=== PATIENT | female | born 1970 | race Caucasian/White ===

== ENCOUNTER 2016-04-03 12:20 | Observation (INO) ==
--- NOTE | 2016-04-03 12:56 | Emergency Department Note ---
START Narrative - START START: I examined this patient and my medical decision-making was reviewed with the LOSS PREVENTION OPERATIONS MANAGER/PA/Advanced Practice Nurse/Resident Physician. I agree with the documented findings, disposition and treatment plan as described except to the extent set forth below. ED attending: Patient's emergency medicine resident Dr. Avila. Please see copy of this note for H&P evaluation and management and ED disposition. We both had independent [id number] time in contact with this patient. 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 Was discharged from a senior living facility yesterday but was too weak to get out of the car that she was put in. Patient will be readmitted to the hospital. We have neonatal social worker consult. Apparently there is preauthorization needed for Medicare regarding physical therapy and occupational therapy assessments.. Patient stable. Admission pending.
--- NOTE | 2016-04-03 13:07 | Emergency Department Note ---
Disposition Clinical Impression: Weakness UTI (urinary tract infection) Qualifiers: Urinary tract infection type: acute cystitis Hematuria presence: without hematuria Qualified Code(s): N30.00 - Acute cystitis without hematuria Disposition: Home, Self-Care Condition: Good Forms: ED Satisfaction Letter Weakness HPI - General Chief complaint: ED Weakness Stated complaint: Weakness Time Seen by Provider: 04/03/16 12:28 Source: patient, EMS Limitations: no limitations Nursing Notes Reviewed: Yes Vital Signs Reviewed: Yes - History of Present Illness HPI Narrative: Patient here for evaluation of generalized weakness. Patient had a CVA approximately 3 months ago and has been staying at long-term rehabilitation facility. Patient was undergoing physical therapy and was discharged yesterday. Patient drove herself home but was unable to get out of the car due to bilateral leg weakness that is chronic in nature but worse after discharge. Patient had slight dysuria that has progressed and is significant during emergency department stay. Saying that it willis very bad. Patient was asked about how she felt about the home with her she was excited or anxious and she does have an underlying anxiety component possibly contributing. Patient is known social work and there are currently placed for placement at long-term care facility. Screening labs and urinalysis be performed to further inquire about possible etiology of worsening weakness. Pain Scale: 10 - Related Data Allergies Allergy/AdvReac Type Severity Reaction Status Date / Time Penicillins Allergy Rash Verified 01/27/16 09:52 Tetracycline Allergy Rash Verified 01/27/16 09:52 All systems ED: reviewed and negative except as stated. Constitutional: Reports: weakness Genitourinary: Reports: dysuria Past Medical History - Past Medical History Medical history: Reports: cancer, CVA, diabetes, thyroid disease Psychiatric history: Reports: no psych history - Social History Smoking Status: Current every day smoker Smokeless Tobacco Status: No Alcohol use: Reports: occasionally Drug use: Reports: none Physical Exam - General Limitations: no limitations General appearance: alert, in no apparent distress - Head Head exam: atraumatic, normocephalic - Eye Eye exam: Present: normal appearance, PERRL - ENT ENT exam: normal exam, normal oropharynx - Neck Neck exam: Present: normal inspection, full ROM - Chest Chest inspection: Present: normal inspection, symmetric chest wall rise. Absent : tenderness - Cardiovascular Cardiovascular exam: Present: regular rate, normal rhythm - Abdominal Exam Abdominal exam: Present: soft, Non-Tender, other (Abdominal chronic wound) - Extremities Exam Extremities exam: Present: normal inspection, other (Weakness of the legs bilaterally.) - Back Exam Back exam: Present: normal inspection - Neurological Exam Neurological exam: Present: alert, oriented X3, CN II-XII intact, other (Lower extremity weakness that is chronic and was being worked on at physical therapy) - Psychiatric Psychiatric exam: Present: normal affect, normal mood - Skin Skin exam: Present: other (Chronic abdominal wound) Course - Reevaluation(s) Reevaluation #1: Patient with [id number] urinary tract infection. Patient will need IV access and admission. - Consultations Consultation #1: Discussed with Dr. Eng. Pt accepted. Vital Signs Temperature 98.3 F 04/03/16 12:21 Pulse Rate 91 04/03/16 12:21 Respiratory Rate 20 04/03/16 12:21 Blood Pressure 131/81 04/03/16 12:21 O2 Sat by Pulse Oximetry 97 04/03/16 12:21 Temperature 98.3 F 04/03/16 12:21 Pulse Rate 86 04/03/16 15:21 Respiratory Rate 20 04/03/16 15:21 Blood Pressure 141/78 04/03/16 15:21 O2 Sat by Pulse Oximetry 95 04/03/16 15:21 Oxygen Delivery Oxygen Delivery Room Air Weakness - Lab Data Result diagrams: 04/03/16 13:44 04/03/16 13:44 Lab Results 04/03/16 04/03/16 04/03/16 Range/Units 13:22 13:44 13:44 WBC 15.1 H (4.3-11.1) K/mcL RBC 5.17 H (3.82-4.97) M/mcL Hgb 15.2 (11.5-15.4) g/dL Hct 46.5 H (35.3-44.9) % MCV 89.9 (83.0-100.0) fL MCH 29.4 (28.0-33.3) pg MCHC 32.7 (31.6-35.5) g/dL RDW 14.9 H (11.5-14.5) % Plt Count 261 (140-400) K/mcL MPV 10.1 (9.4-12.4) fL Immature Gran % 0.6 (0-4) % Seg Neutrophils % 78.4 % Lymphocytes % 14.5 % Monocytes % 5.5 % Eosinophils % 0.7 % Basophils % 0.3 % Neutrophils # 11.8 H (1.6-8.9) K/mcL Lymphocytes # 2.2 (0.6-4.6) K/mcL Monocytes # 0.8 (0.0-1.3) K/mcL Eosinophils # 0.1 (0.0-0.6) K/mcL Basophils # 0.1 (0.0-0.2) K/mcL Sodium 136 (136-145) mEq/L Potassium 4.5 (3.5-4.5) mEq/L Chloride 99 (98-109) mEq/L Carbon Dioxide 25 (19-29) mEq/L BUN 36 H (7-20) mg/dL Creatinine 1.23 H (0.57-1.11) mg/dL Est GFR ( Amer) 57 L (> 60) Est GFR (Non-Af Amer) 47 L (> 60) BUN/Creatinine Ratio 29 H (6-26) Glucose 383 H (70-99) mg/dL Calculated Osmolality 306 H (280-300) Calcium 9.5 (8.6-10.8) mg/dL Total Bilirubin 1.0 (0.2-1.2) mg/dL AST 10 (5-34) Units/L ALT 11 (0-55) Units/L Alkaline Phosphatase 95 (38-126) Units/L Troponin I (0-0.03) ng/mL Serum Total Protein 8.2 (6.0-8.3) g/dL Albumin 3.6 (3.5-5.0) g/dL Globulin 4.6 H (2.4-3.5) g/dL Albumin/Globulin Ratio 0.8 L (1.1-2.2) TSH 5.406 H (0.350-4.840) mcIU/mL Urine Color Yellow (Yellow) Urine Clarity Turbid A (Clear) Urine pH 5.5 (5.0-8.0) pH Units Ur Specific Kyle 1.024 (1.010-1.025) Urine Protein 100 H (Neg-Trace) mg/dL Urine Glucose (UA) Normal (Normal) mg/dL Urine Ketones Negative (Negative) mg/dL Urine Blood Moderate H (Negative) Urine Nitrite Positive A (Negative) Urine Bilirubin Negative (Negative) Urine Urobilinogen Normal (Normal) mg/dL Ur Leukocyte Esterase Large H (Negative) Urine Microscopic RBC 5-15 H (0-3) per hpf Urine Microscopic WBC TNTC H (0-3) per hpf Ur Squamous Epith Cells Moderate H (None-Few) per lpf Urine Bacteria Many H (None-Few) per hpf Ur Culture Indicated? YES A (NO) 04/03/16 Range/Units 13:44 WBC (4.3-11.1) K/mcL RBC (3.82-4.97) M/mcL Hgb (11.5-15.4) g/dL Hct (35.3-44.9) % MCV (83.0-100.0) fL MCH (28.0-33.3) pg MCHC (31.6-35.5) g/dL RDW (11.5-14.5) % Plt Count (140-400) K/mcL MPV (9.4-12.4) fL Immature Gran % (0-4) % Seg Neutrophils % % Lymphocytes % % Monocytes % % Eosinophils % % Basophils % % Neutrophils # (1.6-8.9) K/mcL Lymphocytes # (0.6-4.6) K/mcL Monocytes # (0.0-1.3) K/mcL Eosinophils # (0.0-0.6) K/mcL Basophils # (0.0-0.2) K/mcL Sodium (136-145) mEq/L Potassium (3.5-4.5) mEq/L Chloride (98-109) mEq/L Carbon Dioxide (19-29) mEq/L BUN (7-20) mg/dL Creatinine (0.57-1.11) mg/dL Est GFR ( Amer) (> 60) Est GFR (Non-Af Amer) (> 60) BUN/Creatinine Ratio (6-26) Glucose (70-99) mg/dL Calculated Osmolality (280-300) Calcium (8.6-10.8) mg/dL Total Bilirubin (0.2-1.2) mg/dL AST (5-34) Units/L ALT (0-55) Units/L Alkaline Phosphatase (38-126) Units/L Troponin I 0.01 (0-0.03) ng/mL Serum Total Protein (6.0-8.3) g/dL Albumin (3.5-5.0) g/dL Globulin (2.4-3.5) g/dL Albumin/Globulin Ratio (1.1-2.2) TSH (0.350-4.840) mcIU/mL Urine Color (Yellow) Urine Clarity (Clear) Urine pH (5.0-8.0) pH Units Ur Specific Kyle (1.010-1.025) Urine Protein (Neg-Trace) mg/dL Urine Glucose (UA) (Normal) mg/dL Urine Ketones (Negative) mg/dL Urine Blood (Negative) Urine Nitrite (Negative) Urine Bilirubin (Negative) Urine Urobilinogen (Normal) mg/dL Ur Leukocyte Esterase (Negative) Urine Microscopic RBC (0-3) per hpf Urine Microscopic WBC (0-3) per hpf Ur Squamous Epith Cells (None-Few) per lpf Urine Bacteria (None-Few) per hpf Ur Culture Indicated? (NO)
[2016-04-03 13:35] LABS: Clarity,Urine Turbid (Clear); Color,Urine Yellow (Yellow)
[2016-04-03 13:36] LABS: Bilirubin,Urine Negative (Negative); Blood,Urine Moderate (Negative); Glucose,Urine (UA) Normal (Normal); Ketones,Urine Negative (Negative); Leukocyte Esterase,Urine Large (Negative); Nitrite,Urine Positive (Negative); PH,Urine 5.5 pH Units (5.0-8.0); Protein,Urine 100 mg/dL (Neg-Trace); Specific Gravity,Urine 1.024 (1.010-1.025); Urobilinogen,Urine Normal (Normal)
[2016-04-03 13:43] LABS: WBC,Urine TNTC per hpf (0-3)
[2016-04-03 13:44] LABS: Bacteria,Urine Many per hpf (None-Few); Squamous Epithelial Cell,Urine Moderate per lpf (None-Few)
[2016-04-03 13:58] LABS: Basophils # 0.1 K/mcL (0.0-0.2); Basophils % 0.3 %; Eosinophils # 0.1 K/mcL (0.0-0.6); Eosinophils % 0.7 %; Hematocrit 46.5 % (35.3-44.9); Hemoglobin 15.2 g/dL (11.5-15.4); Immature Granulocytes % 0.6 % (0-4); Lymphocytes # 2.2 K/mcL (0.6-4.6); Lymphocytes % 14.5 %; Mean Corpuscular HGB Conc 32.7 g/dL (31.6-35.5); Mean Corpuscular Hemoglobin 29.4 pg (28.0-33.3); Mean Corpuscular Volume 89.9 fL (83.0-100.0); Mean Platelet Volume 10.1 fL (9.4-12.4); Monocytes # 0.8 K/mcL (0.0-1.3); Monocytes % 5.5 %; Neutrophils # 11.8 K/mcL (1.6-8.9); Platelet Count 261 K/mcL (140-400); Red Blood Count 5.17 M/mcL (3.82-4.97); Red Cell Distribution Width 14.9 % (11.5-14.5); Segmented Neutrophils % 78.4 %
[2016-04-03 14:14] LABS: Albumin 3.6 g/dL (3.5-5.0); Albumin/Globulin Ratio 0.8 (1.1-2.2); Calcium 9.5 mg/dL (8.6-10.8); Globulin 4.6 g/dL (2.4-3.5); Potassium 4.5 mEq/L (3.5-4.5); Total Protein 8.2 g/dL (6.0-8.3)
[2016-04-03 14:35] LABS: Thyroid Stimulating Hormone 5.406 mcIU/mL (0.350-4.840)
[2016-04-03] MEDS ORDERED: Insulin Regular, Human 100 UNIT/ML SQ ONE (14:45)
[2016-04-03] MEDS ORDERED: Cefepime HCl 1,000 MG in D5% in Water (Mini-Bag+) 100 ML IVPB STA (14:51)
[2016-04-03] MEDS ORDERED: Naloxone 0.4 MG/ML INJ IVP PRN (15:41)
[2016-04-03] MEDS ORDERED: Acetaminophen 325 MG TABLET PO PRN (15:41)
[2016-04-03] MEDS ORDERED: Ondansetron 4 MG/2 ML VIAL IVP PRN (15:41)
[2016-04-03] MEDS ORDERED: *HR* Dextrose 50 % in Water (Syg) 50 ML SYRINGE IVP PRN (15:46)
[2016-04-03] MEDS ORDERED: Dextrose Gel 15 GM PO PRN ×2 (15:46)
[2016-04-03] MEDS ORDERED: D5% in Water 1,000 ML IV PRN (15:46)
--- NOTE | 2016-04-03 16:38 | Internal Med History&Physical ---
Date of Encounter: 04/03/16 Time of Encounter: 15:30 Assessment and Plan (1) Acute kidney injury Current visit: Yes Status: Acute Acute kidney injury likely related to UTI and dehydration. We will hydrate intravenously. Monitor input and output. Follow renal function. Avoid nephrotoxic agents. Patient could also have underlying chronic kidney disease related to her diabetes. Unknown baseline creatinine levels. Patient does report good urine output. Will place patient for observation in the hospital. (2) Morbid obesity with BMI of 60.0-69.9, adult Current visit: Yes Status: Acute Recommend exercise and weight loss and consideration for bariatric surgery. (3) UTI (urinary tract infection) Current visit: Yes Status: Acute Previously treated for Proteus resistant to fluoroquinolones and sensitive to cefepime. Will start patient on cefepime for now. Follow culture results and adjust antibiotics accordingly. Qualifiers: Urinary tract infection type: acute cystitis Hematuria presence: without hematuria Qualified Code(s): N30.00 - Acute cystitis without hematuria (4) Weakness Current visit: Yes Status: Acute Likely from acute urinary tract infection and dehydration. We will consult physical therapy and occupational therapy. (5) Diabetes mellitus type 2 with complications Current visit: Yes Status: Acute With hyperglycemia. We will place patient on sliding scale insulin. Diabetic diet. Monitor blood sugars closely before meals at bedtime. Qualifiers: Diabetes mellitus prison insulin use: unspecified prison insulin use status Qualified Code(s): E11.8 - Type 2 diabetes mellitus with unspecified complications Internal Medicine - H&P: HPI Chief complaint: Generalized weakness, dysuria Admitted From: Home Plans for Post Hospital Care: Home History of present illness: Ms. Cat is a 45 year old female with history of genital cancer, morbid obesity, diabetes mellitus type 2 presented to the ER from home with complaints of generalized weakness to the point where she was unable to get out of her car and slept in her car yesterday. She had just been discharged from the [place] [facility] with living for the past couple of months for rehabilitation. She also complains of dysuria but does not remember any fevers chills or night sweats. Denies any hematuria. She has nausea but no vomiting. She also feels weak especially in her right leg which she was receiving physical therapy. Denies any other focal deficits.No speech deficits. No chest pain or palpitations. Past Med Surg Social Fam HX - Past Medical History Medical history: cancer (in her pelvic region), CVA, diabetes, thyroid disease Psychiatric history: no psych history - Past Surgical History Surgical History: other (Pelvic surgery for her cancer, hernia repair) - Social History Smoking Status: Current every day smoker Smokeless Tobacco Status: No Alcohol use: occasionally Drug use: none - Additional Family History Additional family history: Reviewed and found to be noncontributory at this time Internal Medicine - H&P: Meds Albuterol Sulfate [Ventolin Hfa] 2 puff IH Q4H PRN 04/03/16 [History] Alprazolam [Xanax 0.5 MG Tablet] 0.5 mg PO TID PRN 04/03/16 [History] Atorvastatin Calcium [Lipitor] 20 mg PO HS 04/03/16 [History] Beclomethasone Diprop 80mcg [Qvar 80 mcg] 2 puff IH BID 04/03/16 [History] BuPROPion SR (12 HR) [Wellbutrin SR] 100 mg PO BID 04/03/16 [History] Cyanocobalamin (B-12) [Vitamin B12] 1,000 mcg PO DAILY 04/03/16 [History] Fluticasone Propionate Nasal [Flonase] 1 - 2 spray NS DAILY PRN 04/03/16 [ History] Gabapentin [Neurontin] 400 mg PO TID 04/03/16 [History] Insulin DETEMIR [Levemir Flextouch] 0 unit SQ AD 04/03/16 [History] Insulin Regular U-500 [HumuLIN R U-500] 0 unit SQ QIDAC 04/03/16 [History] Levothyroxine Sodium [Levoxyl] 200 mcg PO DAILY 04/03/16 [History] Levothyroxine [Synthroid] 150 mcg PO DAILY 04/03/16 [History] Loratadine [Allergy Relief] 10 mg PO DAILY 04/03/16 [History] Metformin HCl [Glucophage] 1,000 mg PO BID 04/03/16 [History] Mometasone Furoate [Asmanex] 2 puff IH BID 04/03/16 [History] Oxycodone HCl [Oxycontin] 20 mg PO Q4H PRN 04/03/16 [History] Ranitidine HCl [Acid [employer] Examiner] 150 mg PO BID 04/03/16 [History] Trazodone HCl 100 mg PO HS 04/03/16 [History] Triamcinolone Acet 0.1% CRM [Kenalog] 1 appl TP BID 04/03/16 [History] Allergies Penicillins Allergy (Verified 01/27/16 09:52) Rash Tetracycline Allergy (Verified 01/27/16 09:52) Rash All Systems PM: A 10-system review of systems was performed and is negative for pertinent findings except as documented above in the HPI. - Constitutional Constitutional: malaise, weakness, no chills, no fever(s), no night sweats - EENT Eyes: no change in vision, no discharge, no pain, no photophobia Ears: no ear discharge, no ear pain, no tinnitus Nose, mouth and throat: no dysphagia, no nasal discharge, no neck pain, no sore throat - Cardiovascular Cardiovascular ROS IM: no chest pain, no diaphoresis, no dyspnea, no lightheadedness, no palpitations, no syncope - Respiratory Respiratory: no cough, no dyspnea, no wheezing, no excessive phlegm production - Gastrointestinal Gastrointestinal: nausea, no abdominal pain, no diarrhea, no hematemesis, no hematochezia, no melena, no vomiting - Genitourinary Genitourinary: dysuria, urinary hesitancy - Musculoskeletal Musculoskeletal ROS IM: no numbness, no tingling - Integumentary Integumentary IM: no rash, no unusual bruising - Neurological Neurological ROS: no confusion, no convulsions, no focal weakness, no numbness, no tingling, no tremor(s) - Hematologic/Lymphatic Hematologic/Lymphatic: no easy bruising - Constitutional Vitals: Temp Pulse Resp BP Pulse Ox 98.3 F 86 20 141/78 95 04/03/16 12:21 04/03/16 15:21 04/03/16 15:21 04/03/16 15:21 04/03/16 15:21 General appearance: Present: cooperative, mild distress, A&O X 3, morbidly obese , pleasant, answers questions appropriately - Head Head exam: Present: atraumatic, normocephalic - Eye Eye exam: Present: EOMI, PERRL, conjuntiva pink Pupils: Present: normal accommodation - Neck Neck exam general surgery: Present: supple, trachea midline. Absent: lymphadenopathy - Respiratory Respiratory exam: Present: CTAB. Absent: accessory muscle use, rales, rhonchi, wheezes - Cardiovascular Cardiovascular exam: Present: RRR, +S1, +S2. Absent: diastolic murmur, gallop, rubs, systolic murmur - GI/Abdominal GI/Abdominal exam: Present: normal bowel sounds, soft, no peritoneal signs. Absent: distended, tenderness - Extremities Exam Extremities exam: Present: warm, radial pulses palpable and symetrical. Absent : calf tenderness, cyanotic, pedal edema - Neurological Exam Neurological exam: Present: CN II-XII intact, oriented X3, no focal deficits, strengths equal and symetr throughout. Absent: facial droop, speech deficit - Skin Skin exam: Present: dry, intact Internal Med - H&P Results - Labs CBC & Chem 7: 04/03/16 13:44 04/03/16 13:44 - Attending Attestation This document has been at least partially created by [employer] voice recognition technology by Dr. Gustafson. Errors in grammar, wording or other phrases may exist. If errors are found after the documentation is signed, they will be addressed individually in the addendum section of this document when appropriate. Medical Decision Making - MDM Narrative Medical decision making narrative: Patient is at moderate risk for complications - Medical Records Medical records reviewed: Yes I reviewed the patient's medical records. - Lab Data Lab results reviewed: Yes I reviewed the patient's lab results. Result diagrams: 04/03/16 13:44 04/03/16 13:44
[2016-04-03] MEDS: 0.9 % Sodium Chloride 1,000 ML IVC SCH (18:09)
[2016-04-03] MEDS: Insulin LISPRO 300 UNITS/3 ML VIAL SQ SCH ×3 (18:10→21:15)
[2016-04-03] MEDS ORDERED: Fluticasone Propionate Nasal 50 MCG/SPRAY BOTTLE NS PRN (18:56)
[2016-04-03] MEDS ORDERED: Ipratropium/Albuterol Neb 3 ML IH PRN (18:58)
[2016-04-03] MEDS ORDERED: NON-FORMULARY MEDICATION 1 EACH EACH (Ranitidine Hcl [Acid Reducer] 150 MG) PO SCH (21:00)
[2016-04-03] MEDS: Famotidine 20 MG TABLET PO SCH (21:10)
[2016-04-03] MEDS: traZODone 50 MG TABLET PO SCH (21:11)
[2016-04-03] MEDS: Gabapentin 400 MG CAPSULE PO SCH (21:12)
[2016-04-03] MEDS: BuPROPion SR (12 HR) 100 MG TABLET PO SCH (21:14)
[2016-04-03] MEDS: Triamcinolone Acet 0.1% CRM 15 GM TUBE TP SCH (21:14)
[2016-04-03] MEDS: *HR* OxyCODONE ER (12 HR) 20 MG TABLET PO PRN (21:23)
[2016-04-03] MEDS: Beclomethasone 80mcg MDI IH SCH (22:51)
[2016-04-03] MEDS: ALPRAZolam 0.5 MG TABLET PO PRN (23:48)
[2016-04-04] MEDS: 0.9 % Sodium Chloride 1,000 ML IVC SCH ×2 (04:31→15:45)
[2016-04-04] MEDS: Cefepime HCl 2,000 MG in D5% in Water (Mini-Bag+) 100 ML IVPB SCH ×2 (04:32→17:47)
[2016-04-04 05:01] LABS: Basophils % 0.4 %; Eosinophils # 0.2 K/mcL (0.0-0.6); Eosinophils % 2.2 %; Hematocrit 41.3 % (35.3-44.9); Hemoglobin 13.5 g/dL (11.5-15.4); Lymphocytes # 2.1 K/mcL (0.6-4.6); Lymphocytes % 21.8 %; Mean Corpuscular HGB Conc 32.7 g/dL (31.6-35.5); Mean Corpuscular Hemoglobin 29.2 pg (28.0-33.3); Mean Corpuscular Volume 89.4 fL (83.0-100.0); Mean Platelet Volume 10.2 fL (9.4-12.4); Monocytes # 0.6 K/mcL (0.0-1.3); Monocytes % 5.6 %; Neutrophils # 6.8 K/mcL (1.6-8.9); Platelet Count 220 K/mcL (140-400); Red Blood Count 4.62 M/mcL (3.82-4.97); Red Cell Distribution Width 14.9 % (11.5-14.5)
[2016-04-04 05:26] LABS: BUN/Creatinine Ratio 33 (6-26); Blood Urea Nitrogen 30 mg/dL (7-20); Calcium 8.7 mg/dL (8.6-10.8); Carbon Dioxide 24 mEq/L (19-29); Chloride 103 mEq/L (98-109); Glucose 360 mg/dL (70-99); Osmolality,Calculated 309 (280-300); Potassium 4.1 mEq/L (3.5-4.5); Sodium 139 mEq/L (136-145); eGFR For African Americans > 60 (> 60); eGFR For Non-African Americans > 60 (> 60)
[2016-04-04] MEDS: Gabapentin 400 MG CAPSULE PO SCH ×3 (08:20→21:34)
[2016-04-04] MEDS: Insulin LISPRO 300 UNITS/3 ML VIAL SQ SCH ×7 (08:20→21:33)
[2016-04-04] MEDS: BuPROPion SR (12 HR) 100 MG TABLET PO SCH ×2 (08:20→21:35)
[2016-04-04] MEDS: Cyanocobalamin (B-12) 1,000 MCG TABLET PO SCH (08:20)
[2016-04-04] MEDS: Famotidine 20 MG TABLET PO SCH ×2 (08:20→21:35)
[2016-04-04] MEDS: Loratadine 10 MG TABLET PO SCH (08:20)
[2016-04-04] MEDS: Triamcinolone Acet 0.1% CRM 15 GM TUBE TP SCH ×2 (08:21→21:34)
[2016-04-04] MEDS: *HR* OxyCODONE ER (12 HR) 20 MG TABLET PO PRN (09:25)
[2016-04-04] MEDS: Beclomethasone 80mcg MDI IH SCH ×2 (10:56→22:14)
--- NOTE | 2016-04-04 14:55 | Internal Med Progress Note ---
Date of Encounter: 04/04/16 Time of Encounter: 14:56 - Assessment and plan (1) UTI (urinary tract infection) Current Visit: Yes Status: Acute Assessment and plan: With gram-negative rods on urine culture. Continue cefepime for now. Will follow up culture results. Patient is clinically feeling better. Qualifiers: Urinary tract infection type: acute cystitis Hematuria presence: without hematuria Qualified Code(s): N30.00 - Acute cystitis without hematuria (2) Acute kidney injury Current Visit: Yes Status: Resolved Assessment and plan: Improved. Creatinine normal today. BUN remains elevated. Continue IV hydration. (3) Morbid obesity with BMI of 60.0-69.9, adult Current Visit: Yes Status: Chronic Assessment and plan: Recommend outpatient referral to weight management Center. (4) Weakness Current Visit: Yes Status: Acute Assessment and plan: Generalized weakness. PT OT consulted. Recommend placement to residential facility. We will consult social services coordinator regarding this. (5) Diabetes mellitus type 2 with complications Current Visit: Yes Status: Acute Assessment and plan: Uncontrolled. Will increase insulin coverage. Qualifiers: Diabetes mellitus terminal operator insulin use: unspecified usp insulin use status Qualified Code(s): E11.8 - Type 2 diabetes mellitus with unspecified complications - Subjective Interval history: Patient is doing better today. Dysuria is improving. Denies any fever or chills or night sweats overnight. No abdominal pain. No nausea or vomiting today. - Constitutional Vitals: Temp Pulse Resp BP Pulse Ox 97.2 F L 84 17 148/81 93 L 04/04/16 11:08 04/04/16 11:08 04/04/16 11:08 04/04/16 11:08 04/04/16 11:08 General appearance: Present: cooperative, A&O X 3, morbidly obese, pleasant, no acute distress, answers questions appropriately - Neck Neck exam general surgery: Present: supple, trachea midline. Absent: lymphadenopathy - Respiratory Respiratory exam: Present: CTAB. Absent: accessory muscle use, rales, rhonchi, wheezes - Cardiovascular Cardiovascular exam: Present: RRR, +S1, +S2. Absent: diastolic murmur, gallop, rubs, systolic murmur - GI/Abdominal GI/Abdominal exam: Present: normal bowel sounds, soft, no peritoneal signs. Absent: distended, tenderness - Extremities Exam Extremities exam: Present: warm, radial pulses palpable and symetrical. Absent : calf tenderness, cyanotic, pedal edema - Neurological Exam Neurological exam: Present: CN II-XII intact, oriented X3, no focal deficits. Absent: facial droop, speech deficit - Psychiatric Psychiatric exam: Present: normal affect, normal mood - Skin Skin exam: Present: dry, intact Internal Medicine: Result - Labs CBC & Chem 7: 04/04/16 04:23 04/04/16 04:23 Labs: Short CBC 04/04/16 Range/Units 04:23 WBC 9.8 (4.3-11.1) K/mcL Hgb 13.5 D (11.5-15.4) g/dL Hct 41.3 (35.3-44.9) % Plt Count 220 (140-400) K/mcL Neutrophils # 6.8 (1.6-8.9) K/mcL BMP 04/04/16 04:23 Sodium 139 Potassium 4.1 Chloride 103 Carbon Dioxide 24 BUN 30 H Creatinine 0.91 Glucose 360 H Calcium 8.7 Consult Discharge Plan - Plan Referrals: Carley Barth DO [Primary Care Provider] - - Attending Attestation This document has been at least partially created by [employer] recognition technology by Dr. Gustafson. Errors in grammar, wording or other phrases may exist. If errors are found after the documentation is signed, they will be addressed individually in the addendum section of this document when appropriate. Medical Decision Making - MDM Narrative Medical decision making narrative: Moderate risk for complications - Lab Data Result diagrams: 04/04/16 04:23 04/04/16 04:23 Lab Results 04/03/16 04/03/16 04/04/16 Range/Units 17:32 20:53 04:23 WBC 9.8 (4.3-11.1) K/mcL RBC 4.62 (3.82-4.97) M/mcL Hgb 13.5 D (11.5-15.4) g/dL Hct 41.3 (35.3-44.9) % MCV 89.4 (83.0-100.0) fL MCH 29.2 (28.0-33.3) pg MCHC 32.7 (31.6-35.5) g/dL RDW 14.9 H (11.5-14.5) % Plt Count 220 (140-400) K/mcL MPV 10.2 (9.4-12.4) fL Immature Gran % 1.0 (0-4) % Seg Neutrophils % 69.0 % Lymphocytes % 21.8 % Monocytes % 5.6 % Eosinophils % 2.2 % Basophils % 0.4 % Neutrophils # 6.8 (1.6-8.9) K/mcL Lymphocytes # 2.1 (0.6-4.6) K/mcL Monocytes # 0.6 (0.0-1.3) K/mcL Eosinophils # 0.2 (0.0-0.6) K/mcL Basophils # 0.0 (0.0-0.2) K/mcL Sodium (136-145) mEq/L Potassium (3.5-4.5) mEq/L Chloride (98-109) mEq/L Carbon Dioxide (19-29) mEq/L BUN (7-20) mg/dL Creatinine (0.57-1.11) mg/dL Est GFR ( Amer) (> 60) Est GFR (Non-Af Amer) (> 60) BUN/Creatinine Ratio (6-26) Glucose (70-99) mg/dL POC Glucose 353 H 251 H (58-89) Calculated Osmolality (280-300) Calcium (8.6-10.8) mg/dL 04/04/16 04/04/16 04/04/16 Range/Units 04:23 07:45 11:33 WBC (4.3-11.1) K/mcL RBC (3.82-4.97) M/mcL Hgb (11.5-15.4) g/dL Hct (35.3-44.9) % MCV (83.0-100.0) fL MCH (28.0-33.3) pg MCHC (31.6-35.5) g/dL RDW (11.5-14.5) % Plt Count (140-400) K/mcL MPV (9.4-12.4) fL Immature Gran % (0-4) % Seg Neutrophils % % Lymphocytes % % Monocytes % % Eosinophils % % Basophils % % Neutrophils # (1.6-8.9) K/mcL Lymphocytes # (0.6-4.6) K/mcL Monocytes # (0.0-1.3) K/mcL Eosinophils # (0.0-0.6) K/mcL Basophils # (0.0-0.2) K/mcL Sodium 139 (136-145) mEq/L Potassium 4.1 (3.5-4.5) mEq/L Chloride 103 (98-109) mEq/L Carbon Dioxide 24 (19-29) mEq/L BUN 30 H (7-20) mg/dL Creatinine 0.91 (0.57-1.11) mg/dL Est GFR ( Amer) > 60 (> 60) Est GFR (Non-Af Amer) > 60 (> 60) BUN/Creatinine Ratio 33 H (6-26) Glucose 360 H (70-99) mg/dL POC Glucose 327 H 303 H (58-89) Calculated Osmolality 309 H (280-300) Calcium 8.7 (8.6-10.8) mg/dL
[2016-04-04] MEDS: *HR* OxyCODONE Immed Rel 5 MG TABLET PO PRN ×2 (15:43→20:01)
[2016-04-04] MEDS: ALPRAZolam 0.5 MG TABLET PO PRN (15:44)
--- NOTE | 2016-04-04 16:04 | Electrocardiograph Report ---
[facility] Test Date: 2016-04-03 Pat Name: Anali Cat Department: 104 Room: 3B55 Gender: F Dive Superintendent: : 1970 Requested By: Jose Alfredo Avila Order Number: [id number] Reading MD: Zaida Spicer Measurements Intervals [place] Rate: 89 P: 37 VA: 152 QRS: 55 QRSD: 89 T: 79 QT: 319 QTc: 366 Interpretive Statements SINUS RHYTHM WITH SINUS ARRHYTHMIA NONSPECIFIC T-WAVE ABNORMALITY Electronically Signed On 04-04-16 16:02:58 EST by Zaida Spicer
[2016-04-04] MEDS: Insulin DETEMIR 100 UNIT/ML X5UNITS SQ SCH (21:33)
[2016-04-04] MEDS: traZODone 50 MG TABLET PO SCH (21:35)
[2016-04-05] MEDS: *HR* OxyCODONE Immed Rel 5 MG TABLET PO PRN ×3 (03:19→18:33)
[2016-04-05 03:40] LABS: Basophils % 0.4 %; Eosinophils # 0.2 K/mcL (0.0-0.6); Eosinophils % 2.7 %; Hematocrit 40.7 % (35.3-44.9); Lymphocytes # 1.1 K/mcL (0.6-4.6); Lymphocytes % 13.1 %; Mean Corpuscular HGB Conc 31.9 g/dL (31.6-35.5); Mean Corpuscular Hemoglobin 29.2 pg (28.0-33.3); Mean Corpuscular Volume 91.5 fL (83.0-100.0); Mean Platelet Volume 10.4 fL (9.4-12.4); Monocytes # 0.5 K/mcL (0.0-1.3); Monocytes % 5.7 %; Neutrophils # 6.4 K/mcL (1.6-8.9); Platelet Count 208 K/mcL (140-400); Red Blood Count 4.45 M/mcL (3.82-4.97); Red Cell Distribution Width 14.8 % (11.5-14.5); Segmented Neutrophils % 77.1 %
[2016-04-05 03:58] LABS: BUN/Creatinine Ratio 25 (6-26); Blood Urea Nitrogen 24 mg/dL (7-20); Calcium 8.5 mg/dL (8.6-10.8); Carbon Dioxide 25 mEq/L (19-29); Chloride 104 mEq/L (98-109); Glucose 341 mg/dL (70-99); Osmolality,Calculated 308 (280-300); Potassium 4.6 mEq/L (3.5-4.5); Sodium 140 mEq/L (136-145); eGFR For African Americans > 60 (> 60); eGFR For Non-African Americans > 60 (> 60)
[2016-04-05] MEDS: Cefepime HCl 2,000 MG in D5% in Water (Mini-Bag+) 100 ML IVPB SCH ×2 (04:30→18:13)
[2016-04-05] MEDS: 0.9 % Sodium Chloride 1,000 ML IVC SCH (04:33)
[2016-04-05] MEDS: Beclomethasone 80mcg MDI IH SCH ×2 (08:21→22:49)
[2016-04-05] MEDS: Famotidine 20 MG TABLET PO SCH ×2 (08:42→20:15)
[2016-04-05] MEDS: Cyanocobalamin (B-12) 1,000 MCG TABLET PO SCH (08:42)
[2016-04-05] MEDS: Loratadine 10 MG TABLET PO SCH (08:42)
[2016-04-05] MEDS: BuPROPion SR (12 HR) 100 MG TABLET PO SCH ×2 (08:42→20:14)
[2016-04-05] MEDS: Triamcinolone Acet 0.1% CRM 15 GM TUBE TP SCH ×2 (08:42→20:16)
[2016-04-05] MEDS: Gabapentin 400 MG CAPSULE PO SCH ×3 (08:42→20:14)
[2016-04-05] MEDS: Insulin LISPRO 300 UNITS/3 ML VIAL SQ SCH ×7 (08:43→20:16)
[2016-04-05] MEDS: ALPRAZolam 0.5 MG TABLET PO PRN ×2 (08:48→18:33)
[2016-04-05] MEDS: Insulin DETEMIR 100 UNIT/ML X5UNITS SQ SCH ×2 (09:01→20:15)
--- NOTE | 2016-04-05 15:12 | Internal Med Progress Note ---
Date of Encounter: 04/05/16 Time of Encounter: 08:50 - Assessment and plan (1) UTI (urinary tract infection) Current Visit: Yes Status: Acute Assessment and plan: Awaiting culture results. Patient is growing gram-negative rods. This needs further testing according to the lab. Concern for resistant bacteria. As such we will keep the patient hospitalized and her culture results are positive and we have an appropriate antibiotic treatment plan for the patient. Qualifiers: Urinary tract infection type: acute cystitis Hematuria presence: without hematuria Qualified Code(s): N30.00 - Acute cystitis without hematuria (2) Acute kidney injury Current Visit: Yes Status: Resolved (3) Morbid obesity with BMI of 60.0-69.9, adult Current Visit: Yes Status: Chronic (4) Weakness Current Visit: Yes Status: Acute Assessment and plan: Continue PTOT. Placement to skilled rehabilitation. (5) Diabetes mellitus type 2 with complications Current Visit: Yes Status: Acute Assessment and plan: Remains uncontrolled. We will further increase in insulin regimen. Qualifiers: Diabetes mellitus penitentiary insulin use: unspecified penitentiary insulin use status Qualified Code(s): E11.8 - Type 2 diabetes mellitus with unspecified complications - Subjective Interval history: Continues to improve. Dysuria resolving. Denies any fever or chills or night sweats. No abdominal pain. No nausea or vomiting today. - Constitutional Vitals: Temp Pulse Resp BP Pulse Ox 97.7 F 96 17 137/76 98 04/05/16 14:48 04/05/16 14:48 04/05/16 14:48 04/05/16 14:48 04/05/16 14:48 General appearance: Present: cooperative, A&O X 3, morbidly obese, pleasant, no acute distress, answers questions appropriately - Respiratory Respiratory exam: Present: CTAB. Absent: accessory muscle use, rales, rhonchi, wheezes - Cardiovascular Cardiovascular exam: Present: RRR, +S1, +S2. Absent: diastolic murmur, gallop, rubs, systolic murmur - GI/Abdominal GI/Abdominal exam: Present: normal bowel sounds, soft, no peritoneal signs. Absent: distended, tenderness - Extremities Exam Extremities exam: Present: warm, radial pulses palpable and symetrical. Absent : calf tenderness, cyanotic, pedal edema - Neurological Exam Neurological exam: Present: oriented X3, no focal deficits, strengths equal and symetr throughout. Absent: facial droop, speech deficit - Skin Skin exam: Present: dry, intact Internal Medicine: Result - Labs CBC & Chem 7: 04/05/16 03:25 04/05/16 03:25 Labs: Short CBC 04/05/16 Range/Units 03:25 WBC 8.3 (4.3-11.1) K/mcL Hgb 13.0 (11.5-15.4) g/dL Hct 40.7 (35.3-44.9) % Plt Count 208 (140-400) K/mcL Neutrophils # 6.4 (1.6-8.9) K/mcL BMP 04/05/16 03:25 Sodium 140 Potassium 4.6 H Chloride 104 Carbon Dioxide 25 BUN 24 H Creatinine 0.95 Glucose 341 H Calcium 8.5 L Consult Discharge Plan - Plan Referrals: Carley Barth DO [Primary Care Provider] - - Attending Attestation This document has been at least partially created by [employer] recognition technology by Dr. Gustafson. Errors in grammar, wording or other phrases may exist. If errors are found after the documentation is signed, they will be addressed individually in the addendum section of this document when appropriate. Medical Decision Making - MDM Narrative Medical decision making narrative: Moderate risk for complications - Lab Data Result diagrams: 04/05/16 03:25 04/05/16 03:25 Lab Results 04/03/16 04/03/16 04/04/16 Range/Units 17:32 20:53 04:23 WBC 9.8 (4.3-11.1) K/mcL RBC 4.62 (3.82-4.97) M/mcL Hgb 13.5 D (11.5-15.4) g/dL Hct 41.3 (35.3-44.9) % MCV 89.4 (83.0-100.0) fL MCH 29.2 (28.0-33.3) pg MCHC 32.7 (31.6-35.5) g/dL RDW 14.9 H (11.5-14.5) % Plt Count 220 (140-400) K/mcL MPV 10.2 (9.4-12.4) fL Immature Gran % 1.0 (0-4) % Seg Neutrophils % 69.0 % Lymphocytes % 21.8 % Monocytes % 5.6 % Eosinophils % 2.2 % Basophils % 0.4 % Neutrophils # 6.8 (1.6-8.9) K/mcL Lymphocytes # 2.1 (0.6-4.6) K/mcL Monocytes # 0.6 (0.0-1.3) K/mcL Eosinophils # 0.2 (0.0-0.6) K/mcL Basophils # 0.0 (0.0-0.2) K/mcL Sodium (136-145) mEq/L Potassium (3.5-4.5) mEq/L Chloride (98-109) mEq/L Carbon Dioxide (19-29) mEq/L BUN (7-20) mg/dL Creatinine (0.57-1.11) mg/dL Est GFR ( Amer) (> 60) Est GFR (Non-Af Amer) (> 60) BUN/Creatinine Ratio (6-26) Glucose (70-99) mg/dL POC Glucose 353 H 251 H (58-89) Calculated Osmolality (280-300) Calcium (8.6-10.8) mg/dL 04/04/16 04/04/16 04/04/16 Range/Units 04:23 07:45 11:33 WBC (4.3-11.1) K/mcL RBC (3.82-4.97) M/mcL Hgb (11.5-15.4) g/dL Hct (35.3-44.9) % MCV (83.0-100.0) fL MCH (28.0-33.3) pg MCHC (31.6-35.5) g/dL RDW (11.5-14.5) % Plt Count (140-400) K/mcL MPV (9.4-12.4) fL Immature Gran % (0-4) % Seg Neutrophils % % Lymphocytes % % Monocytes % % Eosinophils % % Basophils % % Neutrophils # (1.6-8.9) K/mcL Lymphocytes # (0.6-4.6) K/mcL Monocytes # (0.0-1.3) K/mcL Eosinophils # (0.0-0.6) K/mcL Basophils # (0.0-0.2) K/mcL Sodium 139 (136-145) mEq/L Potassium 4.1 (3.5-4.5) mEq/L Chloride 103 (98-109) mEq/L Carbon Dioxide 24 (19-29) mEq/L BUN 30 H (7-20) mg/dL Creatinine 0.91 (0.57-1.11) mg/dL Est GFR ( Amer) > 60 (> 60) Est GFR (Non-Af Amer) > 60 (> 60) BUN/Creatinine Ratio 33 H (6-26) Glucose 360 H (70-99) mg/dL POC Glucose 327 H 303 H (58-89) Calculated Osmolality 309 H (280-300) Calcium 8.7 (8.6-10.8) mg/dL 04/04/16 04/04/16 04/05/16 Range/Units 16:36 20:40 03:25 WBC 8.3 (4.3-11.1) K/mcL RBC 4.45 (3.82-4.97) M/mcL Hgb 13.0 (11.5-15.4) g/dL Hct 40.7 (35.3-44.9) % MCV 91.5 (83.0-100.0) fL MCH 29.2 (28.0-33.3) pg MCHC 31.9 (31.6-35.5) g/dL RDW 14.8 H (11.5-14.5) % Plt Count 208 (140-400) K/mcL MPV 10.4 (9.4-12.4) fL Immature Gran % 1.0 (0-4) % Seg Neutrophils % 77.1 % Lymphocytes % 13.1 % Monocytes % 5.7 % Eosinophils % 2.7 % Basophils % 0.4 % Neutrophils # 6.4 (1.6-8.9) K/mcL Lymphocytes # 1.1 (0.6-4.6) K/mcL Monocytes # 0.5 (0.0-1.3) K/mcL Eosinophils # 0.2 (0.0-0.6) K/mcL Basophils # 0.0 (0.0-0.2) K/mcL Sodium (136-145) mEq/L Potassium (3.5-4.5) mEq/L Chloride (98-109) mEq/L Carbon Dioxide (19-29) mEq/L BUN (7-20) mg/dL Creatinine (0.57-1.11) mg/dL Est GFR ( Amer) (> 60) Est GFR (Non-Af Amer) (> 60) BUN/Creatinine Ratio (6-26) Glucose (70-99) mg/dL POC Glucose 331 H 304 H (58-89) Calculated Osmolality (280-300) Calcium (8.6-10.8) mg/dL 04/05/16 Range/Units 03:25 WBC (4.3-11.1) K/mcL RBC (3.82-4.97) M/mcL Hgb (11.5-15.4) g/dL Hct (35.3-44.9) % MCV (83.0-100.0) fL MCH (28.0-33.3) pg MCHC (31.6-35.5) g/dL RDW (11.5-14.5) % Plt Count (140-400) K/mcL MPV (9.4-12.4) fL Immature Gran % (0-4) % Seg Neutrophils % % Lymphocytes % % Monocytes % % Eosinophils % % Basophils % % Neutrophils # (1.6-8.9) K/mcL Lymphocytes # (0.6-4.6) K/mcL Monocytes # (0.0-1.3) K/mcL Eosinophils # (0.0-0.6) K/mcL Basophils # (0.0-0.2) K/mcL Sodium 140 (136-145) mEq/L Potassium 4.6 H (3.5-4.5) mEq/L Chloride 104 (98-109) mEq/L Carbon Dioxide 25 (19-29) mEq/L BUN 24 H (7-20) mg/dL Creatinine 0.95 (0.57-1.11) mg/dL Est GFR ( Amer) > 60 (> 60) Est GFR (Non-Af Amer) > 60 (> 60) BUN/Creatinine Ratio 25 (6-26) Glucose 341 H (70-99) mg/dL POC Glucose (58-89) Calculated Osmolality 308 H (280-300) Calcium 8.5 L (8.6-10.8) mg/dL
[2016-04-05] MEDS: traZODone 50 MG TABLET PO SCH (20:14)
[2016-04-06] MEDS: *HR* OxyCODONE Immed Rel 5 MG TABLET PO PRN ×2 (04:31→08:47)
[2016-04-06] MEDS: Cefepime HCl 2,000 MG in D5% in Water (Mini-Bag+) 100 ML IVPB SCH (04:31)
[2016-04-06 07:58] VITALS: BP 144/71
[2016-04-06] MEDS: ALPRAZolam 0.5 MG TABLET PO PRN (08:47)
[2016-04-06] MEDS: BuPROPion SR (12 HR) 100 MG TABLET PO SCH (08:47)
[2016-04-06] MEDS: Famotidine 20 MG TABLET PO SCH (08:47)
[2016-04-06] MEDS: Gabapentin 400 MG CAPSULE PO SCH (08:47)
[2016-04-06] MEDS: Cyanocobalamin (B-12) 1,000 MCG TABLET PO SCH (08:47)
[2016-04-06] MEDS: Loratadine 10 MG TABLET PO SCH (08:47)
[2016-04-06] MEDS: Insulin LISPRO 300 UNITS/3 ML VIAL SQ SCH ×2 (08:48)
[2016-04-06] MEDS: Triamcinolone Acet 0.1% CRM 15 GM TUBE TP SCH (08:50)
[2016-04-06] MEDS ORDERED: Ertapenem 1,000 MG in 0.9 % Sodium Chloride Mini Bag 100 ML IVPB SCH (09:00)
[2016-04-06] MEDS: Insulin DETEMIR 100 UNIT/ML X5UNITS SQ SCH (09:00)
[2016-04-06] MEDS ORDERED: *HR* Heparin 5,000 UNIT/ML VIAL SQ SCH (10:13)
--- NOTE | 2016-04-06 10:16 | Discharge Summary ---
Date of Encounter: 04/06/16 Time of Encounter: 08:45 - Discharge Diagnosis (1) UTI (urinary tract infection) Priority: Primary Status: Acute Comments: With ESBL Escherichia coli Qualifiers: Urinary tract infection type: acute cystitis Hematuria presence: without hematuria Qualified Code(s): N30.00 - Acute cystitis without hematuria (2) Acute kidney injury Priority: Secondary Status: Resolved (3) Morbid obesity with BMI of 60.0-69.9, adult Priority: Secondary Status: Chronic (4) Weakness Priority: Secondary Status: Acute (5) Diabetes mellitus type 2 with complications Priority: Secondary Status: Acute Qualifiers: Diabetes mellitus mcc insulin use: 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 Qualified Code(s): E11.8 - Type 2 diabetes mellitus with unspecified complications - Discharge Medications Prescriptions: OxyCODONE Immed Rel [Roxicodone 5 MG] 20 mg PO Q6HR PRN #20 tablet PRN Reason: Pain Ertapenem [INVanz] 1,000 mg IVPB DAILY #10 vial Home Medications: Albuterol Sulfate [Ventolin Hfa] 2 puff IH Q4H PRN 04/03/16 [History] Alprazolam [Xanax 0.5 MG Tablet] 0.5 mg PO TID PRN 04/03/16 [History] Atorvastatin Calcium [Lipitor] 20 mg PO HS 04/03/16 [History] Beclomethasone Diprop 80mcg [QVAR 80 mcg] 2 puff IH BID 04/03/16 [History] BuPROPion SR (12 HR) [Wellbutrin SR] 100 mg PO BID 04/03/16 [History] Cyanocobalamin (B-12) [Vitamin B12] 1,000 mcg PO DAILY 04/03/16 [History] Fluticasone Propionate Nasal [Flonase] 1 - 2 spray NS DAILY PRN 04/03/16 [ History] Gabapentin [Neurontin] 400 mg PO TID 04/03/16 [History] Insulin DETEMIR [Levemir Flextouch] 0 unit SQ AD 04/03/16 [History] Insulin Regular U-500 [HumuLIN R U-500] 0 unit SQ QIDAC 04/03/16 [History] Levothyroxine Sodium [Levoxyl] 200 mcg PO DAILY 04/03/16 [History] Levothyroxine [Synthroid] 150 mcg PO DAILY 04/03/16 [History] Loratadine [Allergy Relief] 10 mg PO DAILY 04/03/16 [History] Metformin HCl [Glucophage] 1,000 mg PO BID 04/03/16 [History] Mometasone Furoate [Asmanex] 2 puff IH BID 04/03/16 [History] Ranitidine HCl [Acid Seeing Eye Dog Trainer] 150 mg PO BID 04/03/16 [History] Trazodone HCl 100 mg PO HS 04/03/16 [History] Triamcinolone Acet 0.1% CRM [Kenalog] 1 appl TP BID 04/03/16 [History] Ertapenem [INVanz] 1,000 mg IVPB DAILY #10 vial 04/06/16 [Rx] OxyCODONE Immed Rel [Roxicodone 5 MG] 20 mg PO Q6HR PRN #20 tablet 04/06/16 [Rx] Allergies/Adverse Reactions: Allergies Penicillins Allergy (Verified 01/27/16 09:52) Rash Tetracycline Allergy (Verified 01/27/16 09:52) Rash Date of admission: 04/03/16 16:07 Primary care physician: Carley Barth DO Consults: 04/03/16 18:19 Consult to Invasive Line Access Team [CONS] Routine Reason for Consult: limited vascular access Line Type: EPIV 04/06/16 08:00 Consult to Wound Care [CONS] Routine Reason for Consult: Please evaluate and advise pertaining to continuing care for postoperative abdominal wound site. Time Notified: 02:44 Call Completed: No Discharging clinician: Dawson Gustafson Anticipated date of discharge: 04/06/16 - Patient Status Disposition: Transfer SNF Condition: Good Functional capacity at discharge: uses cane/walker Overall status at discharge: patient is progressing back to baseline - Discharge Instructions Instructions: Urinary Tract Infection in Women (DC) Follow Up With: Carley Barth DO [Primary Care Provider] - (In 1-2 weeks) - Diet and Activity Activity: as per physical therapy Diet: diabetic diet, low fat, low cholesterol, low salt diet Hospital course: Ms. Cat is a 45 year old female with a history of diabetes, thyroid disease , morbid obesity who was hospitalized here with generalized weakness and was diagnosed with acute urinary tract infection. She was treated with intravenous cefepime to target Proteus which had grown in her cultures previously. She did improve with this treatment regimen. However her urine culture has grown Escherichia coli that is resistant to cefepime and sensitive to ertapenem. As such her antibiotic is now been changed to ertapenem and she will be discharged on a 10 day course with this medication. She was also evaluated by physical therapy and recommended placement back to snf facility where she will be discharged once a bed is available for her. She had also presented with acute kidney injury that has now resolved. - Time Spent with Patient Total time spent providing and/or coordinating discharge services: Greater than 30 minutes (35 min) - Constitutional Vitals: Temp Pulse Resp BP Pulse Ox 97.6 F 85 17 144/71 95 04/06/16 07:47 04/06/16 07:47 04/06/16 07:47 04/06/16 07:47 04/06/16 07:47 General appearance: Present: cooperative, A&O X 3, morbidly obese, pleasant, no acute distress, answers questions appropriately - Respiratory Respiratory exam: Present: CTAB. Absent: accessory muscle use, rales, rhonchi, wheezes - Cardiovascular Cardiovascular exam: Present: RRR, +S1, +S2. Absent: diastolic murmur, gallop, rubs, systolic murmur - GI/Abdominal GI/Abdominal exam: Present: normal bowel sounds, soft, no peritoneal signs. Absent: distended, tenderness - Extremities Exam Extremities exam: Present: warm, radial pulses palpable and symetrical. Absent : calf tenderness, cyanotic, pedal edema Additional comments: Stasis dermatitis chronically present on her lower extremities - Neurological Exam Neurological exam: Present: oriented X3, no focal deficits, strengths equal and symetr throughout. Absent: facial droop, speech deficit - Attending Attestation This document has been at least partially created by [employer] recognition technology by Dr. Gustafson. Errors in grammar, wording or other phrases may exist. If errors are found after the documentation is signed, they will be addressed individually in the addendum section of this document when appropriate.
--- NOTE | 2016-04-06 10:21 | Physician Discharge Referral ---
ExtendedCare Referral Info Transfer To: SNF Provider in Charge after Transfer: PCP Institutional Level of Care: Skilled - Diagnosis (1) UTI (urinary tract infection) Priority: Primary Status: Acute (2) Acute kidney injury Priority: Secondary Status: Resolved (3) Morbid obesity with BMI of 60.0-69.9, adult Priority: Secondary Status: Chronic (4) Weakness Priority: Secondary Status: Acute (5) Diabetes mellitus type 2 with complications Priority: Secondary Status: Acute - Transfer Medications Prescriptions: OxyCODONE Immed Rel [Roxicodone 5 MG] 20 mg PO Q6HR PRN #20 tablet PRN Reason: Pain Ertapenem [INVanz] 1,000 mg IVPB DAILY #10 vial Home Medications: Albuterol Sulfate [Ventolin Hfa] 2 puff IH Q4H PRN 04/03/16 [History] Alprazolam [Xanax 0.5 MG Tablet] 0.5 mg PO TID PRN 04/03/16 [History] Atorvastatin Calcium [Lipitor] 20 mg PO HS 04/03/16 [History] Beclomethasone Diprop 80mcg [QVAR 80 mcg] 2 puff IH BID 04/03/16 [History] BuPROPion SR (12 HR) [Wellbutrin SR] 100 mg PO BID 04/03/16 [History] Cyanocobalamin (B-12) [Vitamin B12] 1,000 mcg PO DAILY 04/03/16 [History] Fluticasone Propionate Nasal [Flonase] 1 - 2 spray NS DAILY PRN 04/03/16 [ History] Gabapentin [Neurontin] 400 mg PO TID 04/03/16 [History] Insulin DETEMIR [Levemir Flextouch] 0 unit SQ AD 04/03/16 [History] Insulin Regular U-500 [HumuLIN R U-500] 0 unit SQ QIDAC 04/03/16 [History] Levothyroxine Sodium [Levoxyl] 200 mcg PO DAILY 04/03/16 [History] Levothyroxine [Synthroid] 150 mcg PO DAILY 04/03/16 [History] Loratadine [Allergy Relief] 10 mg PO DAILY 04/03/16 [History] Metformin HCl [Glucophage] 1,000 mg PO BID 04/03/16 [History] Mometasone Furoate [Asmanex] 2 puff IH BID 04/03/16 [History] Ranitidine HCl [Acid Vending Machine Servicer] 150 mg PO BID 04/03/16 [History] Trazodone HCl 100 mg PO HS 04/03/16 [History] Triamcinolone Acet 0.1% CRM [Kenalog] 1 appl TP BID 04/03/16 [History] Ertapenem [INVanz] 1,000 mg IVPB DAILY #10 vial 04/06/16 [Rx] OxyCODONE Immed Rel [Roxicodone 5 MG] 20 mg PO Q6HR PRN #20 tablet 04/06/16 [Rx] Allergies/Adverse Reactions: Allergies Penicillins Allergy (Verified 01/27/16 09:52) Rash Tetracycline Allergy (Verified 01/27/16 09:52) Rash - Respiratory Orders Oxygen / L per min (keep sats >90%) Smoking Cessation: Smoking cessation has been advised. For more information, call the [place] Tobacco Quit Line at 9-295-LQFI-NOW. - Ancillary Orders May use pressure relief devices daily prn, May consult with Dentist, Cushion Filler, Portfolio Administrator PRN - Advance Directives Code Status: Full Code - Mobility Orders Ambulate - Rehabiliation Orders Rehab Potential: Good Rehab Orders: Evaluation for Physical Therapy, Evaluation for Occupational Therapy - Diet Orders No Concentrated Sweets, Cardiac (and diabetic) CERTIFICATION: I certify that the transfer of the above named patient to an Extended Care Facility is necessary for the continuing treatment of the diagnosis listed. The above information is true and accurate reflection of patient's current condition. Confidential - Redisclosure prohibited without a patient's written consent.
[2016-04-06] MEDS: Beclomethasone 80mcg MDI IH SCH (10:49)
== END 2016-04-06 12:08 ==
LOC: EMEROO 12:20 → 3BNU 12:20 → SUATTDRO 16:07 → 3BNU 17:19
PROVIDERS: ADMIT Internal Medicine; ATTEND Internal Medicine

== ENCOUNTER 2016-08-10 20:47 | Inpatient (IN) ==
[2016-08-10] MEDS ORDERED: 0.9 % Sodium Chloride 1,000 ML IVC ONE (20:59)
[2016-08-10] MEDS ORDERED: Ipratropium/Albuterol Neb 3 ML IH ONE (21:00)
--- NOTE | 2016-08-10 21:53 | Emergency Department Note ---
Disposition Clinical Impression: Pneumonia Qualifiers: Pneumonia type: due to unspecified organism Laterality: left Lung location: unspecified part of lung Qualified Code(s): J18.9 - Pneumonia, unspecified organism Disposition: Admitted As Inpatient Condition: Fair General Adult HPI - General Chief complaint: ED Shortness of Breath/Dyspnea Stated complaint: TIFFANIE/Fever Time Seen by Provider: 08/10/16 20:59 Source: patient, EMS Limitations: no limitations Nursing Notes Reviewed: Yes Vital Signs Reviewed: Yes - History of Present Illness HPI Narrative: Patient here for evaluation of shortness of breath as well as fever and chills and nausea. Patient transferred from [facility] via EMS for evaluation. Patient is morbidly obese female with no previous history of oxygen dependence presents on 5 L nasal cannula. EMS states upon their arrival she had a pulse ox in the mid 70s. Patient's biggest complaint is fever and chills and generalized nausea that has been going on for 4 days. She states that she is not [facility] for rehabilitation while they are working on getting her house ready for her. She states she is due to be discharged next week. Patient has a chronic abdominal wound related to a "cancer". She has been treated for cellulitis of her lower extremities which she states is improving in both pain and color. She has been on Keflex. Pain Scale: 10 - Related Data Home Medications Medication Instructions Recorded Confirmed ALPRAZolam [Xanax 0.5 MG Tablet] 0.5 mg PO TID PRN 04/03/16 08/11/16 Albuterol Sulfate [Ventolin Hfa] 2 puff IH Q4H PRN 04/03/16 08/11/16 Beclomethasone Diprop 80mcg [QVAR 2 puff IH BID 04/03/16 08/11/16 80 mcg] BuPROPion SR (12 HR) [Wellbutrin 100 mg PO BID 04/03/16 08/11/16 SR] Cyanocobalamin (B-12) [Vitamin B12] 1,000 mcg PO DAILY 04/03/16 08/11/16 Fluticasone Propionate Nasal 1 - 2 spray NS DAILY PRN 04/03/16 08/11/16 [Flonase] Gabapentin [Neurontin] 400 mg PO TID 04/03/16 08/11/16 Insulin DETEMIR [Levemir Flextouch] 0 unit SQ AD 04/03/16 08/11/16 Insulin Regular U-500 [HumuLIN R 0 unit SQ QIDAC 04/03/16 08/11/16 U-500] Levothyroxine Sodium [Levoxyl] 200 mcg PO DAILY 04/03/16 08/11/16 Levothyroxine [Synthroid] 150 mcg PO DAILY 04/03/16 08/11/16 Loratadine [Allergy Relief] 10 mg PO DAILY 04/03/16 08/11/16 Metformin HCl [Glucophage] 1,000 mg PO BID 04/03/16 08/11/16 Mometasone Furoate [Asmanex] 2 puff IH BID 04/03/16 08/11/16 Ranitidine HCl [Acid [employer]] 150 mg PO BID 04/03/16 08/11/16 Triamcinolone Acet 0.1% CRM 1 appl TP BID 04/03/16 08/11/16 [Kenalog] OxyCODONE Immed Rel [Roxicodone 5 20 mg PO Q4HR 08/11/16 08/11/16 MG] Allergies Allergy/AdvReac Type Severity Reaction Status Date / Time Penicillins Allergy Rash Verified 01/27/16 09:52 Tetracycline Allergy Rash Verified 01/27/16 09:52 Review of Systems: CONSTITUTIONAL: fever, chills, weakness and fatigue No weight loss,. HEENT: Eyes: No visual changes. Ears, Nose, Throat: No hearing loss, difficulty talking or unable to swallow. SKIN: No rash or itching. CARDIOVASCULAR: No chest pain, chest pressure or chest discomfort. No palpitations or edema. RESPIRATORY: shortness of breath, cough ;No sputum. GASTROINTESTINAL: abdominal pain nausea No anorexia, vomiting or diarrhea. No blood. GENITOURINARY: No burning on urination or hematuria. NEUROLOGICAL: No headache, dizziness, syncope, paralysis, ataxia, numbness or tingling in the extremities. No change in bowel or bladder control. MUSCULOSKELETAL: No muscle pain, back pain, joint pain or stiffness. Past Medical History - Past Medical History Medical history: Reports: cancer, CVA, diabetes, thyroid disease Surgical history: Reports: thyroidectomy Psychiatric history: Reports: anxiety, depression - Social History Smoking Status: Former smoker Smokeless Tobacco Status: No Alcohol use: Reports: none, occasionally Drug use: Reports: none Physical Exam General appearance: conversant; obesity; Eyes: anicteric sclerae, moist conjunctivae; PERRL HENT: Atraumatic; oropharynx clear with moist mucous membranes and no mucosal ulcerations Neck: Normal inspection; Trachea midline; FROM, supple Lungs: Decreased breath sounds bilaterally CV: RRR, no MRGs Abdomen: Chronic abdominal skin changes and pain Extremities: Peripheral edema and erythema that is improving - chronic Skin: Normal temperature; see extremity Psych: Appropriate mood and affect Neuro: alert and oriented to person, place and time; moves all 4 extremities without deficit - General Limitations: no limitations General appearance: alert, anxious Course - Reevaluation(s) Reevaluation #1: Patient feels significantly better on oxygen. Improved overall respiratory effort - Consultations Consultation #1: Discussed with Dr. Ramos. Pt accepted. Vital Signs Temperature 101.3 F H 08/10/16 20:52 Pulse Rate 110 08/10/16 20:52 Respiratory Rate 20 08/10/16 20:52 Blood Pressure 125/62 08/10/16 20:52 O2 Sat by Pulse Oximetry 85 08/10/16 20:52 Temperature 99.6 F 08/11/16 04:53 Pulse Rate 94 08/11/16 04:53 Respiratory Rate 26 08/11/16 04:53 Blood Pressure 147/93 08/11/16 04:53 O2 Sat by Pulse Oximetry 96 08/11/16 04:53 Oxygen Delivery Oxygen Delivery Nasal Cannula Medical Decision Making - Lab Data Result diagrams: 08/10/16 20:05 08/10/16 22:05 Lab Results 08/10/16 08/10/16 08/10/16 Range/Units 20:05 20:05 22:05 WBC 7.9 (4.3-11.1) K/mcL RBC 3.75 L (3.82-4.97) M/mcL Hgb 10.9 L (11.5-15.4) g/dL Hct 35.3 (35.3-44.9) % MCV 94.1 (83.0-100.0) fL MCH 29.1 (28.0-33.3) pg MCHC 30.9 L (31.6-35.5) g/dL RDW 15.8 H (11.5-14.5) % Plt Count 169 (140-400) K/mcL MPV 10.3 (9.4-12.4) fL Immature Gran % 0.9 (0-4) % Seg Neutrophils % 68.7 % Lymphocytes % 20.6 % Monocytes % 9.1 % Eosinophils % 0.3 % Basophils % 0.4 % Neutrophils # 5.4 (1.6-8.9) K/mcL Lymphocytes # 1.6 (0.6-4.6) K/mcL Monocytes # 0.7 (0.0-1.3) K/mcL Eosinophils # 0.0 (0.0-0.6) K/mcL Basophils # 0.0 (0.0-0.2) K/mcL Platelet Estimate Normal (Normal) Sodium 138 (136-145) mEq/L Potassium 3.5 (3.5-4.5) mEq/L Chloride 99 (98-109) mEq/L Carbon Dioxide 30 H (19-29) mEq/L BUN 11 (7-20) mg/dL Creatinine 0.75 (0.57-1.11) mg/dL Est GFR ( Amer) > 60 (> 60) Est GFR (Non-Af Amer) > 60 (> 60) BUN/Creatinine Ratio 15 (6-26) Glucose 252 H (70-99) mg/dL Calculated Osmolality 294 (280-300) Lactic Acid (0.5-2.2) mmol/L Calcium 8.5 L (8.6-10.8) mg/dL Troponin I (0-0.03) ng/mL B-Natriuretic Peptide 86 (0-100) pg/mL Urine Color (Yellow) Urine Clarity (Clear) Urine pH (5.0-8.0) pH Units Ur Specific Franklin (1.010-1.025) Urine Protein (Neg-Trace) mg/dL Urine Glucose (UA) (Normal) mg/dL Urine Ketones (Negative) mg/dL Urine Blood (Negative) Urine Nitrite (Negative) Urine Bilirubin (Negative) Urine Urobilinogen (Normal) mg/dL Ur Leukocyte Esterase (Negative) Urine Microscopic RBC (0-3) per hpf Urine Microscopic WBC (0-3) per hpf Ur Squamous Epith Cells (None-Few) per lpf Urine Bacteria (None-Few) per hpf Hyaline Casts (None-Few) per lpf Ur Culture Indicated? (NO) 05/28/17 05/28/17 05/28/17 Range/Units 22:05 22:05 22:20 WBC (4.3-11.1) K/mcL RBC (3.82-4.97) M/mcL Hgb (11.5-15.4) g/dL Hct (35.3-44.9) % MCV (83.0-100.0) fL MCH (28.0-33.3) pg MCHC (31.6-35.5) g/dL RDW (11.5-14.5) % Plt Count (140-400) K/mcL MPV (9.4-12.4) fL Immature Gran % (0-4) % Seg Neutrophils % % Lymphocytes % % Monocytes % % Eosinophils % % Basophils % % Neutrophils # (1.6-8.9) K/mcL Lymphocytes # (0.6-4.6) K/mcL Monocytes # (0.0-1.3) K/mcL Eosinophils # (0.0-0.6) K/mcL Basophils # (0.0-0.2) K/mcL Platelet Estimate (Normal) Sodium (136-145) mEq/L Potassium (3.5-4.5) mEq/L Chloride (98-109) mEq/L Carbon Dioxide (19-29) mEq/L BUN (7-20) mg/dL Creatinine (0.57-1.11) mg/dL Est GFR ( Amer) (> 60) Est GFR (Non-Af Amer) (> 60) BUN/Creatinine Ratio (6-26) Glucose (70-99) mg/dL Calculated Osmolality (280-300) Lactic Acid 0.9 (0.5-2.2) mmol/L Calcium (8.6-10.8) mg/dL Troponin I 0.01 (0-0.03) ng/mL B-Natriuretic Peptide (0-100) pg/mL Urine Color Yellow (Yellow) Urine Clarity Cloudy A (Clear) Urine pH 6.5 (5.0-8.0) pH Units Ur Specific Franklin 1.027 H (1.010-1.025) Urine Protein 100 H (Neg-Trace) mg/dL Urine Glucose (UA) Normal (Normal) mg/dL Urine Ketones Trace H (Negative) mg/dL Urine Blood Moderate H (Negative) Urine Nitrite Positive A (Negative) Urine Bilirubin Negative (Negative) Urine Urobilinogen Normal (Normal) mg/dL Ur Leukocyte Esterase Small H (Negative) Urine Microscopic RBC 5-15 H (0-3) per hpf Urine Microscopic WBC 50-100 H (0-3) per hpf Ur Squamous Epith Cells Moderate H (None-Few) per lpf Urine Bacteria Many H (None-Few) per hpf Hyaline Casts None Seen (None-Few) per lpf Ur Culture Indicated? YES A (NO) Critical Care Time Critical Care Time: Yes Total Critical Care Time: 40 Attestation: Critical care performed: Time is exclusive of separately billable procedures. Time includes: direct patient care, patient reassessment, coordination of patient care, interpretation of data (laboratory data, radiology data, and respiratory data), review of patient's medical records, medical consultation and documentation of patient care. Procedures included in critical care time: Procedures excluded from critical care time: Attestation Statement - Attestation Attestation: I, Damaso Diaz MD, personally evaluated this patient and discussed their management with the resident physician. I reviewed the resident's note and agree with the documented findings, medical decision making, and plan of care. 46-year-old female presents to the emergency department from a local extended care facility for respiratory difficulty. Patient is morbidly obese and is been at the [facility] for rehabilitation. She has no history of breathing problems and does not normally use oxygen. She complains of chills and fever over the past several days. Some cough. Tonight she developed shortness of breath and apparently was found with an oxygen saturation in the 70s. She was placed on oxygen and improved to the 90s. She complains of some pain in her lower abdomen where she has a chronic wound secondary to cancer and radiation treatments. On examination patient is a morbidly obese female in no acute distress. She is alert and oriented 3. There is no cyanosis or diaphoresis. Breath sounds are decreased but equal bilaterally. Heart regular rate and rhythm. Abdomen morbidly obese. Nontender. Bowel sounds present. Large chronic open wound to lower abdominal wall with large area of scarring present. Labs reviewed. Significant UTI present. Chest x-ray very difficult to interpret due to patient's body habitus but appears to have increased opacity in left upper lobe. No acute changes on EKG. The hospitalist, Dr. Ramos, was consulted and accepted admission of the patient.
[2016-08-10 22:21] LABS: BUN/Creatinine Ratio 15 (6-26); Blood Urea Nitrogen 11 mg/dL (7-20); Calcium 8.5 mg/dL (8.6-10.8); Carbon Dioxide 30 mEq/L (19-29); Chloride 99 mEq/L (98-109); Glucose 252 mg/dL (70-99); Osmolality,Calculated 294 (280-300); Potassium 3.5 mEq/L (3.5-4.5); Sodium 138 mEq/L (136-145); eGFR For African Americans > 60 (> 60); eGFR For Non-African Americans > 60 (> 60)
[2016-08-10 22:24] LABS: Basophils % 0.4 %; Eosinophils % 0.3 %; Hematocrit 35.3 % (35.3-44.9); Hemoglobin 10.9 g/dL (11.5-15.4); Immature Granulocytes % 0.9 % (0-4); Lymphocytes # 1.6 K/mcL (0.6-4.6); Lymphocytes % 20.6 %; Mean Corpuscular HGB Conc 30.9 g/dL (31.6-35.5); Mean Corpuscular Hemoglobin 29.1 pg (28.0-33.3); Mean Corpuscular Volume 94.1 fL (83.0-100.0); Mean Platelet Volume 10.3 fL (9.4-12.4); Monocytes # 0.7 K/mcL (0.0-1.3); Monocytes % 9.1 %; Neutrophils # 5.4 K/mcL (1.6-8.9); Platelet Count 169 K/mcL (140-400); Red Blood Count 3.75 M/mcL (3.82-4.97); Red Cell Distribution Width 15.8 % (11.5-14.5); Segmented Neutrophils % 68.7 %
[2016-08-10 22:29] LABS: Bilirubin,Urine Negative (Negative); Blood,Urine Moderate (Negative); Clarity,Urine Cloudy (Clear); Color,Urine Yellow (Yellow); Glucose,Urine (UA) Normal (Normal); Ketones,Urine Trace mg/dL (Negative); Leukocyte Esterase,Urine Small (Negative); Nitrite,Urine Positive (Negative); PH,Urine 6.5 pH Units (5.0-8.0); Protein,Urine 100 mg/dL (Neg-Trace); Specific Gravity,Urine 1.027 (1.010-1.025); Urobilinogen,Urine Normal (Normal)
[2016-08-10 22:30] LABS: Bacteria,Urine Many per hpf (None-Few); Hyaline Casts,Urine None Seen per lpf (None-Few); Squamous Epithelial Cell,Urine Moderate per lpf (None-Few); WBC,Urine 50-100 per hpf (0-3)
[2016-08-10 22:43] LABS: Platelet Estimate Normal (Normal)
[2016-08-10] MEDS ORDERED: Cefepime HCl 2,000 MG in D5% in Water (Mini-Bag+) 100 ML IVPB ONE (23:09)
--- NOTE | 2016-08-11 04:24 | Internal Med History&Physical ---
Date of Encounter: 08/11/16 Time of Encounter: 04:21 Assessment and Plan (1) Diabetes mellitus type 2 in obese Current visit: No Status: Acute We will treat her with Levemir and insulin sliding scale. Diabetic diet. (2) UTI (urinary tract infection) Current visit: No Status: Acute We will follow-up urine culture and sensitivities. Based on prior cultures we will treat her with meropenem to cover both ESBL Escherichia coli and Proteus. Qualifiers: Urinary tract infection type: acute cystitis Hematuria presence: without hematuria Qualified Code(s): N30.00 - Acute cystitis without hematuria (3) Morbid obesity with BMI of 60.0-69.9, adult Current visit: No Status: Chronic Bariatric bed. Total nursing care. Outpatient weight loss regimen. (4) Left upper lobe pneumonia Current visit: Yes Status: Acute Diagnosis is made based on possible left upper lobe infiltrate, fever chest pain and hypoxia. Plan: We will treat her with meropenem which would cover UTI and pneumonia. We will obtain blood cultures. We will provide supplemental oxygen by nasal cannula. Qualifiers: Pneumonia type: due to unspecified organism Qualified Code(s): J18.1 - Lobar pneumonia, unspecified organism (5) Obstructive sleep apnea Current visit: Yes Status: Acute Nighttime CPAP. (6) DVT prophylaxis Current visit: Yes Status: Acute Subcutaneous Lovenox. Internal Medicine - H&P: HPI Chief complaint: Chest pain Admitted From: Emergency Dept Plans for Post Hospital Care: Transfer Senior Care Facility History of present illness: Ms. Cat is a 46 year old female with past medical history significant for morbid obesity and type 2 diabetes who was brought to the hospital from the assisted for evaluation of chest pain and fever. Patient reports chest pain in the left side of the chest associated with cough and fever and chills getting progressively worse for the last 4 days. Denies any aggravating and alleviating factors. She reports worsening shortness of breath for the last 4 days. When she was picked up by the ambulance her oxygen saturation was in the 70s. Review of systems positives for shortness of breath chest pain, skin wounds otherwise a 10 point review of systems was negative Family history: Patient's father suffered with diabetes and heart disease. Past Med Surg Social Fam HX - Past Medical History Medical history: cancer, CVA, diabetes, thyroid disease Psychiatric history: anxiety, depression - Past Surgical History Surgical History: thyroidectomy - Social History Smoking Status: Former smoker Smokeless Tobacco Status: No Alcohol use: none, occasionally Drug use: none Internal Medicine - H&P: Meds ALPRAZolam [Xanax 0.5 MG Tablet] 0.5 mg PO TID PRN 04/03/16 [History] Albuterol Sulfate [Ventolin Hfa] 2 puff IH Q4H PRN 04/03/16 [History] Beclomethasone Diprop 80mcg [QVAR 80 mcg] 2 puff IH BID 04/03/16 [History] BuPROPion SR (12 HR) [Wellbutrin SR] 100 mg PO BID 04/03/16 [History] Cyanocobalamin (B-12) [Vitamin B12] 1,000 mcg PO DAILY 04/03/16 [History] Fluticasone Propionate Nasal [Flonase] 1 - 2 spray NS DAILY PRN 04/03/16 [ History] Gabapentin [Neurontin] 400 mg PO TID 04/03/16 [History] Insulin DETEMIR [Levemir Flextouch] 0 unit SQ AD 04/03/16 [History] Insulin Regular U-500 [HumuLIN R U-500] 0 unit SQ QIDAC 04/03/16 [History] Levothyroxine Sodium [Levoxyl] 200 mcg PO DAILY 04/03/16 [History] Levothyroxine [Synthroid] 150 mcg PO DAILY 04/03/16 [History] Loratadine [Allergy Relief] 10 mg PO DAILY 04/03/16 [History] Metformin HCl [Glucophage] 1,000 mg PO BID 04/03/16 [History] Mometasone Furoate [Asmanex] 2 puff IH BID 04/03/16 [History] Ranitidine HCl [Acid Reconciler] 150 mg PO BID 04/03/16 [History] Triamcinolone Acet 0.1% CRM [Kenalog] 1 appl TP BID 04/03/16 [History] OxyCODONE Immed Rel [Roxicodone 5 MG] 20 mg PO Q4HR 08/11/16 [History] Allergies Penicillins Allergy (Verified 01/27/16 09:52) Rash Tetracycline Allergy (Verified 01/27/16 09:52) Rash All Systems PM: A 10-system review of systems was performed and is negative for pertinent findings except as documented above in the HPI. - Constitutional Vitals: Temp Pulse Resp BP Pulse Ox 99.5 F 95 24 137/75 99 08/11/16 01:05 08/11/16 01:05 08/11/16 01:05 08/11/16 01:05 08/11/16 01:05 General appearance: Present: A&O X 3, morbidly obese - Respiratory Respiratory exam: Present: decreased breath sounds, CTAB. Absent: accessory muscle use, rales, rhonchi, wheezes - Cardiovascular Cardiovascular exam: Present: RRR, +S1, +S2. Absent: diastolic murmur, gallop, rubs, systolic murmur - GI/Abdominal GI/Abdominal exam: Present: normal bowel sounds, soft, no peritoneal signs. Absent: distended, tenderness - Extremities Exam Extremities exam: Present: warm, radial pulses palpable and symetrical. Absent : calf tenderness, cyanotic, pedal edema - Neurological Exam Neurological exam: Present: CN II-XII intact, oriented X3, no focal deficits. Absent: pronater drift, facial droop, speech deficit Internal Med - H&P Results - Labs CBC & Chem 7: 08/10/16 20:05 08/10/16 22:05 - Impressions Per chart review she has had multiple positive urine culture is still a light latest ones from March and April 2016 growing Proteus mirabilis sensitive to meropenem and cephalosporins and ESBL Escherichia coli sensitive to meropenem and Zosyn.
[2016-08-11] MEDS ORDERED: Fluticasone Propionate Nasal 50 MCG/SPRAY BOTTLE NS PRN (04:33)
[2016-08-11] MEDS ORDERED: ALPRAZolam 0.5 MG TABLET PO PRN (04:33)
[2016-08-11] MEDS ORDERED: Naloxone 0.4 MG/ML INJ IVP PRN (04:37)
[2016-08-11] MEDS ORDERED: Ondansetron 4 MG/2 ML VIAL IVP PRN (04:37)
[2016-08-11] MEDS ORDERED: *HR* Promethazine 25 MG/ML VIAL IVP PRN (04:37)
[2016-08-11] MEDS ORDERED: Acetaminophen 325 MG TABLET PO PRN (04:37)
[2016-08-11] MEDS ORDERED: Dextrose Gel 15 GM PO PRN ×2 (04:42)
[2016-08-11] MEDS ORDERED: *HR* Dextrose 50 % in Water (Syg) 50 ML SYRINGE IVP PRN (04:42)
[2016-08-11] MEDS ORDERED: D5% in Water 1,000 ML IVC PRN (04:42)
--- NOTE | 2016-08-11 04:50 | Internal Med Progress Note ---
Date of Encounter: 08/11/16 - Assessment and plan (1) Diabetes mellitus type 2 in obese Current Visit: No Status: Acute (2) UTI (urinary tract infection) Current Visit: No Status: Acute Qualifiers: Urinary tract infection type: acute cystitis Hematuria presence: without hematuria Qualified Code(s): N30.00 - Acute cystitis without hematuria (3) Morbid obesity with BMI of 60.0-69.9, adult Current Visit: No Status: Chronic (4) Left upper lobe pneumonia Current Visit: Yes Status: Acute Qualifiers: Pneumonia type: due to unspecified organism Qualified Code(s): J18.1 - Lobar pneumonia, unspecified organism (5) Obstructive sleep apnea Current Visit: Yes Status: Acute (6) DVT prophylaxis Current Visit: Yes Status: Acute - Constitutional Vitals: Temp Pulse Resp BP Pulse Ox 99.5 F 95 24 137/75 99 08/11/16 01:05 08/11/16 01:05 08/11/16 01:05 08/11/16 01:05 08/11/16 01:05 General appearance: Present: A&O X 3, morbidly obese Internal Medicine: Result - Labs CBC & Chem 7: 08/10/16 20:05 08/10/16 22:05 Consult Discharge Plan - Plan Referrals: Bryan Fernandes MD [Primary Care Provider] -
[2016-08-11] MEDS ORDERED: *HR* Enoxaparin 40 MG/0.4 ML SYRINGE SQ SCH (06:00)
[2016-08-11 06:24] LABS: Hemoglobin A1C 11.1 %
[2016-08-11] MEDS: Gabapentin 400 MG CAPSULE PO SCH ×2 (08:25→18:08)
[2016-08-11] MEDS: Insulin LISPRO 300 UNITS/3 ML VIAL SQ SCH ×6 (08:25→18:04)
[2016-08-11] MEDS: Meropenem 1,000 MG in 0.9 % Sodium Chloride Mini Bag 100 ML IVPB SCH ×2 (08:26→18:08)
[2016-08-11] MEDS: *HR* OxyCODONE Immed Rel 5 MG TABLET PO PRN ×3 (08:33→18:21)
--- NOTE | 2016-08-11 08:47 | Event Note ---
<Layo Zimmer - Last Filed: 08/11/16 14:17> Date of Encounter: 08/11/16 Time of Encounter: 11:00 Ms. Cat is a 46 year old female with past medical history significant for morbid obesity and type 2 diabetes who was brought to the hospital from the group home for evaluation of chest pain, nausea, and fever. Reported that patient's saturation by EMS in the 70s. Patient reports chest pain in the left side of the chest associated with cough and fever and chills getting progressively worse for the last 4 days. She notes nausea and 3 episodes of emesis, denies bloody emesis. Notes blood in stool, no black stools. States she is having chest heaviness and abdominal pain, worse in the RLQ. This AM she states continued chest heaviness and worsened RLQ pain and tenderness. Reports multiple bowel movements this AM, with increased gastric "sounds, growling". Reports GI history of diverticulosis, hemorrhoids. Chronic abdominal wound related to "cancer". A/P: 1.UTI-continue meropenem, de-escalate pending culture reports. 2.Pneumonia-difficulty to see n CXR, cont abx. 3.Abdominal pain-pending stool studies, anti-nausea, pepcid 4.DM type2-A1C 11.1, glucose running high; long and short acting nsulin, may need to adjust dosing. 5.Morbid obesity-supportive care Additional labs/studies: Serum test Occult Stool GI panel, stool <Rupesh Skaggs - Last Filed: 08/11/16 16:37> Date of Encounter: 08/11/16 I examined this patient and my medical decision-making was reviewed with the LIFTER/DRIVER/PA/Advanced Practice Nurse/Resident Physician. I agree with the documented findings, disposition and treatment plan as described except to the extent set forth below. 46/F Admitted with possible urosepsis. Uncontrolled diabetes with hemoglobin A1c of more than 11. We will continue present treatment for now. If needs any imaging like CT abdomen, then she might need transfer to tertiary care for further evaluation.
[2016-08-11] MEDS ORDERED: BuPROPion SR (12 HR) 100 MG TABLET PO SCH (09:00)
[2016-08-11] MEDS ORDERED: MOMETASONE FUROATE IH SCH (09:00)
[2016-08-11] MEDS ORDERED: *HR* Metformin 500 MG TABLET PO SCH (09:00)
[2016-08-11] MEDS ORDERED: Insulin DETEMIR 100 UNIT/ML X5UNITS SQ SCH (09:00)
[2016-08-11] MEDS ORDERED: Famotidine 20 MG TABLET PO SCH (09:00)
[2016-08-11] MEDS ORDERED: Beclomethasone 80mcg MDI IH SCH (10:00)
[2016-08-11] MEDS: Albuterol 2.5 MG/3 ML NEBULIZER IH SCH ×2 (10:11→15:52)
[2016-08-11 14:27] LABS: Adenovirus F 40/41 PCR Not detected (Not detect); Astrovirus PCR Not detected (Not detect); C.difficile Toxin A/B by PCR Not detected (Not detect); Campylobacter by PCR Not detected (Not detect); Cryptosporidium by PCR Not detected (Not detect); Cyclospora cayetanensis PCR Not detected (Not detect); E. coli O157 by PCR Not detected (Not detect); Entamoeba histolytica PCR Not detected (Not detect); Enteroaggregative E.coli(EAEC) Not detected (Not detect); Enteropathogenic E.coli(EPEC) Not detected (Not detect); Enterotoxigenic E.coli (ETEC) Not detected (Not detect); Giardia lamblia PCR Not detected (Not detect); Norovirus GI/GII PCR Not detected (Not detect); Plesiomonas shigelloides PCR Not detected (Not detect); Rotavirus A PCR Not detected (Not detect); Salmonella PCR Not detected (Not detect); Sapovirus PCR Not detected (Not detect); Shig/EnteroinvasiveE coli EIEC Not detected (Not detect); Shigalike tox-prod E coli STEC Not detected (Not detect); Vibrio PCR Not detected (Not detect); Vibrio cholerae PCR Not detected (Not detect); Yersinia enterocolitica PCR Not detected (Not detect)
--- NOTE | 2016-08-11 17:45 | Discharge Summary ---
Date of Encounter: 08/11/16 Time of Encounter: 17:43 - Discharge Diagnosis (1) Diverticulitis Priority: Primary Status: Acute Qualifiers: Diverticulitis site: unspecified part of intestinal tract Diverticulitis bleeding: without bleeding Diverticulitis complication: without perforation or abscess Qualified Code(s): K57.92 - Diverticulitis of intestine, part unspecified, without perforation or abscess without bleeding (2) UTI (urinary tract infection) Priority: Primary Status: Acute Qualifiers: Urinary tract infection type: acute cystitis Hematuria presence: without hematuria Qualified Code(s): N30.00 - Acute cystitis without hematuria (3) Diabetes mellitus type 2 in obese Priority: Secondary Status: Acute (4) Morbid obesity with BMI of 60.0-69.9, adult Priority: Secondary Status: Chronic (5) Obstructive sleep apnea Priority: Secondary Status: Acute (6) Diabetes mellitus type 2 with complications Priority: Secondary Status: Acute Qualifiers: Diabetes mellitus group home insulin use: unspecified group home insulin use status Qualified Code(s): E11.8 - Type 2 diabetes mellitus with unspecified complications - Discharge Medications Home Medications: ALPRAZolam [Xanax 0.5 MG Tablet] 0.5 mg PO TID PRN 04/03/16 [History] Albuterol Sulfate [Ventolin Hfa] 2 puff IH Q4H PRN 04/03/16 [History] Beclomethasone Diprop 80mcg [QVAR 80 mcg] 2 puff IH BID 04/03/16 [History] BuPROPion SR (12 HR) [Wellbutrin SR] 100 mg PO BID 04/03/16 [History] Cyanocobalamin (B-12) [Vitamin B12] 1,000 mcg PO DAILY 04/03/16 [History] Fluticasone Propionate Nasal [Flonase] 1 - 2 spray NS DAILY PRN 04/03/16 [ History] Gabapentin [Neurontin] 400 mg PO TID 04/03/16 [History] Insulin DETEMIR [Levemir Flextouch] 50 unit SQ BID 04/03/16 [History] Levothyroxine Sodium [Levoxyl] 200 mcg PO DAILY 04/03/16 [History] Levothyroxine [Synthroid] 150 mcg PO DAILY 04/03/16 [History] Loratadine [Allergy Relief] 10 mg PO DAILY 04/03/16 [History] Metformin HCl [Glucophage] 1,000 mg PO BID 04/03/16 [History] Mometasone Furoate [Asmanex] 2 puff IH BID 04/03/16 [History] Ranitidine HCl [Acid Mercantile Reporter] 150 mg PO BID 04/03/16 [History] Triamcinolone Acet 0.1% CRM [Kenalog] 1 appl TP BID 04/03/16 [History] Acetaminophen [Tylenol] 650 mg PO Q6HR PRN 08/11/16 [History] Atorvastatin [Lipitor] 40 mg PO HS 08/11/16 [History] Docusate [Colace] 100 mg PO BID 08/11/16 [History] Famotidine [Pepcid] 20 mg PO BID 08/11/16 [History] Guaifenesin [Mucinex] 600 mg PO BID 08/11/16 [History] Insulin LISPRO [HumaLOG] 0 units SQ TIDWM 08/11/16 [History] OxyCODONE Immed Rel [Roxicodone 5 MG] 20 mg PO Q4HR 08/11/16 [History] Oxygen 2 l .ROUTE AD 08/11/16 [History] SitaGLIPtin [Januvia] 100 mg PO DAILY 08/11/16 [History] Allergies/Adverse Reactions: Allergies Penicillins Allergy (Verified 01/27/16 09:52) Rash Tetracycline Allergy (Verified 01/27/16 09:52) Rash Procedures/tests Complete & Pending: Procedures Performed prior 72 hours Category Date Time Status CT chest w/o contrast [CT chest wo con] [CT] Routine Cat Scan 08/11/16 04:45 Ordered Date of admission: 08/11/16 04:37 Primary care physician: Bryan Fernandes MD Consults: 08/11/16 15:50 Consult to Wound Care [CONS] Routine Reason for Consult: abdominal wound Call Completed: No Discharging clinician: Rupesh Skaggs - Patient Status Disposition: Transfer Other Condition: Critical - Discharge Instructions Follow Up With: Bryan Fernandes MD [Primary Care Provider] - - Diet and Activity Activity: increase activity as tolerated Diet: diabetic diet Interval History: 46-year-old female, resident of a [facility], was transferred to emergency room for worsening shortness of breath, chest pain, nausea, vomiting and diarrhea. Noted that patient has worsening shortness of breath and during her arrival to the emergency room via EMS her oxygen saturation was in mid 70s. Patient was also complaining of abdominal pain and she has chronic abdominal wound related to the"cancer". The details of this cancer is not available but it seems that she was treated previously for cellulitis of her abdominal area. Patient told in the emergency room that she is been recovering from her cellulitis of lower extremity and was on the Keflex for the same. Patient was admitted to this hospital list service for above-mentioned problem. Hospital course: Patient was hospitalized. Basic lab shows that she has a possibility of a urinary tract infection and in view of her persistent diarrhea a possibility of underlying colitis was on a high suspicion. Patient weighs around 190 kg and her BMI is 62. Her waist circumference is 72 inches. Appropriate investigations were done and patient was started on antibiotics, cefepime. There is a concern regarding possibility of her diverticulitis/perinephric abscess as she has renal punch positive. I myself spoke with the CT scan department and I was told that it is not possible to get the CT scan done in this hospital. I spoke with [facility] at [facility] and case discussed with RN Anita who accpted patient to [facility] hospitalist service. Patient will go to emergency room of [facility] and from there she will be placed accordingly. Discussed this plan with the patient. She verbalized understanding and she is accepted to go to [facility] for further management. - Time Spent with Patient Total time spent providing and/or coordinating discharge services: - Constitutional Vitals: Temp Pulse Resp BP Pulse Ox 98.2 F 90 16 161/89 97 08/11/16 15:25 08/11/16 15:25 08/11/16 15:52 08/11/16 15:25 08/11/16 15:52 General appearance: Present: A&O X 3, morbidly obese - Head Head exam: Present: atraumatic, normocephalic - Eye Eye exam: Present: PERRL, conjuntiva pink, sclera anicteric Pupils: Present: PERRL - Neck Neck exam general surgery: Present: supple, trachea midline. Absent: lymphadenopathy - Respiratory Respiratory exam: Present: CTAB. Absent: accessory muscle use, rales, rhonchi, wheezes - Cardiovascular Cardiovascular exam: Present: RRR, +S1, +S2. Absent: diastolic murmur, gallop, rubs, systolic murmur - GI/Abdominal GI/Abdominal exam: Present: normal bowel sounds, soft, no peritoneal signs. Absent: distended, tenderness - Extremities Exam Extremities exam: Present: warm, radial pulses palpable and symetrical. Absent : calf tenderness, cyanotic, pedal edema - Neurological Exam Neurological exam: Present: CN II-XII intact, oriented X3, no focal deficits. Absent: pronater drift, facial droop, speech deficit - Skin Skin exam: Present: dry, intact
[2016-08-11 20:06] VITALS: BP 140/79
[2016-08-11] MEDS ORDERED: Insulin LISPRO 300 UNITS/3 ML VIAL SQ SCH (21:00)
--- NOTE | 2016-08-12 18:01 | Electrocardiograph Report ---
[address] [address] Test Date: 2016-08-10 Pat Name: Anali Cat Department: 105 Room: 2NE16 Gender: F Gandy Dancer: CARLITOS : 1970 Requested By: Rupesh Skaggs Order Number: [id number] Reading MD: Zaida Spicer Measurements Intervals [place] Rate: 96 P: 71 [place]: 155 QRS: 98 QRSD: 97 T: 74 QT: 354 QTc: 407 Interpretive Statements SINUS RHYTHM BORDERLINE RIGHT AXIS DEVIATION [QRS AXIS > 90] LOW QRS VOLTAGE IN PRECORDIAL LEADS [QRS DEFLECTION < 1.0 mV IN CHEST LEADS] PATTERN CONSISTENT WITH PULMONARY DISEASE Electronically Signed On 08-12-2016 17:59:21 EDT by Zaida Spicer
--- NOTE | 2016-08-12 18:13 | Electrocardiograph Report ---
[address] [address] Test Date: 2016-08-11 Pat Name: Anali Cat Department: 111 Room: 2NE16 Gender: F Ship'S Engineer: : 1970 Requested By: Jose Alfredo Avila Order Number: [id number] Reading MD: Zaida Spicer Measurements Intervals [place] Rate: 106 P: 22 OR: 168 QRS: 102 QRSD: 93 T: 68 QT: 368 QTc: 430 Interpretive Statements SINUS TACHYCARDIA WITH OCCASIONAL SUPRAVENTRICULAR PREMATURE COMPLEXES MARKED RIGHT AXIS DEVIATION LOW QRS VOLTAGE IN PRECORDIAL LEADS PATTERN CONSISTENT WITH PULMONARY DISEASE Electronically Signed On 08-12-2016 18:11:51 EDT by Zaida Spicer
== END 2016-08-11 20:10 | disposition short-term general hospital (02) | DRG 720 ==
LOC: 2NENU 20:47 → EMEROO 20:47 → 2NENU 08-11 00:30
PROVIDERS: ADMIT Internal Medicine Sleep Medicine; ATTEND Internal Medicine

== ENCOUNTER 2016-10-03 21:06 | Observation (INO) ==
--- NOTE | 2016-10-03 21:40 | Emergency Department Note ---
Disposition Clinical Impression: Hypoxia, Morbid obesity with BMI of 60.0-69.9, adult, Elevated troponin UTI (urinary tract infection) Qualifiers: Urinary tract infection type: acute cystitis Hematuria presence: with hematuria Qualified Code(s): N30.01 - Acute cystitis with hematuria Disposition: Admitted As Inpatient Referrals: Unassigned,Provider [Non-Partnered Physician] - Forms: ED Satisfaction Letter General Adult HPI - General Chief complaint: ED Shortness of Breath/Dyspnea Stated complaint: TIFFANIE Time Seen by Provider: 10/03/16 21:17 Source: EMS Limitations: no limitations Nursing Notes Reviewed: Yes Vital Signs Reviewed: Yes - History of Present Illness HPI Narrative: 46-year-old female presents the ED from a [facility] via EMS complaining of shortness of breath and fever. [facility] called stating that her oxygen saturations were down in the 60s when she is not normally on home oxygen. They placed her on oxygen at 4 L and they moved up to the 70s. They also stated that he had a fever of 101 and gave her Tylenol approximately 5 hours ago. On arrival patient was on a mask at 5 L and satting at 96%. She also should have a temperature of 99. She has a history of COPD. She states her only pain is on her right side of her chest. But she says that is also a chronic issue. She states the pain is 4 out of 10 nonradiating and describes as dull and achy. She has not taken anything for this pain other than the Tylenol for the fever. She states no nausea/vomiting or chest pain, shortness of breath, headache, blurry vision, abdominal pain. Pain Scale: 0 - Related Data Home Medications Medication Instructions Recorded Confirmed ALPRAZolam [Xanax 0.5 MG Tablet] 0.5 mg PO TID PRN 04/03/16 08/11/16 Albuterol Sulfate [Ventolin Hfa] 2 puff IH Q4H PRN 04/03/16 08/11/16 Beclomethasone Diprop 80mcg [QVAR 2 puff IH BID 04/03/16 08/11/16 80 mcg] BuPROPion SR (12 HR) [Wellbutrin 100 mg PO BID 04/03/16 08/11/16 SR] Cyanocobalamin (B-12) [Vitamin B12] 1,000 mcg PO DAILY 04/03/16 08/11/16 Fluticasone Propionate Nasal 1 - 2 spray NS DAILY PRN 04/03/16 08/11/16 [Flonase] Gabapentin [Neurontin] 400 mg PO TID 04/03/16 08/11/16 Insulin DETEMIR [Levemir Flextouch] 50 unit SQ BID 04/03/16 08/11/16 Levothyroxine Sodium [Levoxyl] 200 mcg PO DAILY 04/03/16 08/11/16 Levothyroxine [Synthroid] 150 mcg PO DAILY 04/03/16 08/11/16 Loratadine [Allergy Relief] 10 mg PO DAILY 04/03/16 08/11/16 Metformin HCl [Glucophage] 1,000 mg PO BID 04/03/16 08/11/16 Mometasone Furoate [Asmanex] 2 puff IH BID 04/03/16 08/11/16 Ranitidine HCl [Acid Fish Hatchery Man] 150 mg PO BID 04/03/16 08/11/16 Triamcinolone Acet 0.1% CRM 1 appl TP BID 04/03/16 08/11/16 [Kenalog] Acetaminophen [Tylenol] 650 mg PO Q6HR PRN 08/11/16 08/11/16 Atorvastatin [Lipitor] 40 mg PO HS 08/11/16 08/11/16 Docusate [Colace] 100 mg PO BID 08/11/16 08/11/16 Famotidine [Pepcid] 20 mg PO BID 08/11/16 08/11/16 Guaifenesin [Mucinex] 600 mg PO BID 08/11/16 08/11/16 Insulin LISPRO [HumaLOG] 0 units SQ TIDWM 08/11/16 08/11/16 OxyCODONE Immed Rel [Roxicodone 5 20 mg PO Q4HR 08/11/16 08/11/16 MG] Oxygen 2 l .ROUTE AD 08/11/16 08/11/16 SitaGLIPtin [Januvia] 100 mg PO DAILY 08/11/16 08/11/16 Previous Rx's Medication Instructions Recorded Nystatin [Nystatin Suspension] 500,000 units PO QID #120 ml 08/16/16 Ondansetron ODT [Zofran ODT] 4 mg SL Q8HR #10 tab.rapdis 10/01/16 Allergies Allergy/AdvReac Type Severity Reaction Status Date / Time Penicillins Allergy Rash Verified 01/27/16 09:52 Tetracycline Allergy Rash Verified 01/27/16 09:52 Constitutional: Reports: fever ([facility] said a fever 101.). Denies: chills , weakness, weight change Eyes: Denies: eye pain, eye discharge, vision change ENT ED: Denies: ear pain, throat pain, dental pain, hearing loss, epistaxis, congestion, dysphagia Cardiovascular: Denies: chest pain, palpitations, dyspnea on exertion, edema, syncope Respiratory: Denies: cough, dyspnea, wheezes, hemoptysis, stridor Gastrointestinal: Denies: abdominal pain, nausea, vomiting, diarrhea, constipation, hematemesis, melena, hematochezia Genitourinary: Denies: dysuria, frequency, hematuria, discharge Musculoskeletal: Denies: back pain, neck pain, arthralgia, myalgia Integumentary: Denies: rash, abrasion, lesions Neurological: Denies: headache, weakness, numbness, paresthesias, confusion, abnormal gait, vertigo Psychiatric: Denies: anxiety, depression, suicidal thoughts, homicidal thoughts , auditory hallucinations, visual hallucinations Endocrine: Denies: fatigue Hematological/Lymphatic: Denies: easy bleeding, easy bruising Past Medical History - Past Medical History Medical history: Reports: asthma, cancer, COPD, CVA, diabetes, thyroid disease Surgical history: Reports: thyroidectomy Psychiatric history: Reports: anxiety, depression - Social History Smoking Status: Former smoker Smokeless Tobacco Status: No Alcohol use: Reports: none, occasionally Drug use: Reports: none Physical Exam - General Limitations: no limitations General appearance: alert, in no apparent distress (She arrives appearing in no respiratory distress at this time. ) - Head Head exam: atraumatic, normocephalic, normal inspection - Eye Eye exam: Present: normal appearance, PERRL, EOMI - ENT ENT exam: normal exam - Neck Neck exam: Present: normal inspection, full ROM, trachea midline - Chest Chest inspection: Present: normal inspection, symmetric chest wall rise, tenderness ( on palpation to the right side.) - Respiratory Respiratory exam: Present: normal lung sounds bilaterally - Cardiovascular Cardiovascular exam: Present: regular rate, normal rhythm, normal heart sounds - Abdominal Exam Abdominal exam: Present: soft, Non-Tender. Absent: tenderness, distention, guarding, rebound, rigidity - Neurological Exam Neurological exam: Present: alert, oriented X3 Course Course Narrative: 46-year-old female presents to the ED complaining of fever, shortness of breath , hypoxia. She was evaluated and vitals were reviewed by myself. She currently does not meet any ulcers criteria. So we will not start the sepsis workup at this time. We will look for possible signs of infection for her cause a stated fpc given fever. We will do a chest x-ray, labs, urinalysis and EKG. Will try and wean her off auction to see what her oxygen saturations are when weened off oxygen. - Reevaluation(s) Reevaluation #1: Was reevaluated at this time she was still showing to be hypoxic so we increased her oxygen to 4 L per nasal cannula. After looking all labs we decided that admission would be the best course of action. Talk to Dr. Dockery and he agreed to admit the patient. Patient agrees with this plan. Vital Signs Temperature 99.0 F 10/03/16 21:11 Pulse Rate 86 10/03/16 21:11 Respiratory Rate 14 10/03/16 21:11 Blood Pressure 134/105 10/03/16 21:11 O2 Sat by Pulse Oximetry 96 10/03/16 21:11 Temperature 99.0 F 10/03/16 21:11 Pulse Rate 80 10/03/16 22:29 Respiratory Rate 18 10/03/16 22:29 Blood Pressure 167/90 10/03/16 22:29 O2 Sat by Pulse Oximetry 92 10/03/16 22:29 Oxygen Delivery Oxygen Delivery Nasal Cannula Medical Decision Making - [facility] Narrative Medical decision making narrative: 46-year-old female presented to the ED from a [facility]pc via EMS as a morbidly obese female who has a history of COPD and uterine cancer. Upon arrival she does not seem to be in any respiratory distress. She has no criteria to start the sepsis protocol at this time. I think the low readings could have been due to equipment malfunction. We will currently try to wean her off oxygen at this time. We will do basic labs, UA and chest x-ray to look for possible signs of infection that caused the nursing homes fever. She took Tylenol proximal July 5 hours ago. We will continue to monitor her temperature while she is here. If it does have slight we will try giving her Tylenol again. While nursing was placing her Gamez catheter to get urine looked at her wound under her belly crease and it looks to be healing well at this time. There are no signs of erythema, pus, infection. At this Time we are waiting for labs and imaging. 2313-after reevaluating her she does show to still be hypoxic on approximate 4 L of oxygen. She was showing 88%. She also does not have a temperature as a speak as it was 98.3. Labs came back showing a mild elevation in CO2 which is chronic for her. She also had a slightly elevated BNP which is also chronic for her. She had an elevated troponin 0.04. She also had a UTI based on urinalysis which was recommended for culture. Due to her being hypoxic, having elevated troponin and the UTI we plan to admit her. Dr. Dockery the hospitalist was spoken to and he agreed to accept the patient. We started the patient on IV Levaquin for the UTI. Patient agreed with the plan to admit. Chest X-Ray 10/03/16 21:31 IMPRESSION: Limited exam Diffuse airspace disease suggesting pulmonary edema. D/ / Yfn Ha / Yfn Ha Interpreting Provider: Yfn Ha - Medical Records Medical records reviewed: Yes I reviewed the patient's medical records. - Lab Data Lab results reviewed: Yes I reviewed the patient's lab results. Result diagrams: 10/03/16 21:47 10/03/16 21:47 Lab Results 10/03/16 10/03/16 10/03/16 Range/Units 21:47 21:47 21:47 WBC 7.8 (4.3-11.1) K/mcL RBC 4.36 (3.82-4.97) M/mcL Hgb 12.4 (11.5-15.4) g/dL Hct 41.3 (35.3-44.9) % MCV 94.7 (83.0-100.0) fL MCH 28.4 (28.0-33.3) pg MCHC 30.0 L (31.6-35.5) g/dL RDW 17.3 H (11.5-14.5) % Plt Count 191 (140-400) K/mcL MPV 10.2 (9.4-12.4) fL Immature Gran % 1.0 (0-4) % Seg Neutrophils % 71.0 % Lymphocytes % 18.7 % Monocytes % 7.8 % Eosinophils % 1.0 % Basophils % 0.5 % Neutrophils # 5.5 (1.6-8.9) K/mcL Lymphocytes # 1.5 (0.6-4.6) K/mcL Monocytes # 0.6 (0.0-1.3) K/mcL Eosinophils # 0.1 (0.0-0.6) K/mcL Basophils # 0.0 (0.0-0.2) K/mcL Sodium 137 (136-145) mEq/L Potassium 4.5 (3.5-4.5) mEq/L Chloride 94 L (98-109) mEq/L Carbon Dioxide 38 H (19-29) mEq/L BUN 13 (7-20) mg/dL Creatinine 0.87 (0.57-1.11) mg/dL Est GFR ( Amer) > 60 (> 60) Est GFR (Non-Af Amer) > 60 (> 60) BUN/Creatinine Ratio 15 (6-26) Glucose 481 H (70-99) mg/dL Calculated Osmolality 305 H (280-300) Calcium 8.8 (8.6-10.8) mg/dL Troponin I 0.04 H* (0-0.03) ng/mL B-Natriuretic Peptide (0-100) pg/mL Urine Color (Yellow) Urine Clarity (Clear) Urine pH (5.0-8.0) pH Units Ur Specific [place] (1.010-1.025) Urine Protein (Neg-Trace) mg/dL Urine Glucose (UA) (Normal) mg/dL Urine Ketones (Negative) mg/dL Urine Blood (Negative) Urine Nitrite (Negative) Urine Bilirubin (Negative) Urine Urobilinogen (Normal) mg/dL Ur Leukocyte Esterase (Negative) Urine Microscopic RBC (0-3) per hpf Urine Microscopic WBC (0-3) per hpf Ur Squamous Epith Cells (None-Few) per lpf Urine Bacteria (None-Few) per hpf Hyaline Casts (None-Few) per lpf Ur Culture Indicated? (NO) 07/21/17 07/21/17 Range/Units 21:47 21:58 WBC (4.3-11.1) K/mcL RBC (3.82-4.97) M/mcL Hgb (11.5-15.4) g/dL Hct (35.3-44.9) % MCV (83.0-100.0) fL MCH (28.0-33.3) pg MCHC (31.6-35.5) g/dL RDW (11.5-14.5) % Plt Count (140-400) K/mcL MPV (9.4-12.4) fL Immature Gran % (0-4) % Seg Neutrophils % % Lymphocytes % % Monocytes % % Eosinophils % % Basophils % % Neutrophils # (1.6-8.9) K/mcL Lymphocytes # (0.6-4.6) K/mcL Monocytes # (0.0-1.3) K/mcL Eosinophils # (0.0-0.6) K/mcL Basophils # (0.0-0.2) K/mcL Sodium (136-145) mEq/L Potassium (3.5-4.5) mEq/L Chloride (98-109) mEq/L Carbon Dioxide (19-29) mEq/L BUN (7-20) mg/dL Creatinine (0.57-1.11) mg/dL Est GFR ( Amer) (> 60) Est GFR (Non-Af Amer) (> 60) BUN/Creatinine Ratio (6-26) Glucose (70-99) mg/dL Calculated Osmolality (280-300) Calcium (8.6-10.8) mg/dL Troponin I (0-0.03) ng/mL B-Natriuretic Peptide 110 H (0-100) pg/mL Urine Color Yellow (Yellow) Urine Clarity Clear (Clear) Urine pH 6.0 (5.0-8.0) pH Units Ur Specific [place] 1.017 (1.010-1.025) Urine Protein Negative (Neg-Trace) mg/dL Urine Glucose (UA) >=1000 H (Normal) mg/dL Urine Ketones Negative (Negative) mg/dL Urine Blood Trace H (Negative) Urine Nitrite Negative (Negative) Urine Bilirubin Negative (Negative) Urine Urobilinogen Normal (Normal) mg/dL Ur Leukocyte Esterase Small H (Negative) Urine Microscopic RBC 0-3 (0-3) per hpf Urine Microscopic WBC 5-15 H (0-3) per hpf Ur Squamous Epith Cells Moderate H (None-Few) per lpf Urine Bacteria Few (None-Few) per hpf Hyaline Casts None Seen (None-Few) per lpf Ur Culture Indicated? YES A (NO) - Radiology Data Radiology results reviewed: Yes I reviewed the patient's radiology results. - EKG Data EKG #1 EKG attestation: Yes I reviewed and interpreted this EKG. EKG results narrative: EKG done 2115 and reviewed by myself. Shows normal sinus rhythm with a sinus part. Rate of 84, VT not red, QRS 90, QTC 433, normal axis. No acute ST changes, no acute T-wave changes. No signs of AV blocks. Or other blocks. No signs of UW/Brugada syndrome compared with EKG done 10/01/16 which shows the same sinus with arrhythmia most likely from a sinus cause. There are no differences between the 2 EKGs this time. EKG shows normal: sinus rhythm Rate: normal Rhythm: NSR Morton/QRS: normal When compared to previous EKG there are: no significant changes Interpretation: no acute changes Attestation Statement - Attestation Attestation: I, Damaso Diaz MD, personally evaluated this patient and discussed their management with the resident physician. I reviewed the resident's note and agree with the documented findings, medical decision making, and plan of care. 46-year-old morbidly obese female presents to the emergency department from a local fpc for fever and hypoxia. Patient reports that she has had a fever off and on for the past week. She is not normally on oxygen but does use CPAP at night. [facility] reported her oxygen saturation was 68. On arrival here she was on a nonrebreather and her oxygen saturation was in the upper 90s. She was changed to nasal cannula and maintained an oxygen saturation in the mid 90s initially but then dropped down into the 85-90% range. He does admit to feeling short of breath. She denies any chest pain. Some mid abdominal pain. On examination patient is a well-developed morbidly obese female in no acute distress. She is alert and oriented 3. There is no cyanosis or diaphoresis. Chest is nontender to palpation. Breath sounds are decreased but equal bilaterally. No definite rales or wheezes noted however poor exam due to patient's body habitus. Heart regular rate and rhythm. Abdomen soft with normal bowel sounds. There is mild mid to right upper abdominal tenderness. Labs reviewed. She does have a UTI. EKG shows a sinus rhythm with sinus arrhythmia. No acute changes. Chest x-ray was read as diffuse bilateral airspace disease consistent with pulmonary edema however I feel this is likely largely overlying soft tissue. Patient's BNP is 110. She was also noted to have an elevated troponin of 0.04. The hospitalist, Dr. Dockery, was consulted and accepted admission of the patient.
[2016-10-03 21:55] LABS: Basophils % 0.5 %; Eosinophils # 0.1 K/mcL (0.0-0.6); Hematocrit 41.3 % (35.3-44.9); Hemoglobin 12.4 g/dL (11.5-15.4); Lymphocytes # 1.5 K/mcL (0.6-4.6); Lymphocytes % 18.7 %; Mean Corpuscular Hemoglobin 28.4 pg (28.0-33.3); Mean Corpuscular Volume 94.7 fL (83.0-100.0); Mean Platelet Volume 10.2 fL (9.4-12.4); Monocytes # 0.6 K/mcL (0.0-1.3); Monocytes % 7.8 %; Neutrophils # 5.5 K/mcL (1.6-8.9); Platelet Count 191 K/mcL (140-400); Red Blood Count 4.36 M/mcL (3.82-4.97); Red Cell Distribution Width 17.3 % (11.5-14.5)
[2016-10-03 22:04] LABS: Bilirubin,Urine Negative (Negative); Blood,Urine Trace (Negative); Clarity,Urine Clear (Clear); Color,Urine Yellow (Yellow); Glucose,Urine (UA) >=1000 mg/dL (Normal); Ketones,Urine Negative (Negative); Leukocyte Esterase,Urine Small (Negative); Nitrite,Urine Negative (Negative); Protein,Urine Negative (Neg-Trace); Specific Gravity,Urine 1.017 (1.010-1.025); Urobilinogen,Urine Normal (Normal)
[2016-10-03 22:06] LABS: Bacteria,Urine Few per hpf (None-Few); Hyaline Casts,Urine None Seen per lpf (None-Few); RBC,Urine 0-3 per hpf (0-3); Squamous Epithelial Cell,Urine Moderate per lpf (None-Few)
[2016-10-03 22:08] LABS: BUN/Creatinine Ratio 15 (6-26); Blood Urea Nitrogen 13 mg/dL (7-20); Calcium 8.8 mg/dL (8.6-10.8); Carbon Dioxide 38 mEq/L (19-29); Chloride 94 mEq/L (98-109); Glucose 481 mg/dL (70-99); Osmolality,Calculated 305 (280-300); Potassium 4.5 mEq/L (3.5-4.5); Sodium 137 mEq/L (136-145); eGFR For African Americans > 60 (> 60); eGFR For Non-African Americans > 60 (> 60)
[2016-10-03] MEDS ORDERED: Levofloxacin 750 MG/150 ML 750 MG/150 ML BAG IVPB ONE (23:15)
[2016-10-03] MEDS ORDERED: *HR* HYDROcodone/Acet 10/325 mg TABLET PO ONE (23:41)
[2016-10-04] MEDS ORDERED: Naloxone 0.4 MG/ML INJ IVP PRN (01:11)
[2016-10-04] MEDS ORDERED: Furosemide 40 MG/4 ML VIAL IVP ONE (01:54)
--- NOTE | 2016-10-04 02:01 | Internal Med History&Physical ---
<Clarence Real - Last Filed: 10/04/16 02:43> Date of Encounter: 10/04/16 Time of Encounter: 01:58 Assessment and Plan (1) Acute respiratory failure Current visit: Yes Status: Acute Patient presented with acute respiratory failure with oxygen saturations in the 60s without oxygen. Patient denies using home oxygen but does have history of COPD. Patient required nasal cannula oxygen to maintain oxygen saturations greater than 89%. - Clinical examination does not correlate with CHF exacerbation, or findings of pneumonia. - Likely contributed factors are COPD and obesity hypoventilation. - Patient denies increased sputum production, cough or purulent sputum. Plan: - Nasal cannula oxygen wean as tolerated - Dual nebs, albuterol nebulizer, scheduled inhalers - Patient on Levaquin for potential UTI but also covers for possible COPD exacerbation. - Prednisone 40 mg by mouth daily for total of 5 days. Qualifiers: Qualified Code(s): J96.00 - Acute respiratory failure, unspecified whether with hypoxia or hypercapnia (2) Elevated troponin Current visit: Yes Status: Acute Elevated troponin 0.05 likely secondary to hypoxia with supply mismatch. Patient does however have risk factors for ACS. We will trend troponins 3. (3) Chest pain Current visit: Yes Status: Acute Patient complained of chest pressure substernally it did not radiate and no exacerbating factors. The patient already takes aspirin daily. The chest pain would be described as atypical chest pain but the patient does have significant risk factors such as uncontrolled type 2 diabetes, previous CVA, super morbid obesity and an elevated troponin level at 0.05 Chest x-ray was read as possible pulmonary edema. Clinical examination does not demonstrate findings for congestive heart failure and BNP was 110. Low suspicion for congestive heart failure Plan: - cardiac monitor technician - Troponin 3 - EKG - Continue beta yahaira, statin, aspirin, oxygen and morphine if necessary. - Echocardiogram Qualifiers: Qualified Code(s): R07.9 - Chest pain, unspecified (4) Morbid obesity with BMI of 70 and over, adult Current visit: Yes Status: Acute Patient has a BMI of 79.2. Patient has limited mobility due to body habitus. Patient has multiple medical complications likely secondary to her weight. She benefit from exercises tolerated, and dietary restrictions, appropriate glucose control. (5) Obesity hypoventilation syndrome Current visit: Yes Status: Acute Secondary to body habitus. (6) Obstructive sleep apnea Current visit: No Status: Acute Patient has known history of obstructive sleep apnea secondary to body habitus. Uses CPAP nightly. Plan: - CPAP while resting or sleeping. (7) Panniculitis Current visit: Yes Status: Acute Patient has findings of erythema of the anterior abdominal wall. Correlating with panniculitis. This may be a chronic finding. (8) Chronic abdominal wound infection Current visit: Yes Status: Acute Patient states that she had endometrial cancer and a surgical procedure 8 years ago. Ever since then she has had poor wound healing and does dressing changes herself daily and sees a physician in [place]. She does have tenderness to palpation around the sites. Plan: - Wound care consult - Patient on Levaquin Qualifiers: Qualified Code(s): S31.109A - Unspecified open wound of abdominal wall, unspecified quadrant without penetration into peritoneal cavity, initial encounter; L08.9 - Local infection of the skin and subcutaneous tissue, unspecified (9) Diabetes mellitus type 2 in obese Current visit: No Status: Acute Patient has known type 2 diabetes which is poorly controlled. Patient presented with a glucose greater than 600 without an anion gap. -Miss Cat states that her average glucoses around the mid 200s. Plan: - Before meals at bedtime glucose checks - Medium dose sliding scale insulin (10) DVT prophylaxis Current visit: No Status: Acute Lovenox 40 mg daily Internal Medicine - H&P: HPI Chief complaint: short of breath Admitted From: Emergency Dept Plans for Post Hospital Care: Home History of present illness: Ms. Cat is a 46 year old female past medical history of super morbidly obesity, CVA, uncontrolled type 2 diabetes, hypothyroidism, COPD and hypoventilation syndrome was brought to the hospital this evening with shortness of breath and hypoxia. Mrs. Cat said that she woke up this morning and had a feeling of chest pressure across the middle of her chest and shortness of breath. She felt like she could not catch her breath and when her oxygen level was checked it was in the low 60 percentile. She said she has never had low oxygen like this prior and this was very concerning to her. She does not wear home oxygen but does wear a CPAP at night while sleeping. She said she started to develop right-sided chest pain that was exacerbated with deep breaths. Substernal chest pressure that initially was they are resolved and did not radiate to her back and jaw or arm. She is not very active and does not have any exertional symptoms. She denies any chest pressure-like symptoms in the past. She also had feelings of diaphoresis fever and chills today. Since being placed on nasal cane oxygen she feels that her breathing is back to normal and she is much improved. She is requesting to eat and drink. She states that she had been constipated for the last 2 days it is usually quite regular with stool softeners. Past Med Surg Social Fam HX - Past Medical History Medical history: asthma, cancer, COPD, CVA, diabetes, thyroid disease Psychiatric history: anxiety, depression - Past Surgical History Surgical History: thyroidectomy - Social History Smoking Status: Former smoker Smokeless Tobacco Status: No Alcohol use: none, occasionally Drug use: none Internal Medicine - H&P: Meds Beclomethasone Diprop 80mcg [QVAR 80 mcg] 2 puff IH BID 04/03/16 [History] BuPROPion SR (12 HR) [Wellbutrin SR] 100 mg PO BID 04/03/16 [History] Gabapentin [Neurontin] 400 mg PO TID 04/03/16 [History] Levothyroxine Sodium [Levoxyl] 200 mcg PO DAILY 04/03/16 [History] Loratadine [Allergy Relief] 10 mg PO DAILY 04/03/16 [History] Ranitidine HCl [Acid Multi Township Assessor] 150 mg PO BID 04/03/16 [History] Atorvastatin [Lipitor] 40 mg PO HS 08/11/16 [History] Docusate [Colace] 100 mg PO BID 08/11/16 [History] Nystatin [Nystatin Suspension] 500,000 units PO QID #120 ml MDD SWISH AND SWALLOW 08/16/16 [Rx] Ondansetron ODT [Zofran ODT] 4 mg SL Q8HR #10 tab.rapdis 10/01/16 [Rx] Aspirin Enteric Coated [Aspirin EC] 81 mg PO DAILY 10/04/16 [History] Cyanocobalamin (Vitamin B-12) [Vitamin B-12] 1,000 mcg PO DAILY 10/04/16 [ History] Fluconazole [Diflucan] 150 mg PO .DAILY X 10 DAYS MDD FIRST DOSE 09-25-16 [History] Ipratropium/Albuterol Neb [Duoneb] 3 ml IH Q6HR 10/04/16 [History] Levothyroxine [Synthroid] 50 mcg PO DAILY 10/04/16 [History] Metformin HCl [Glucophage Xr] 500 mg PO DAILY 10/04/16 [History] Allergies Penicillins Allergy (Verified 01/27/16 09:52) Rash Tetracycline Allergy (Verified 01/27/16 09:52) Rash All Systems PM: A 10-system review of systems was performed and is negative for pertinent findings except as documented above in the HPI. - Constitutional Constitutional: chills, fever(s), no night sweats - EENT Eyes: no change in vision, no discharge, no pain, no photophobia Ears: no ear discharge, no ear pain, no tinnitus Nose, mouth and throat: no dysphagia, no nasal discharge, no neck pain, no sore throat - Cardiovascular Cardiovascular ROS IM: chest pain, dyspnea, no diaphoresis, no lightheadedness, no palpitations, no syncope - Respiratory Respiratory: dyspnea, no cough, no wheezing, no excessive phlegm production - Gastrointestinal Gastrointestinal: no abdominal pain, no diarrhea, no hematemesis, no hematochezia, no melena, no nausea, no vomiting - Genitourinary Genitourinary: no change in urinary stream, no dysuria, no flank pain, no hematuria - Musculoskeletal Musculoskeletal ROS IM: no numbness, no tingling - Integumentary Integumentary IM: non-healing lesions, no rash, no sores, no unusual bruising - Neurological Neurological ROS: no confusion, no convulsions, no focal weakness, no numbness, no tingling, no tremor(s) - Hematologic/Lymphatic Hematologic/Lymphatic: no easy bruising - Constitutional Vitals: Temp Pulse Resp BP Pulse Ox 98.8 F 83 20 134/77 97 10/04/16 01:18 10/04/16 01:18 10/04/16 01:18 10/04/16 01:18 10/04/16 01:18 Exam: General: Patient alert, awake, oriented 3, interactive, in no acute distress, super morbidly obese HEENT: Normocephalic, atraumatic, pupils equal reactive to light, nasal cavity patent and open septum median position, oral mucosa moist, uvula midline, neck supple trachea midline no palpable lymphadenopathy, no thyromegaly. Chest: Symmetric bilateral correlating with respiratory effort, effort nonlabored. Cardiac: Regular rate and rhythm, positive S1 and S2. no bruits appreciated bilateral carotids, Radial pulses 2+ bilateral, posterior tibial and dorsal pedal pulses 2+ bilateral. Respiratory: Clear to auscultation all lung ghosh Abdomen: Soft, obese mild tenderness to palpation, positive bowel sounds, due to body habitus was difficult to palpate organs. On the inferior anterior abdominal wall there is a large sore with poor healing and surrounding erythema. The anterior abdominal wall has some erythema is slightly tender to palpation. Extremities: Symmetric bilateral, bilateral lower extremities demonstrate chronic venous stasis. patient moving all 4 extremities spontaneously. Neurologic: No focal deficits appreciated on examination. Face symmetric, muscle strength symmetric bilateral upper and lower extremities. Internal Med - H&P Results - Labs CBC & Chem 7: 10/03/16 21:47 10/03/16 21:47 <Naveen Banegas - Last Filed: 10/04/16 03:18> Date of Encounter: 10/04/16 Internal Medicine - H&P: HPI History of present illness: Ms. Cat is a 46 year old female All Systems PM: A 10-system review of systems was performed and is negative for pertinent findings except as documented above in the HPI. - Constitutional Vitals: Temp Pulse Resp BP Pulse Ox 98.8 F 83 20 134/77 97 10/04/16 01:18 10/04/16 01:18 10/04/16 01:18 10/04/16 01:18 10/04/16 01:18 Internal Med - H&P Results - Labs CBC & Chem 7: 10/03/16 21:47 10/03/16 21:47 - Attending Attestation I have seen and examined the patient. I reviewed the orders and the note. Patient is a 46-year-old female with past medical history of COPD, cancer, CVA, diabetes, thyroid disease, obstructive sleep apnea and morbid obesity. Patient presents to the ED with complaints of shortness of breath. She apparently woke up feeling some chest pressure and shortness of breath. She apparently could not catch her breath. Her oxygen sat was apparently in low 60s. She also had some right-sided chest pain which is worse with deep breaths. Patient is mostly bedbound. Chest pain is now resolved. On examination patient is awake and alert. She is requesting something to eat and drink. She also states she needs her CPAP before she goes to bed tonight. Patient complains of a wound on her lower abdomen which she says is chronic. Patient is able to provide all history, she is not in any distress. Patient is being admitted for acute respiratory failure likely secondary to COPD and also due to obstructive sleep apnea and obesity hypoventilation. Patient has slightly elevated troponin likely demand ischemia. Troponin will be trended. We will continue aspirin and statin. Echocardiogram is pending. Wound care consult pending. Patient has been explained about her guarded condition and plan of care. Understood and agreed. No unanswered questions. No family members at bedside. CODE STATUS full code.
[2016-10-04] MEDS ORDERED: Dextrose Gel 15 GM PO PRN ×2 (02:02)
[2016-10-04] MEDS ORDERED: D5% in Water 1,000 ML IVC PRN (02:02)
[2016-10-04] MEDS ORDERED: *HR* Dextrose 50 % in Water (Syg) 50 ML SYRINGE IVP PRN (02:02)
[2016-10-04] MEDS: Ipratropium/Albuterol Neb 3 ML IH SCH ×4 (04:19→22:02)
[2016-10-04 05:51] LABS: Hemoglobin A1C 11.3 %
[2016-10-04] MEDS: Levofloxacin 750 MG/150 ML 750 MG/150 ML BAG IVPB SCH (09:11)
[2016-10-04] MEDS: Insulin LISPRO 300 UNITS/3 ML VIAL SQ SCH ×3 (09:12→15:58)
[2016-10-04] MEDS: *HR* Morphine 2 MG/ML SYRINGE IVP PRN ×3 (09:13→20:03)
[2016-10-04] MEDS: Gabapentin 400 MG CAPSULE PO SCH ×3 (09:13→22:52)
[2016-10-04] MEDS: predniSONE 20 MG TABLET PO SCH (09:13)
[2016-10-04] MEDS: Famotidine 20 MG TABLET PO SCH ×2 (09:13→22:52)
[2016-10-04] MEDS: BuPROPion SR (12 HR) 100 MG TABLET PO SCH ×2 (09:13→22:52)
[2016-10-04] MEDS: Ondansetron ODT 4 MG TAB.RAPDIS SL SCH ×3 (09:13→23:24)
[2016-10-04] MEDS: Aspirin Enteric Coated 81 MG Tablet PO SCH (09:13)
[2016-10-04] MEDS: Nystatin SUSP 5 ML UD.LIQ PO SCH ×4 (09:13→22:52)
[2016-10-04] MEDS: Beclomethasone 80mcg MDI IH SCH ×2 (11:23→22:03)
--- NOTE | 2016-10-04 18:43 | Event Note ---
Date of Encounter: 10/04/16 Time of Encounter: 18:15 46-year-old female with past medical history of morbidly obese with BMI 79, NESHA on CPAP, COPD, diabetes mellitus poorly controlled, chronic abdominal wound infection, and panniculitis who presented with a chief complaint of progressive shortness of breath. 1. Acute respiratory failure, improved. Patient denies any use of oxygen at home despite having COPD MB morbidly obese. She improved after starting oxygen supplementation, nebulizations and empiric antibiotics. She is eager to go to rehabilitation. 2. Diabetes. ISS. Diabetic diet.
[2016-10-04] MEDS ORDERED: Insulin LISPRO 300 UNITS/3 ML VIAL SQ SCH ×2 (21:00)
[2016-10-05] MEDS: Ipratropium/Albuterol Neb 3 ML IH SCH ×3 (03:48→16:21)
[2016-10-05 05:13] LABS: Basophils % 0.4 %; Eosinophils # 0.1 K/mcL (0.0-0.6); Eosinophils % 0.7 %; Hematocrit 38.2 % (35.3-44.9); Hemoglobin 11.8 g/dL (11.5-15.4); Immature Granulocytes % 0.6 % (0-4); Lymphocytes # 1.6 K/mcL (0.6-4.6); Lymphocytes % 17.4 %; Mean Corpuscular HGB Conc 30.9 g/dL (31.6-35.5); Mean Corpuscular Hemoglobin 29.2 pg (28.0-33.3); Mean Corpuscular Volume 94.6 fL (83.0-100.0); Mean Platelet Volume 10.9 fL (9.4-12.4); Monocytes # 0.7 K/mcL (0.0-1.3); Monocytes % 7.3 %; Neutrophils # 6.6 K/mcL (1.6-8.9); Platelet Count 172 K/mcL (140-400); Red Blood Count 4.04 M/mcL (3.82-4.97); Red Cell Distribution Width 16.6 % (11.5-14.5); Segmented Neutrophils % 73.6 %
[2016-10-05 05:24] LABS: BUN/Creatinine Ratio 17 (6-26); Blood Urea Nitrogen 16 mg/dL (7-20); Calcium 8.7 mg/dL (8.6-10.8); Carbon Dioxide 36 mEq/L (19-29); Chloride 94 mEq/L (98-109); Glucose 447 mg/dL (70-99); Magnesium 1.9 mg/dL (1.6-2.6); Osmolality,Calculated 307 (280-300); Potassium 4.2 mEq/L (3.5-4.5); Sodium 138 mEq/L (136-145); eGFR For African Americans > 60 (> 60); eGFR For Non-African Americans > 60 (> 60)
[2016-10-05] MEDS: Levofloxacin 750 MG/150 ML 750 MG/150 ML BAG IVPB SCH (08:53)
[2016-10-05] MEDS: Insulin LISPRO 300 UNITS/3 ML VIAL SQ SCH ×2 (08:53→12:32)
[2016-10-05] MEDS: Famotidine 20 MG TABLET PO SCH (08:54)
[2016-10-05] MEDS: Gabapentin 400 MG CAPSULE PO SCH ×2 (08:54→14:52)
[2016-10-05] MEDS: Aspirin Enteric Coated 81 MG Tablet PO SCH (08:54)
[2016-10-05] MEDS: BuPROPion SR (12 HR) 100 MG TABLET PO SCH (08:54)
[2016-10-05] MEDS: predniSONE 20 MG TABLET PO SCH (08:54)
[2016-10-05] MEDS: Ondansetron ODT 4 MG TAB.RAPDIS SL SCH ×2 (08:55→14:52)
[2016-10-05] MEDS: Nystatin SUSP 5 ML UD.LIQ PO SCH ×2 (08:56→12:32)
[2016-10-05] MEDS: *HR* Morphine 2 MG/ML SYRINGE IVP PRN ×2 (08:56→14:52)
[2016-10-05] MEDS: Beclomethasone 80mcg MDI IH SCH (11:17)
[2016-10-05 15:16] VITALS: BP 136/85
--- NOTE | 2016-10-05 15:26 | Discharge Summary ---
Date of Encounter: 10/05/16 Time of Encounter: 15:24 - Discharge Diagnosis (1) Acute respiratory failure Priority: Primary Status: Acute Qualifiers: Respiratory failure complication: hypoxia Qualified Code(s): J96.01 - Acute respiratory failure with hypoxia (2) Chronic abdominal wound infection Priority: Secondary Status: Chronic Qualifiers: Encounter type: subsequent encounter Qualified Code(s): S31.109D - Unspecified open wound of abdominal wall, unspecified quadrant without penetration into peritoneal cavity, subsequent encounter; L08.9 - Local infection of the skin and subcutaneous tissue, unspecified (3) Diabetes mellitus type 2 in obese Priority: Secondary Status: Chronic (4) Morbid obesity with BMI of 70 and over, adult Priority: Secondary Status: Chronic (5) Obstructive sleep apnea Priority: Secondary Status: Chronic (6) Panniculitis Priority: Secondary Status: Chronic (7) UTI (urinary tract infection) Priority: Secondary Status: Chronic Qualifiers: Urinary tract infection type: acute cystitis Hematuria presence: without hematuria Qualified Code(s): N30.00 - Acute cystitis without hematuria - Discharge Medications Prescriptions: Oxycodone HCl 20 mg PO Q4HR PRN #20 tablet PRN Reason: Pain ALPRAZolam [Xanax 0.5 MG Tablet] 0.5 mg PO BID #20 tablet levoFLOXacin [Levaquin] 500 mg PO DAILY #3 tablet Home Medications: Beclomethasone Diprop 80mcg [QVAR 80 mcg] 2 puff IH BID 04/03/16 [History] BuPROPion SR (12 HR) [Wellbutrin SR] 100 mg PO BID 04/03/16 [History] Gabapentin [Neurontin] 400 mg PO TID 04/03/16 [History] Levothyroxine Sodium [Levoxyl] 200 mcg PO DAILY 04/03/16 [History] Loratadine [Allergy Relief] 10 mg PO DAILY 04/03/16 [History] Ranitidine HCl [Acid Nuclear Logging Engineer] 150 mg PO BID 04/03/16 [History] Atorvastatin [Lipitor] 40 mg PO HS 08/11/16 [History] Docusate [Colace] 100 mg PO BID 08/11/16 [History] Nystatin [Nystatin Suspension] 500,000 units PO QID #120 ml MDD SWISH AND SWALLOW 08/16/16 [Rx] Ondansetron ODT [Zofran ODT] 4 mg SL Q8HR #10 tab.rapdis 10/01/16 [Rx] Aspirin Enteric Coated [Aspirin EC] 81 mg PO DAILY 10/04/16 [History] Cyanocobalamin (Vitamin B-12) [Vitamin B-12] 1,000 mcg PO DAILY 10/04/16 [ History] Fluconazole [Diflucan] 150 mg PO .DAILY X 10 DAYS MDD FIRST DOSE 09-25-16 [History] Ipratropium/Albuterol Neb [Duoneb] 3 ml IH Q6HR 10/04/16 [History] Levothyroxine [Synthroid] 50 mcg PO DAILY 10/04/16 [History] Metformin HCl [Glucophage Xr] 500 mg PO DAILY 10/04/16 [History] ALPRAZolam [Xanax 0.5 MG Tablet] 0.5 mg PO BID #20 tablet 10/05/16 [Rx] Oxycodone HCl 20 mg PO Q4HR PRN #20 tablet 10/05/16 [Rx] levoFLOXacin [Levaquin] 500 mg PO DAILY #3 tablet 10/05/16 [Rx] Allergies/Adverse Reactions: Allergies Penicillins Allergy (Verified 01/27/16 09:52) Rash Tetracycline Allergy (Verified 01/27/16 09:52) Rash Procedures/tests Complete & Pending: Procedures Performed prior 72 hours Category Date Time Status ECG 12 lead ECG [ECG] AM 0600 Y 10/04/16 06:00 Ordered EV echocardiogram Routine Y 10/04/16 01:55 Completed Date of admission: 10/03/16 23:36 Primary care physician: Bryan Fernandes MD Consults: 10/04/16 03:03 Consult to Law Enforcement Officer [CONS] Routine Reason for SW Consult: d/c planning back to [facility] (signature) 10/04/16 03:07 Consult to Wound Care [CONS] Routine Reason for Consult: Abd wound Time Notified: 03:10 Call Completed: Yes - Patient Status Disposition: Transfer SNF Condition: Good Functional capacity at discharge: independent ambulation - Discharge Instructions Follow Up With: Bryan Fernandes MD [Primary Care Provider] - Interval History: [facility]. She states that this bed is very uncomfortable. She denies any chest pain, shortness of breath, cough, dizziness , lightheadedness or urinary complaints. Hospital course: Ms. Cat is a 46 year old female with past medical history of diabetes, COPD , NESHA/OHS on CPA,P super morbidly obese with BMI 17 9, and not on oxygen who presented with a chief complaint of shortness of breath. [facility] 60% at the [facility]. Patient was started 2 L oxygen via nasal cannula and maintained saturations levels of both 89%. Chest x-ray showed diffuse groundglass opacities. Echocardiogram was unsuccessful due to very poor windows. Patient received prednisone and IV Levaquin and remained hemodynamically stable and asymptomatic during her hospital stay. Urine culture grew gram-negative christian. She had no urinary complaints. PLAN: Continue oral Levaquin. Follow-up will urine culture results at [facility]. Continue oxygen supplementation 2 L via nasal cannula all times. CPAP at bedtime. - Time Spent with Patient Total time spent providing and/or coordinating discharge services: - Constitutional Vitals: Temp Pulse Resp BP Pulse Ox 98.1 F 82 16 136/85 96 10/05/16 15:15 10/05/16 15:15 10/05/16 15:15 10/05/16 15:15 10/05/16 15:15 General appearance: Present: cooperative, A&O X 3, morbidly obese, pleasant, no acute distress, answers questions appropriately - Respiratory Respiratory exam: Present: CTAB - Cardiovascular Cardiovascular exam: Present: JVD - GI/Abdominal GI/Abdominal exam: Present: normal bowel sounds, soft. Absent: distended, tenderness Additional comments: Panniculitis. - Extremities Exam Extremities exam: Absent: pedal edema - Neurological Exam Neurological exam: Present: alert, oriented X3, no focal deficits. Absent: facial droop, speech deficit
--- NOTE | 2016-10-05 15:46 | Physician Discharge Referral ---
ExtendedCare Referral Info Transfer To: [facility] Provider in Charge: SHELLEY Provider in Charge after Transfer: PCP Institutional Level of Care: Skilled - Diagnosis (1) Acute respiratory failure Status: Acute (2) Chronic abdominal wound infection Status: Chronic (3) Diabetes mellitus type 2 in obese Status: Chronic (4) Morbid obesity with BMI of 70 and over, adult Status: Chronic (5) Obstructive sleep apnea Status: Chronic (6) Panniculitis Status: Chronic (7) UTI (urinary tract infection) Status: Chronic - Transfer Medications Prescriptions: levoFLOXacin [Levaquin] 500 mg PO DAILY #3 tablet Home Medications: Beclomethasone Diprop 80mcg [QVAR 80 mcg] 2 puff IH BID 04/03/16 [History] BuPROPion SR (12 HR) [Wellbutrin SR] 100 mg PO BID 04/03/16 [History] Gabapentin [Neurontin] 400 mg PO TID 04/03/16 [History] Levothyroxine Sodium [Levoxyl] 200 mcg PO DAILY 04/03/16 [History] Loratadine [Allergy Relief] 10 mg PO DAILY 04/03/16 [History] Ranitidine HCl [Acid Sales Relationship Manager] 150 mg PO BID 04/03/16 [History] Atorvastatin [Lipitor] 40 mg PO HS 08/11/16 [History] Docusate [Colace] 100 mg PO BID 08/11/16 [History] Nystatin [Nystatin Suspension] 500,000 units PO QID #120 ml MDD SWISH AND SWALLOW 08/16/16 [Rx] Ondansetron ODT [Zofran ODT] 4 mg SL Q8HR #10 tab.rapdis 10/01/16 [Rx] Aspirin Enteric Coated [Aspirin EC] 81 mg PO DAILY 10/04/16 [History] Cyanocobalamin (Vitamin B-12) [Vitamin B-12] 1,000 mcg PO DAILY 10/04/16 [ History] Fluconazole [Diflucan] 150 mg PO .DAILY X 10 DAYS MDD FIRST DOSE 09-25-16 [History] Ipratropium/Albuterol Neb [Duoneb] 3 ml IH Q6HR 10/04/16 [History] Levothyroxine [Synthroid] 50 mcg PO DAILY 10/04/16 [History] Metformin HCl [Glucophage Xr] 500 mg PO DAILY 10/04/16 [History] levoFLOXacin [Levaquin] 500 mg PO DAILY #3 tablet 10/05/16 [Rx] Allergies/Adverse Reactions: Allergies Penicillins Allergy (Verified 01/27/16 09:52) Rash Tetracycline Allergy (Verified 01/27/16 09:52) Rash - Respiratory Orders Oxygen / L per min (2) Smoking Cessation: Smoking cessation has been advised. For more information, call the [employer] Quit Line at [phone]-NOW. - Lab Orders Lab Orders: Other (include drug levels w/frequency) (FOLLOW UP ON URINE CULTURE RESULTS DONE DURING THIS HOSPITALIZATION) - Advance Directives Code Status: Full Code - Mobility Orders Other (PER pt) - Rehabiliation Orders Rehab Potential: Fair Rehab Orders: Evaluation for Physical Therapy, Evaluation for Occupational Therapy - Treatments Skin tear care topically daily PRN per policy, May check for fecal impaction rectally daily PRN, Fleet enema rectally every other day PRN cleansing purposes List/Other: OUTPATIENT WEIGHT LOSS PROGRAM - Diet Orders No Added Salt (DIANE), No Concentrated Sweets, Cardiac CERTIFICATION: I certify that the transfer of the above named patient to an Extended Care Facility is necessary for the continuing treatment of the diagnosis listed. The above information is true and accurate reflection of patient's current condition. Confidential - Redisclosure prohibited without a patient's written consent.
--- NOTE | 2016-10-06 12:54 | Electrocardiograph Report ---
[facility] Test Date: 2016-10-03 Pat Name: Anali Cat Department: 103 Room: 3B39 Gender: F Order Picker/Assembler: DEMI MARTÍNEZB: 1970 Requested By: Norberto Sinclair Order Number: [id number] Reading MD: Clarence Clinton DO Measurements Intervals [place] Rate: 84 P: DE: 0 QRS: 113 QRSD: 90 T: 60 QT: 392 QTc: 433 Interpretive Statements SINUS RHYTHM WITH 2ND DEGREE AV BLOCK, MOBITZ TYPE II PATTERN CONSISTENT WITH PULMONARY DISEASE POSSIBLE RIGHT VENTRICULAR HYPERTROPHY Electronically Signed On 10-06-2016 12:53:08 EDT by Clarence Clinton DO
--- NOTE | 2016-10-06 13:07 | Electrocardiograph Report ---
[address] [address] Test Date: 2016-10-04 Pat Name: Anali Cat Department: 113 Room: 3B39 Gender: F Causticiser: [id number] : 1970 Requested By: Naveen Banegas Order Number: [id number] Reading MD: Mc Shay MD Measurements Intervals [place] Rate: 84 P: 47 MN: 164 QRS: 105 QRSD: 90 T: 78 QT: 400 QTc: 442 Interpretive Statements SINUS RHYTHM WITH OCCASIONAL SUPRAVENTRICULAR PREMATURE COMPLEXES MARKED RIGHT AXIS DEVIATION LOW QRS VOLTAGE IN PRECORDIAL LEADS BASELINE ARTIFACT Electronically Signed On 10-06-2016 13:06:21 EDT by Mc Shay MD
--- NOTE | 2016-10-06 14:29 | Electrocardiograph Report ---
[address] [address] Test Date: 2016-10-04 Pat Name: Anali Cat Department: 113 Room: 3B39 Gender: Preparer Making Department: [id number] : 1970 Requested By: Jazmine Morton Order Number: [id number] Reading MD: Mc Shay MD Measurements Intervals [place] Rate: 80 P: 68 WI: 168 QRS: 106 QRSD: 90 T: 78 QT: 396 QTc: 433 Interpretive Statements SINUS RHYTHM WITH MARKED SINUS ARRHYTHMIA MARKED RIGHT AXIS DEVIATION LOW QRS VOLTAGE IN PRECORDIAL LEADS BASELINE ARTIFACT Electronically Signed On 10-06-2016 14:28:09 EDT by Mc Shay MD
== END 2016-10-05 17:10 ==
LOC: EMEROO 21:06 → 3BNU 21:06 → SUATTDRO 10-04 01:10
PROVIDERS: ADMIT Family Medicine; ATTEND Internal Medicine

== ENCOUNTER 2016-11-05 07:37 | Observation (INO) ==
[2016-11-05] MEDS ORDERED: Ketorolac 30 MG/ML VIAL IVP ONE (08:16)
[2016-11-05 08:37] LABS: Basophils % 0.4 %; Eosinophils # 0.1 K/mcL (0.0-0.6); Eosinophils % 1.1 %; Hematocrit 41.5 % (35.3-44.9); Hemoglobin 12.7 g/dL (11.5-15.4); Immature Granulocytes % 1.1 % (0-4); Lymphocytes # 1.1 K/mcL (0.6-4.6); Lymphocytes % 13.9 %; Mean Corpuscular HGB Conc 30.6 g/dL (31.6-35.5); Mean Corpuscular Hemoglobin 28.3 pg (28.0-33.3); Mean Corpuscular Volume 92.6 fL (83.0-100.0); Mean Platelet Volume 9.8 fL (9.4-12.4); Monocytes # 0.5 K/mcL (0.0-1.3); Monocytes % 6.2 %; Neutrophils # 5.9 K/mcL (1.6-8.9); Platelet Count 200 K/mcL (140-400); Red Blood Count 4.48 M/mcL (3.82-4.97); Red Cell Distribution Width 17.2 % (11.5-14.5); Segmented Neutrophils % 77.3 %
[2016-11-05] MEDS: Ondansetron 4 MG/2 ML VIAL IVP ONE ×2 (08:48→08:59)
[2016-11-05 08:49] LABS: Alanine Aminotransferase 9 Units/L (0-55); Albumin 3.1 g/dL (3.5-5.0); Albumin/Globulin Ratio 0.9 (1.1-2.2); Alkaline Phosphatase 90 Units/L (38-126); Aspartate Amino Transferase 10 Units/L (5-34); BUN/Creatinine Ratio 13 (6-26); Bilirubin,Direct 0.3 mg/dL (0.0-0.5); Bilirubin,Indirect 0.4 mg/dL (0.0-1.2); Bilirubin,Total 0.7 mg/dL (0.2-1.2); Blood Urea Nitrogen 10 mg/dL (7-20); Calcium 8.9 mg/dL (8.6-10.8); Carbon Dioxide 34 mEq/L (19-29); Chloride 95 mEq/L (98-109); Globulin 3.3 g/dL (2.4-3.5); Glucose 421 mg/dL (70-99); Lipase 11 Units/L (8-78); Osmolality,Calculated 301 (280-300); Potassium 4.3 mEq/L (3.5-4.5); Sodium 137 mEq/L (136-145); Total Protein 6.4 g/dL (6.0-8.3); eGFR For African Americans > 60 (> 60); eGFR For Non-African Americans > 60 (> 60)
--- NOTE | 2016-11-05 08:52 | Emergency Department Note ---
Disposition Clinical Impression: Abdominal pain Qualifiers: Abdominal location: generalized Qualified Code(s): R10.84 - Generalized abdominal pain Constipation Qualifiers: Constipation type: unspecified constipation type Qualified Code(s): K59.00 - Constipation, unspecified Disposition: Admitted As Inpatient Condition: Good Referrals: Bryan Fernandes MD [Primary Care Provider] - Time of Disposition: 15:12 Abdominal Pain HPI - General Chief Complaint: ED Abdominal Pain Stated Complaint: Constipation Source: patient, EMS Nursing Notes Reviewed: Yes Vital Signs Reviewed: Yes - History of Present Illness HPI Narrative: Constipation for 10 days. Abdominal pain for this on as well. Mild blood from her buttocks that she thinks is hemorrhoids. States abdominal pain is generalized. No provoking factors. Pain Scale: 10 - Related Data Home Medications Medication Instructions Recorded Confirmed Beclomethasone Diprop 80mcg [QVAR 2 puff IH BID 04/03/16 10/04/16 80 mcg] BuPROPion SR (12 HR) [Wellbutrin 100 mg PO BID 04/03/16 10/04/16 SR] Gabapentin [Neurontin] 400 mg PO TID 04/03/16 10/04/16 Loratadine [Allergy Relief] 10 mg PO DAILY 04/03/16 10/04/16 Ranitidine HCl [Acid Police [employer]] 150 mg PO BID 04/03/16 10/04/16 Atorvastatin [Lipitor] 40 mg PO HS 08/11/16 10/04/16 Docusate [Colace] 100 mg PO BID 08/11/16 10/04/16 Aspirin Enteric Coated [Aspirin EC] 81 mg PO DAILY 10/04/16 10/04/16 Cyanocobalamin (Vitamin B-12) 1,000 mcg PO DAILY 10/04/16 10/04/16 [Vitamin B-12] Ipratropium/Albuterol Neb [Duoneb] 3 ml IH Q6HR 10/04/16 10/04/16 Metformin HCl [Glucophage Xr] 500 mg PO DAILY 10/04/16 10/04/16 Guaifenesin [Mucinex] 600 mg PO BID 11/05/16 11/05/16 Insulin Glargine [Lantus] 10 unit SQ Q12H 11/05/16 11/05/16 Insulin LISPRO [HumaLOG] 6 - 18 units SQ TID PRN 11/05/16 11/05/16 Levothyroxine [Synthroid] 112 mcg PO DAILY 11/05/16 11/05/16 Polyethylene Glycol 3350 [MiraLAX 1 scoop PO DAILY PRN 11/05/16 11/05/16 Powder Bulk 17.9 Oz] Sennosides/Docusate Sodium [Senna 2 each PO BID 11/05/16 11/05/16 Plus] Previous Rx's Medication Instructions Recorded Nystatin [Nystatin Suspension] 500,000 units PO QID #120 ml MDD 08/16/16 SWISH AND SWALLOW Ondansetron ODT [Zofran ODT] 4 mg SL Q8HR #10 tab.rapdis 10/01/16 ALPRAZolam [Xanax 0.5 MG Tablet] 0.5 mg PO BID #20 tablet 10/05/16 Oxycodone HCl 20 mg PO Q4HR PRN #20 tablet 10/05/16 Allergies Allergy/AdvReac Type Severity Reaction Status Date / Time Penicillins Allergy Rash Verified 01/27/16 09:52 Tetracycline Allergy Rash Verified 01/27/16 09:52 All systems ED: reviewed and negative except as stated. Constitutional: Denies: fever, chills Cardiovascular: Denies: chest pain, palpitations, syncope Respiratory: Denies: cough, dyspnea Gastrointestinal: Reports: abdominal pain, nausea, vomiting. Denies: diarrhea, hematemesis, melena, hematochezia Genitourinary: Denies: urgency, dysuria, frequency Musculoskeletal: Denies: back pain, neck pain Integumentary: Reports: abrasion (To lower abdomen. Consistent with previous cancer removal.) Neurological: Denies: headache Abdominal Pain PMH - Past Medical History Medical history: Reports: asthma, cancer, COPD, CVA, diabetes, thyroid disease Female Surgical History: Reports: Adenoidectomy, hysterectomy, thyroidectomy, Tonsillectomy Psychiatric history: Reports: anxiety, depression - Social History Smoking status: Former smoker Alcohol use: Reports: none, occasionally Drug use: Reports: none Physical Exam - General Limitations: no limitations General appearance: alert, in no apparent distress - Head Head exam: atraumatic, normocephalic, normal inspection - Eye Eye exam: Present: normal appearance, PERRL, EOMI. Absent: scleral icterus - ENT ENT exam: normal exam, normal oropharynx, mucous membranes moist - Neck Neck exam: Present: normal inspection, full ROM, trachea midline - Chest Chest inspection: Present: normal inspection, symmetric chest wall rise - Respiratory Respiratory exam: Present: normal lung sounds bilaterally. Absent: respiratory distress - Cardiovascular Cardiovascular exam: Present: regular rate, normal rhythm, normal heart sounds - Abdominal Exam Abdominal exam: Present: soft, tenderness (Diffusely), other (Limited by patient 's body habitus.). Absent: guarding, rebound, rigidity - Extremities Exam Extremities exam: Present: normal inspection, full ROM, normal capillary refill. Absent: tenderness, pedal edema - Back Exam Back exam: Present: normal inspection, full ROM. Absent: tenderness - Neurological Exam Neurological exam: Present: alert, oriented X3 - Psychiatric Psychiatric exam: Present: normal affect, normal mood - Skin Skin exam: Present: warm, dry, normal color, other (Wound to suprapubic area.). Absent: rash, cyanosis Course Course Narrative: Female patient presenting to the emergency department complaining of abdominal pain. She states that she is also nauseated this time however this began this morning. She states she has not had a bowel movement over 10 days. [facility] [place] [facility] report and stated that she has had a bowel movement however she was insistent on coming to the hospital. Patient is complaining of constipation. She states that she has not had a bowel movement 10 days other than some small less than dime size pieces of stool. She denies any fevers. She states this morning she began having nausea. She is morbidly obese. Her exam is inhibited by her size. Her girth is greater than 10 feet around. She reports diffuse abdominal pain but states it specifically is in her lower abdomen where her incision site is. On exam she has a 10 inch in diameter open wound to her suprapubic area. She states she has had cancer that had it removed. The area is warm and erythematous. It has a foul smell. Does have a dressing on it with a purulent discharge. Patient is not febrile. She does complain of some abdominal pain. I cannot pinpoint exactly where her abdominal pain is. She states it is generalized. She grimaces everywhere I push. We have attempted to find a place to have patient's abdomen scan. She does not fit in any of the scanners in [place]. Due to this we will admit patient to the hospital for serial abdominal exams and do basic lab workup on palpation. KUB was performed and not cooperative during that period showed a nonspecific bowel pattern. Her lab work was basically unremarkable however she was hyperglycemic. We will provide her with insulin and fluids per the hospitalist request. We will admit patient to hospital. - Consultations Consultation #1: With Dr. Sprague. She states she will have the nurse practitioner come down and evaluate the patient. Time: 12:44 Vital Signs O2 Sat by Pulse Oximetry 96 11/05/16 07:40 Temperature 98.3 F 11/05/16 13:40 Pulse Rate 80 11/05/16 13:40 Respiratory Rate 18 11/05/16 13:40 Blood Pressure 121/58 11/05/16 13:40 O2 Sat by Pulse Oximetry 96 11/05/16 13:40 Oxygen Delivery Oxygen Delivery Nasal Cannula Abdominal Pain - Medical Records Medical records reviewed: Yes I reviewed the patient's medical records. - Lab Data Lab results reviewed: Yes I reviewed the patient's lab results. Result diagrams: 11/05/16 08:29 11/05/16 08:29 Lab Results 11/05/16 11/05/16 11/05/16 Range/Units 08:29 08:29 08:29 WBC 7.6 (4.3-11.1) K/mcL RBC 4.48 (3.82-4.97) M/mcL Hgb 12.7 (11.5-15.4) g/dL Hct 41.5 (35.3-44.9) % MCV 92.6 (83.0-100.0) fL MCH 28.3 (28.0-33.3) pg MCHC 30.6 L (31.6-35.5) g/dL RDW 17.2 H (11.5-14.5) % Plt Count 200 (140-400) K/mcL MPV 9.8 (9.4-12.4) fL Immature Gran % 1.1 (0-4) % Seg Neutrophils % 77.3 % Lymphocytes % 13.9 % Monocytes % 6.2 % Eosinophils % 1.1 % Basophils % 0.4 % Neutrophils # 5.9 (1.6-8.9) K/mcL Lymphocytes # 1.1 (0.6-4.6) K/mcL Monocytes # 0.5 (0.0-1.3) K/mcL Eosinophils # 0.1 (0.0-0.6) K/mcL Basophils # 0.0 (0.0-0.2) K/mcL Sodium 137 (136-145) mEq/L Potassium 4.3 (3.5-4.5) mEq/L Chloride 95 L (98-109) mEq/L Carbon Dioxide 34 H (19-29) mEq/L BUN 10 (7-20) mg/dL Creatinine 0.79 (0.57-1.11) mg/dL Est GFR ( Amer) > 60 (> 60) Est GFR (Non-Af Amer) > 60 (> 60) BUN/Creatinine Ratio 13 (6-26) Glucose 421 H (70-99) mg/dL Calculated Osmolality 301 H (280-300) Lactic Acid 1.0 (0.5-2.2) mmol/L Calcium 8.9 (8.6-10.8) mg/dL Total Bilirubin 0.7 (0.2-1.2) mg/dL Direct Bilirubin 0.3 (0.0-0.5) mg/dL Indirect Bilirubin 0.4 (0.0-1.2) mg/dL AST 10 (5-34) Units/L ALT 9 (0-55) Units/L Alkaline Phosphatase 90 (38-126) Units/L Troponin I (0-0.03) ng/mL Serum Total Protein 6.4 (6.0-8.3) g/dL Albumin 3.1 L (3.5-5.0) g/dL Globulin 3.3 (2.4-3.5) g/dL Albumin/Globulin Ratio 0.9 L (1.1-2.2) Lipase 11 (8-78) Units/L Beta-Hydroxybutyric Acd (0.02-0.27) mmol/L Urine Color (Yellow) Urine Clarity (Clear) Urine pH (5.0-8.0) pH Units Ur Specific [place] (1.010-1.025) Urine Protein (Neg-Trace) mg/dL Urine Glucose (UA) (Normal) mg/dL Urine Ketones (Negative) mg/dL Urine Blood (Negative) Urine Nitrite (Negative) Urine Bilirubin (Negative) Urine Urobilinogen (Normal) mg/dL Ur Leukocyte Esterase (Negative) 11/05/16 11/05/16 11/05/16 Range/Units 08:29 08:29 14:28 WBC (4.3-11.1) K/mcL RBC (3.82-4.97) M/mcL Hgb (11.5-15.4) g/dL Hct (35.3-44.9) % MCV (83.0-100.0) fL MCH (28.0-33.3) pg MCHC (31.6-35.5) g/dL RDW (11.5-14.5) % Plt Count (140-400) K/mcL MPV (9.4-12.4) fL Immature Gran % (0-4) % Seg Neutrophils % % Lymphocytes % % Monocytes % % Eosinophils % % Basophils % % Neutrophils # (1.6-8.9) K/mcL Lymphocytes # (0.6-4.6) K/mcL Monocytes # (0.0-1.3) K/mcL Eosinophils # (0.0-0.6) K/mcL Basophils # (0.0-0.2) K/mcL Sodium (136-145) mEq/L Potassium (3.5-4.5) mEq/L Chloride (98-109) mEq/L Carbon Dioxide (19-29) mEq/L BUN (7-20) mg/dL Creatinine (0.57-1.11) mg/dL Est GFR ( Amer) (> 60) Est GFR (Non-Af Amer) (> 60) BUN/Creatinine Ratio (6-26) Glucose (70-99) mg/dL Calculated Osmolality (280-300) Lactic Acid (0.5-2.2) mmol/L Calcium (8.6-10.8) mg/dL Total Bilirubin (0.2-1.2) mg/dL Direct Bilirubin (0.0-0.5) mg/dL Indirect Bilirubin (0.0-1.2) mg/dL AST (5-34) Units/L ALT (0-55) Units/L Alkaline Phosphatase (38-126) Units/L Troponin I 0.04 H* (0-0.03) ng/mL Serum Total Protein (6.0-8.3) g/dL Albumin (3.5-5.0) g/dL Globulin (2.4-3.5) g/dL Albumin/Globulin Ratio (1.1-2.2) Lipase (8-78) Units/L Beta-Hydroxybutyric Acd 0.58 H (0.02-0.27) mmol/L Urine Color Dark Yellow (Yellow) Urine Clarity Hazy A (Clear) Urine pH 7.5 (5.0-8.0) pH Units Ur Specific [place] > 1.030 H (1.010-1.025) Urine Protein 30 H (Neg-Trace) mg/dL Urine Glucose (UA) 500 H (Normal) mg/dL Urine Ketones 15 H (Negative) mg/dL Urine Blood Negative (Negative) Urine Nitrite Negative (Negative) Urine Bilirubin Small H (Negative) Urine Urobilinogen Normal (Normal) mg/dL Ur Leukocyte Esterase Small H (Negative) - Radiology Data Radiology results reviewed: Yes I reviewed the patient's radiology results.
[2016-11-05] MEDS ORDERED: 0.9 % Sodium Chloride 1,000 ML IVC ONE ×2 (11:01→12:36)
[2016-11-05] MEDS ORDERED: Insulin Regular, Human 100 UNIT/ML SQ ONE (12:35)
--- NOTE | 2016-11-05 12:50 | Emergency Department Note ---
START Narrative - START START: I examined this patient and my medical decision-making was reviewed with the Resident Physician. I agree with the documented findings, disposition and treatment plan as described except to the extent set forth below. there is evidence of abdominal pain. Due to the morbidly obese nature of the patient's abdomen as well as her stature we are unable to get advanced imaging. We did contact multiple hospitals including [facility], he received [facility], [facility], [facility]. [facility] as well as the other medical centers refused consultation and transfer of the patient. They informed me that our general surgeons here can manage the case. She has not a bowel movement in 10 days. We are concerned for obstruction. Plan to admit to the hospital for further evaluation, consultation general surgery, IV fluids and insulin given for hyperglycemia. Patiently admitted for further evaluation of elevated cardiac biomarkers, nonspecific abdominal pain, possible bowel obstruction, hyperglycemia.
[2016-11-05] MEDS ORDERED: Naloxone 0.4 MG/ML INJ IVP PRN (13:37)
[2016-11-05] MEDS ORDERED: Ondansetron 4 MG/2 ML VIAL IVP PRN (13:37)
[2016-11-05] MEDS ORDERED: Polyethylene Glycol 3350 255 GM POWDER PO ONE (13:42)
[2016-11-05] MEDS ORDERED: D5% in Water 1,000 ML IVC PRN (13:46)
[2016-11-05] MEDS ORDERED: *HR* Dextrose 50 % in Water (Syg) 50 ML SYRINGE IVP PRN (13:46)
[2016-11-05] MEDS ORDERED: Dextrose Gel 15 GM PO PRN ×2 (13:46)
--- NOTE | 2016-11-05 13:59 | Internal Med History&Physical ---
<Harish De La Torre - Last Filed: 11/05/16 14:34> Date of Encounter: 11/05/16 Time of Encounter: 13:52 Assessment and Plan (1) Bowel obstruction Current visit: Yes Status: Suspected Suspicion for small bowel obstruction. Patient reports not having a bowel movement 10 days, and shooting abdominal pain. Due to BMI greater than 79 unable to do a CAT scan. It should be noted that the KUB exuded nonobstructive bowel gas patterns. Consults to Gen. surgery ~~plan from general surgery is to initiate milk of molasses enema, and Gatorade/ Miralax prep to help promote bowel movements Nothing by mouth diet, she may have ice. Qualifiers: Intestinal obstruction type: unspecified Qualified Code(s): K56.60 - Unspecified intestinal obstruction (2) Abdominal pain Current visit: Yes Status: Acute She reports generalized abdominal pain, nausea, constipation 10 days. Pain is diffuse upon exam. Patient believes the pain is caused by her lack of a bowel movement for such an extended period. Due to body habitus unable to obtain appropriate imaging. KUB revealed nonobstructive bowel gas pattern Gen. surgery was recommended to start MiraLAX/Gatorade prep and milk of molasses enema Remain nothing by mouth Resume home dose of narcotics, oxycodone 20 mg every 6 hours, she reports she has been taking this for the pain for quite some time and it helps with moderate relief Qualifiers: Abdominal location: generalized Qualified Code(s): R10.84 - Generalized abdominal pain (3) Constipation Current visit: Yes Status: Acute Constipation 10 days. KUB was negative only indicating a small amount of stool in the rectum. However due to body habitus KUB is not the best choice of imaging Dr. Sprague seen in the emergency department. Plan is to start milk of molasses enema, and gatorade/MiraLAX bowel prep Qualifiers: Constipation type: unspecified constipation type Qualified Code(s): K59.00 - Constipation, unspecified (4) Nausea Current visit: Yes Status: Acute Denies any nausea upon my exam. Reports the nausea subsided while in the ED after being given Zofran. He does continue Zofran. (5) Elevated troponin Current visit: Yes Status: Acute Elevated troponins in the emergency department noted to be 0.04. Continue serial troponins. We will consider further workup depending on results. (6) Morbid obesity with BMI of 70 and over, adult Current visit: Yes Status: Chronic Chronic morbid obesity. q2 hour turns to prevent further skin issues/breakdown place in bariatric bed (7) Diabetes mellitus type 2 in obese Current visit: Yes Status: Chronic History of type 2 diabetes. Patient admits that has not been well controlled as of late, glucose of chemistry panel of 421. Discontinue glycemic agents. Every 6 hours Accu-Cheks as she is nothing by mouth. Low sliding scale insulin coverage implemented. Additionally resume her home dose of basal insulin (8) DVT prophylaxis Current visit: Yes Status: Acute d/t prolonged immobility she is at risk or DVT. Start lovenox 40mg sc daily. Internal Medicine - H&P: HPI Chief complaint: abdominal pain, nausea, constipation Admitted From: Long-term Nursing Facility Plans for Post Hospital Care: Transfer Longterm Care History of present illness: Ms. Cat is a 46 year old female with a PMH of asthma, COPD, diabetes II, CVA, hypothyroidism, anxiety, depression, endometrial cancer with a chief complaint of abdominal pain, nausea, constipation which began 10 days ago. All information obtained from chart review and patient report. Patient reports abdominal pain, nausea, hemorrhoids, constipation ongoing for 10 days and progressively getting worse. The pain is described as shooting pains aggravated with activity and an attempt to have a bowel movement. She reports that she has taken Percocet 20 mg every 6 hours to help the pain and reports moderate pain relief. She denies any fever, fatigue, chest pain, dyspnea, vomiting, hematemesis, melena. Admits to diffuse abdominal pain, nausea. Unable to complete CT imaging due to body habitus, patient BMI greater than 79. KUB revealed nonobstructive bowel gas pattern. Lab work was unremarkable with the exception of hyperglycemia, 421. Troponin elevated at 0.04 she is being admitted [facility] to further monitor cardio biomarkers, and for suspicion of small bowel obstruction. Past Med Surg Social Fam HX - Past Medical History Medical history: asthma, cancer, COPD, CVA, diabetes, thyroid disease Psychiatric history: anxiety, depression - Past Surgical History Surgical History: thyroidectomy - Social History Smoking Status: Former smoker Smokeless Tobacco Status: No Alcohol use: none, occasionally Drug use: none - Family History Mother Hx Family Cardiac Disorders: Yes Hx Family Respiratory Disorders: Yes Hx Family Cancer: No Hx Family Endocrine Disorder: Yes Hx Family Neuromuscular Disorders: Yes Internal Medicine - H&P: Meds Beclomethasone Diprop 80mcg [QVAR 80 mcg] 2 puff IH BID 04/03/16 [History] BuPROPion SR (12 HR) [Wellbutrin SR] 100 mg PO BID 04/03/16 [History] Gabapentin [Neurontin] 400 mg PO TID 04/03/16 [History] Loratadine [Allergy Relief] 10 mg PO DAILY 04/03/16 [History] Ranitidine HCl [Acid Guest Advisor] 150 mg PO BID 04/03/16 [History] Atorvastatin [Lipitor] 40 mg PO HS 08/11/16 [History] Docusate [Colace] 100 mg PO BID 08/11/16 [History] Nystatin [Nystatin Suspension] 500,000 units PO QID #120 ml MDD SWISH AND SWALLOW 08/16/16 [Rx] Ondansetron ODT [Zofran ODT] 4 mg SL Q8HR #10 tab.rapdis 10/01/16 [Rx] Aspirin Enteric Coated [Aspirin EC] 81 mg PO DAILY 10/04/16 [History] Cyanocobalamin (Vitamin B-12) [Vitamin B-12] 1,000 mcg PO DAILY 10/04/16 [ History] Ipratropium/Albuterol Neb [Duoneb] 3 ml IH Q6HR 10/04/16 [History] Metformin HCl [Glucophage Xr] 500 mg PO DAILY 10/04/16 [History] ALPRAZolam [Xanax 0.5 MG Tablet] 0.5 mg PO BID #20 tablet 10/05/16 [Rx] Oxycodone HCl 20 mg PO Q4HR PRN #20 tablet 10/05/16 [Rx] Guaifenesin [Mucinex] 600 mg PO BID 11/05/16 [History] Insulin Glargine [Lantus] 10 unit SQ Q12H 11/05/16 [History] Insulin LISPRO [HumaLOG] 6 - 18 units SQ TID PRN 11/05/16 [History] Levothyroxine [Synthroid] 112 mcg PO DAILY 11/05/16 [History] Polyethylene Glycol 3350 [MiraLAX Powder Bulk 17.9 Oz] 1 scoop PO DAILY PRN [History] Sennosides/Docusate Sodium [Senna Plus] 2 each PO BID 11/05/16 [History] 3 Allergy/AdvReac Type Severity Reaction Status Date / Time Penicillins Allergy Rash Verified 01/27/16 09:52 Tetracycline Allergy Rash Verified 01/27/16 09:52 All Systems PM: A 10-system review of systems was performed and is negative for pertinent findings except as documented above in the HPI. - Constitutional Constitutional: no anorexia, no chills, no fatigue, no fever(s), no malaise, no night sweats, no weakness - EENT Eyes: no change in vision, no discharge, no pain, no photophobia Ears: no ear discharge, no ear pain, no tinnitus Nose, mouth and throat: no dysphagia, no nasal discharge, no neck pain, no sore throat - Cardiovascular Cardiovascular ROS IM: no chest pain, no diaphoresis, no dyspnea, no edema, no lightheadedness, no palpitations, no syncope - Respiratory Respiratory: no cough, no dyspnea, no wheezing, no excessive phlegm production - Gastrointestinal Gastrointestinal: abdominal pain (Which began 10 days ago), constipation, nausea , no coffee ground emesis, no diarrhea, no dyspepsia, no excessive flatus, no fecal incontinence, no hematemesis, no hematochezia, no melena, no vomiting Additional comments: Admits that she still continues to pass gas per rectum - Genitourinary Genitourinary: no change in urinary stream, no dysuria, no flank pain, no hematuria - Musculoskeletal Musculoskeletal ROS IM: no numbness, no tingling - Integumentary Integumentary IM: non-healing lesions (On right lower abdomen. Patient states these lesions are approximately 8 years old and are the result of surgery following a diagnosis of endometrial cancer), no rash, no unusual bruising - Neurological Neurological ROS: no confusion, no convulsions, no focal weakness, no numbness, no tingling, no tremor(s) - Hematologic/Lymphatic Hematologic/Lymphatic: no easy bruising - Constitutional Vitals: Temp Pulse Resp BP Pulse Ox 98.3 F 79 20 151/80 97 11/05/16 07:45 11/05/16 11:30 11/05/16 13:21 11/05/16 13:21 11/05/16 13:40 General appearance: Present: cooperative, mild distress, A&O X 3, answers questions appropriately - Head Head exam: Present: atraumatic, normocephalic - Eye Eye exam: Present: PERRL, conjuntiva pink, sclera anicteric Pupils: Present: PERRL - Neck Neck exam general surgery: Present: supple, trachea midline. Absent: lymphadenopathy - Respiratory Respiratory exam: Present: CTAB. Absent: accessory muscle use, rales, rhonchi, wheezes - Cardiovascular Cardiovascular exam: Present: RRR, +S1, +S2. Absent: diastolic murmur, gallop, rubs, systolic murmur - GI/Abdominal GI/Abdominal exam: Present: normal bowel sounds, soft, tenderness (Diffuse abdominal tenderness noted), no peritoneal signs. Absent: distended, guarding, mass, pulsatile mass, rebound, rigid - Rectal Rectal exam: Present: hemorrhoids. Absent: black stool, bloody stool Additional comments: Perianal area is erythematous and moist and painful to inspection. - Extremities Exam Extremities exam: Present: warm, radial pulses palpable and symmetrical. Absent : calf tenderness, cyanotic, pedal edema - Neurological Exam Neurological exam: Present: CN II-XII intact, oriented X3, no focal deficits. Absent: pronater drift, facial droop, speech deficit - Skin Skin exam: Absent: dry, intact Additional comments: Chronic wounds to right and left lower pannus. Erythematous, excoriated, moist and without drainage. Internal Med - H&P Results - Labs CBC & Chem 7: 11/05/16 08:29 11/05/16 08:29 - Diagnostic Studies Other Images Additional comments: KUB demonstrates nonobstructive bowel gas pattern <Zaria Mart - Last Filed: 11/05/16 17:00> Date of Encounter: 11/05/16 Internal Medicine - H&P: HPI History of present illness: Ms. Cat is a 46 year old female All Systems PM: A 10-system review of systems was performed and is negative for pertinent findings except as documented above in the HPI. - Constitutional Vitals: Temp Pulse Resp BP Pulse Ox 98.3 F 78 16 147/79 94 11/05/16 15:59 11/05/16 15:59 11/05/16 15:59 11/05/16 15:59 11/05/16 15:59 Internal Med - H&P Results - Labs CBC & Chem 7: 11/05/16 08:29 11/05/16 08:29 Labs: Cardiac Enzymes 11/05/16 Range/Units 14:26 Troponin I 0.02 (0-0.03) ng/mL Urine 11/05/16 Range/Units 14:28 Urine Color Dark Yellow (Yellow) Urine Clarity Hazy A (Clear) Urine pH 7.5 (5.0-8.0) pH Units Ur Specific [place] > 1.030 H (1.010-1.025) Urine Protein 30 H (Neg-Trace) mg/dL Urine Glucose (UA) 500 H (Normal) mg/dL - Attending Attestation I examined this patient and my medical decision-making was reviewed with the SUBWAY TRAIN OPERATOR Harish De La Torre. I agree with the documented findings, disposition and treatment plan as described except to the extent set forth below. Pt independently seen and examined at bedside. Admitted for abdominal pain, nausea, constipation x 10 days. Unable to obtain CT abd/pelvis given morbidly obese status. Patient is evaluated by surgery and is to continue to stool softeners and enema support. Open lower abd wound care as per surgery. Will continue pain control. Hold oral antihyperglycemic agents and started high dose sliding scale insulin algorithm. Will continue to monitor fingerstick and blood glucose. NPO at this time, accuchecks q6h while NPO, ACHS once diet is resumed.
--- NOTE | 2016-11-05 14:08 | General Surgery Consult Note ---
<Zaida Arguello - Last Filed: 11/05/16 13:51> Date of Encounter: 11/05/16 Time of Encounter: 13:45 Assessment and Plan (1) Constipation Current Visit: Yes Status: Acute Nothing by mouth except ice chips MiraLAX and Gatorade bowel prep- patient instructed to sip on prep as tolerated Milk and molasses enemas twice a day Colace twice a day Surgery will continue to follow and assess progress Qualifiers: Constipation type: unspecified constipation type Qualified Code(s): K59.00 - Constipation, unspecified (2) Abdominal pain Current Visit: Yes Status: Acute Supportive care Treatment of constipation Serial abdominal exams Qualifiers: Abdominal location: generalized Qualified Code(s): R10.84 - Generalized abdominal pain (3) Nausea Current Visit: Yes Status: Acute Anti-emetics as needed for nausea Nothing by mouth except ice chips May sip on MiraLAX and Gatorade prep as tolerated (4) Morbid obesity with BMI of 70 and over, adult Current Visit: Yes Status: Chronic Consult to wound care nurse for ordering of bariatric bed (5) Open abdominal wall wound Current Visit: Yes Status: Chronic Daily wound care ordered- cleanse wound with soap and water and pat dry daily, apply calcium alginate dressing with silver, cover with ABD pad and tape to secure daily and as needed if soiled Qualifiers: Encounter type: initial encounter Qualified Code(s): S31.109A - Unspecified open wound of abdominal wall, unspecified quadrant without penetration into peritoneal cavity, initial encounter History of Present Illness Consult date: 11/05/16 Reason for consult: abdominal pain (and constipation) Requesting physician: Lauren Escobedo History of present illness: Ms. Cat is a morbidly obese 46 year old female who presents to the emergency department today from an [facility] where she resides. She complains of diffuse abdominal pain and inability to have a bowel movement. She states that she was able to pass 3 small hard stools but other than that has not had a normal bowel movement in over 10 days. She reports that she has taken multiple medications/enemas in an attempt to have a bowel movement and this has been unsuccessful. She reports that her abdominal pain continues to worsen. She denies any aggravating or alleviating factors. She reports nausea and dry heaves. He denies any vomiting at this point. Denies any fevers or chills. She reports that her rectum is extremely tender and she reports that her "hemorrhoids are out". She denies any difficulty with urination. The emergency department has reached out to multiple hospitals in attempt to have the patient transferred to where she may be able to have a CT scan. All hospitals which were released out to declined transfer and states that there is CT machines do not have the capabilities to scan a patient of this size. The patient does have a pannus wound which she states has been present for 8 years. She states that this wound started after having surgical intervention for endometrial cancer. She states that she changes her dressing daily and uses a Dakin's solution. She reports that she follows with a wound care physician at [facility]. Past Med Surg Social Fam HX - Past Medical History Source: patient, old records reviewed Medical history: asthma, cancer (endometrial), COPD, CVA, diabetes, thyroid disease, other (morbid obesity with a BMI of 79) Psychiatric history: anxiety, depression - Past Surgical History Surgical History: thyroidectomy, other (surgical intervention for endometrial cancer) - Social History Smoking Status: Former smoker Smokeless Tobacco Status: No Alcohol use: none, occasionally Drug use: none Occupational status: disabled Current living situation: ECF Activity Level: Uses cane/walker, Mostly sedentary - Family History Mother Hx Family Cardiac Disorders: Yes Hx Family Respiratory Disorders: Yes Hx Family Cancer: No Hx Family Endocrine Disorder: Yes Hx Family Neuromuscular Disorders: Yes Medications and Allergies Beclomethasone Diprop 80mcg [QVAR 80 mcg] 2 puff IH BID 04/03/16 [History] BuPROPion SR (12 HR) [Wellbutrin SR] 100 mg PO BID 04/03/16 [History] Gabapentin [Neurontin] 400 mg PO TID 04/03/16 [History] Loratadine [Allergy Relief] 10 mg PO DAILY 04/03/16 [History] Ranitidine HCl [Acid Wire Charger] 150 mg PO BID 04/03/16 [History] Atorvastatin [Lipitor] 40 mg PO HS 08/11/16 [History] Docusate [Colace] 100 mg PO BID 08/11/16 [History] Nystatin [Nystatin Suspension] 500,000 units PO QID #120 ml MDD SWISH AND SWALLOW 08/16/16 [Rx] Ondansetron ODT [Zofran ODT] 4 mg SL Q8HR #10 tab.rapdis 10/01/16 [Rx] Aspirin Enteric Coated [Aspirin EC] 81 mg PO DAILY 10/04/16 [History] Cyanocobalamin (Vitamin B-12) [Vitamin B-12] 1,000 mcg PO DAILY 10/04/16 [ History] Ipratropium/Albuterol Neb [Duoneb] 3 ml IH Q6HR 10/04/16 [History] Metformin HCl [Glucophage Xr] 500 mg PO DAILY 10/04/16 [History] ALPRAZolam [Xanax 0.5 MG Tablet] 0.5 mg PO BID #20 tablet 10/05/16 [Rx] Oxycodone HCl 20 mg PO Q4HR PRN #20 tablet 10/05/16 [Rx] Guaifenesin [Mucinex] 600 mg PO BID 11/05/16 [History] Insulin Glargine [Lantus] 10 unit SQ Q12H 11/05/16 [History] Insulin LISPRO [HumaLOG] 6 - 18 units SQ TID PRN 11/05/16 [History] Levothyroxine [Synthroid] 112 mcg PO DAILY 11/05/16 [History] Polyethylene Glycol 3350 [MiraLAX Powder Bulk 17.9 Oz] 1 scoop PO DAILY PRN [History] Sennosides/Docusate Sodium [Senna Plus] 2 each PO BID 11/05/16 [History] 3 Allergy/AdvReac Type Severity Reaction Status Date / Time Penicillins Allergy Rash Verified 01/27/16 09:52 Tetracycline Allergy Rash Verified 01/27/16 09:52 Review of Systems All systems PM: reviewed and no additional remarkable complaints except as stated (ROS is focused and pertinent positives are as listed in the HPI) All systems PM: A 10-system review of systems was performed and is negative for pertinent findings except as documented above in the HPI. General Surgery Exam Initial Vital Signs Pulse Ox 96 11/05/16 07:40 - General physical appearance well nourished, moderate pain, chronically ill, obese - Eyes normal ocular movement - ENT normal mucosa, atraumatic, normocephalic - Neck trachea midline - Respiratory normal respiratory effort, clear to auscultation - Cardiovascular Cardiovascular exam: Present: RRR - Abdomen Abdomen general surgery: Present: bowel sounds present, soft, tender, wound ( noted to bottom side of pannus- 70% granulation tissue, 30% fibrin; small amount of serous drainage noted without odor; No surrounding erythema or induration noted.) Abdominal Tenderness: Present: diffusely - Rectum Rectum: Present: no bleeding, other (hemorroids noted (not thrombosed); mild erythema noted; moderate tenderness noted; soft, brown stool noted in the rectal vault.) - Neurologic Present: CN 2-12 grossly intact - Psychiatric Psychiatric general surgery: Present: A&Ox3 Exam Initial Vital Signs Pulse Ox 96 11/05/16 07:40 Results - Labs 11/05/16 08:29 11/05/16 08:29 Abnormal lab results MCHC 30.6 g/dL (31.6-35.5) L 11/05/16 08:29 RDW 17.2 % (11.5-14.5) H 11/05/16 08:29 Chloride 95 mEq/L (98-109) L 11/05/16 08:29 Carbon Dioxide 34 mEq/L (19-29) H 11/05/16 08:29 Glucose 421 mg/dL (70-99) H 11/05/16 08:29 Calculated Osmolality 301 (280-300) H 11/05/16 08:29 Troponin I 0.04 ng/mL (0-0.03) H* 11/05/16 08:29 Albumin 3.1 g/dL (3.5-5.0) L 11/05/16 08:29 Albumin/Globulin Ratio 0.9 (1.1-2.2) L 11/05/16 08:29 Beta-Hydroxybutyric Acd 0.58 mmol/L (0.02-0.27) H 11/05/16 08:29 All other labs normal. - Imaging Additional studies: KUB X-Ray 11/05/16 10:47 IMPRESSION: Suboptimal evaluation due to patient habitus and portable technique. Nonobstructed bowel-gas pattern. D/ / 11/05/2016 12:03:05 Tal Whitmore MD / bcarter Interpreting Provider: Tal Whitmore MD Consult Discharge Plan - Plan Referrals: Bryan Fernandes MD [Primary Care Provider] - - Attending Attestation For this encounter, I have reviewed the PLASTIC SURGERY ASSISTANT or PA documentation, treatment plan, and medical decision making; and I have had face to face time with this patient. <JohnathanDyana morgan Austin - Last Filed: 11/05/16 17:41> Date of Encounter: 11/05/16 Assessment and Plan (1) Abdominal pain Current Visit: Yes Status: Acute Qualifiers: Abdominal location: generalized Qualified Code(s): R10.84 - Generalized abdominal pain (2) Constipation Current Visit: Yes Status: Acute Qualifiers: Constipation type: unspecified constipation type Qualified Code(s): K59.00 - Constipation, unspecified (3) Nausea Current Visit: Yes Status: Acute Review of Systems All systems PM: A 10-system review of systems was performed and is negative for pertinent findings except as documented above in the HPI. General Surgery Exam Initial Vital Signs Pulse Ox 96 11/05/16 07:40 - General physical appearance well nourished, moderate pain, obese - Eyes PERRL, normal ocular movement - ENT normal mucosa, normocephalic - Respiratory normal expansion, clear to auscultation - Cardiovascular Cardiovascular exam: Present: RRR - Abdomen Abdomen general surgery: Present: soft, tender (generalized) - Integumentary Integumentary general surgery: Present: warm and dry, no abnormal pigmentation - Neurologic Present: CN 2-12 grossly intact - Musculoskeletal Present: normal gait, normal posture - Psychiatric Psychiatric general surgery: Present: A&Ox3, speech is normal Exam Initial Vital Signs Pulse Ox 96 11/05/16 07:40 Results - Labs 11/05/16 08:29 11/05/16 08:29 Abnormal lab results MCHC 30.6 g/dL (31.6-35.5) L 11/05/16 08:29 RDW 17.2 % (11.5-14.5) H 11/05/16 08:29 Chloride 95 mEq/L (98-109) L 11/05/16 08:29 Carbon Dioxide 34 mEq/L (19-29) H 11/05/16 08:29 Glucose 421 mg/dL (70-99) H 11/05/16 08:29 Hemoglobin A1c 11.6 % (-5.6) H 11/05/16 14:26 Calculated Osmolality 301 (280-300) H 11/05/16 08:29 Albumin 3.1 g/dL (3.5-5.0) L 11/05/16 08:29 Albumin/Globulin Ratio 0.9 (1.1-2.2) L 11/05/16 08:29 Beta-Hydroxybutyric Acd 0.58 mmol/L (0.02-0.27) H 11/05/16 08:29 Urine Clarity Hazy (Clear) A 11/05/16 14:28 Ur Specific Evarts > 1.030 (1.010-1.025) H 11/05/16 14:28 Urine Protein 30 mg/dL (Neg-Trace) H 11/05/16 14:28 Urine Glucose (UA) 500 mg/dL (Normal) H 11/05/16 14:28 Urine Ketones 15 mg/dL (Negative) H 11/05/16 14:28 Urine Bilirubin Small (Negative) H 11/05/16 14:28 Ur Leukocyte Esterase Small (Negative) H 11/05/16 14:28 Urine Microscopic WBC 5-15 per hpf (0-3) H 11/05/16 14:28 Ur Squamous Epith Cells Many per lpf (None-Few) H 11/05/16 14:28 Urine Bacteria Moderate per hpf (None-Few) H 11/05/16 14:28 Ur Culture Indicated? YES (NO) A 11/05/16 14:28 Diabetes panel 11/05/16 Range/Units 14:26 Hemoglobin A1c 11.6 H ( - 5.6) % All other labs normal. - Attending Attestation I have personally performed a face to face evaluation on this patient. I have reviewed and agree with the care plan. History and Exam by me shows:
[2016-11-05 14:40] LABS: Bilirubin,Urine Small (Negative); Blood,Urine Negative (Negative); Color,Urine Dark Yellow (Yellow); Glucose,Urine (UA) 500 mg/dL (Normal); Ketones,Urine 15 mg/dL (Negative); Leukocyte Esterase,Urine Small (Negative); Nitrite,Urine Negative (Negative); PH,Urine 7.5 pH Units (5.0-8.0); Protein,Urine 30 mg/dL (Neg-Trace); Specific Gravity,Urine > 1.030 (1.010-1.025); Urobilinogen,Urine Normal (Normal)
[2016-11-05 14:44] LABS: Bacteria,Urine Moderate per hpf (None-Few); Hyaline Casts,Urine None Seen per lpf (None-Few); Squamous Epithelial Cell,Urine Many per lpf (None-Few)
[2016-11-05 14:49] LABS: Clarity,Urine Hazy (Clear)
[2016-11-05] MEDS: Ipratropium/Albuterol Neb 3 ML IH SCH ×3 (15:00→22:20)
[2016-11-05 15:09] LABS: Mucus,Urine Few (Few); RBC,Urine 0-3 per hpf (0-3); Renal Epithelial Cells,Urine Few per hpf (None-Few); Transitional Epi Cells,Urine Few per hpf (None-Few)
[2016-11-05 15:12] LABS: Hemoglobin A1C 11.6 %
[2016-11-05] MEDS: Gabapentin 400 MG CAPSULE PO SCH ×2 (15:52→20:08)
[2016-11-05] MEDS: Nystatin SUSP 5 ML UD.LIQ PO SCH ×2 (15:53→20:09)
[2016-11-05] MEDS ORDERED: Insulin LISPRO 300 UNITS/3 ML VIAL SQ SCH ×4 (16:30→21:00)
[2016-11-05] MEDS: Insulin LISPRO 300 UNITS/3 ML VIAL SQ SCH ×2 (17:37→23:36)
[2016-11-05] MEDS ORDERED: Ipratropium/Albuterol Neb 3 ML IH SCH (18:00)
[2016-11-05] MEDS: ALPRAZolam 0.5 MG TABLET PO SCH (20:07)
[2016-11-05] MEDS: Sennosides/Docusate Sodium TABLET PO SCH (20:08)
[2016-11-05] MEDS: BuPROPion SR (12 HR) 100 MG TABLET PO SCH (20:08)
[2016-11-05] MEDS: Famotidine 20 MG TABLET PO SCH (20:08)
[2016-11-05] MEDS: Milk and Molasses Enema 200 ML RC SCH (20:12)
[2016-11-05] MEDS: Lidocaine Jelly 2% 30 ML JEL..ML. MM SCH (20:28)
[2016-11-05] MEDS ORDERED: Insulin DETEMIR 100 UNIT/ML X5UNITS SQ SCH (21:00)
[2016-11-05] MEDS: Beclomethasone 80mcg MDI IH SCH (22:20)
[2016-11-05] MEDS: *HR* OxyCODONE Immed Rel 5 MG TABLET PO PRN (23:36)
[2016-11-06] MEDS: *HR* Enoxaparin 40 MG/0.4 ML SYRINGE SQ SCH (04:44)
[2016-11-06] MEDS: Insulin LISPRO 300 UNITS/3 ML VIAL SQ SCH ×4 (04:44→20:08)
[2016-11-06] MEDS: Milk and Molasses Enema 200 ML RC SCH ×2 (04:48→10:17)
[2016-11-06] MEDS: Ipratropium/Albuterol Neb 3 ML IH SCH ×4 (04:48→22:51)
[2016-11-06 05:18] LABS: Basophils % 0.4 %; Eosinophils # 0.1 K/mcL (0.0-0.6); Eosinophils % 1.4 %; Hemoglobin 12.2 g/dL (11.5-15.4); Immature Granulocytes % 0.9 % (0-4); Lymphocytes # 1.3 K/mcL (0.6-4.6); Lymphocytes % 15.8 %; Mean Corpuscular HGB Conc 30.5 g/dL (31.6-35.5); Mean Corpuscular Hemoglobin 28.2 pg (28.0-33.3); Mean Corpuscular Volume 92.6 fL (83.0-100.0); Mean Platelet Volume 9.8 fL (9.4-12.4); Monocytes # 0.6 K/mcL (0.0-1.3); Monocytes % 6.8 %; Neutrophils # 6.1 K/mcL (1.6-8.9); Platelet Count 211 K/mcL (140-400); Red Blood Count 4.32 M/mcL (3.82-4.97); Red Cell Distribution Width 17.2 % (11.5-14.5); Segmented Neutrophils % 74.7 %
[2016-11-06 05:31] LABS: Alanine Aminotransferase 11 Units/L (0-55); Albumin/Globulin Ratio 0.9 (1.1-2.2); Alkaline Phosphatase 90 Units/L (38-126); Aspartate Amino Transferase 13 Units/L (5-34); BUN/Creatinine Ratio 15 (6-26); Bilirubin,Total 0.4 mg/dL (0.2-1.2); Blood Urea Nitrogen 12 mg/dL (7-20); Calcium 8.9 mg/dL (8.6-10.8); Carbon Dioxide 34 mEq/L (19-29); Chloride 99 mEq/L (98-109); Globulin 3.2 g/dL (2.4-3.5); Glucose 318 mg/dL (70-99); Osmolality,Calculated 302 (280-300); Potassium 3.9 mEq/L (3.5-4.5); Sodium 140 mEq/L (136-145); Total Protein 6.2 g/dL (6.0-8.3); eGFR For African Americans > 60 (> 60); eGFR For Non-African Americans > 60 (> 60)
[2016-11-06 05:45] LABS: Thyroid Stimulating Hormone 20.709 mcIU/mL (0.350-4.840)
[2016-11-06] MEDS: Nystatin SUSP 5 ML UD.LIQ PO SCH ×4 (09:12→20:07)
[2016-11-06] MEDS: BuPROPion SR (12 HR) 100 MG TABLET PO SCH ×2 (09:12→20:05)
[2016-11-06] MEDS: ALPRAZolam 0.5 MG TABLET PO SCH ×2 (09:13→20:05)
[2016-11-06] MEDS: Gabapentin 400 MG CAPSULE PO SCH ×3 (09:13→20:05)
[2016-11-06] MEDS: Cyanocobalamin (B-12) 1,000 MCG TABLET PO SCH (09:13)
[2016-11-06] MEDS: Sennosides/Docusate Sodium TABLET PO SCH ×2 (09:13→20:06)
[2016-11-06] MEDS: Aspirin Enteric Coated 81 MG Tablet PO SCH (09:13)
[2016-11-06] MEDS: Famotidine 20 MG TABLET PO SCH ×2 (09:13→20:05)
[2016-11-06] MEDS: Loratadine 10 MG TABLET PO SCH (09:14)
[2016-11-06] MEDS: Lidocaine Jelly 2% 30 ML JEL..ML. MM SCH ×2 (09:18→20:15)
[2016-11-06] MEDS: *HR* OxyCODONE Immed Rel 5 MG TABLET PO PRN ×2 (09:22→17:17)
[2016-11-06] MEDS: Beclomethasone 80mcg MDI IH SCH ×2 (10:43→22:51)
--- NOTE | 2016-11-06 16:18 | General Surgery Progress Note ---
Date of Encounter: 11/06/16 Time of Encounter: 16:00 - Assessment and Plan (1) Constipation Current Visit: Yes Status: Acute BMs noted. No further work-up indicated at this time. Ok to advance to regular diet. Continue stool softeners and PRN Miralax Surgery will sign off at this time. Thank you for allowing us to participate in Ms. Cat's care. Qualifiers: Constipation type: unspecified constipation type Qualified Code(s): K59.00 - Constipation, unspecified (2) Chronic wound of extremity Current Visit: Yes Status: Acute Continue previous wound care per her provider. (3) Morbid obesity with BMI of 70 and over, adult Current Visit: Yes Status: Chronic Subjective Patient reports: no new complaints, feels better, pain is less, tolerating liquids well, voiding w/o difficulty (per craven), flatus, bowel movement Objective Vital Signs - Last 8 Hours Temp Pulse Resp BP Pulse Ox 11/06/16 15:43 98.2 F 74 14 130/64 96 11/06/16 10:52 97.8 F 75 16 138/75 97 11/06/16 09:00 97 Intake and Output 11/06/16 11/06/16 11/06/16 07:59 15:59 23:59 Intake Total 0 / 0 Output Total 475 / 475 Balance -475 / -475 Intake: Oral 0 / 0 Output: Urine 475 / 475 Other: Stool Size Large Stool Consistency soft Stool Color Brown # Voids 1 1 # Bowel Movements 1 # Bowel Movement Diapers 1 Weight 241.5 kg Blood Glucose* 269 341 Patient Weight 11/06/16 23:59 Weight 241.5 kg - General physical appearance well nourished, no distress - Eyes normal ocular movement - ENT normal nares, normal mucosa, atraumatic, normocephalic - Neck Neck exam: trachea midline - Respiratory other (Decreased bibasilar) - Cardiovascular Cardiovascular exam: Present: distant heart sounds - Abdomen Abdomen: Present: bowel sounds present, soft, non tender, wound (granulated.) - Integumentary no rash - Neurologic CN 2-12 grossly intact - Musculoskeletal other (Morbid obese, limited ROM) - Psychiatric oriented to time, oriented to person, oriented to place - Labs 11/06/16 04:50 11/06/16 04:50 Diabetes panel 11/06/16 Range/Units 04:50 Sodium 140 (136-145) mEq/L Potassium 3.9 (3.5-4.5) mEq/L Chloride 99 (98-109) mEq/L Carbon Dioxide 34 H (19-29) mEq/L BUN 12 (7-20) mg/dL Creatinine 0.78 (0.57-1.11) mg/dL Glucose 318 H (70-99) mg/dL Calcium 8.9 (8.6-10.8) mg/dL AST 13 (5-34) Units/L ALT 11 (0-55) Units/L Alkaline Phosphatase 90 (38-126) Units/L Albumin 3.0 L (3.5-5.0) g/dL Thyroid panel 11/06/16 Range/Units 04:50 TSH 20.709 H (0.350-4.840) mcIU/mL Calcium panel 11/06/16 Range/Units 04:50 Calcium 8.9 (8.6-10.8) mg/dL Albumin 3.0 L (3.5-5.0) g/dL Pituitary panel 11/06/16 Range/Units 04:50 Sodium 140 (136-145) mEq/L Potassium 3.9 (3.5-4.5) mEq/L Chloride 99 (98-109) mEq/L Carbon Dioxide 34 H (19-29) mEq/L BUN 12 (7-20) mg/dL Creatinine 0.78 (0.57-1.11) mg/dL Glucose 318 H (70-99) mg/dL Calcium 8.9 (8.6-10.8) mg/dL TSH 20.709 H (0.350-4.840) mcIU/mL Total T3 0.60 (0.58-1.59) ng/mL Adrenal panel 11/06/16 Range/Units 04:50 Sodium 140 (136-145) mEq/L Potassium 3.9 (3.5-4.5) mEq/L Chloride 99 (98-109) mEq/L Carbon Dioxide 34 H (19-29) mEq/L BUN 12 (7-20) mg/dL Creatinine 0.78 (0.57-1.11) mg/dL Glucose 318 H (70-99) mg/dL Calcium 8.9 (8.6-10.8) mg/dL Total Bilirubin 0.4 (0.2-1.2) mg/dL AST 13 (5-34) Units/L ALT 11 (0-55) Units/L Alkaline Phosphatase 90 (38-126) Units/L Albumin 3.0 L (3.5-5.0) g/dL Consult Discharge Plan - Plan Referrals: Bryan Fernandes MD [Primary Care Provider] -
--- NOTE | 2016-11-06 17:12 | Internal Med Progress Note ---
Date of Encounter: 11/06/16 Time of Encounter: 17:08 - Assessment and plan (1) Abdominal pain Current Visit: Yes Status: Acute Qualifiers: Abdominal location: generalized Qualified Code(s): R10.84 - Generalized abdominal pain (2) Constipation Current Visit: Yes Status: Acute Qualifiers: Constipation type: unspecified constipation type Qualified Code(s): K59.00 - Constipation, unspecified (3) Diabetes mellitus type 2 in obese Current Visit: Yes Status: Chronic (4) Chronic wound of extremity Current Visit: Yes Status: Acute (5) DVT prophylaxis Current Visit: Yes Status: Acute - Subjective Interval history: Ms. Patricia Cat is a 46-year-old morbidly obese patient from custodial who is admitted for abdominal pain. She was diagnosed with constipation contributing to bowel obstruction. General surgery was consulted and they gave her molasses enema. She had a bowel movement today. She is a started on full liquids and we will see if she continues to have bowel movement. Her blood sugars are quite elevated and surprisingly she takes only 20 units of Levemir. Considering her weight I will increase it to 50 units at night. Her hemoglobin A1c is 11.5.Blood sugars were running in 350 range. She plans to be discharged if she has bowel movement and her blood sugars are better controlled. Patient also has chronic post ABDOMINAL wound which she sustained when 8 years ago she had hysterectomy for endometrial cancer. Wound care is consulted.. - Constitutional Vitals: Temp Pulse Resp BP Pulse Ox 98.2 F 74 14 130/64 96 11/06/16 15:43 11/06/16 15:43 11/06/16 15:43 11/06/16 15:43 11/06/16 15:43 General appearance: Present: cooperative, mild distress, A&O X 3, answers questions appropriately - Head Head exam: Present: atraumatic, normocephalic - Eye Eye exam: Present: PERRL, conjuntiva pink, sclera anicteric Pupils: Present: PERRL - Neck Neck exam general surgery: Present: supple, trachea midline. Absent: lymphadenopathy - Respiratory Respiratory exam: Present: CTAB. Absent: accessory muscle use, rales, rhonchi, wheezes - Cardiovascular Cardiovascular exam: Present: RRR, +S1, +S2. Absent: diastolic murmur, gallop, rubs, systolic murmur - GI/Abdominal GI/Abdominal exam: Present: normal bowel sounds, soft, no peritoneal signs. Absent: distended, tenderness - Extremities Exam Extremities exam: Present: warm, radial pulses palpable and symmetrical. Absent : calf tenderness, cyanotic, pedal edema - Neurological Exam Neurological exam: Present: CN II-XII intact, oriented X3, no focal deficits. Absent: pronater drift, facial droop, speech deficit - Skin Skin exam: Present: dry, intact Internal Medicine: Result - Labs CBC & Chem 7: 11/06/16 04:50 11/06/16 04:50 Labs: Short CBC 11/06/16 Range/Units 04:50 WBC 8.1 (4.3-11.1) K/mcL Hgb 12.2 (11.5-15.4) g/dL Hct 40.0 (35.3-44.9) % Plt Count 211 (140-400) K/mcL Neutrophils # 6.1 (1.6-8.9) K/mcL BMP 11/06/16 04:50 Sodium 140 Potassium 3.9 Chloride 99 Carbon Dioxide 34 H BUN 12 Creatinine 0.78 Glucose 318 H Calcium 8.9 Cardiac Enzymes 11/05/16 Range/Units 21:19 Troponin I 0.00 (0-0.03) ng/mL Liver Function 11/06/16 Range/Units 04:50 Total Bilirubin 0.4 (0.2-1.2) mg/dL AST 13 (5-34) Units/L ALT 11 (0-55) Units/L Alkaline Phosphatase 90 (38-126) Units/L Albumin 3.0 L (3.5-5.0) g/dL Consult Discharge Plan - Plan Referrals: Bryan Fernandes MD [Primary Care Provider] -
[2016-11-06] MEDS ORDERED: Insulin DETEMIR 100 UNIT/ML X5UNITS SQ SCH (21:00)
[2016-11-07] MEDS: Ipratropium/Albuterol Neb 3 ML IH SCH ×2 (04:22→10:17)
[2016-11-07] MEDS: *HR* OxyCODONE Immed Rel 5 MG TABLET PO PRN ×3 (04:37→20:36)
[2016-11-07] MEDS: *HR* Enoxaparin 40 MG/0.4 ML SYRINGE SQ SCH (04:58)
[2016-11-07] MEDS: Nystatin SUSP 5 ML UD.LIQ PO SCH ×4 (09:14→20:36)
[2016-11-07] MEDS: Gabapentin 400 MG CAPSULE PO SCH ×3 (09:15→20:37)
[2016-11-07] MEDS: Aspirin Enteric Coated 81 MG Tablet PO SCH (09:15)
[2016-11-07] MEDS: ALPRAZolam 0.5 MG TABLET PO SCH (09:15)
[2016-11-07] MEDS: Cyanocobalamin (B-12) 1,000 MCG TABLET PO SCH (09:15)
[2016-11-07] MEDS: Loratadine 10 MG TABLET PO SCH (09:15)
[2016-11-07] MEDS: BuPROPion SR (12 HR) 100 MG TABLET PO SCH ×2 (09:15→20:35)
[2016-11-07] MEDS: Famotidine 20 MG TABLET PO SCH ×2 (09:16→20:35)
[2016-11-07] MEDS: Sennosides/Docusate Sodium TABLET PO SCH ×2 (09:16→20:35)
[2016-11-07] MEDS: Insulin LISPRO 300 UNITS/3 ML VIAL SQ SCH ×3 (09:17→18:13)
[2016-11-07] MEDS ORDERED: Ipratropium/Albuterol Neb 3 ML IH PRN (10:06)
--- NOTE | 2016-11-07 10:10 | Internal Med Progress Note ---
Date of Encounter: 11/07/16 Time of Encounter: 10:08 - Assessment and plan (1) Diabetes mellitus Current Visit: Yes Status: Chronic Assessment and plan: Patient's morning blood sugar is 300 despite getting 50 units of Levemir last night. Patient states that her sugar of 300 is good for her. Her sugars usually run in 500s to 600s. Her last meal will be increased to 65 units at bedtime. She states that she usually takes metformin at home. We will resume the patient on a house and milligrams by mouth twice a day of metformin. Monitor blood sugars and adjust Levemir accordingly. 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 Change to by mouth antibiotics and finish 3 day course. Qualifiers: Urinary tract infection type: acute cystitis Hematuria presence: without hematuria Qualified Code(s): N30.00 - Acute cystitis without hematuria (4) Obstructive sleep apnea Current Visit: Yes Status: Chronic Assessment and plan: Continue CPAP therapy (5) Morbid obesity with BMI of 70 and over, adult Current Visit: No Status: Chronic - Subjective Interval history: Patient states that she is supposed to take 350 g of Synthroid. She is not aware of the dose she has been getting at the [facility]. She states that she had thyroid surgery removal. She states that she lost her fiance 3 years ago and at that time, she stopped taking all her medications for about 1 year. 2 years ago, she states that she started taking her medications again. Currently, she states that she is having bowel movements without any trouble. She is requesting that her diet be advanced to a solid diet. She denies any nausea or vomiting or abdominal pain. - Constitutional Vitals: Temp Pulse Resp BP Pulse Ox 97.0 F L 56 17 116/63 97 11/07/16 07:36 11/07/16 07:36 11/07/16 07:36 08/25/17 07:36 11/07/16 07:36 General appearance: Present: cooperative, mild distress, A&O X 3, answers questions appropriately Exam: Gen.: Lying in bed. No acute distress. Chest: Clear to auscultation bilaterally. No adventitious sounds present. CVS: First and second heart sounds present. No murmurs, rubs or gallops. Abdomen: Soft, nontender, obese. Bowel sounds present. No hepatosplenomegaly. Internal Medicine: Result - Labs CBC & Chem 7: 11/06/16 04:50 11/06/16 04:50 Consult Discharge Plan - Plan Referrals: Bryan Fernandes MD [Primary Care Provider] -
[2016-11-07] MEDS ORDERED: Cefdinir 300 MG CAPSULE PO SCH (10:15)
[2016-11-07] MEDS: Beclomethasone 80mcg MDI IH SCH ×2 (10:17→19:46)
[2016-11-07] MEDS: *HR* Metformin 500 MG TABLET PO SCH ×2 (14:27→18:15)
[2016-11-07] MEDS: Lidocaine Jelly 2% 30 ML JEL..ML. MM SCH ×2 (14:27→19:08)
[2016-11-07] MEDS ORDERED: Insulin DETEMIR 100 UNIT/ML X5UNITS SQ SCH (21:00)
[2016-11-08] MEDS: Insulin LISPRO 300 UNITS/3 ML VIAL SQ SCH ×4 (00:47→17:48)
[2016-11-08] MEDS: *HR* Enoxaparin 40 MG/0.4 ML SYRINGE SQ SCH (06:15)
[2016-11-08] MEDS: *HR* OxyCODONE Immed Rel 5 MG TABLET PO PRN ×3 (06:22→20:42)
[2016-11-08] MEDS: Beclomethasone 80mcg MDI IH SCH ×2 (07:48→21:27)
--- NOTE | 2016-11-08 09:31 | Discharge Summary ---
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 (3) Obstructive sleep apnea Priority: Secondary Status: Chronic (4) Morbid obesity with BMI of 70 and over, adult Priority: Secondary Status: Chronic - Discharge Medications Prescriptions: Insulin Glargine [Lantus] 75 unit SQ HS #1 metFORMIN [Glucophage] 1,000 mg PO BIDWM #90 tab Home Medications: Beclomethasone Diprop 80mcg [QVAR 80 mcg] 2 puff IH BID 04/03/16 [History] BuPROPion SR (12 HR) [Wellbutrin SR] 100 mg PO BID 04/03/16 [History] Gabapentin [Neurontin] 400 mg PO TID 04/03/16 [History] Loratadine [Allergy Relief] 10 mg PO DAILY 04/03/16 [History] Ranitidine HCl [Acid Shot Peen Operator] 150 mg PO BID 04/03/16 [History] Atorvastatin [Lipitor] 40 mg PO HS 08/11/16 [History] Nystatin [Nystatin Suspension] 500,000 units PO QID #120 ml MDD SWISH AND SWALLOW 08/16/16 [Rx] Aspirin Enteric Coated [Aspirin EC] 81 mg PO DAILY 10/04/16 [History] Cyanocobalamin (Vitamin B-12) [Vitamin B-12] 1,000 mcg PO DAILY 10/04/16 [ History] Ipratropium/Albuterol Neb [Duoneb] 3 ml IH Q6HR 10/04/16 [History] ALPRAZolam [Xanax 0.5 MG Tablet] 0.5 mg PO BID #20 tablet 10/05/16 [Rx] Oxycodone HCl 20 mg PO Q4HR PRN #20 tablet 10/05/16 [Rx] Guaifenesin [Mucinex] 600 mg PO BID 11/05/16 [History] Insulin LISPRO [HumaLOG] 6 - 18 units SQ TID PRN 11/05/16 [History] Polyethylene Glycol 3350 [MiraLAX Powder Bulk 17.9 Oz] 1 scoop PO DAILY PRN [History] Sennosides/Docusate Sodium [Senna Plus] 2 each PO BID 11/05/16 [History] Insulin Glargine [Lantus] 75 unit SQ HS #1 11/08/16 [Rx] Levothyroxine [Synthroid] 350 mcg PO QAM #0 11/08/16 [Rx] Ondansetron ODT [Zofran ODT] 4 mg SL Q8HR PRN #10 tab.rapdis 11/08/16 [Rx] metFORMIN [Glucophage] 1,000 mg PO BIDWM #90 tab 11/08/16 [Rx] Allergies/Adverse Reactions: 3 Allergy/AdvReac Type Severity Reaction Status Date / Time Penicillins Allergy Rash Verified 01/27/16 09:52 Tetracycline Allergy Rash Verified 01/27/16 09:52 - Notes to Outpatient Provider 1. Patient may need titration of her Lantus for optimal blood pressure control. Hemoglobin A1c greater than 11. 2. Patient was receiving reduced dose of Synthroid by error. Her daily dose of Synthroid needs to be 350 g daily. Date of admission: 11/05/16 13:05 Primary care physician: Bryan Fernandes MD Consults: 11/05/16 13:41 Consult to Design Studio Consultant [CONS] Routine Reason for SW Consult: for return to ECF 11/05/16 13:47 Consult to Wound Care [CONS] Routine Reason for Consult: patient will require a bariatric bed Time Notified: 13:48 Call Completed: Yes 11/06/16 12:40 Consult to Occupational Therapy [CONS] Routine Comment: Evaluate, develop and implement POC Reason for Consult: insurace requirement for return to ECF Consult to Physical Therapy [CONS] Routine Comment: Evaluate, develop and implement POC Reason for Consult: Insurance requires for return for ECF Discharging clinician: Rickey Ramos Anticipated date of discharge: 11/08/16 - Patient Status Disposition: Transfer SNF Condition: Fair Functional capacity at discharge: uses cane/walker Overall status at discharge: patient is back to baseline - Discharge Instructions Follow Up With: Bryan Fernandes MD [Primary Care Provider] - - Diet and Activity Activity: as per physical therapy, increase activity as tolerated Diet: diabetic diet, low salt diet Hospital course: Ms. Cat is a 46 year old female with a history of asthma, diabetes type 2, hypothyroidism who presented to the emergency department from an extended care facility due to abdominal pain. In the emergency room, surgery was counseled to due to suspicion of bowel obstruction. She was diagnosed with constipation and was given stool softeners and milk and molasses and edema. Her constipation resolved with this management. The patient experienced hyperglycemia from her diabetes which was inadequately controlled on her home dose of 20 units of Lantus daily. Hence, her basal dose of insulin was increased during hospital stay. On the day of transfer back to the nursing facility, the patient had a blood sugar of 250 in the morning after receiving 65 units of basal insulin. The patient is being discharged on 75 units of basal insulin at bedtime. Her blood sugars need to be monitored and she may require further titration of medication. Her metformin has also been increased 2000 mg by mouth twice a day. The patient had urine cultures which were positive for ESBL Escherichia coli. However, the patient does not have any symptoms of urinary tract infection. Hence, she has a symptomatic bacteriuria and does not require any treatment. - Time Spent with Patient Total time spent providing and/or coordinating discharge services: - Constitutional Vitals: Temp Pulse Resp BP Pulse Ox 97.4 F L 81 18 130/88 99 11/08/16 06:31 11/08/16 06:31 11/08/16 07:48 11/08/16 06:31 11/08/16 07:48 General appearance: Present: cooperative, mild distress, A&O X 3, answers questions appropriately Exam: Gen.: Lying in bed. No acute distress. Chest: Clear to auscultation bilaterally. No adventitious sounds present. CVS: First and second heart sounds present. No murmurs, rubs or gallops. Abdomen: Soft, nontender, obese. Bowel sounds present. No hepatosplenomegaly.
--- NOTE | 2016-11-08 09:38 | Physician Discharge Referral ---
ExtendedCare Referral Info Transfer To: SNF/ECF Provider in Charge: Dr. Rickey Ramos Provider in Charge after Transfer: PCP Institutional Level of Care: Intermediate - Diagnosis (1) Constipation Priority: Primary Status: Resolved (2) Diabetes mellitus Priority: Secondary Status: Chronic (3) Obstructive sleep apnea Priority: Secondary Status: Chronic (4) Morbid obesity with BMI of 70 and over, adult Priority: Secondary Status: Chronic Expected Duration of Placement: 1-2 weeks Prognosis: Good Aware of Diagnosis: Patient Aware of Prognosis: Patient - Transfer Medications Prescriptions: Insulin Glargine [Lantus] 75 unit SQ HS #1 metFORMIN [Glucophage] 1,000 mg PO BIDWM #90 tab Home Medications: Beclomethasone Diprop 80mcg [QVAR 80 mcg] 2 puff IH BID 04/03/16 [History] BuPROPion SR (12 HR) [Wellbutrin SR] 100 mg PO BID 04/03/16 [History] Gabapentin [Neurontin] 400 mg PO TID 04/03/16 [History] Loratadine [Allergy Relief] 10 mg PO DAILY 04/03/16 [History] Ranitidine HCl [Acid Hand Striper] 150 mg PO BID 04/03/16 [History] Atorvastatin [Lipitor] 40 mg PO HS 08/11/16 [History] Nystatin [Nystatin Suspension] 500,000 units PO QID #120 ml MDD SWISH AND SWALLOW 08/16/16 [Rx] Aspirin Enteric Coated [Aspirin EC] 81 mg PO DAILY 10/04/16 [History] Cyanocobalamin (Vitamin B-12) [Vitamin B-12] 1,000 mcg PO DAILY 10/04/16 [ History] Ipratropium/Albuterol Neb [Duoneb] 3 ml IH Q6HR 10/04/16 [History] ALPRAZolam [Xanax 0.5 MG Tablet] 0.5 mg PO BID #20 tablet 10/05/16 [Rx] Oxycodone HCl 20 mg PO Q4HR PRN #20 tablet 10/05/16 [Rx] Guaifenesin [Mucinex] 600 mg PO BID 11/05/16 [History] Insulin LISPRO [HumaLOG] 6 - 18 units SQ TID PRN 11/05/16 [History] Polyethylene Glycol 3350 [MiraLAX Powder Bulk 17.9 Oz] 1 scoop PO DAILY PRN [History] Sennosides/Docusate Sodium [Senna Plus] 2 each PO BID 11/05/16 [History] Insulin Glargine [Lantus] 75 unit SQ HS #1 11/08/16 [Rx] Levothyroxine [Synthroid] 350 mcg PO QAM #0 11/08/16 [Rx] Ondansetron ODT [Zofran ODT] 4 mg SL Q8HR PRN #10 tab.rapdis 11/08/16 [Rx] metFORMIN [Glucophage] 1,000 mg PO BIDWM #90 tab 11/08/16 [Rx] Allergies/Adverse Reactions: 3 Allergy/AdvReac Type Severity Reaction Status Date / Time Penicillins Allergy Rash Verified 01/27/16 09:52 Tetracycline Allergy Rash Verified 01/27/16 09:52 - Respiratory Orders Smoking Cessation: Smoking cessation has been advised. For more information, call the [employer] Tobacco Quit Line at 6-461-LCAC-NOW. - Advance Directives Code Status: Full Code - Mobility Orders Ambulate - Rehabiliation Orders Rehab Potential: Good Rehab Orders: ROM Exercises, Evaluation for Physical Therapy, Evaluation for Occupational Therapy - Treatments Skin tear care topically daily PRN per policy, May check for fecal impaction rectally daily PRN, Fleet enema rectally every other day PRN cleansing purposes - Diet Orders No Added Salt (DIANE), No Concentrated Sweets CERTIFICATION: I certify that the transfer of the above named patient to an Extended Care Facility is necessary for the continuing treatment of the diagnosis listed. The above information is true and accurate reflection of patient's current condition. Confidential - Redisclosure prohibited without a patient's written consent.
[2016-11-08] MEDS: Aspirin Enteric Coated 81 MG Tablet PO SCH (10:17)
[2016-11-08] MEDS: *HR* Metformin 500 MG TABLET PO SCH ×2 (10:17→17:47)
[2016-11-08] MEDS: Gabapentin 400 MG CAPSULE PO SCH ×3 (10:17→20:33)
[2016-11-08] MEDS: Cyanocobalamin (B-12) 1,000 MCG TABLET PO SCH (10:17)
[2016-11-08] MEDS: Loratadine 10 MG TABLET PO SCH (10:17)
[2016-11-08] MEDS: BuPROPion SR (12 HR) 100 MG TABLET PO SCH ×2 (10:17→20:34)
[2016-11-08] MEDS: Sennosides/Docusate Sodium TABLET PO SCH ×2 (10:17→20:33)
[2016-11-08] MEDS: Famotidine 20 MG TABLET PO SCH ×2 (10:17→20:33)
[2016-11-08] MEDS: Nystatin SUSP 5 ML UD.LIQ PO SCH ×4 (10:18→20:35)
[2016-11-08] MEDS: Lidocaine Jelly 2% 30 ML JEL..ML. MM SCH ×2 (14:09→20:37)
[2016-11-08] MEDS: ALPRAZolam 0.5 MG TABLET PO PRN (20:34)
[2016-11-08] MEDS: Insulin DETEMIR 100 UNIT/ML X5UNITS SQ SCH (20:34)
[2016-11-09] MEDS: Insulin LISPRO 300 UNITS/3 ML VIAL SQ SCH ×4 (02:18→20:38)
[2016-11-09] MEDS: *HR* OxyCODONE Immed Rel 5 MG TABLET PO PRN ×4 (03:35→23:09)
[2016-11-09] MEDS: *HR* Enoxaparin 40 MG/0.4 ML SYRINGE SQ SCH (06:25)
[2016-11-09] MEDS: Beclomethasone 80mcg MDI IH SCH ×2 (07:34→22:34)
[2016-11-09] MEDS: Gabapentin 400 MG CAPSULE PO SCH ×3 (08:48→20:36)
[2016-11-09] MEDS: Famotidine 20 MG TABLET PO SCH ×2 (08:48→20:36)
[2016-11-09] MEDS: Aspirin Enteric Coated 81 MG Tablet PO SCH (08:48)
[2016-11-09] MEDS: Cyanocobalamin (B-12) 1,000 MCG TABLET PO SCH (08:48)
[2016-11-09] MEDS: Sennosides/Docusate Sodium TABLET PO SCH ×2 (08:48→20:36)
[2016-11-09] MEDS: BuPROPion SR (12 HR) 100 MG TABLET PO SCH ×2 (08:49→20:36)
[2016-11-09] MEDS: Nystatin SUSP 5 ML UD.LIQ PO SCH ×4 (08:49→20:37)
[2016-11-09] MEDS: *HR* Metformin 500 MG TABLET PO SCH ×2 (08:49→16:33)
[2016-11-09] MEDS: Loratadine 10 MG TABLET PO SCH (08:52)
--- NOTE | 2016-11-09 11:49 | Internal Med Progress Note ---
Date of Encounter: 11/09/16 Time of Encounter: 07:15 - Assessment and plan (1) Constipation Current Visit: Yes Status: Resolved Qualifiers: Constipation type: unspecified constipation type Qualified Code(s): K59.00 - Constipation, unspecified (2) Diabetes mellitus Current Visit: Yes Status: Chronic Assessment and plan: Patient's blood sugar continues to remain elevated despite 8 units of Levemir at bedtime. We will continue to monitor the blood sugars throughout the day today and adjust her Levemir accordingly. Qualifiers: Diabetes mellitus type: type 2 Diabetes mellitus complication status: with hyperglycemia Diabetes mellitus custodial insulin use: with custodial use Qualified Code(s): E11.65 - Type 2 diabetes mellitus with hyperglycemia; Z79.4 - detention (current) use of insulin (3) Obstructive sleep apnea Current Visit: Yes Status: Chronic Assessment and plan: Continue CPAP therapy (4) Morbid obesity with BMI of 70 and over, adult Current Visit: No Status: Chronic - Subjective Interval history: Patient was discharged yesterday to rehabilitation facility. However, she was not able to be transferred due to pending care source. Today, the patient states that she feels fine and has been participating with physical therapy. - Constitutional Vitals: Temp Pulse Resp BP Pulse Ox 98.1 F 55 16 154/77 98 11/09/16 07:58 11/09/16 07:58 11/09/16 07:58 11/09/16 07:58 11/09/16 07:58 Exam: Gen.: Lying in bed. No acute distress. Chest: Clear to auscultation bilaterally. No adventitious sounds present. CVS: First and second heart sounds present. No murmurs, rubs or gallops. Abdomen: Soft, nontender, obese. Bowel sounds present. No hepatosplenomegaly. Internal Medicine: Result - Labs CBC & Chem 7: 11/06/16 04:50 11/06/16 04:50 Consult Discharge Plan - Plan Referrals: Bryan Fernandes MD [Primary Care Provider] - Prescriptions: Insulin Glargine [Lantus] 75 unit SQ HS #1 metFORMIN [Glucophage] 1,000 mg PO BIDWM #90 tab
[2016-11-09] MEDS: Lidocaine Jelly 2% 30 ML JEL..ML. MM SCH ×2 (16:33→20:37)
[2016-11-09] MEDS: Insulin DETEMIR 100 UNIT/ML X5UNITS SQ SCH (20:37)
[2016-11-09] MEDS: ALPRAZolam 0.5 MG TABLET PO PRN (23:12)
[2016-11-10] MEDS: *HR* Enoxaparin 40 MG/0.4 ML SYRINGE SQ SCH (05:35)
[2016-11-10] MEDS: *HR* OxyCODONE Immed Rel 5 MG TABLET PO PRN ×2 (05:50→12:21)
[2016-11-10] MEDS ORDERED: Insulin DETEMIR 100 UNIT/ML X5UNITS SQ ONE (07:35)
[2016-11-10] MEDS: Sennosides/Docusate Sodium TABLET PO SCH (08:41)
[2016-11-10] MEDS: Loratadine 10 MG TABLET PO SCH (08:41)
[2016-11-10] MEDS: Famotidine 20 MG TABLET PO SCH (08:41)
[2016-11-10] MEDS: Gabapentin 400 MG CAPSULE PO SCH (08:42)
[2016-11-10] MEDS: Nystatin SUSP 5 ML UD.LIQ PO SCH ×2 (08:42→12:21)
[2016-11-10] MEDS: BuPROPion SR (12 HR) 100 MG TABLET PO SCH (08:42)
[2016-11-10] MEDS: Aspirin Enteric Coated 81 MG Tablet PO SCH (08:42)
[2016-11-10] MEDS: *HR* Metformin 500 MG TABLET PO SCH (08:42)
[2016-11-10] MEDS: Insulin LISPRO 300 UNITS/3 ML VIAL SQ SCH ×3 (08:43→15:55)
[2016-11-10] MEDS: Beclomethasone 80mcg MDI IH SCH (10:19)
[2016-11-10 12:24] VITALS: BP 180/82
--- NOTE | 2016-11-10 13:45 | Electrocardiograph Report ---
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
--- NOTE | 2016-11-10 15:01 | Internal Med Progress Note ---
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 She is requesting to be discharged home. She does not want to return to the rehabilitation facility. She is declining to have home health services. - Constitutional Vitals: Temp Pulse Resp BP Pulse Ox 98.4 F 71 16 180/82 95 11/10/16 12:23 11/10/16 12:23 11/10/16 12:23 11/10/16 12:23 11/10/16 12:23 General appearance: Present: cooperative, mild distress, A&O X 3, answers questions appropriately Exam: Gen.: Lying in bed. No acute distress. Chest: Clear to auscultation bilaterally. No adventitious sounds present. CVS: First and second heart sounds present. No murmurs, rubs or gallops. Abdomen: Soft, nontender, obese. Bowel sounds present. No hepatosplenomegaly. Internal Medicine: Result - Labs CBC & Chem 7: 11/06/16 04:50 11/06/16 04:50 Consult Discharge Plan - Plan Additional Instructions: [facility] 11/18/16 at 1pm Referrals: Bryan Fernandes MD [Primary Care Provider] - Prescriptions: Insulin Glargine [Lantus] 50 unit SQ BID 30 Days Levothyroxine Sodium [Levo-T] 350 mcg PO QAM #60 tablet metFORMIN [Glucophage] 1,000 mg PO BIDWM #90 tab
[2016-11-10] MEDS ORDERED: Insulin DETEMIR 100 UNIT/ML X5UNITS SQ SCH (21:00)
== END 2016-11-10 18:47 ==
LOC: EMEROO 07:37 → 2NENU 07:37 → SUATTDRO 13:05 → 2NENU 13:25
PROVIDERS: ADMIT Internal Medicine; ATTEND Internal Medicine Sleep Medicine

== ENCOUNTER 2017-01-27 14:13 | Inpatient (IN) ==
--- NOTE | 2017-01-27 14:16 | Emergency Department Note ---
Disposition Clinical Impression: Cellulitis, Skin ulcer of abdomen Disposition: Admitted As Inpatient Condition: Fair General Adult HPI - General Chief complaint: ED Recheck/Abnormal Lab/Rx Stated complaint: "think wound is infected" Time Seen by Provider: 01/27/17 14:15 - Related Data Home Medications Medication Instructions Recorded Confirmed Ranitidine HCl [Acid Inspector Tester Sorter] 150 mg PO BID 04/03/16 01/27/17 Aspirin Enteric Coated [Aspirin EC] 81 mg PO DAILY 10/04/16 01/27/17 Ipratropium/Albuterol Neb [Duoneb] 3 ml IH Q6HR 10/04/16 01/27/17 ALPRAZolam [Xanax 0.5 MG Tablet] 0.5 mg PO BID PRN 01/27/17 01/27/17 Atorvastatin Calcium [Lipitor] 20 mg PO HS 01/27/17 01/27/17 Cyanocobalamin (Vitamin B-12) 1,000 mcg PO QWEEK 01/27/17 01/27/17 [Vitamin B12] Docusate [Colace] 100 mg PO BID PRN 01/27/17 01/27/17 Insulin Glargine,Hum.rec.anlog 50 unit SQ BID 01/27/17 01/27/17 [Basaglar Kwikpen U-100] Insulin LISPRO [HumaLOG] 6 - 18 units SQ TID 01/27/17 01/27/17 Insulin Regular U-500 [HumuLIN R 375 unit SQ DAILY MDD See Comment. 01/27/17 U-500] Mometasone Furoate [Asmanex] 2 puff IH BID 01/27/17 01/27/17 acetaZOLAMIDE [Diamox] 250 mg PO DAILY 01/27/17 01/27/17 Previous Rx's Medication Instructions Recorded Oxycodone HCl 20 mg PO Q4HR PRN #20 tablet 10/05/16 Ondansetron ODT [Zofran ODT] 4 mg SL Q8HR PRN #10 tab.rapdis 11/08/16 metFORMIN [Glucophage] 1,000 mg PO BIDWM #90 tab 11/08/16 Gabapentin [Neurontin] 400 mg PO TID #120 11/10/16 Levothyroxine Sodium [Levo-T] 350 mcg PO QAM #60 tablet 11/10/16 Loratadine [Allergy Relief] 10 mg PO DAILY #60 11/10/16 Allergies Allergy/AdvReac Type Severity Reaction Status Date / Time Penicillins Allergy Rash Verified 01/27/16 09:52 Tetracycline Allergy Rash Verified 01/27/16 09:52 Past Medical History - Past Medical History Medical history: Reports: asthma, cancer, COPD, CVA, diabetes, thyroid disease Surgical history: Reports: thyroidectomy Psychiatric history: Reports: anxiety, depression - Social History Smoking Status: Former smoker Smokeless Tobacco Status: No Alcohol use: Reports: none, occasionally Drug use: Reports: none Course Vital Signs Temperature 98.3 F 01/27/17 14:25 Pulse Rate 73 01/27/17 14:25 Respiratory Rate 20 01/27/17 14:25 Blood Pressure 157/74 01/27/17 14:25 O2 Sat by Pulse Oximetry 96 01/27/17 14:25 Temperature 98.6 F 01/27/17 21:58 Pulse Rate 83 01/27/17 21:58 Respiratory Rate 17 01/27/17 21:58 Blood Pressure 152/87 01/27/17 21:58 O2 Sat by Pulse Oximetry 95 01/27/17 21:58 Oxygen Delivery Oxygen Delivery Room Air Medical Decision Making - Lab Data Result diagrams: 01/27/17 15:31 01/27/17 15:31 Lab Results 01/27/17 01/27/17 01/27/17 Range/Units 15:31 15:31 15:31 WBC 7.4 (4.3-11.1) K/mcL RBC 4.36 (3.82-4.97) M/mcL Hgb 12.5 (11.5-15.4) g/dL Hct 40.6 (35.3-44.9) % MCV 93.1 (83.0-100.0) fL MCH 28.7 (28.0-33.3) pg MCHC 30.8 L (31.6-35.5) g/dL RDW 16.2 H (11.5-14.5) % Plt Count 262 (140-400) K/mcL MPV 9.9 (9.4-12.4) fL Immature Gran % 0.7 (0-4) % Seg Neutrophils % 72.7 % Lymphocytes % 15.7 % Monocytes % 7.5 % Eosinophils % 3.0 % Basophils % 0.4 % Neutrophils # 5.4 (1.6-8.9) K/mcL Lymphocytes # 1.2 (0.6-4.6) K/mcL Monocytes # 0.6 (0.0-1.3) K/mcL Eosinophils # 0.2 (0.0-0.6) K/mcL Basophils # 0.0 (0.0-0.2) K/mcL PT 11.4 (9.4-12.1) Seconds INR 1.1 APTT 25.7 L (26.0-36.0) Seconds Sodium 140 (136-145) mEq/L Potassium 3.6 (3.5-4.5) mEq/L Chloride 101 (98-109) mEq/L Carbon Dioxide 31 H (19-29) mEq/L BUN 15 (7-20) mg/dL Creatinine 0.75 (0.57-1.11) mg/dL Est GFR ( Amer) > 60 (> 60) Est GFR (Non-Af Amer) > 60 (> 60) BUN/Creatinine Ratio 20 (6-26) Glucose 122 H (70-99) mg/dL Calculated Osmolality 292 (280-300) Lactic Acid (0.5-2.2) mmol/L Calcium 9.5 (8.6-10.8) mg/dL Phosphorus 2.1 L (2.3-4.7) mg/dL Magnesium 1.9 (1.6-2.6) mg/dL Troponin I (0-0.03) ng/mL 01/27/17 01/27/17 Range/Units 15:31 15:31 WBC (4.3-11.1) K/mcL RBC (3.82-4.97) M/mcL Hgb (11.5-15.4) g/dL Hct (35.3-44.9) % MCV (83.0-100.0) fL MCH (28.0-33.3) pg MCHC (31.6-35.5) g/dL RDW (11.5-14.5) % Plt Count (140-400) K/mcL MPV (9.4-12.4) fL Immature Gran % (0-4) % Seg Neutrophils % % Lymphocytes % % Monocytes % % Eosinophils % % Basophils % % Neutrophils # (1.6-8.9) K/mcL Lymphocytes # (0.6-4.6) K/mcL Monocytes # (0.0-1.3) K/mcL Eosinophils # (0.0-0.6) K/mcL Basophils # (0.0-0.2) K/mcL PT (9.4-12.1) Seconds INR APTT (26.0-36.0) Seconds Sodium (136-145) mEq/L Potassium (3.5-4.5) mEq/L Chloride (98-109) mEq/L Carbon Dioxide (19-29) mEq/L BUN (7-20) mg/dL Creatinine (0.57-1.11) mg/dL Est GFR ( Amer) (> 60) Est GFR (Non-Af Amer) (> 60) BUN/Creatinine Ratio (6-26) Glucose (70-99) mg/dL Calculated Osmolality (280-300) Lactic Acid 2.2 (0.5-2.2) mmol/L Calcium (8.6-10.8) mg/dL Phosphorus (2.3-4.7) mg/dL Magnesium (1.6-2.6) mg/dL Troponin I 0.00 (0-0.03) ng/mL Attestation Statement - Attestation Attestation: I examined this patient and my medical decision-making was reviewed with the Resident Physician. I agree with the documented findings, disposition and treatment plan as described except to the extent set forth below. Vaoh-pm-oawl time providing Patient presents from her primary care provider's office. 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 Patient seen in conjunction with the resident physician Dr. Celis
[2017-01-27] MEDS ORDERED: Vancomycin 1,500 MG in D5% in Water 250 ML IVPB ONE (14:26)
--- NOTE | 2017-01-27 14:26 | Emergency Department Note ---
Disposition Clinical Impression: Cellulitis Qualifiers: Site of cellulitis: trunk Site of cellulitis of trunk: abdominal wall Qualified Code(s): L03.311 - Cellulitis of abdominal wall Skin ulcer of abdomen Qualifiers: Non-pressure ulcer stage: unspecified non-pressure ulcer stage Qualified Code(s ): L98.499 - Non-pressure chronic ulcer of skin of other sites with unspecified severity Disposition: Admitted As Inpatient Condition: Fair Time of Disposition: 18:03 General Adult HPI - General Chief complaint: ED Recheck/Abnormal Lab/Rx Stated complaint: "think wound is infected" Time Seen by Provider: 01/27/17 14:15 Nursing Notes Reviewed: Yes Vital Signs Reviewed: Yes - History of Present Illness HPI Narrative: Patient presents from the medical office building the EMS for evaluation of cellulitic changes to her pannus as well as an ulcerating wound to left lower aspect of her pannus. Patient states this is been ongoing for the past 8 years and, to her, it appears better. There is substantial surrounding cellulitis; the patient was unaware of this. Patient is a poor historian on my evaluation. PMH: Asthma, COPD, history CVA, diabetes, hypothyroidism, anxiety, depression PSH: Hysterectomy, thyroidectomy, tonsillectomy, adenoidectomy - Related Data Home Medications Medication Instructions Recorded Confirmed Ranitidine HCl [Acid Coping Machine Assembler] 150 mg PO BID 04/03/16 01/27/17 Aspirin Enteric Coated [Aspirin EC] 81 mg PO DAILY 10/04/16 01/27/17 Ipratropium/Albuterol Neb [Duoneb] 3 ml IH Q6HR 10/04/16 01/27/17 ALPRAZolam [Xanax 0.5 MG Tablet] 0.5 mg PO BID PRN 01/27/17 01/27/17 Atorvastatin Calcium [Lipitor] 20 mg PO HS 01/27/17 01/27/17 Cyanocobalamin (Vitamin B-12) 1,000 mcg PO QWEEK 01/27/17 01/27/17 [Vitamin B12] Docusate [Colace] 100 mg PO BID PRN 01/27/17 01/27/17 Insulin Glargine,Hum.rec.anlog 50 unit SQ BID 01/27/17 01/27/17 [Basaglar Amaikpen U-100] Insulin LISPRO [HumaLOG] 6 - 18 units SQ TID 01/27/17 01/27/17 Insulin Regular U-500 [HumuLIN R 375 unit SQ DAILY MDD See Comment. 01/27/17 U-500] Mometasone Furoate [Asmanex] 2 puff IH BID 01/27/17 01/27/17 acetaZOLAMIDE [Diamox] 250 mg PO DAILY 01/27/17 01/27/17 Previous Rx's Medication Instructions Recorded Oxycodone HCl 20 mg PO Q4HR PRN #20 tablet 10/05/16 Ondansetron ODT [Zofran ODT] 4 mg SL Q8HR PRN #10 tab.rapdis 11/08/16 metFORMIN [Glucophage] 1,000 mg PO BIDWM #90 tab 11/08/16 Gabapentin [Neurontin] 400 mg PO TID #120 11/10/16 Levothyroxine Sodium [Levo-T] 350 mcg PO QAM #60 tablet 11/10/16 Loratadine [Allergy Relief] 10 mg PO DAILY #60 11/10/16 Allergies Allergy/AdvReac Type Severity Reaction Status Date / Time Penicillins Allergy Rash Verified 01/27/16 09:52 Tetracycline Allergy Rash Verified 01/27/16 09:52 All systems ED: reviewed and negative except as stated. Review of Systems: As Per HPI Past Medical History - Past Medical History Medical history: Reports: asthma, cancer, COPD, CVA, diabetes, thyroid disease Surgical history: Reports: thyroidectomy Psychiatric history: Reports: anxiety, depression - Social History Smoking Status: Former smoker Smokeless Tobacco Status: No Alcohol use: Reports: none, occasionally Drug use: Reports: none Physical Exam Vital Signs Reviewed General: Patient is alert, oriented, and in no acute distress. HEENT: No facial asymmetry. Head is normocephalic and atraumatic. Oral mucosa moist. Trachea midline. Cardiovascular: Heart regular rate and rhythm without clicks, rubs, gallops, or murmurs. Bilateral venous stasis changes in lower extremity. Radial pulses 2/ 4 equal. Respiratory: Symmetric chest rise with poor respiratory effort. Prolonged expiratory phase. Bilateral breath sounds diminished due to patient's body habitus; no wheezing, crackles, rhonchi. Abdomen: Morbidly obese. Bowel sounds present normoactive. Abdomen is soft, nondistended, and nontender. Musculoskeletal: Spontaneously moving all extremities. Exam limited by patient body habitus. Neuro: GCS 15. Skin: Beneath the patient's pannus, on the left side, there is a large ulcerated skin wound with the epidermis eroded and dermis exposed. There is purulence and foul odor. Surrounding this, there is erythematous cellulitic changes. Psych: Patient's affect is appropriate for situation. Course Course Narrative: I discussed the patient with her endocrinology nurse practitioner who referred her to the emergency department. Patient has had unreliably followed-up with endocrinology. She presented to this ER previously with sepsis from cellulitis , was transferred to [facility] and discharged with antibiotics and home health. Patient denies this. While in endocrinology today, patient was incontinent of urine and filled her wound with urine. She has no home health care. When asking the patient when her cellulitis started, she attempted to flex her neck to see her pannus and was unable to visualize it. As such, her statement that her skin wound is getting better falls into question that she is unable to visualize her abdomen let alone the crease of her pannus. We will perform septic workup, provide empiric vancomycin. registered nurse surgical services is working to determine the patient's home health care status - patient does not have home health care. Patient is not septic and for vital signs, clinical exam. Additionally, she has normal lactate. Patient is agreeable to admission for IV antibiotics and continue management. Her case is concerning both from a medical perspective of progressive cellulitis as well as from a social perspective for poor self-care. Vital Signs Temperature 98.3 F 01/27/17 14:25 Pulse Rate 73 01/27/17 14:25 Respiratory Rate 20 01/27/17 14:25 Blood Pressure 157/74 01/27/17 14:25 O2 Sat by Pulse Oximetry 96 01/27/17 14:25 Temperature 98.3 F 01/27/17 14:25 Pulse Rate 79 01/27/17 16:37 Respiratory Rate 18 01/27/17 16:37 Blood Pressure 151/75 01/27/17 16:37 O2 Sat by Pulse Oximetry 95 01/27/17 16:37 Oxygen Delivery Oxygen Delivery Room Air Medical Decision Making - Lab Data Result diagrams: 01/27/17 15:31 01/27/17 15:31 Lab Results 01/27/17 01/27/17 01/27/17 Range/Units 15:31 15:31 15:31 WBC 7.4 (4.3-11.1) K/mcL RBC 4.36 (3.82-4.97) M/mcL Hgb 12.5 (11.5-15.4) g/dL Hct 40.6 (35.3-44.9) % MCV 93.1 (83.0-100.0) fL MCH 28.7 (28.0-33.3) pg MCHC 30.8 L (31.6-35.5) g/dL RDW 16.2 H (11.5-14.5) % Plt Count 262 (140-400) K/mcL MPV 9.9 (9.4-12.4) fL Immature Gran % 0.7 (0-4) % Seg Neutrophils % 72.7 % Lymphocytes % 15.7 % Monocytes % 7.5 % Eosinophils % 3.0 % Basophils % 0.4 % Neutrophils # 5.4 (1.6-8.9) K/mcL Lymphocytes # 1.2 (0.6-4.6) K/mcL Monocytes # 0.6 (0.0-1.3) K/mcL Eosinophils # 0.2 (0.0-0.6) K/mcL Basophils # 0.0 (0.0-0.2) K/mcL PT 11.4 (9.4-12.1) Seconds INR 1.1 APTT 25.7 L (26.0-36.0) Seconds Sodium 140 (136-145) mEq/L Potassium 3.6 (3.5-4.5) mEq/L Chloride 101 (98-109) mEq/L Carbon Dioxide 31 H (19-29) mEq/L BUN 15 (7-20) mg/dL Creatinine 0.75 (0.57-1.11) mg/dL Est GFR ( Amer) > 60 (> 60) Est GFR (Non-Af Amer) > 60 (> 60) BUN/Creatinine Ratio 20 (6-26) Glucose 122 H (70-99) mg/dL Calculated Osmolality 292 (280-300) Lactic Acid (0.5-2.2) mmol/L Calcium 9.5 (8.6-10.8) mg/dL Phosphorus 2.1 L (2.3-4.7) mg/dL Magnesium 1.9 (1.6-2.6) mg/dL Troponin I (0-0.03) ng/mL 01/27/17 01/27/17 Range/Units 15:31 15:31 WBC (4.3-11.1) K/mcL RBC (3.82-4.97) M/mcL Hgb (11.5-15.4) g/dL Hct (35.3-44.9) % MCV (83.0-100.0) fL MCH (28.0-33.3) pg MCHC (31.6-35.5) g/dL RDW (11.5-14.5) % Plt Count (140-400) K/mcL MPV (9.4-12.4) fL Immature Gran % (0-4) % Seg Neutrophils % % Lymphocytes % % Monocytes % % Eosinophils % % Basophils % % Neutrophils # (1.6-8.9) K/mcL Lymphocytes # (0.6-4.6) K/mcL Monocytes # (0.0-1.3) K/mcL Eosinophils # (0.0-0.6) K/mcL Basophils # (0.0-0.2) K/mcL PT (9.4-12.1) Seconds INR APTT (26.0-36.0) Seconds Sodium (136-145) mEq/L Potassium (3.5-4.5) mEq/L Chloride (98-109) mEq/L Carbon Dioxide (19-29) mEq/L BUN (7-20) mg/dL Creatinine (0.57-1.11) mg/dL Est GFR ( Amer) (> 60) Est GFR (Non-Af Amer) (> 60) BUN/Creatinine Ratio (6-26) Glucose (70-99) mg/dL Calculated Osmolality (280-300) Lactic Acid 2.2 (0.5-2.2) mmol/L Calcium (8.6-10.8) mg/dL Phosphorus (2.3-4.7) mg/dL Magnesium (1.6-2.6) mg/dL Troponin I 0.00 (0-0.03) ng/mL
[2017-01-27] MEDS ORDERED: Vancomycin 2,000 MG in D5% in Water 500 ML IVPB ONE (14:52)
[2017-01-27 15:52] LABS: Basophils % 0.4 %; Eosinophils # 0.2 K/mcL (0.0-0.6); Hematocrit 40.6 % (35.3-44.9); Hemoglobin 12.5 g/dL (11.5-15.4); Immature Granulocytes % 0.7 % (0-4); Lymphocytes # 1.2 K/mcL (0.6-4.6); Lymphocytes % 15.7 %; Mean Corpuscular HGB Conc 30.8 g/dL (31.6-35.5); Mean Corpuscular Hemoglobin 28.7 pg (28.0-33.3); Mean Corpuscular Volume 93.1 fL (83.0-100.0); Mean Platelet Volume 9.9 fL (9.4-12.4); Monocytes # 0.6 K/mcL (0.0-1.3); Monocytes % 7.5 %; Neutrophils # 5.4 K/mcL (1.6-8.9); Platelet Count 262 K/mcL (140-400); Red Blood Count 4.36 M/mcL (3.82-4.97); Red Cell Distribution Width 16.2 % (11.5-14.5); Segmented Neutrophils % 72.7 %
[2017-01-27 15:58] LABS: INR 1.1; Prothrombin Time 11.4 Seconds (9.4-12.1)
[2017-01-27 16:00] LABS: Activated Partial Thrombo Time 25.7 Seconds (26.0-36.0)
[2017-01-27 16:07] LABS: BUN/Creatinine Ratio 20 (6-26); Blood Urea Nitrogen 15 mg/dL (7-20); Calcium 9.5 mg/dL (8.6-10.8); Carbon Dioxide 31 mEq/L (19-29); Chloride 101 mEq/L (98-109); Glucose 122 mg/dL (70-99); Magnesium 1.9 mg/dL (1.6-2.6); Osmolality,Calculated 292 (280-300); Phosphorous 2.1 mg/dL (2.3-4.7); Potassium 3.6 mEq/L (3.5-4.5); Sodium 140 mEq/L (136-145); eGFR For African Americans > 60 (> 60); eGFR For Non-African Americans > 60 (> 60)
[2017-01-27] MEDS ORDERED: *HR* Morphine 2 MG/ML SYRINGE IVP ONE (19:54)
[2017-01-27] MEDS ORDERED: Naloxone 0.4 MG/ML INJ IVP PRN (20:23)
[2017-01-27] MEDS ORDERED: Ondansetron 4 MG/2 ML VIAL IVP PRN (20:23)
[2017-01-27] MEDS ORDERED: Acetaminophen 325 MG TABLET PO PRN (20:23)
[2017-01-27] MEDS ORDERED: *HR* Morphine 2 MG/ML SYRINGE IVP PRN (20:23)
[2017-01-27] MEDS ORDERED: D5% in Water 1,000 ML IVC PRN (20:29)
[2017-01-27] MEDS ORDERED: *HR* Dextrose 50 % in Water (Syg) 50 ML SYRINGE IVP PRN (20:29)
[2017-01-27] MEDS ORDERED: Dextrose Gel 15 GM PO PRN ×2 (20:29)
--- NOTE | 2017-01-27 20:31 | Internal Med History&Physical ---
<NahumEdmund white - Last Filed: 01/27/17 22:27> Date of Encounter: 01/27/17 Time of Encounter: 20:31 Assessment and Plan (1) Cellulitis Current visit: Yes Status: Acute - Cellulitis with non healing ulcer of pannus and abdominal wall. - Afebrile, no WBC, non septic. - PCN anaphylaxis allergic, will start levaquin and vancomycin. - Wound culture, blood culture pending. - Consult to wound care, appreciate recommendation. Qualifiers: Site of cellulitis: trunk Site of cellulitis of trunk: abdominal wall Qualified Code(s): L03.311 - Cellulitis of abdominal wall (2) Skin ulcer of abdomen Current visit: Yes Status: Acute - Likely secondary to poor hygiene and increased pressure and friction from obesity - Management as above. Qualifiers: Non-pressure ulcer stage: limited to breakdown of skin Qualified Code(s): L98.491 - Non-pressure chronic ulcer of skin of other sites limited to breakdown of skin (3) Constipation Current visit: Yes Status: Chronic - Pt reports chronic constipation following abdominal surgery and also takes oxycodone 20mg for chronic pain -Continue home stool softener Qualifiers: Constipation type: drug induced constipation Qualified Code(s): K59.03 - Drug induced constipation (4) Diabetes mellitus type 2 with complications Current visit: Yes Status: Chronic - Pt reports using SSI, basal insulin, metformin - Remains uncontolled. 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 - BiPAP ordered. Currently SpO2 in high 90s on RA. (6) Morbid obesity with BMI of 70 and over, adult Current visit: Yes Status: Chronic BMI of 79. - Multiple complications of obesity related illness including DM2, NESHA - Recommend aggressive lifestyle changes as outpatient. (7) DVT prophylaxis Current visit: Yes Status: Acute - Heparin 5000 units q8 Internal Medicine - H&P: HPI Chief complaint: abdominal infection Admitted From: Emergency Dept Plans for Post Hospital Care: Home History of present illness: Ms. Cat is a 46 year old female who presents to emergency department with a complaint of pannus infection. She states that it all started approximately 8 years ago when she had surgery for endometrial cancer and the wound never healed correctly. She states that initially she had no skin covering the lower abdominal area, however this is improved now. Patient appears to be a poor historian in this evaluation. She states that she cleans the wounds between 1- 3 times per day, depending on if she believes smells using vinegar, baking soda and water. She has noticed a discharge most frequently a thin white discharge which has been present for some time. He occasionally notices a sick yellow discharge as well as more firm objects which in her opinion look like "maggots" . She states she is constantly experiencing fevers and chills, however she has not measured any fevers and states that this is her normal. She is experiencing pain in the lower left abdomen which she describes as if something is trying to burst out of her. It is constant in nature. She states she was recently seen at [facility] for this infection and was admitted approximately one week ago for IV antibiotics and was admitted for approximately 4 days. She denies any symptoms of new onset swelling, new onset numbness and tingling, chest pain, new onset shortness of breath. In the emergency department, patient's vital signs were unremarkable aside from mildly elevated blood pressure at 157/74. Labs were significant for a lactic acid of 2.2, however repeat levels of 1.5. No white count. She was started on empiric Vancomycin Past Med Surg Social Fam HX - Past Medical History Medical history: asthma, cancer, COPD, CVA, diabetes, thyroid disease Psychiatric history: anxiety, depression - Past Surgical History Surgical History: thyroidectomy - Social History Smoking Status: Former smoker Smokeless Tobacco Status: No Alcohol use: none, occasionally Drug use: none - Family History Mother Hx Family Cardiac Disorders: Yes Hx Family Respiratory Disorders: Yes Hx Family Cancer: No Hx Family Endocrine Disorder: Yes Hx Family Neuromuscular Disorders: Yes Internal Medicine - H&P: Meds Ranitidine HCl [Acid Wardrobe Coordinator] 150 mg PO BID 04/03/16 [History] Aspirin Enteric Coated [Aspirin EC] 81 mg PO DAILY 10/04/16 [History] Ipratropium/Albuterol Neb [Duoneb] 3 ml IH Q6HR 10/04/16 [History] Oxycodone HCl 20 mg PO Q4HR PRN #20 tablet 10/05/16 [Rx] Ondansetron ODT [Zofran ODT] 4 mg SL Q8HR PRN #10 tab.rapdis 11/08/16 [Rx] metFORMIN [Glucophage] 1,000 mg PO BIDWM #90 tab 11/08/16 [Rx] Gabapentin [Neurontin] 400 mg PO TID #120 11/10/16 [Rx] Levothyroxine Sodium [Levo-T] 350 mcg PO QAM #60 tablet 11/10/16 [Rx] Loratadine [Allergy Relief] 10 mg PO DAILY #60 11/10/16 [Rx] ALPRAZolam [Xanax 0.5 MG Tablet] 0.5 mg PO BID PRN 01/27/17 [History] Atorvastatin Calcium [Lipitor] 20 mg PO HS 01/27/17 [History] Cyanocobalamin (Vitamin B-12) [Vitamin B12] 1,000 mcg PO QWEEK 01/27/17 [History ] Docusate [Colace] 100 mg PO BID PRN 01/27/17 [History] Insulin Glargine,Hum.rec.anlog [Basaglar Kwikpen U-100] 50 unit SQ BID 01/27/17 [History] Insulin LISPRO [HumaLOG] 6 - 18 units SQ TID 01/27/17 [History] Insulin Regular U-500 [HumuLIN R U-500] 375 unit SQ DAILY MDD See Comment. [History] Mometasone Furoate [Asmanex] 2 puff IH BID 01/27/17 [History] acetaZOLAMIDE [Diamox] 250 mg PO DAILY 01/27/17 [History] 3 Allergy/AdvReac Type Severity Reaction Status Date / Time Penicillins Allergy Rash Verified 01/27/16 09:52 Tetracycline Allergy Rash Verified 01/27/16 09:52 All Systems PM: A 10-system review of systems was performed and is negative for pertinent findings except as documented above in the HPI. - Constitutional Constitutional: chills, fatigue, fever(s), no malaise, no weakness - Cardiovascular Cardiovascular ROS IM: edema, no chest pain, no diaphoresis, no dyspnea, no dyspnea on exertion, no lightheadedness, no palpitations - Respiratory Respiratory: no cough, no dyspnea, no hemoptysis, no dyspnea on exertion - Gastrointestinal Gastrointestinal: abdominal pain, constipation, no diarrhea, no nausea, no vomiting - Genitourinary Genitourinary: urinary incontinence, no dysuria - Musculoskeletal Musculoskeletal ROS IM: no muscle weakness, no numbness, no tingling - Integumentary Integumentary IM: erythema, non-healing lesions, skin ulcer - Neurological Neurological ROS: no numbness (diabetic neuropathy), no tingling - Constitutional Vitals: Temp Pulse Resp BP Pulse Ox 98.3 F 83 18 143/74 95 01/27/17 14:25 01/27/17 19:00 01/27/17 19:00 01/27/17 19:00 01/27/17 19:00 Exam: Gen.: Vitals noted. No acute distress. AAOx3, Morbidly obese female resting in bed. HEENT: PERRL, oropharynx clear, Normocephalic, atraumatic, mildly dry mucus membranes Cardiac: RRR, no murmur, +S1/S2 Pulmonary: CTA bilaterally, no wheezes, rales or rhonchi, equal chest expansion , decreased respiratory effort, difficult to appreciate breath sounds Abdomen: soft, erythematous with line drawn to mid abdomen, panus has ulcerated lesion extending from midline to left hip and 5cm wide. Significant erythema, no obvious discharge. Extremities: mild BLE edema, obesity limits evaluation of limbs. Neuro: A&Ox3, moves all extremities, no focal deficits Psych: Appropriate mood and behavior Internal Med - H&P Results - Labs CBC & Chem 7: 01/27/17 15:31 01/27/17 15:31 <Reg Ely - Last Filed: 01/27/17 23:35> Date of Encounter: 01/27/17 Internal Medicine - H&P: HPI History of present illness: Ms. Cat is a 46 year old female All Systems PM: A 10-system review of systems was performed and is negative for pertinent findings except as documented above in the HPI. - Constitutional Vitals: Temp Pulse Resp BP Pulse Ox 98.6 F 83 17 152/87 95 01/27/17 21:58 01/27/17 21:58 01/27/17 21:58 01/27/17 21:58 01/27/17 21:58 Internal Med - H&P Results - Labs CBC & Chem 7: 01/27/17 15:31 01/27/17 15:31 - Attending Attestation I have seen and examined the patient independently. I have discussed with resident physician Dr. Peterson regarding the management plan. Agree with the documentation. Patient has cellulitis with skin redness and pus like discharge. Not meet criteria for sepsis. Place patient on Vanco and Levaquin IV. Wound culture and wound care. Patient is at high risk because of severe infection and on vancomycin, need close monitoring
[2017-01-27] MEDS ORDERED: Vancomycin 2,000 MG in D5% in Water 250 ML IVPB SCH (21:00)
[2017-01-27] MEDS: *HR* Heparin 5,000 UNIT/ML VIAL SQ SCH (23:16)
[2017-01-27] MEDS: Insulin DETEMIR 100 UNIT/ML X5UNITS SQ SCH (23:17)
[2017-01-27] MEDS: Gabapentin 400 MG CAPSULE PO SCH (23:17)
[2017-01-27] MEDS: Famotidine 20 MG TABLET PO SCH (23:17)
[2017-01-27] MEDS: Levofloxacin 750 MG/150 ML 750 MG/150 ML BAG IVPB SCH (23:19)
[2017-01-27] MEDS: *HR* HYDROcodone/Acet 5/325 mg TABLET PO PRN (23:22)
[2017-01-28] MEDS ORDERED: Vancomycin 2,000 MG in D5% in Water 500 ML IVPB SCH
[2017-01-28] MEDS: *HR* OxyCODONE Immed Rel 5 MG TABLET PO PRN ×4 (02:02→22:06)
[2017-01-28 05:28] LABS: Basophils % 0.5 %; Eosinophils # 0.2 K/mcL (0.0-0.6); Eosinophils % 3.1 %; Hematocrit 37.9 % (35.3-44.9); Hemoglobin 11.6 g/dL (11.5-15.4); Immature Granulocytes % 0.8 % (0-4); Mean Corpuscular HGB Conc 30.6 g/dL (31.6-35.5); Mean Corpuscular Hemoglobin 28.6 pg (28.0-33.3); Mean Corpuscular Volume 93.6 fL (83.0-100.0); Mean Platelet Volume 10.2 fL (9.4-12.4); Monocytes # 0.5 K/mcL (0.0-1.3); Neutrophils # 4.8 K/mcL (1.6-8.9); Platelet Count 229 K/mcL (140-400); Red Blood Count 4.05 M/mcL (3.82-4.97); Red Cell Distribution Width 16.4 % (11.5-14.5); Segmented Neutrophils % 73.6 %
[2017-01-28 05:38] LABS: BUN/Creatinine Ratio 17 (6-26); Blood Urea Nitrogen 14 mg/dL (7-20); Calcium 8.7 mg/dL (8.6-10.8); Carbon Dioxide 28 mEq/L (19-29); Chloride 102 mEq/L (98-109); Glucose 368 mg/dL (70-99); Osmolality,Calculated 299 (280-300); Sodium 137 mEq/L (136-145); eGFR For African Americans > 60 (> 60); eGFR For Non-African Americans > 60 (> 60)
[2017-01-28 05:41] LABS: Potassium 4.5 mEq/L (3.5-4.5)
[2017-01-28] MEDS: *HR* Heparin 5,000 UNIT/ML VIAL SQ SCH ×3 (05:48→21:32)
[2017-01-28 06:07] LABS: Bilirubin,Urine Negative (Negative); Blood,Urine Small (Negative); Clarity,Urine Cloudy (Clear); Color,Urine Yellow (Yellow); Glucose,Urine (UA) 100 mg/dL (Normal); Ketones,Urine Negative (Negative); Leukocyte Esterase,Urine Small (Negative); Nitrite,Urine Negative (Negative); PH,Urine 5.5 pH Units (5.0-8.0); Protein,Urine Negative (Neg-Trace); Specific Gravity,Urine 1.021 (1.010-1.025); Urobilinogen,Urine Normal (Normal)
[2017-01-28 06:09] LABS: Squamous Epithelial Cell,Urine Many per lpf (None-Few); WBC,Urine 30-50 per hpf (0-3)
[2017-01-28 06:23] LABS: Bacteria,Urine Few per hpf (None-Few); Hyaline Casts,Urine None Seen per lpf (None-Few)
[2017-01-28] MEDS: Insulin LISPRO 300 UNITS/3 ML VIAL SQ SCH ×5 (08:14→21:34)
[2017-01-28] MEDS: acetaZOLAMIDE 250 MG TABLET PO SCH (08:18)
[2017-01-28] MEDS: Famotidine 20 MG TABLET PO SCH ×2 (08:18→21:31)
[2017-01-28] MEDS: Aspirin Enteric Coated 81 MG Tablet PO SCH (08:18)
[2017-01-28] MEDS: Gabapentin 400 MG CAPSULE PO SCH ×3 (08:18→21:31)
[2017-01-28] MEDS: ALPRAZolam 0.5 MG TABLET PO PRN ×2 (08:19→22:06)
--- NOTE | 2017-01-28 08:26 | Internal Med Progress Note ---
<Tom Ramirez - Last Filed: 01/28/17 09:58> Date of Encounter: 01/28/17 Time of Encounter: 08:26 - Assessment and plan (1) Cellulitis Current Visit: Yes Status: Acute Assessment and plan: Cellulitis with non healing ulcer of pannus and abdominal wall. She reported not completing 10 day course of Bactrim prior to arrival. Afebrile, no WBC, non septic. PCN anaphylaxis allergic, will continue levaquin and vancomycin (Day 1) Started Fluconazole IV and Nystatin powder Wound culture, blood culture pending. Consulted wound care, appreciate recommendations Qualifiers: Site of cellulitis: trunk Site of cellulitis of trunk: abdominal wall Qualified Code(s): L03.311 - Cellulitis of abdominal wall (2) Skin ulcer of abdomen Current Visit: Yes Status: Acute Assessment and plan: Chronic since abdominal hysterectomy 8 years ago 15cm x 20cm ulcerated skin ulcer with the epidermis eroded and dermis exposed extending from midline to left hip, yellow purulence, foul fungal odor, surrounding erythema, no hernia Patient reports using Dakin's solution at home and following with outpatient wound care Wound care consulted Qualifiers: Non-pressure ulcer stage: limited to breakdown of skin Qualified Code(s): L98.491 - Non-pressure chronic ulcer of skin of other sites limited to breakdown of skin (3) Diabetes mellitus type 2 with complications Current Visit: Yes Status: Chronic Assessment and plan: Pt reports using SSI, basal insulin, metformin Remains uncontolled. Last HGB a1c on 01/14/17 of 10% Will resume home basal insulin and give severe SSI Diabetic diet Qualifiers: Diabetes mellitus [facility] insulin use: with network support use Qualified Code( s): E11.8 - Type 2 diabetes mellitus with unspecified complications; Z79.4 - automotive parts interpreter (current) use of insulin; Z79.4 - automotive parts interpreter (current) use of insulin; Z79.4 - halfway (current) use of insulin; Z79.4 - halfway (current) use of insulin (4) Obesity hypoventilation syndrome Current Visit: No Status: Chronic Assessment and plan: Patient reports difficulty using BiPap here due to inability to wear mask. She uses nasal pillows at home. (5) Obstructive sleep apnea Current Visit: No Status: Chronic Assessment and plan: Patient reports difficulty using BiPap here due to inability to wear mask. She uses nasal pillows at home. (6) Super-super obese Current Visit: Yes Status: Acute Assessment and plan: BMI of 80.5 Multiple complications of obesity related illness including DM2, NESHA Recommend aggressive lifestyle changes as outpatient. Photocopying Machine Operator consulted (7) Constipation Current Visit: Yes Status: Chronic Assessment and plan: Pt reports chronic constipation Continue home stool softener Qualifiers: Constipation type: drug induced constipation Qualified Code(s): K59.03 - Drug induced constipation (8) Foot pain, right Current Visit: Yes Status: Acute Assessment and plan: Patient reports right foot pain and toes are bruised s/p fall a few days ago. ecchymosis right toes 2-4 with intact ROM, unable to assess weight bearing status X-ray foot pending PT/OT consulted (9) DVT prophylaxis Current Visit: No Status: Acute Assessment and plan: Heparin subq TID - Subjective Interval history: Patient seen and examined. Patient reports right foot pain and toes are bruised s/p fall a few days ago. She reported not completing 10 day course of Bactrim prior to arrival. Patient reports difficulty using BiPap here due to inability to wear mask. She uses nasal pillows at home. - Constitutional Vitals: Temp Pulse Resp BP Pulse Ox 98.0 F 85 15 158/86 93 01/28/17 07:14 01/28/17 07:14 01/28/17 07:14 01/28/17 07:14 01/28/17 07:14 General appearance: Present: cooperative, A&O X 3, morbidly obese, pleasant, no acute distress, answers questions appropriately - Head Head exam: Present: atraumatic, normocephalic - Eye Eye exam: Present: EOMI, conjuntiva pink, sclera anicteric - ENT ENT exam: Present: mucous membranes moist, normal oropharynx - Neck Neck exam general surgery: Present: full ROM, supple - Respiratory Respiratory exam: Present: CTAB. Absent: accessory muscle use, rales, respiratory distress, tachypnea - Cardiovascular Cardiovascular exam: Present: RRR, +S1, +S2 - GI/Abdominal GI/Abdominal exam: Present: distended, soft, tenderness. Absent: firm, guarding Additional comments: 15cm x 20cm ulcerated skin ulcer with the epidermis eroded and dermis exposed extending from midline to left hip, yellow purulence, foul fungal odor, surrounding erythema, no hernia - Additional comments: craven with yellow urine - Extremities Exam Extremities exam: Present: pedal edema, warm. Absent: normal inspection Additional comments: ecchymosis right toes 2-4 with intact ROM, unable to assess weight bearing status, chronic venous stasis changes anterior shins - Incison Incision: Present: inflamed, erythema, purulent, indurated. Absent: clean and dry - Neurological Exam Neurological exam: Present: alert, oriented X3, no focal deficits. Absent: speech deficit - Psychiatric Psychiatric exam: Present: anxious, normal affect - Skin Skin exam: Present: erythema, warm. Absent: normal color Additional comments: 15cm x 20cm ulcerated skin ulcer with the epidermis eroded and dermis exposed extending from midline to left hip, yellow purulence, foul fungal odor, surrounding erythema, no hernia Internal Medicine: Result - Labs CBC & Chem 7: 01/28/17 05:15 01/28/17 05:15 Labs: Short CBC 01/28/17 Range/Units 05:15 WBC 6.5 (4.3-11.1) K/mcL Hgb 11.6 (11.5-15.4) g/dL Hct 37.9 (35.3-44.9) % Plt Count 229 (140-400) K/mcL Neutrophils # 4.8 (1.6-8.9) K/mcL BMP 01/28/17 05:15 Sodium 137 Potassium 4.5 Chloride 102 Carbon Dioxide 28 BUN 14 Creatinine 0.83 Glucose 368 H Calcium 8.7 Urine 01/28/17 Range/Units 05:50 Urine Color Yellow (Yellow) Urine Clarity Cloudy A (Clear) Urine pH 5.5 (5.0-8.0) pH Units Ur Specific [place] 1.021 (1.010-1.025) Urine Protein Negative (Neg-Trace) mg/dL Urine Glucose (UA) 100 H (Normal) mg/dL - ABG Interpretation ABG results: PT/INR, D-dimer PT 11.4 Seconds (9.4-12.1) 01/27/17 15:31 - Pulse Oximetry Interpretation Digit-Finger Pulse Oximetry Readin (on 2L via NC) Consult Discharge Plan - Plan Referrals: Luís Tavares DO [Primary Care Provider] - <Cristiane,Valerio H - Last Filed: 01/28/17 16:21> Date of Encounter: 01/28/17 - Constitutional Vitals: Temp Pulse Resp BP Pulse Ox 97.8 F 87 12 146/73 96 01/28/17 15:46 01/28/17 15:46 01/28/17 15:46 01/28/17 15:46 01/28/17 15:46 Internal Medicine: Result - Labs CBC & Chem 7: 01/28/17 05:15 01/28/17 05:15 Labs: Short CBC 01/28/17 Range/Units 05:15 WBC 6.5 (4.3-11.1) K/mcL Hgb 11.6 (11.5-15.4) g/dL Hct 37.9 (35.3-44.9) % Plt Count 229 (140-400) K/mcL Neutrophils # 4.8 (1.6-8.9) K/mcL BMP 01/28/17 05:15 Sodium 137 Potassium 4.5 Chloride 102 Carbon Dioxide 28 BUN 14 Creatinine 0.83 Glucose 368 H Calcium 8.7 Urine 01/28/17 Range/Units 05:50 Urine Color Yellow (Yellow) Urine Clarity Cloudy A (Clear) Urine pH 5.5 (5.0-8.0) pH Units Ur Specific [place] 1.021 (1.010-1.025) Urine Protein Negative (Neg-Trace) mg/dL Urine Glucose (UA) 100 H (Normal) mg/dL - ABG Interpretation ABG results: PT/INR, D-dimer PT 11.4 Seconds (9.4-12.1) 01/27/17 15:31 - Impressions Impressions Foot X-Ray 01/28/17 09:53 IMPRESSION: 1. Soft tissue swelling of the foot dorsum. No associated acute osseous abnormality. D/ / Rico Srinivasan MD / Rico Srinivasan MD Interpreting Provider: Rico Srinivasan MD - Attending Attestation Acute pannus nonhealing ulcer/cellulitis Grew a Streptococcus C in the past culture Await new cultures, continue fluconazole I examined this patient and my medical decision-making was reviewed with the Resident Physician. I agree with the documented findings, disposition and treatment plan as described except to the extent set forth below.
[2017-01-28] MEDS: Insulin DETEMIR 100 UNIT/ML X5UNITS SQ SCH ×2 (08:32→21:33)
[2017-01-28] MEDS ORDERED: Fluconazole 200 MG/100 ML 200 MG/100 ML BAG IVPB ONE ×2 (09:44→10:00)
[2017-01-28] MEDS ORDERED: Cyanocobalamin (B-12) 1,000 MCG TABLET PO SCH (09:45)
[2017-01-28] MEDS: Beclomethasone 80mcg MDI IH SCH ×2 (10:51→22:16)
[2017-01-28] MEDS: Vancomycin 2,000 MG in D5% in Water 500 ML IVPB SCH (11:54)
[2017-01-28] MEDS: Nystatin POWDER 30 GM BOTTLE TP SCH ×2 (15:13→21:34)
[2017-01-28] MEDS: Ipratropium/Albuterol Neb 3 ML IH SCH (22:16)
[2017-01-28] MEDS: Levofloxacin 750 MG/150 ML 750 MG/150 ML BAG IVPB SCH (23:30)
[2017-01-29] MEDS: Vancomycin 2,000 MG in D5% in Water 500 ML IVPB SCH (00:03)
[2017-01-29] MEDS: Ipratropium/Albuterol Neb 3 ML IH SCH ×4 (04:29→22:36)
[2017-01-29] MEDS: *HR* Heparin 5,000 UNIT/ML VIAL SQ SCH ×3 (05:46→22:26)
[2017-01-29 06:21] LABS: Hematocrit 37.7 % (35.3-44.9); Hemoglobin 11.3 g/dL (11.5-15.4); Immature Platelets 3.5 % (1.1-6.1); Mean Corpuscular Volume 96.7 fL (83.0-100.0); Mean Platelet Volume 10.2 fL (9.4-12.4); Red Blood Count 3.9 M/mcL (3.82-4.97)
[2017-01-29 06:34] LABS: BUN/Creatinine Ratio 20 (6-26); Blood Urea Nitrogen 17 mg/dL (7-20); Calcium 8.7 mg/dL (8.6-10.8); Carbon Dioxide 30 mEq/L (19-29); Chloride 101 mEq/L (98-109); Glucose 407 mg/dL (70-99); Osmolality,Calculated 305 (280-300); Potassium 4.7 mEq/L (3.5-4.5); Sodium 138 mEq/L (136-145); eGFR For African Americans > 60 (> 60); eGFR For Non-African Americans > 60 (> 60)
--- NOTE | 2017-01-29 07:22 | Internal Med Progress Note ---
<Tom Ramirez - Last Filed: 01/29/17 09:56> Date of Encounter: 01/29/17 Time of Encounter: 07:21 - Assessment and plan (1) Cellulitis Current Visit: Yes Status: Acute Assessment and plan: Cellulitis with non healing ulcer of pannus and abdominal wall. She reported not completing 10 day course of Bactrim prior to arrival. Afebrile, no WBC, non septic. PCN anaphylaxis allergic, will continue levaquin and vancomycin (Day 2) Fluconazole IV (Day 2) and Nystatin powder Wound culture, blood culture pending. Consulted wound care, appreciate recommendations Qualifiers: Site of cellulitis: trunk Site of cellulitis of trunk: abdominal wall Qualified Code(s): L03.311 - Cellulitis of abdominal wall (2) Skin ulcer of abdomen Current Visit: Yes Status: Acute Assessment and plan: Chronic since abdominal hysterectomy 8 years ago 15cm x 20cm ulcerated skin ulcer with the epidermis eroded and dermis exposed extending from midline to left hip, yellow purulence, foul fungal odor, surrounding erythema, no hernia Patient reports using Dakin's solution at home and following with outpatient wound care Wound care following Qualifiers: Non-pressure ulcer stage: limited to breakdown of skin Qualified Code(s): L98.491 - Non-pressure chronic ulcer of skin of other sites limited to breakdown of skin (3) Diabetes mellitus type 2 with complications Current Visit: Yes Status: Chronic Assessment and plan: Pt reports using SSI, basal insulin, metformin Remains uncontolled. Last HGB a1c on 01/14/17 of 10% Will resume home basal insulin and give severe SSI Diabetic diet Qualifiers: Diabetes mellitus senior care insulin use: with superintendent marine oil terminal use Qualified Code( s): E11.8 - Type 2 diabetes mellitus with unspecified complications; Z79.4 - snf (current) use of insulin; Z79.4 - snf (current) use of insulin; Z79.4 - snf (current) use of insulin; Z79.4 - snf (current) use of insulin (4) Obesity hypoventilation syndrome Current Visit: No Status: Chronic Assessment and plan: Patient reports difficulty using BiPap here due to inability to wear mask. She uses nasal pillows at home. (5) Obstructive sleep apnea Current Visit: No Status: Chronic Assessment and plan: Patient reports difficulty using BiPap here due to inability to wear mask. She uses nasal pillows at home. (6) Super-super obese Current Visit: Yes Status: Acute Assessment and plan: BMI of 80.5 Multiple complications of obesity related illness including DM2, NESHA Recommend aggressive lifestyle changes as outpatient. Generation Technician consulted (7) Constipation Current Visit: Yes Status: Chronic Assessment and plan: Pt reports chronic constipation Continue home stool softener Qualifiers: Constipation type: drug induced constipation Qualified Code(s): K59.03 - Drug induced constipation (8) Foot pain, right Current Visit: Yes Status: Acute Assessment and plan: Patient reports right foot pain and toes are bruised s/p fall a few days ago. ecchymosis right toes 2-4 with intact ROM, unable to assess weight bearing status X-ray foot negative PT/OT consulted (9) DVT prophylaxis Current Visit: No Status: Acute Assessment and plan: Heparin subq TID - Subjective Interval history: Patient seen and examined. Patient reports nausea yesterday while trying to ambulate. She also difficulty using BiPap due to inability to wear mask. She uses nasal pillows at home. Awaiting culture results. - Constitutional Vitals: Temp Pulse Resp BP Pulse Ox 97.8 F 89 18 135/64 94 01/29/17 07:05 01/29/17 07:05 01/29/17 07:05 01/29/17 07:05 01/29/17 07:05 General appearance: Present: cooperative, A&O X 3, morbidly obese, pleasant, no acute distress, answers questions appropriately Exam: - Head Head exam: Present: atraumatic, normocephalic - Eye Eye exam: Present: EOMI, conjuntiva pink, sclera anicteric - ENT ENT exam: Present: mucous membranes moist, normal oropharynx - Neck Neck exam general surgery: Present: full ROM, supple - Respiratory Respiratory exam: Present: CTAB. Absent: accessory muscle use, rales, respiratory distress, tachypnea - Cardiovascular Cardiovascular exam: Present: RRR, +S1, +S2 - GI/Abdominal GI/Abdominal exam: Present: distended, soft, tenderness. Absent: firm, guarding Additional comments: 15cm x 20cm ulcerated skin ulcer with the epidermis eroded and dermis exposed extending from midline to left hip, yellow purulence, foul fungal odor, surrounding erythema, no hernia - Additional comments: craven with yellow urine - Extremities Exam Extremities exam: Present: pedal edema, warm. Absent: normal inspection Additional comments: ecchymosis right toes 2-4 with intact ROM, unable to assess weight bearing status, chronic venous stasis changes anterior shins - Incison Incision: Present: inflamed, erythema, purulent, indurated. Absent: clean and dry - Neurological Exam Neurological exam: Present: alert, oriented X3, no focal deficits. Absent: speech deficit - Psychiatric Psychiatric exam: Present: anxious, normal affect - Skin Skin exam: Present: erythema, warm. Absent: normal color Additional comments: 15cm x 20cm ulcerated skin ulcer with the epidermis eroded and dermis exposed extending from midline to left hip, yellow purulence, foul fungal odor, surrounding erythema, no hernia Internal Medicine: Result - Labs CBC & Chem 7: 01/29/17 05:26 01/29/17 05:26 Labs: Short CBC 01/29/17 Range/Units 05:26 WBC 7.8 (4.3-11.1) K/mcL Hgb 11.3 L (11.5-15.4) g/dL Hct 37.7 (35.3-44.9) % Plt Count 226 (140-400) K/mcL BMP 01/29/17 05:26 Sodium 138 Potassium 4.7 H Chloride 101 Carbon Dioxide 30 H BUN 17 Creatinine 0.86 Glucose 407 H Calcium 8.7 - ABG Interpretation ABG results: PT/INR, D-dimer PT 11.4 Seconds (9.4-12.1) 01/27/17 15:31 - Pulse Oximetry Interpretation Digit-Finger Pulse Oximetry Readin (on RA) - Impressions Impressions Foot X-Ray 01/28/17 09:53 IMPRESSION: 1. Soft tissue swelling of the foot dorsum. No associated acute osseous abnormality. D/ / Rico Srinivasan MD / Rico Srinivasan MD Interpreting Provider: Rico Srinivasan MD Consult Discharge Plan - Plan Referrals: Luís Tavares DO [Primary Care Provider] - <Valerio Weir H - Last Filed: 01/29/17 10:12> Date of Encounter: 01/29/17 - Constitutional Vitals: Temp Pulse Resp BP Pulse Ox 97.8 F 89 18 135/64 94 01/29/17 07:05 01/29/17 07:05 01/29/17 07:05 01/29/17 07:05 01/29/17 07:05 Internal Medicine: Result - Labs CBC & Chem 7: 01/29/17 05:26 01/29/17 05:26 Labs: Short CBC 01/29/17 Range/Units 05:26 WBC 7.8 (4.3-11.1) K/mcL Hgb 11.3 L (11.5-15.4) g/dL Hct 37.7 (35.3-44.9) % Plt Count 226 (140-400) K/mcL BMP 01/29/17 05:26 Sodium 138 Potassium 4.7 H Chloride 101 Carbon Dioxide 30 H BUN 17 Creatinine 0.86 Glucose 407 H Calcium 8.7 - ABG Interpretation ABG results: PT/INR, D-dimer PT 11.4 Seconds (9.4-12.1) 01/27/17 15:31 - Impressions Impressions Foot X-Ray 01/28/17 09:53 IMPRESSION: 1. Soft tissue swelling of the foot dorsum. No associated acute osseous abnormality. D/ / Rico Srinivasan MD / Rico Srinivasan MD Interpreting Provider: Rico Srinivasan MD - Attending Attestation Acute pannus nonhealing ulcer/cellulitis Grew a Streptococcus C in the past culture Await cultures, continue fluconazole, Levaquin and vancomycin day 2 I examined this patient and my medical decision-making was reviewed with the Resident Physician. I agree with the documented findings, disposition and treatment plan as described except to the extent set forth below.
[2017-01-29] MEDS: acetaZOLAMIDE 250 MG TABLET PO SCH (07:58)
[2017-01-29] MEDS: Famotidine 20 MG TABLET PO SCH ×2 (07:58→22:30)
[2017-01-29] MEDS: Loratadine 10 MG TABLET PO SCH (07:58)
[2017-01-29] MEDS: Gabapentin 400 MG CAPSULE PO SCH ×3 (07:59→22:29)
[2017-01-29] MEDS: Insulin LISPRO 300 UNITS/3 ML VIAL SQ SCH ×7 (07:59→22:40)
[2017-01-29] MEDS: Aspirin Enteric Coated 81 MG Tablet PO SCH (07:59)
[2017-01-29] MEDS: Nystatin POWDER 30 GM BOTTLE TP SCH ×3 (08:00→23:45)
[2017-01-29] MEDS: Insulin DETEMIR 100 UNIT/ML X5UNITS SQ SCH ×2 (08:06→22:41)
[2017-01-29] MEDS: *HR* OxyCODONE Immed Rel 5 MG TABLET PO PRN ×3 (08:27→22:34)
[2017-01-29] MEDS ORDERED: Cyanocobalamin (B-12) 1,000 MCG TABLET PO SCH (09:00)
[2017-01-29] MEDS: Fluconazole 100 MG/50 ML 100 MG/50 ML BAG IVPB SCH (11:00)
[2017-01-29] MEDS: Beclomethasone 80mcg MDI IH SCH ×2 (11:04→22:37)
[2017-01-29] MEDS: Vancomycin 1,750 MG in D5% in Water 500 ML IVPB SCH (13:16)
[2017-01-29] MEDS ORDERED: Aminoglycoside Consult 1 EACH MC ONE (18:31)
[2017-01-29] MEDS: Levofloxacin 750 MG/150 ML 750 MG/150 ML BAG IVPB SCH (22:26)
[2017-01-30] MEDS: *HR* HYDROcodone/Acet 5/325 mg TABLET PO PRN ×3 (01:21→15:44)
[2017-01-30] MEDS: Vancomycin 1,750 MG in D5% in Water 500 ML IVPB SCH (01:25)
[2017-01-30] MEDS: Ipratropium/Albuterol Neb 3 ML IH SCH ×3 (03:53→15:46)
[2017-01-30] MEDS: *HR* Heparin 5,000 UNIT/ML VIAL SQ SCH ×2 (05:26→12:42)
[2017-01-30 06:44] LABS: BUN/Creatinine Ratio 20 (6-26); Blood Urea Nitrogen 17 mg/dL (7-20); Calcium 8.7 mg/dL (8.6-10.8); Carbon Dioxide 30 mEq/L (19-29); Chloride 97 mEq/L (98-109); Glucose 380 mg/dL (70-99); Osmolality,Calculated 295 (280-300); Potassium 4.3 mEq/L (3.5-4.5); Sodium 134 mEq/L (136-145); eGFR For African Americans > 60 (> 60); eGFR For Non-African Americans > 60 (> 60)
[2017-01-30 06:45] LABS: Phosphorous 4.1 mg/dL (2.3-4.7)
[2017-01-30 07:01] LABS: Hematocrit 36.8 % (35.3-44.9); Mean Corpuscular HGB Conc 29.9 g/dL (31.6-35.5); Mean Corpuscular Hemoglobin 28.7 pg (28.0-33.3); Mean Corpuscular Volume 96.1 fL (83.0-100.0); Mean Platelet Volume 10.6 fL (9.4-12.4); Platelet Count 182 K/mcL (140-400); Red Blood Count 3.83 M/mcL (3.82-4.97); Red Cell Distribution Width 16.9 % (11.5-14.5)
[2017-01-30] MEDS: Gabapentin 400 MG CAPSULE PO SCH ×2 (09:37→15:44)
[2017-01-30] MEDS: Famotidine 20 MG TABLET PO SCH (09:38)
[2017-01-30] MEDS: Loratadine 10 MG TABLET PO SCH (09:38)
[2017-01-30] MEDS: acetaZOLAMIDE 250 MG TABLET PO SCH (09:38)
[2017-01-30] MEDS: Insulin LISPRO 300 UNITS/3 ML VIAL SQ SCH ×4 (09:38→12:44)
[2017-01-30] MEDS: Aspirin Enteric Coated 81 MG Tablet PO SCH (09:38)
[2017-01-30] MEDS: Insulin DETEMIR 100 UNIT/ML X5UNITS SQ SCH (09:38)
[2017-01-30] MEDS: Fluconazole 100 MG/50 ML 100 MG/50 ML BAG IVPB SCH (09:39)
--- NOTE | 2017-01-30 09:39 | Internal Med Progress Note ---
<Tom Ramirez - Last Filed: 01/30/17 09:49> Date of Encounter: 01/30/17 Time of Encounter: 09:00 - Assessment and plan (1) Cellulitis Current Visit: Yes Status: Acute Assessment and plan: Cellulitis with non healing ulcer of pannus and abdominal wall. She reported not completing 10 day course of Bactrim prior to arrival. Afebrile, no WBC, non septic. Wound culture results reveal Proteus resistant to both Vanc and Levaquin Blood culture pending. PCN anaphylaxis allergic, discontinue levaquin and vancomycin (Day 2) Trial Rocephin 2g IV daily, consider discharge on Cefdinir 600mg PO BID if patient able to tolerate cephalosporin Fluconazole IV (Day 3), switch to Fluconazole PO for 2 week duration and continue Nystatin powder Wound care following, appreciate recommendations Qualifiers: Site of cellulitis: trunk Site of cellulitis of trunk: abdominal wall Qualified Code(s): L03.311 - Cellulitis of abdominal wall (2) Skin ulcer of abdomen Current Visit: Yes Status: Acute Assessment and plan: Chronic since abdominal hysterectomy 8 years ago 15cm x 20cm ulcerated skin ulcer with the epidermis eroded and dermis exposed extending from midline to left hip, yellow purulence, foul fungal odor, surrounding erythema, no hernia Patient reports using Dakin's solution at home and following with outpatient wound care Wound care following Qualifiers: Non-pressure ulcer stage: limited to breakdown of skin Qualified Code(s): L98.491 - Non-pressure chronic ulcer of skin of other sites limited to breakdown of skin (3) Diabetes mellitus type 2 with complications Current Visit: Yes Status: Chronic Assessment and plan: Pt reports using SSI, basal insulin, metformin Remains uncontolled. Last HGB a1c on 01/14/17 of 10% Will resume home basal insulin and give severe SSI Diabetic diet Qualifiers: Diabetes mellitus care home insulin use: with intermediate card tender use Qualified Code( s): E11.8 - Type 2 diabetes mellitus with unspecified complications; Z79.4 - intermediate card tender (current) use of insulin; Z79.4 - intermediate card tender (current) use of insulin; Z79.4 - senior living (current) use of insulin; Z79.4 - senior living (current) use of insulin (4) Obesity hypoventilation syndrome Current Visit: No Status: Chronic Assessment and plan: Patient reports difficulty using BiPap here due to inability to wear mask. She uses nasal pillows at home. (5) Obstructive sleep apnea Current Visit: No Status: Chronic Assessment and plan: Patient reports difficulty using BiPap here due to inability to wear mask. She uses nasal pillows at home. (6) Super-super obese Current Visit: Yes Status: Acute Assessment and plan: BMI of 80.5 Multiple complications of obesity related illness including DM2, NESHA Recommend aggressive lifestyle changes as outpatient. Supervisor Shipfitters consulted (7) Constipation Current Visit: Yes Status: Chronic Assessment and plan: Pt reports chronic constipation Continue stool softener/ Senna Plus Qualifiers: Constipation type: drug induced constipation Qualified Code(s): K59.03 - Drug induced constipation (8) Foot pain, right Current Visit: Yes Status: Acute Assessment and plan: Patient reports right foot pain and toes are bruised s/p fall a few days ago. ecchymosis right toes 2-4 with intact ROM, unable to assess weight bearing status X-ray foot negative PT/OT consulted (9) DVT prophylaxis Current Visit: No Status: Acute Assessment and plan: Heparin subq TID - Subjective Interval history: Patient seen and examined. Patient reports mild dizziness yesterday while trying to ambulate. She also difficulty using BiPap due to inability to wear mask. She uses nasal pillows at home. Wound culture results reveal Proteus resistant to both Vanc and Levaquin - Constitutional Vitals: Temp Pulse Resp BP Pulse Ox 98.3 F 91 18 164/85 99 01/30/17 07:22 01/30/17 07:22 01/30/17 07:22 01/30/17 07:22 01/30/17 07:22 General appearance: Present: cooperative, A&O X 3, morbidly obese, pleasant, no acute distress, answers questions appropriately Exam: - Head Head exam: Present: atraumatic, normocephalic - Eye Eye exam: Present: EOMI, conjuntiva pink, sclera anicteric - ENT ENT exam: Present: mucous membranes moist, normal oropharynx - Neck Neck exam general surgery: Present: full ROM, supple - Respiratory Respiratory exam: Present: CTAB. Absent: accessory muscle use, rales, respiratory distress, tachypnea - Cardiovascular Cardiovascular exam: Present: RRR, +S1, +S2 - GI/Abdominal GI/Abdominal exam: Present: distended, soft, tenderness. Absent: firm, guarding Additional comments: 15cm x 20cm ulcerated skin ulcer with the epidermis eroded and dermis exposed extending from midline to left hip, yellow purulence, foul fungal odor, surrounding erythema, no hernia - Additional comments: craven with yellow urine - Extremities Exam Extremities exam: Present: pedal edema, warm. Absent: normal inspection Additional comments: ecchymosis right toes 2-4 with intact ROM, unable to assess weight bearing status, chronic venous stasis changes anterior shins - Incison Incision: Present: inflamed, erythema, purulent, indurated. Absent: clean and dry - Neurological Exam Neurological exam: Present: alert, oriented X3, no focal deficits. Absent: speech deficit - Psychiatric Psychiatric exam: Present: anxious, normal affect - Skin Skin exam: Present: erythema, warm. Absent: normal color Additional comments: 15cm x 20cm ulcerated skin ulcer with the epidermis eroded and dermis exposed extending from midline to left hip, yellow purulence, foul fungal odor, surrounding erythema, no hernia Internal Medicine: Result - Labs CBC & Chem 7: 01/30/17 05:48 01/30/17 05:48 Labs: Short CBC 01/30/17 Range/Units 05:48 WBC 6.2 (4.3-11.1) K/mcL Hgb 11.0 L (11.5-15.4) g/dL Hct 36.8 (35.3-44.9) % Plt Count 182 (140-400) K/mcL BMP 01/30/17 05:48 Sodium 134 L Potassium 4.3 Chloride 97 L Carbon Dioxide 30 H BUN 17 Creatinine 0.83 Glucose 380 H Calcium 8.7 - ABG Interpretation ABG results: PT/INR, D-dimer PT 11.4 Seconds (9.4-12.1) 01/27/17 15:31 - Pulse Oximetry Interpretation Digit-Finger Pulse Oximetry Readin (on 3L O2 via NC) Consult Discharge Plan - Plan Instructions: Cellulitis (DC) Additional Instructions: Please take cefdinir 600 mg by mouth twice a day for 10 days. Please take fluconazole 100 mg by mouth daily for 10 days. Please use nystatin powder topical application three times a day. Please continue Dakin's 0.25% dressing changes twice daily Please follow up with physician at [facility] regarding your wound care. Please follow up with your primary care provider within a week. Referrals: Luís Tavares DO [Primary Care Provider] - (Within a week) Prescriptions: Cefdinir [Omnicef] 600 mg PO BID #40 capsule Fluconazole [Diflucan] 100 mg PO DAILY #10 tablet Nystatin POWDER [Nystop] 1 appl TP TID #1 bottle Sodium Hypochlorite 0.25% [Dakin's (Half-Strength 0.25%)] 1 appl TP BID #1 bottle <Valerio Weir H - Last Filed: 01/30/17 14:56> Date of Encounter: 01/30/17 - Constitutional Vitals: Temp Pulse Resp BP Pulse Ox 97.8 F 75 18 156/69 97 01/30/17 11:00 01/30/17 11:00 01/30/17 11:00 01/30/17 11:00 01/30/17 11:00 Internal Medicine: Result - Labs CBC & Chem 7: 01/30/17 05:48 01/30/17 05:48 Labs: Short CBC 01/30/17 Range/Units 05:48 WBC 6.2 (4.3-11.1) K/mcL Hgb 11.0 L (11.5-15.4) g/dL Hct 36.8 (35.3-44.9) % Plt Count 182 (140-400) K/mcL BMP 01/30/17 05:48 Sodium 134 L Potassium 4.3 Chloride 97 L Carbon Dioxide 30 H BUN 17 Creatinine 0.83 Glucose 380 H Calcium 8.7 - ABG Interpretation ABG results: PT/INR, D-dimer PT 11.4 Seconds (9.4-12.1) 01/27/17 15:31 - Attending Attestation OK to discharge and a third-generation cephalosporin if tolerating Rocephin
[2017-01-30] MEDS: Nystatin POWDER 30 GM BOTTLE TP SCH (09:45)
[2017-01-30] MEDS ORDERED: Sennosides/Docusate Sodium TABLET PO SCH (09:45)
[2017-01-30] MEDS: Beclomethasone 80mcg MDI IH SCH (10:49)
[2017-01-30] MEDS ORDERED: cefTRIAXone 2,000 MG in Water for inj. (sterile) 20 ML IVP SCH (11:00)
[2017-01-30 11:14] VITALS: BP 156/69
[2017-01-30] MEDS: *HR* OxyCODONE Immed Rel 5 MG TABLET PO PRN ×2 (12:44→18:03)
--- NOTE | 2017-01-30 13:23 | Discharge Summary ---
<Gaston Garcia - Last Filed: 01/30/17 13:50> Date of Encounter: 01/30/17 Time of Encounter: 13:00 - Discharge Diagnosis (1) Cellulitis Priority: Primary Status: Acute Qualifiers: Site of cellulitis: trunk Site of cellulitis of trunk: abdominal wall Qualified Code(s): L03.311 - Cellulitis of abdominal wall (2) Skin ulcer of abdomen Priority: Primary Status: Acute Qualifiers: Non-pressure ulcer stage: limited to breakdown of skin Qualified Code(s): L98.491 - Non-pressure chronic ulcer of skin of other sites limited to breakdown of skin (3) Diabetes mellitus type 2 with complications Priority: Secondary Status: Chronic Qualifiers: Diabetes mellitus intermediate school teacher insulin use: with intermediate use Qualified Code( s): E11.8 - Type 2 diabetes mellitus with unspecified complications; Z79.4 - assisted (current) use of insulin; Z79.4 - predatory animal exterminator (current) use of insulin; Z79.4 - assisted (current) use of insulin; Z79.4 - assisted (current) use of insulin (4) Obesity hypoventilation syndrome Priority: Secondary Status: Chronic (5) Obstructive sleep apnea Priority: Secondary Status: Chronic (6) Super-super obese Priority: Secondary Status: Acute (7) Constipation Priority: Secondary Status: Resolved Qualifiers: Constipation type: unspecified constipation type Qualified Code(s): K59.00 - Constipation, unspecified - Discharge Medications Prescriptions: Cefdinir [Omnicef] 600 mg PO BID #40 capsule Fluconazole [Diflucan] 100 mg PO DAILY #10 tablet Nystatin POWDER [Nystop] 1 appl TP TID #1 bottle Sodium Hypochlorite 0.25% [Dakin's (Half-Strength 0.25%)] 1 appl TP BID #1 bottle Home Medications: Ranitidine HCl [Acid Rod Drawer] 150 mg PO BID 04/03/16 [History] Aspirin Enteric Coated [Aspirin EC] 81 mg PO DAILY 10/04/16 [History] Ipratropium/Albuterol Neb [Duoneb] 3 ml IH Q6HR 10/04/16 [History] Oxycodone HCl 20 mg PO Q4HR PRN #20 tablet 10/05/16 [Rx] Ondansetron ODT [Zofran ODT] 4 mg SL Q8HR PRN #10 tab.rapdis 11/08/16 [Rx] metFORMIN [Glucophage] 1,000 mg PO BIDWM #90 tab 11/08/16 [Rx] Gabapentin [Neurontin] 400 mg PO TID #120 11/10/16 [Rx] Levothyroxine Sodium [Levo-T] 350 mcg PO QAM #60 tablet 11/10/16 [Rx] Loratadine [Allergy Relief] 10 mg PO DAILY #60 11/10/16 [Rx] ALPRAZolam [Xanax 0.5 MG Tablet] 0.5 mg PO BID PRN 01/27/17 [History] Atorvastatin Calcium [Lipitor] 20 mg PO HS 01/27/17 [History] Cyanocobalamin (Vitamin B-12) [Vitamin B12] 1,000 mcg PO QWEEK 01/27/17 [History ] Docusate [Colace] 100 mg PO BID PRN 01/27/17 [History] Insulin Glargine,Hum.rec.anlog [Basaglar Kwikpen U-100] 50 unit SQ BID 01/27/17 [History] Insulin LISPRO [HumaLOG] 6 - 18 units SQ TID 01/27/17 [History] Insulin Regular U-500 [HumuLIN R U-500] 0 unit SQ AD MDD See Comment. 01/27/17 [History] Mometasone Furoate [Asmanex] 2 puff IH BID 01/27/17 [History] acetaZOLAMIDE [Diamox] 250 mg PO DAILY 01/27/17 [History] Cefdinir [Omnicef] 600 mg PO BID #40 capsule 01/30/17 [Rx] Fluconazole [Diflucan] 100 mg PO DAILY #10 tablet 01/30/17 [Rx] Nystatin POWDER [Nystop] 1 appl TP TID #1 bottle 01/30/17 [Rx] Sodium Hypochlorite 0.25% [Dakin's (Half-Strength 0.25%)] 1 appl TP BID #1 bottle 01/30/17 [Rx] Allergies/Adverse Reactions: 3 Allergy/AdvReac Type Severity Reaction Status Date / Time Penicillins Allergy Rash Verified 01/27/16 09:52 Tetracycline Allergy Rash Verified 01/27/16 09:52 Date of admission: 01/27/17 23:37 Primary care physician: Luís Tavares DO Consults: 01/28/17 01:38 Consult to Cane Piler [CONS] Routine Reason for SW Consult: patient need home health established for wound care 01/28/17 10:14 Consult to Physical Therapy [CONS] Routine Comment: Evaluate, develop and implement POC Reason for Consult: difficulty ambulating OT [Consult to Occupational Therapy] [CONS] Routine Comment: Evaluate, develop and implement POC Reason for Consult: difficulty ambulating 01/28/17 10:18 Consult to Nutrition [CONS] Routine Comment: Consulting Provider: NUTRITION Reason for Dietary Consult: Diet Education Other:: Discuss diet modifiaction and need for protein Discharging clinician: Gaston Garcia Anticipated date of discharge: 01/30/17 - Patient Status Disposition: Home Health Service Condition: Fair Functional capacity at discharge: bed bound Overall status at discharge: patient is progressing back to baseline - Discharge Instructions Instructions: Cellulitis (DC) Follow Up With: Luís Tavares DO [Primary Care Provider] - (Within a week) Additional Instructions: Please take cefdinir 600 mg by mouth twice a day for 10 days. Please take fluconazole 100 mg by mouth daily for 10 days. Please use nystatin powder topical application three times a day. Please continue Dakin's 0.25% dressing changes twice daily Please follow up with physician at [facility] regarding your wound care. Please follow up with your primary care provider within a week. - Diet and Activity Activity: increase activity as tolerated Diet: diabetic diet, low fat, low cholesterol, low salt diet Hospital course: Ms. Cat is a 46 year old female with morbid obesity, COPD, DM, hypothyroidism s/p thyroidectomy and history of endometrial cancer s/p surgery 8 years complicated by non-healing ulcer. Patient presented to emergency department with compliant of pannus infection. Patient was admitted on 01/27/17 for cellulitis/abdominal skin ulcer and started on IV levafloxacin and vancomycin. IV Diflucan was added on 01/28/17 for foul odor of the abdominal ulcer concerning of fungal infection. Wound culture from 01/28/17 grew Proteus mirabilis sensitive to Augmentin, cephalosporin, ertapenem, gentamicin, Zosyn, tobramycin. Due to patient's pencillin allergy, patient was switched to IV Rocephin on 01/30/17 and she tolerated that one dose well without any associated rash, swelling or shortness of breath. Patient thinks she is doing well and likes to go home on 01/30/17. Given patient's abdominal ulcer continues to improve clinically and patient remains hemodynamically stable, patient can be discharged on 01/30/17 with [facility]. Patient is instructed to take 10 more days of cefdinir 600 mg by mouth twice a day and fluconazole 100 mg by mouth daily to finish antimicrobial course. Patient will continue nystatin powder topical application three times a day and Dakin's 0.25 % dressing changes twice daily for her wound care. Patient will need to follow up with physician at [facility] regarding her wound care and with her primary care provider within a week. The discharge plan was discussed with patient and patient expressed her understanding and agreement. All questions are answered. - Time Spent with Patient Total time spent providing and/or coordinating discharge services: Greater than 30 minutes (44 minutes) - Constitutional Vitals: Temp Pulse Resp BP Pulse Ox 97.8 F 75 18 156/69 97 01/30/17 11:00 01/30/17 11:00 01/30/17 11:00 01/30/17 11:00 01/30/17 11:00 General appearance: Present: cooperative, A&O X 3, morbidly obese, pleasant, no acute distress, answers questions appropriately - Head Head exam: Present: atraumatic, normocephalic - Eye Eye exam: Present: EOMI, conjuntiva pink, sclera anicteric - ENT ENT exam: Present: mucous membranes moist, normal oropharynx - Neck Neck exam general surgery: Present: full ROM, supple, trachea midline - Respiratory Respiratory exam: Present: decreased breath sounds. Absent: accessory muscle use, rales, rhonchi, wheezes - Cardiovascular Cardiovascular exam: Present: RRR, +S1, +S2 - GI/Abdominal GI/Abdominal exam: Present: distended, normal bowel sounds, soft. Absent: tenderness Additional comments: 15cm x 20cm ulcerated skin ulcer with the epidermis eroded and dermis exposed extending from midline to left hip. Erythema continues to improve compared to yesterday with minimal yellow purulence and foul fungal odor. - Extremities Exam Extremities exam: Present: pedal edema (Moderate-severe BLE edema), warm. Absent: calf tenderness, cyanotic - Neurological Exam Neurological exam: Present: oriented X3, no focal deficits. Absent: pronater drift, facial droop, speech deficit - Skin Skin exam: Present: dry, warm <Valerio Weir H - Last Filed: 01/30/17 14:58> Date of Encounter: 01/30/17 Date of admission: 01/27/17 23:37 Primary care physician: Luís Tavares DO Consults: 01/28/17 01:38 Consult to Cane Piler [CONS] Routine Reason for SW Consult: patient need home health established for wound care 01/28/17 10:14 Consult to Physical Therapy [CONS] Routine Comment: Evaluate, develop and implement POC Reason for Consult: difficulty ambulating OT [Consult to Occupational Therapy] [CONS] Routine Comment: Evaluate, develop and implement POC Reason for Consult: difficulty ambulating 01/28/17 10:18 Consult to Nutrition [CONS] Routine Comment: Consulting Provider: NUTRITION Reason for Dietary Consult: Diet Education Other:: Discuss diet modifiaction and need for protein Hospital course: Ms. Cat is a 46 year old female - Time Spent with Patient Total time spent providing and/or coordinating discharge services: - Constitutional Vitals: Temp Pulse Resp BP Pulse Ox 97.8 F 75 18 156/69 97 01/30/17 11:00 01/30/17 11:00 01/30/17 11:00 01/30/17 11:00 01/30/17 11:00 - Attending Attestation Acute on chronic pannus cellulitis/chronic abdominal wound infection, growing Proteus, consider possible combined fungal infection/ fungal dermatitis I examined this patient and my medical decision-making was reviewed with the Resident Physician. I agree with the documented findings, disposition and treatment plan as described except to the extent set forth below.
--- NOTE | 2017-01-30 13:40 | Physician Discharge Referral ---
<Gaston Garcia - Last Filed: 01/30/17 13:37> Home Health/Hosp Referral Info Transfer to: Home Health Provider in Charge Post Discharge: PCP - Diagnosis (1) Cellulitis Priority: Primary Status: Acute (2) Skin ulcer of abdomen Priority: Primary Status: Acute (3) Diabetes mellitus type 2 with complications Priority: Secondary Status: Chronic (4) Obesity hypoventilation syndrome Priority: Secondary Status: Chronic (5) Obstructive sleep apnea Priority: Secondary Status: Chronic (6) Super-super obese Priority: Secondary Status: Acute - Respiratory Orders Oxygen / L per min (3) Smoking Cessation: Smoking cessation has been advised. For more information, call the [employer] Tobacco Quit Line at 8-898-CRMY-NOW. - Dressing/Wound Care Site: Abdomen (pannus ulceration). Type of Dressing/Treatments w/Frequency: Dakin's 0.25% dressing changes twice daily - Diet/Nutrition Diet/Nutrition Orders: No Added Salt (DIANE), Cardiac, No Concentrated Sweets - Activity Activity Orders: Up ad kaity - Services Needed Following services are medically necessary services: Nursing, Home Health Aide, Physical Therapy, Occupational Therapy - Transfer Medications Prescriptions: Cefdinir [Omnicef] 600 mg PO BID #40 capsule Fluconazole [Diflucan] 100 mg PO DAILY #10 tablet Nystatin POWDER [Nystop] 1 appl TP TID #1 bottle Sodium Hypochlorite 0.25% [Dakin's (Half-Strength 0.25%)] 1 appl TP BID #1 bottle Home Medications: Ranitidine HCl [Acid Oil Well Fishing Tool Operator] 150 mg PO BID 04/03/16 [History] Aspirin Enteric Coated [Aspirin EC] 81 mg PO DAILY 10/04/16 [History] Ipratropium/Albuterol Neb [Duoneb] 3 ml IH Q6HR 10/04/16 [History] Oxycodone HCl 20 mg PO Q4HR PRN #20 tablet 10/05/16 [Rx] Ondansetron ODT [Zofran ODT] 4 mg SL Q8HR PRN #10 tab.rapdis 11/08/16 [Rx] metFORMIN [Glucophage] 1,000 mg PO BIDWM #90 tab 11/08/16 [Rx] Gabapentin [Neurontin] 400 mg PO TID #120 11/10/16 [Rx] Levothyroxine Sodium [Levo-T] 350 mcg PO QAM #60 tablet 11/10/16 [Rx] Loratadine [Allergy Relief] 10 mg PO DAILY #60 11/10/16 [Rx] ALPRAZolam [Xanax 0.5 MG Tablet] 0.5 mg PO BID PRN 01/27/17 [History] Atorvastatin Calcium [Lipitor] 20 mg PO HS 01/27/17 [History] Cyanocobalamin (Vitamin B-12) [Vitamin B12] 1,000 mcg PO QWEEK 01/27/17 [History ] Docusate [Colace] 100 mg PO BID PRN 01/27/17 [History] Insulin Glargine,Hum.rec.anlog [Basaglar Kwikpen U-100] 50 unit SQ BID 01/27/17 [History] Insulin LISPRO [HumaLOG] 6 - 18 units SQ TID 01/27/17 [History] Insulin Regular U-500 [HumuLIN R U-500] 0 unit SQ AD MDD See Comment. 01/27/17 [History] Mometasone Furoate [Asmanex] 2 puff IH BID 01/27/17 [History] acetaZOLAMIDE [Diamox] 250 mg PO DAILY 01/27/17 [History] Cefdinir [Omnicef] 600 mg PO BID #40 capsule 01/30/17 [Rx] Fluconazole [Diflucan] 100 mg PO DAILY #10 tablet 01/30/17 [Rx] Nystatin POWDER [Nystop] 1 appl TP TID #1 bottle 01/30/17 [Rx] Sodium Hypochlorite 0.25% [Dakin's (Half-Strength 0.25%)] 1 appl TP BID #1 bottle 01/30/17 [Rx] Allergies/Adverse Reactions: 3 Allergy/AdvReac Type Severity Reaction Status Date / Time Penicillins Allergy Rash Verified 01/27/16 09:52 Tetracycline Allergy Rash Verified 01/27/16 09:52 Certification: Further, I certify that my clinical findings support that this patient is homebound (i.e. absences from home require considerable and taxing effort and are for medical reasons or gnosticism services or infrequently or short duration when for other reasons) because: Homebound Reason: Patient requires assistance of a person or device to safely leave home Attestation: My signature below is to certify that this patient is under my care and that I, or nurse practitioner, or a physician's carpenter's assistant working with me, has a face-to -face encounter with this patient. <Valerio Weir - Last Filed: 01/30/17 15:23> - Respiratory Orders Smoking Cessation: Smoking cessation has been advised. For more information, call the [place] Tobacco Quit Line at 5-980-LDAJ-NOW. Certification: Further, I certify that my clinical findings support that this patient is homebound (i.e. absences from home require considerable and taxing effort and are for medical reasons or gnosticism services or infrequently or short duration when for other reasons) because: Attestation: My signature below is to certify that this patient is under my care and that I, or nurse practitioner, or a physician's carpenter's assistant working with me, has a face-to -face encounter with this patient.
[2017-01-31] MEDS ORDERED: Fluconazole 100 MG TABLET PO SCH (09:00)
== END 2017-01-30 18:32 | disposition home health service (06) | DRG 383 ==
LOC: 3ANU 14:13 → EMEROO 14:13 → 3ANU 17:54 → 2NENU 18:43 → SUATTDRO 23:37
PROVIDERS: ADMIT Internal Medicine; ATTEND Internal Medicine

== ENCOUNTER 2017-04-10 13:55 | Inpatient (IN) ==
[2017-04-10] MEDS ORDERED: Vancomycin 2,000 MG in D5% in Water 500 ML IVPB ONE (14:08)
[2017-04-10 14:33] LABS: Bilirubin,Urine Negative (Negative); Blood,Urine Moderate (Negative); Color,Urine Dark Yellow (Yellow); Glucose,Urine (UA) >=1000 mg/dL (Normal); Ketones,Urine Negative (Negative); Leukocyte Esterase,Urine Negative (Negative); Nitrite,Urine Negative (Negative); PH,Urine 5.5 pH Units (5.0-8.0); Protein,Urine 30 mg/dL (Neg-Trace); Specific Gravity,Urine 1.029 (1.010-1.025); Urobilinogen,Urine Normal (Normal)
--- NOTE | 2017-04-10 14:37 | Emergency Department Note ---
Disposition Clinical Impression: Cellulitis, abdominal wall, Hyperglycemia Fever Qualifiers: Fever type: unspecified Qualified Code(s): R50.9 - Fever, unspecified Disposition: Admitted As Inpatient Abdominal Pain HPI - General Chief Complaint: ED Abdominal Pain Stated Complaint: Abd pain, Hyperglycemia Time Seen by Provider: 04/10/17 14:04 Source: patient, EMS Nursing Notes Reviewed: Yes Vital Signs Reviewed: Yes - History of Present Illness HPI Narrative: Patient presents with generalized feelings of weakness and does have 2 days of gradual onset generalized erythema on the lower abdomen and she denies any fevers. Has had some vomiting since yesterday. Did check her blood sugar at home was 63 but the paramedics found a blood sugar of 400. She does feel dry and feels that her mouth is dry. Social history: Smoker, no alcohol Pain Scale: 10 - Related Data Home Medications Medication Instructions Recorded Confirmed Ranitidine HCl [Acid Rhic Systems Safety Engineer] 150 mg PO BID 04/03/16 04/10/17 Aspirin Enteric Coated [Aspirin EC] 81 mg PO DAILY 10/04/16 04/10/17 Ipratropium/Albuterol Neb [Duoneb] 3 ml IH Q6HR PRN 10/04/16 04/10/17 ALPRAZolam [Xanax 0.5 MG Tablet] 0.5 mg PO BID PRN 01/27/17 04/10/17 Atorvastatin Calcium [Lipitor] 20 mg PO HS 01/27/17 04/10/17 Cyanocobalamin (Vitamin B-12) 1,000 mcg PO TH 01/27/17 04/10/17 [Vitamin B12] Docusate [Colace] 100 mg PO BID PRN 01/27/17 04/10/17 Insulin Regular U-500 [HumuLIN R 0 unit SQ TID MDD See Comment. 01/27/17 U-500] Mometasone Furoate [Asmanex] 2 puff IH BID 01/27/17 04/10/17 acetaZOLAMIDE [Diamox] 250 mg PO DAILY 01/27/17 04/10/17 BuPROPion [Wellbutrin] 100 mg PO DAILY 04/10/17 04/10/17 Fluticasone Propionate [Flovent 1 puff IH BID 04/10/17 04/10/17 Hfa] Gabapentin [Neurontin] 600 mg PO TID 04/10/17 04/10/17 Mupirocin [Bactroban Oint] 1 appl TP BID PRN 04/10/17 04/10/17 Nystatin POWDER [Nystop] 1 appl TP TID PRN 04/10/17 04/10/17 Silver Sulfadiazine [Silvadene] 1 appl TP BID PRN 04/10/17 04/10/17 Previous Rx's Medication Instructions Recorded OxyCODONE Immed Rel [Roxicodone 20 20 mg PO Q4HR PRN #20 tablet 10/05/16 MG] Ondansetron ODT [Zofran ODT] 4 mg SL Q8HR PRN #10 tab.rapdis 11/08/16 metFORMIN [Glucophage] 1,000 mg PO BIDWM #90 tab 11/08/16 Levothyroxine Sodium [Levo-T] 350 mcg PO QAM #60 tablet 11/10/16 Loratadine [Allergy Relief] 10 mg PO DAILY #60 11/10/16 Sodium Hypochlorite 0.25% [Dakin's 1 appl TP BID #1 bottle 01/30/17 (Half-Strength 0.25%)] Allergies Allergy/AdvReac Type Severity Reaction Status Date / Time Penicillins Allergy Rash Verified 01/27/16 09:52 Tetracycline Allergy Rash Verified 01/27/16 09:52 Review of Systems: Constitutional: No fever Vision: No blurred vision ENT: No rhinorrhea Respiratory: No cough Allergic: No allergies : No blood in urine GI: + blood in stool Hematologic: No bruising Dermatologic: No skin rash Musculoskeletal: No new pain in the extremities Neuro: No new numbness of the extremities Abdominal Pain PMH - Past Medical History Medical history: Reports: asthma, cancer, COPD, CVA, diabetes, thyroid disease Female Surgical History: Reports: Adenoidectomy, hysterectomy, thyroidectomy, Tonsillectomy Psychiatric history: Reports: anxiety, depression - Social History Smoking status: Current every day smoker Alcohol use: Reports: none Drug use: Reports: none Physical Exam +CONSTITUTIONAL: Alert and oriented X3, well-nourished, well appearing, in no apparent distress HEAD: Normocephalic; atraumatic. EYES: PERRL, no scleral icterus. NOSE: The nose is normal in appearance without rhinorrhea RESP: Normal chest excursion with respiration; breath sounds clear and equal bilaterally; no wheezes, rhonchi, or rales CARD: Regular rhythm, without murmurs, rub or gallop ABD: Non-distended; she does have significant erythema on the entire lower half of the abdomen extending into the panniculus area without ecchymosis, fluctuance or crepitus. There is a overnight healing area just above the symphysis pubis without drainage SKIN: Normal for age and race; warm and dry; no apparent lesions ident versus given - General Limitations: no limitations General appearance: alert Course Vital Signs Temperature 101.6 F H 04/10/17 13:57 Pulse Rate 91 04/10/17 13:57 Respiratory Rate 20 04/10/17 13:57 Blood Pressure 109/58 04/10/17 13:57 O2 Sat by Pulse Oximetry 95 04/10/17 13:57 Temperature 100.4 F H 04/10/17 17:27 Pulse Rate 84 04/10/17 17:27 Respiratory Rate 14 04/10/17 17:27 Blood Pressure 93/45 04/10/17 17:27 O2 Sat by Pulse Oximetry 98 04/10/17 17:27 Oxygen Delivery Oxygen Delivery Room Air Abdominal Pain - MDM Narrative Medical decision making narrative: Patient likely does have elevated blood sugar secondary to infection on the lower abdomen and this is likely from the source of the open nonhealing area where she has had multiple surgeries on the lower central aspect of the abdomen and she is started on intravenous vancomycin, labs are ordered, IV fluids. The patient will be admitted 1437 I did review the patient's EKG showing normal sinus rhythm with rate of 90 without acute ischemic change. I did review the patient's labs with elevated lactate level. The patient did grow Proteus in the past and so for that reason I did add on cefepime. This case has been discussed with the hospitalist accepts the patient for admission. Patient is not confused right alert however does have significant changes on abdomen concerning for cellulitis and does have a fever. 1609 - Lab Data Result diagrams: 04/10/17 14:40 04/10/17 14:40 Lab Results 04/10/17 04/10/17 04/10/17 Range/Units 14:28 14:40 14:40 WBC 12.3 H (4.3-11.1) K/mcL RBC 4.46 (3.82-4.97) M/mcL Hgb 12.7 (11.5-15.4) g/dL Hct 40.4 (35.3-44.9) % MCV 90.6 (83.0-100.0) fL MCH 28.5 (28.0-33.3) pg MCHC 31.4 L (31.6-35.5) g/dL RDW 16.3 H (11.5-14.5) % Plt Count 190 (140-400) K/mcL MPV 10.7 (9.4-12.4) fL Immature Gran % 0.7 (0-4) % Seg Neutrophils % 92.8 % Lymphocytes % 4.2 % Monocytes % 2.1 % Eosinophils % 0.0 % Basophils % 0.2 % Neutrophils # 11.4 H (1.6-8.9) K/mcL Lymphocytes # 0.5 L (0.6-4.6) K/mcL Monocytes # 0.3 (0.0-1.3) K/mcL Eosinophils # 0.0 (0.0-0.6) K/mcL Basophils # 0.0 (0.0-0.2) K/mcL Sodium 130 L (136-145) mEq/L Potassium 3.3 L (3.5-5.1) mEq/L Chloride 96 L (98-107) mEq/L Carbon Dioxide 27 (23-29) mEq/L BUN 14 (6-20) mg/dL Creatinine 0.86 (0.60-1.20) mg/dL Est GFR ( Amer) > 60 (> 60) Est GFR (Non-Af Amer) > 60 (> 60) BUN/Creatinine Ratio 16 (6-26) Glucose 406 H (70-105) mg/dL Calculated Osmolality 288 (280-300) Lactic Acid (0.5-2.2) mmol/L Calcium 8.6 (8.6-10.3) mg/dL Urine Color Dark Yellow (Yellow) Urine Clarity Clear (Clear) Urine pH 5.5 (5.0-8.0) pH Units Ur Specific [place] 1.029 H (1.010-1.025) Urine Protein 30 H (Neg-Trace) mg/dL Urine Glucose (UA) >=1000 H (Normal) mg/dL Urine Ketones Negative (Negative) mg/dL Urine Blood Moderate H (Negative) Urine Nitrite Negative (Negative) Urine Bilirubin Negative (Negative) Urine Urobilinogen Normal (Normal) mg/dL Ur Leukocyte Esterase Negative (Negative) Urine Microscopic RBC 0-3 (0-3) per hpf Urine Microscopic WBC 15-30 H (0-3) per hpf Ur Squamous Epith Cells Few (None-Few) per lpf Urine Bacteria Moderate H (None-Few) per hpf Ur Culture Indicated? NO (NO) 04/10/17 Range/Units 14:44 WBC (4.3-11.1) K/mcL RBC (3.82-4.97) M/mcL Hgb (11.5-15.4) g/dL Hct (35.3-44.9) % MCV (83.0-100.0) fL MCH (28.0-33.3) pg MCHC (31.6-35.5) g/dL RDW (11.5-14.5) % Plt Count (140-400) K/mcL MPV (9.4-12.4) fL Immature Gran % (0-4) % Seg Neutrophils % % Lymphocytes % % Monocytes % % Eosinophils % % Basophils % % Neutrophils # (1.6-8.9) K/mcL Lymphocytes # (0.6-4.6) K/mcL Monocytes # (0.0-1.3) K/mcL Eosinophils # (0.0-0.6) K/mcL Basophils # (0.0-0.2) K/mcL Sodium (136-145) mEq/L Potassium (3.5-5.1) mEq/L Chloride (98-107) mEq/L Carbon Dioxide (23-29) mEq/L BUN (6-20) mg/dL Creatinine (0.60-1.20) mg/dL Est GFR ( Amer) (> 60) Est GFR (Non-Af Amer) (> 60) BUN/Creatinine Ratio (6-26) Glucose (70-105) mg/dL Calculated Osmolality (280-300) Lactic Acid 2.9 H (0.5-2.2) mmol/L Calcium (8.6-10.3) mg/dL Urine Color (Yellow) Urine Clarity (Clear) Urine pH (5.0-8.0) pH Units Ur Specific [place] (1.010-1.025) Urine Protein (Neg-Trace) mg/dL Urine Glucose (UA) (Normal) mg/dL Urine Ketones (Negative) mg/dL Urine Blood (Negative) Urine Nitrite (Negative) Urine Bilirubin (Negative) Urine Urobilinogen (Normal) mg/dL Ur Leukocyte Esterase (Negative) Urine Microscopic RBC (0-3) per hpf Urine Microscopic WBC (0-3) per hpf Ur Squamous Epith Cells (None-Few) per lpf Urine Bacteria (None-Few) per hpf Ur Culture Indicated? (NO)
[2017-04-10 14:45] LABS: Clarity,Urine Clear (Clear)
[2017-04-10 14:46] LABS: Squamous Epithelial Cell,Urine Few per lpf (None-Few)
[2017-04-10 14:47] LABS: RBC,Urine 0-3 per hpf (0-3); WBC,Urine 15-30 per hpf (0-3)
[2017-04-10 14:48] LABS: Bacteria,Urine Moderate per hpf (None-Few)
[2017-04-10 14:57] LABS: Basophils % 0.2 %; Hematocrit 40.4 % (35.3-44.9); Hemoglobin 12.7 g/dL (11.5-15.4); Immature Granulocytes % 0.7 % (0-4); Lymphocytes # 0.5 K/mcL (0.6-4.6); Lymphocytes % 4.2 %; Mean Corpuscular HGB Conc 31.4 g/dL (31.6-35.5); Mean Corpuscular Hemoglobin 28.5 pg (28.0-33.3); Mean Corpuscular Volume 90.6 fL (83.0-100.0); Mean Platelet Volume 10.7 fL (9.4-12.4); Monocytes # 0.3 K/mcL (0.0-1.3); Monocytes % 2.1 %; Neutrophils # 11.4 K/mcL (1.6-8.9); Platelet Count 190 K/mcL (140-400); Red Blood Count 4.46 M/mcL (3.82-4.97); Red Cell Distribution Width 16.3 % (11.5-14.5); Segmented Neutrophils % 92.8 %
[2017-04-10] MEDS ORDERED: 0.9 % Sodium Chloride 1,000 ML IVC ONE ×2 (15:11→16:07)
[2017-04-10 15:20] LABS: BUN/Creatinine Ratio 16 (6-26); Blood Urea Nitrogen 14 mg/dL (6-20); Calcium 8.6 mg/dL (8.6-10.3); Carbon Dioxide 27 mEq/L (23-29); Chloride 96 mEq/L (98-107); Glucose 406 mg/dL (70-105); Osmolality,Calculated 288 (280-300); Potassium 3.3 mEq/L (3.5-5.1); Sodium 130 mEq/L (136-145); eGFR For African Americans > 60 (> 60); eGFR For Non-African Americans > 60 (> 60)
[2017-04-10] MEDS ORDERED: Cefepime HCl 2,000 MG in D5% in Water (Mini-Bag+) 100 ML IVPB STA (16:07)
[2017-04-10] MEDS ORDERED: *HR* Morphine 2 MG/ML SYRINGE IVP PRN (16:17)
[2017-04-10] MEDS ORDERED: Ondansetron 4 MG/2 ML VIAL IVP ONE ×2 (16:17→17:04)
[2017-04-10] MEDS ORDERED: Ondansetron 4 MG/2 ML VIAL IVP PRN (16:17)
[2017-04-10] MEDS ORDERED: Acetaminophen 325 MG TABLET PO PRN (16:17)
[2017-04-10] MEDS ORDERED: Naloxone 0.4 MG/ML INJ IVP PRN (16:17)
[2017-04-10] MEDS ORDERED: *HR* Dextrose 50 % in Water (Syg) 50 ML SYRINGE IVP PRN (16:21)
[2017-04-10] MEDS ORDERED: Dextrose Gel 15 GM/37.5 ML TUBE PO PRN ×2 (16:21)
[2017-04-10] MEDS ORDERED: D5% in Water 1,000 ML IVC PRN (16:21)
--- NOTE | 2017-04-10 16:23 | Internal Med History&Physical ---
Date of Encounter: 04/10/17 Time of Encounter: 16:23 Assessment and Plan (1) Severe sepsis Current visit: Yes Status: Acute Tmax 101.6, HR 90-95, Leukoytsis with abdominal wall cellulitis, infected discharging abdominal wall wound LAcitc acidosis on presentation 2.9 Blood pressure is WNL. Continue IVF hydration. Follow wound, blood and urine culture Prior wound culture from 2017 grew proteus. sensitive to cephalosporins Continue Vancomycin, Cefepime. Add Flagyl for anaerobic coverage battery installer to see for wound care (2) Lactic acidosis Current visit: Yes Status: Acute From severe sepsis Repeat after IVF hydration (3) Cellulitis Current visit: Yes Status: Acute as in sepsis Qualifiers: Site of cellulitis: trunk Site of cellulitis of trunk: abdominal wall Qualified Code(s): L03.311 - Cellulitis of abdominal wall (4) Obstructive sleep apnea Current visit: Yes Status: Chronic CPAP at bedtime (5) Obesity hypoventilation syndrome Current visit: Yes Status: Chronic CPAP at night (6) Morbid obesity with BMI of 70 and over, adult Current visit: Yes Status: Chronic 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, follow up with PCP (7) DVT prophylaxis Current visit: Yes Status: Acute Heparin SQ (8) Diabetes mellitus Current visit: Yes Status: Chronic Uncontrolled with hyperglycemia A1C am FS ACHS Levemir BID and Prandial lispro/high dose sliding scale Qualifiers: Diabetes mellitus type: type 2 Diabetes mellitus complication status: with hyperglycemia Diabetes mellitus residential insulin use: with residential use Qualified Code(s): E11.65 - Type 2 diabetes mellitus with hyperglycemia; Z79.4 - middle or intermediate school principal (current) use of insulin; Z79.4 - middle or intermediate school principal (current) use of insulin ; Z79.4 - middle or intermediate school principal (current) use of insulin; Z79.4 - [facility] (current) use of insulin (9) Chronic abdominal wound infection Current visit: Yes Status: Chronic Infected battery installer for wound care Qualifiers: Encounter type: subsequent encounter Qualified Code(s): S31.109D - Unspecified open wound of abdominal wall, unspecified quadrant without penetration into peritoneal cavity, subsequent encounter; L08.9 - Local infection of the skin and subcutaneous tissue, unspecified (10) Hypokalemia Current visit: Yes Status: Acute replace K Internal Medicine - H&P: HPI Chief complaint: Abdomen is red Admitted From: Home Plans for Post Hospital Care: Home History of present illness: Ms. Cat is a 46 year old female with hx of skin CA s/p resection with chronic left lower abdominal wound dehiscence, obstructive sleep apnea, obesity hypoventilation syndrome, uncontrolled diabetes, morbid obesity with a BMI of 73 , anxiety and depression. She presented from home with complaints of worsening pain and redness over her abdominal wall which started yesterday. The patient states she was in her usual state of health until yesterday afternoon when her abdomen became more painful and red she was encouraged to present to the ER by her partner. She also reports fever associated with chills. She coughs every day because she smokes every day, she denies any new chest or respiratory symptoms no chest pain. She also has nausea without vomiting. She has chronic pedal edema as a result of chronic venostasis changes. On examination in the ER the patient is toxic looking with MAXIMUM TEMPERATURE of 101.6 tachycardic leukocytosis lactic acidosis and hyperglycemia. Her abdominal wound is foul smelling with foul- smelling purulent discharge. She denies any neurologic symptoms. She states compliance with the wound dressing which she does by herself, and compliance with her medications. She will be admitted for management of severe sepsis secondary to abdominal wound infection with cellulitis. The patient is full code Past Med Surg Social Fam HX - Past Medical History Medical history: asthma, cancer, COPD, CVA, diabetes, thyroid disease Psychiatric history: anxiety, depression - Past Surgical History Surgical History: thyroidectomy - Social History Smoking Status: Current every day smoker Smokeless Tobacco Status: No Alcohol use: none Drug use: none - Family History Mother Hx Family Cardiac Disorders: Yes Hx Family Respiratory Disorders: Yes Hx Family Cancer: No Hx Family Endocrine Disorder: Yes Hx Family Neuromuscular Disorders: Yes Internal Medicine - H&P: Meds Ranitidine HCl [Acid Assistant Track And Field Coach] 150 mg PO BID 04/03/16 [History] Aspirin Enteric Coated [Aspirin EC] 81 mg PO DAILY 10/04/16 [History] Ipratropium/Albuterol Neb [Duoneb] 3 ml IH Q6HR PRN 10/04/16 [History] OxyCODONE Immed Rel [Roxicodone 20 MG] 20 mg PO Q4HR PRN #20 tablet 10/05/16 [Rx ] Ondansetron ODT [Zofran ODT] 4 mg SL Q8HR PRN #10 tab.rapdis 11/08/16 [Rx] metFORMIN [Glucophage] 1,000 mg PO BIDWM #90 tab 11/08/16 [Rx] Levothyroxine Sodium [Levo-T] 350 mcg PO QAM #60 tablet 11/10/16 [Rx] Loratadine [Allergy Relief] 10 mg PO DAILY #60 11/10/16 [Rx] ALPRAZolam [Xanax 0.5 MG Tablet] 0.5 mg PO BID PRN 01/27/17 [History] Atorvastatin Calcium [Lipitor] 20 mg PO HS 01/27/17 [History] Cyanocobalamin (Vitamin B-12) [Vitamin B12] 1,000 mcg PO TH 01/27/17 [History] Docusate [Colace] 100 mg PO BID PRN 01/27/17 [History] Insulin Regular U-500 [HumuLIN R U-500] 0 unit SQ TID MDD See Comment. [History] Mometasone Furoate [Asmanex] 2 puff IH BID 01/27/17 [History] acetaZOLAMIDE [Diamox] 250 mg PO DAILY 01/27/17 [History] Sodium Hypochlorite 0.25% [Dakin's (Half-Strength 0.25%)] 1 appl TP BID #1 bottle 01/30/17 [Rx] BuPROPion [Wellbutrin] 100 mg PO DAILY 04/10/17 [History] Fluticasone Propionate [Flovent Hfa] 1 puff IH BID 04/10/17 [History] Gabapentin [Neurontin] 600 mg PO TID 04/10/17 [History] Mupirocin [Bactroban Oint] 1 appl TP BID PRN 04/10/17 [History] Nystatin POWDER [Nystop] 1 appl TP TID PRN 04/10/17 [History] Silver Sulfadiazine [Silvadene] 1 appl TP BID PRN 04/10/17 [History] 3 Allergy/AdvReac Type Severity Reaction Status Date / Time Penicillins Allergy Rash Verified 01/27/16 09:52 Tetracycline Allergy Rash Verified 01/27/16 09:52 All Systems PM: A 10-system review of systems was performed and is negative for pertinent findings except as documented above in the HPI. - Constitutional Constitutional: chills, fever(s), malaise - EENT Eyes: no change in vision, no discharge, no pain, no photophobia Ears: no ear discharge, no ear pain, no tinnitus Nose, mouth and throat: no dysphagia, no nasal discharge, no neck pain, no sore throat - Cardiovascular Cardiovascular ROS IM: no chest pain, no diaphoresis, no dyspnea, no lightheadedness, no palpitations, no syncope - Respiratory Respiratory: no cough, no dyspnea, no wheezing, no excessive phlegm production - Gastrointestinal Gastrointestinal: nausea, vomiting - Genitourinary Genitourinary: no change in urinary stream, no dysuria, no flank pain, no hematuria - Musculoskeletal Musculoskeletal ROS IM: no numbness, no tingling - Integumentary Integumentary IM: as per HPI - Neurological Neurological ROS: no confusion, no convulsions, no focal weakness, no numbness, no tingling, no tremor(s) - Hematologic/Lymphatic Hematologic/Lymphatic: no easy bruising - Constitutional Vitals: Temp Pulse Resp BP Pulse Ox 101.6 F H 95 18 122/59 97 04/10/17 13:57 04/10/17 14:59 04/10/17 14:59 04/10/17 14:59 04/10/17 14:59 General: Alert and oriented, well appearing. Morbidly Obese. BMI 73. Fever , Tmax 101.6 Mental Status: Affect appropriate for circumstances HEENT: Sclerae anicteric. No mucositis or thrush. Moist oral mucosa Skin: No rashes or petechiae. Lungs: Clear to auscultation and percussion bilaterally No crackles, rhonchi or wheezes. Cardiovascular: Regular rate and rhythm. No gallops, murmurs, or rubs. Abdomen: Morbidly obese, diffuse erythema on the abdominal wall on the entire infra-umbilical region, chronic wound under the abdominal wall fold with foul smelling purulent discharge in both wounds, no focal collection noted Extremities: chronic venous stasis changes. Neurologic: Alert, oriented X3, normal speech; no focal weakness or sensory abnormalities. Internal Med - H&P Results - Labs CBC & Chem 7: 04/10/17 14:40 04/10/17 14:40 Labs: Short CBC 01/26/18 Range/Units 14:40 WBC 12.3 H (4.3-11.1) K/mcL Hgb 12.7 (11.5-15.4) g/dL Hct 40.4 (35.3-44.9) % Plt Count 190 (140-400) K/mcL Neutrophils # 11.4 H (1.6-8.9) K/mcL BMP 04/10/17 14:40 Sodium 130 L Potassium 3.3 L Chloride 96 L Carbon Dioxide 27 BUN 14 Creatinine 0.86 Glucose 406 H Calcium 8.6 Urine 04/10/17 Range/Units 14:28 Urine Color Dark Yellow (Yellow) Urine Clarity Clear (Clear) Urine pH 5.5 (5.0-8.0) pH Units Ur Specific Ramona 1.029 H (1.010-1.025) Urine Protein 30 H (Neg-Trace) mg/dL Urine Glucose (UA) >=1000 H (Normal) mg/dL
[2017-04-10] MEDS ORDERED: Ipratropium/Albuterol Neb 3 ML IH PRN (16:28)
[2017-04-10] MEDS ORDERED: Cefepime HCl 2,000 MG in Water for inj. (sterile) 20 ML 20 ML IVP STA (16:58)
[2017-04-10] MEDS ORDERED: *HR* HYDROmorphone (PF) 1 MG/ML SYRINGE IVP ONE (17:04)
--- NOTE | 2017-04-10 17:16 | Electrocardiograph Report ---
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
[2017-04-10] MEDS: Insulin LISPRO 300 UNITS/3 ML VIAL SQ SCH ×3 (17:45→21:53)
[2017-04-10] MEDS: 0.9 % Sodium Chloride 1,000 ML IVC SCH (18:06)
[2017-04-10] MEDS: Gabapentin 300 MG CAPSULE PO SCH (20:23)
[2017-04-10] MEDS: Famotidine 20 MG TABLET PO SCH (20:23)
[2017-04-10] MEDS ORDERED: MOMETASONE FUROATE IH SCH (21:00)
[2017-04-10] MEDS: Beclomethasone 80mcg MDI IH SCH (21:16)
[2017-04-10] MEDS: *HR* HYDROcodone/Acet 5/325 mg TABLET PO PRN (21:27)
[2017-04-10] MEDS: Insulin DETEMIR 100 UNIT/ML X5UNITS SQ SCH (21:53)
[2017-04-11] MEDS: MetroNIDAZOLE 500 MG/100 ML 500 MG/100 ML BAG IVPB SCH ×4 (00:34→22:39)
[2017-04-11] MEDS: Cefepime HCl 2,000 MG in Water for inj. (sterile) 20 ML 20 ML IVP SCH ×4 (00:34→22:40)
[2017-04-11] MEDS: *HR* Heparin 5,000 UNIT/ML VIAL SQ SCH ×4 (00:34→22:39)
[2017-04-11] MEDS: 0.9 % Sodium Chloride 1,000 ML IVC SCH (03:17)
[2017-04-11] MEDS: Vancomycin 2,000 MG in D5% in Water 500 ML IVPB SCH ×2 (03:18→16:53)
[2017-04-11] MEDS: *HR* HYDROcodone/Acet 5/325 mg TABLET PO PRN ×2 (03:21→08:25)
[2017-04-11] MEDS: ALPRAZolam 0.5 MG TABLET PO PRN ×2 (03:59→22:38)
[2017-04-11 06:40] LABS: Basophils % 0.4 %; Eosinophils # 0.1 K/mcL (0.0-0.6); Eosinophils % 1.5 %; Hematocrit 35.1 % (35.3-44.9); Immature Granulocytes % 0.6 % (0-4); Lymphocytes # 0.6 K/mcL (0.6-4.6); Lymphocytes % 8.4 %; Mean Corpuscular HGB Conc 31.3 g/dL (31.6-35.5); Mean Corpuscular Hemoglobin 28.9 pg (28.0-33.3); Mean Corpuscular Volume 92.1 fL (83.0-100.0); Mean Platelet Volume 11.3 fL (9.4-12.4); Monocytes # 0.4 K/mcL (0.0-1.3); Monocytes % 5.1 %; Neutrophils # 6.1 K/mcL (1.6-8.9); Platelet Count 159 K/mcL (140-400); Red Blood Count 3.81 M/mcL (3.82-4.97); Red Cell Distribution Width 16.4 % (11.5-14.5)
[2017-04-11 07:08] LABS: BUN/Creatinine Ratio 18 (6-26); Blood Urea Nitrogen 13 mg/dL (6-20); Calcium 7.9 mg/dL (8.6-10.3); Carbon Dioxide 29 mEq/L (23-29); Chloride 103 mEq/L (98-107); Glucose 284 mg/dL (70-105); Osmolality,Calculated 290 (280-300); Potassium 3.5 mEq/L (3.5-5.1); Sodium 135 mEq/L (136-145); eGFR For African Americans > 60 (> 60); eGFR For Non-African Americans > 60 (> 60)
[2017-04-11] MEDS: acetaZOLAMIDE 250 MG TABLET PO SCH (08:25)
[2017-04-11] MEDS: Gabapentin 300 MG CAPSULE PO SCH ×3 (08:25→22:37)
[2017-04-11] MEDS: Aspirin Enteric Coated 81 MG Tablet PO SCH (08:25)
[2017-04-11] MEDS: Famotidine 20 MG TABLET PO SCH ×2 (08:25→22:37)
[2017-04-11] MEDS: Loratadine 10 MG TABLET PO SCH (08:25)
[2017-04-11] MEDS: Insulin LISPRO 300 UNITS/3 ML VIAL SQ SCH ×7 (08:27→23:01)
[2017-04-11] MEDS: *HR* OxyCODONE Immed Rel 5 MG TABLET PO PRN ×3 (08:37→22:38)
[2017-04-11] MEDS ORDERED: Ketorolac 30 MG/ML VIAL IVP STA (09:41)
[2017-04-11] MEDS: Beclomethasone 80mcg MDI IH SCH ×2 (09:41→22:46)
[2017-04-11] MEDS ORDERED: Orphenadrine 60 MG/2 ML VIAL IVP STA (09:42)
--- NOTE | 2017-04-11 09:43 | Internal Med Progress Note ---
Date of Encounter: 04/11/17 Time of Encounter: 09:43 - Assessment and plan (1) Cellulitis, abdominal wall Current Visit: Yes Status: Acute Assessment and plan: Currently on IV abx. Seems to be slowly improving. Continue IV abx and supportive care. (2) Severe sepsis Current Visit: Yes Status: Resolved Assessment and plan: Improved today. (3) Bladder spasms Current Visit: Yes Status: Acute Assessment and plan: PRN meds. Remove craven as soon as possible. (4) Chronic abdominal wound infection Current Visit: Yes Status: Chronic Assessment and plan: Pt has hx of nonhealing wound on lower abdomen. Continue local wound care and IV abx. Qualifiers: Encounter type: subsequent encounter Qualified Code(s): S31.109D - Unspecified open wound of abdominal wall, unspecified quadrant without penetration into peritoneal cavity, subsequent encounter; L08.9 - Local infection of the skin and subcutaneous tissue, unspecified (5) Obstructive sleep apnea Current Visit: Yes Status: Chronic Assessment and plan: CPAP (6) Diabetes mellitus Current Visit: Yes Status: Chronic Assessment and plan: Accuchecks and coverage ordered. Continue Levimir and sliding scale. Qualifiers: Diabetes mellitus type: type 2 Diabetes mellitus complication status: with hyperglycemia Diabetes mellitus technician terminal and repeater insulin use: with longterm use Qualified Code(s): E11.65 - Type 2 diabetes mellitus with hyperglycemia; Z79.4 - custodial (current) use of insulin; Z79.4 - technician terminal and repeater (current) use of insulin ; Z79.4 - custodial (current) use of insulin; Z79.4 - technician terminal and repeater (current) use of insulin (7) Hypokalemia Current Visit: Yes Status: Resolved (8) Morbid obesity with BMI of 70 and over, adult Current Visit: No Status: Chronic - Subjective Interval history: Ms Cat is currently admitted for acute abdominal wall cellulitis. She remains moderate to high risk due to potential for worsening clinical status. Ms Cat is having a lot of bladder spasm. She currently is in a lot of pain. No fever. Thinks her abdomen may be somewhat better - not as "on fire." No fever at this time. Has not had a craven in "a long time" she says. - Constitutional Vitals: Temp Pulse Resp BP Pulse Ox 98 F 86 16 136/80 97 04/11/17 06:57 04/11/17 08:13 04/11/17 08:13 04/11/17 08:13 04/11/17 08:13 General appearance: Present: A&O X 3, severe distress, answers questions appropriately - Head Head exam: Present: atraumatic, normocephalic - Eye Eye exam: Present: EOMI, conjuntiva pink - ENT ENT exam: Present: mucous membranes dry - Respiratory Respiratory exam: Present: decreased breath sounds. Absent: rales, rhonchi, wheezes - Cardiovascular Cardiovascular exam: Present: distant heart sounds, RRR. Absent: tachycardia - GI/Abdominal GI/Abdominal exam: Present: normal bowel sounds, soft, tenderness (Skin is tender) - Extremities Exam Extremities exam: Present: warm. Absent: tenderness - Neurological Exam Neurological exam: Present: alert, oriented X3 - Skin Skin exam: Present: erythema (Abdominal wall red and warm), warm Internal Medicine: Result - Labs CBC & Chem 7: 04/11/17 05:50 04/11/17 05:50 Labs: Short CBC 04/11/17 Range/Units 05:50 WBC 7.2 (4.3-11.1) K/mcL Hgb 11.0 L D (11.5-15.4) g/dL Hct 35.1 L (35.3-44.9) % Plt Count 159 (140-400) K/mcL Neutrophils # 6.1 (1.6-8.9) K/mcL BMP 04/11/17 05:50 Sodium 135 L Potassium 3.5 Chloride 103 Carbon Dioxide 29 BUN 13 Creatinine 0.71 Glucose 284 H Calcium 7.9 L Consult Discharge Plan - Plan Referrals: Luís Tavares DO [Primary Care Provider] -
[2017-04-11] MEDS: Insulin DETEMIR 100 UNIT/ML X5UNITS SQ SCH (22:37)
[2017-04-12] MEDS: Vancomycin 2,000 MG in D5% in Water 500 ML IVPB SCH ×3 (03:22→16:24)
[2017-04-12 04:10] LABS: BUN/Creatinine Ratio 21 (6-26); Blood Urea Nitrogen 15 mg/dL (6-20); Calcium 8.2 mg/dL (8.6-10.3); Carbon Dioxide 29 mEq/L (23-29); Chloride 105 mEq/L (98-107); Glucose 246 mg/dL (70-105); Magnesium 2.2 mg/dL (1.6-2.6); Osmolality,Calculated 295 (280-300); Potassium 3.6 mEq/L (3.5-5.1); Sodium 138 mEq/L (136-145); eGFR For African Americans > 60 (> 60); eGFR For Non-African Americans > 60 (> 60)
[2017-04-12 04:16] LABS: Hematocrit 35.4 % (35.3-44.9); Hemoglobin 10.8 g/dL (11.5-15.4); Mean Corpuscular HGB Conc 30.5 g/dL (31.6-35.5); Mean Corpuscular Hemoglobin 28.7 pg (28.0-33.3); Mean Corpuscular Volume 94.1 fL (83.0-100.0); Mean Platelet Volume 11.7 fL (9.4-12.4); Platelet Count 168 K/mcL (140-400); Red Blood Count 3.76 M/mcL (3.82-4.97); Red Cell Distribution Width 16.1 % (11.5-14.5)
[2017-04-12] MEDS: Beclomethasone 80mcg MDI IH SCH ×2 (07:56→20:34)
[2017-04-12] MEDS: Gabapentin 300 MG CAPSULE PO SCH ×3 (08:24→20:55)
[2017-04-12] MEDS: *HR* Heparin 5,000 UNIT/ML VIAL SQ SCH ×3 (08:24→23:19)
[2017-04-12] MEDS: Famotidine 20 MG TABLET PO SCH ×2 (08:25→20:55)
[2017-04-12] MEDS: ALPRAZolam 0.5 MG TABLET PO PRN ×2 (08:25→20:55)
[2017-04-12] MEDS: Loratadine 10 MG TABLET PO SCH (08:25)
[2017-04-12] MEDS: Aspirin Enteric Coated 81 MG Tablet PO SCH (08:25)
[2017-04-12] MEDS: acetaZOLAMIDE 250 MG TABLET PO SCH (08:25)
[2017-04-12] MEDS: *HR* OxyCODONE Immed Rel 5 MG TABLET PO PRN ×4 (08:25→20:55)
[2017-04-12] MEDS: Insulin LISPRO 300 UNITS/3 ML VIAL SQ SCH ×7 (08:27→20:56)
[2017-04-12] MEDS ORDERED: Aminoglycoside Consult 1 EACH MC ONE (09:24)
--- NOTE | 2017-04-12 10:41 | Internal Med Progress Note ---
Date of Encounter: 04/12/17 Time of Encounter: 10:41 - Assessment and plan (1) Cellulitis, abdominal wall Current Visit: Yes Status: Acute Assessment and plan: Slowly improving. Continue IV abx - cx growing gram neg christian and group C strep (2) Severe sepsis Current Visit: Yes Status: Resolved Assessment and plan: Resolved (3) Bladder spasms Current Visit: Yes Status: Acute Assessment and plan: Seems to be doing better today. PRN pyridium (4) Chronic abdominal wound infection Current Visit: Yes Status: Chronic Assessment and plan: Culture with gram neg christian and group C strep. Currently on IV abx with local wound care. Qualifiers: Encounter type: subsequent encounter Qualified Code(s): S31.109D - Unspecified open wound of abdominal wall, unspecified quadrant without penetration into peritoneal cavity, subsequent encounter; L08.9 - Local infection of the skin and subcutaneous tissue, unspecified (5) Obstructive sleep apnea Current Visit: Yes Status: Chronic Assessment and plan: CPAP (6) Diabetes mellitus Current Visit: Yes Status: Chronic Assessment and plan: Accuchecks and coverage ordered. Continue Levimir and sliding scale. Qualifiers: Diabetes mellitus type: type 2 Diabetes mellitus complication status: with hyperglycemia Diabetes mellitus chcf insulin use: with termite exterminator use Qualified Code(s): E11.65 - Type 2 diabetes mellitus with hyperglycemia; Z79.4 - local company intermodal truck driver (current) use of insulin; Z79.4 - local company intermodal truck driver (current) use of insulin ; Z79.4 - local company intermodal truck driver (current) use of insulin; Z79.4 - local company intermodal truck driver (current) use of insulin (7) Hypokalemia Current Visit: Yes Status: Resolved (8) Morbid obesity with BMI of 70 and over, adult Current Visit: No Status: Chronic Assessment and plan: Chronic issue - Subjective Interval history: Ms Cat is currently admitted for acute abdominal wall cellulitis. She remains moderate to high risk due to potential for worsening clinical status. Ms Cat feels her abdomen is still warm and painful. Having IV issues and missed dose of abx. No fever. No diarrhea. Gamez less spasms today. - Constitutional Vitals: Temp Pulse Resp BP Pulse Ox 99 F 90 16 118/72 96 04/12/17 07:13 04/12/17 07:13 04/12/17 08:45 04/12/17 08:45 04/12/17 08:45 General appearance: Present: A&O X 3, answers questions appropriately - Head Head exam: Present: atraumatic, normocephalic - Eye Eye exam: Present: EOMI, conjuntiva pink - ENT ENT exam: Present: mucous membranes dry - Respiratory Respiratory exam: Present: decreased breath sounds, CTAB - Cardiovascular Cardiovascular exam: Present: distant heart sounds, RRR - GI/Abdominal GI/Abdominal exam: Present: normal bowel sounds, soft - Extremities Exam Extremities exam: Present: warm. Absent: tenderness - Neurological Exam Neurological exam: Present: alert, oriented X3 - Skin Skin exam: Present: dry, erythema, warm Additional comments: Lower abdomen remains red and warm. Seems smaller area than yesterday. Internal Medicine: Result - Labs CBC & Chem 7: 04/12/17 02:38 04/12/17 02:38 Labs: Short CBC 04/12/17 Range/Units 02:38 WBC 6.2 (4.3-11.1) K/mcL Hgb 10.8 L (11.5-15.4) g/dL Hct 35.4 (35.3-44.9) % Plt Count 168 (140-400) K/mcL BMP 04/12/17 02:38 Sodium 138 Potassium 3.6 Chloride 105 Carbon Dioxide 29 BUN 15 Creatinine 0.71 Glucose 246 H Calcium 8.2 L Consult Discharge Plan - Plan Referrals: Luís Tavares DO [Primary Care Provider] -
[2017-04-12] MEDS: Cefepime HCl 2,000 MG in Water for inj. (sterile) 20 ML 20 ML IVP SCH ×3 (11:47→23:20)
[2017-04-12] MEDS: MetroNIDAZOLE 500 MG/100 ML 500 MG/100 ML BAG IVPB SCH ×3 (11:48→23:21)
[2017-04-12] MEDS: *HR* HYDROcodone/Acet 5/325 mg TABLET PO PRN (18:44)
[2017-04-12] MEDS: Insulin DETEMIR 100 UNIT/ML X5UNITS SQ SCH (20:56)
[2017-04-13] MEDS: Vancomycin 2,000 MG in D5% in Water 500 ML IVPB SCH (03:35)
--- NOTE | 2017-04-13 09:26 | Internal Med Progress Note ---
<Clarence Real - Last Filed: 04/13/17 18:06> Date of Encounter: 04/13/17 Time of Encounter: 09:24 - Assessment and plan (1) Diabetes mellitus type 2 with complications Current Visit: No Status: Chronic Assessment and plan: Secondary to Metabolic syndrome. BMI 80.3, Glucose > 200. Plan: - One time dose of Levemir 20units now - Levemir 25 units BID - High dose sliding scale - ACHS glucose checks. Qualifiers: Diabetes mellitus buttermaker insulin use: with buttermaker use Qualified Code( s): E11.8 - Type 2 diabetes mellitus with unspecified complications; Z79.4 - detention (current) use of insulin; Z79.4 - detention (current) use of insulin; Z79.4 - assistant terminal manager (current) use of insulin; Z79.4 - detention (current) use of insulin (2) Obstructive sleep apnea Current Visit: Yes Status: Chronic Assessment and plan: CPAP (3) Morbid obesity with BMI of 70 and over, adult Current Visit: No Status: Chronic Assessment and plan: Chronic issue (4) Obesity hypoventilation syndrome Current Visit: Yes Status: Chronic Assessment and plan: BMI 80.3, laying flat induces hypoxia on examination likely secondary to body habitis. - Keep head of bed elevated - CPAP while sleeping for NESHA. (5) Chronic abdominal wound infection Current Visit: Yes Status: Chronic Assessment and plan: Culture with Proteus sensitive to Ceftriaxone and group C strep. Plan: - Stop Vancomycin and Cefepim - Start ceftriaxone 2000mg Q24hr Qualifiers: Encounter type: subsequent encounter Qualified Code(s): S31.109D - Unspecified open wound of abdominal wall, unspecified quadrant without penetration into peritoneal cavity, subsequent encounter; L08.9 - Local infection of the skin and subcutaneous tissue, unspecified (6) Severe sepsis Current Visit: Yes Status: Resolved Assessment and plan: Resolved (7) Cellulitis, abdominal wall Current Visit: Yes Status: Acute Assessment and plan: Slowly improving. Continue IV abx - cx growing Proteus and group C strep (8) Bladder spasms Current Visit: Yes Status: Acute Assessment and plan: Seems to be doing better today. PRN pyridium - D/C craven (9) DVT prophylaxis Current Visit: No Status: Acute Assessment and plan: Heparin SQ Q8hrs. - Subjective Interval history: Ms. Cat has been seen and evaluated at patient bedside this am. She is awake alert and in no acute distress. She says that she has been battling cellulitis and her abdominal wound infections for a long time. She states she had the wound secondary to a surgery for a total hysterectomy with a hx of endometrial cancer. She requests topical cream for her venous stasis on her LE and a bath. - Constitutional Vitals: Temp Pulse Resp BP Pulse Ox 97.7 F 83 15 108/70 100 04/13/17 07:00 04/13/17 07:00 04/13/17 07:00 04/13/17 07:00 04/13/17 07:00 General appearance: Present: A&O X 3, answers questions appropriately Exam: General:Alert, oriented, AOx3, no acute distress HEENT: NC/AT, oral mucosa moist. Cardiac:RRR Abdominal:morbidly obese, panniculitis, inferior abdominal wall wound with surrounding cellulitis Extremities: Morbidly obese, 2+ edema bilateral lower extremities venous stasis and mild cellulitis bilaterally. Internal Medicine: Result - Labs CBC & Chem 7: 04/12/17 02:38 04/12/17 02:38 Consult Discharge Plan - Plan Referrals: Luís Tavares DO [Primary Care Provider] - 04/21/17 3:00 pm (will see dr Nova castro ) <Jae Olson - Last Filed: 04/13/17 18:44> Date of Encounter: 04/13/17 - Assessment and plan (1) Cellulitis, abdominal wall Current Visit: Yes Status: Acute (2) Severe sepsis Current Visit: Yes Status: Resolved (3) Bladder spasms Current Visit: Yes Status: Acute (4) Chronic abdominal wound infection Current Visit: Yes Status: Chronic Qualifiers: Encounter type: subsequent encounter Qualified Code(s): S31.109D - Unspecified open wound of abdominal wall, unspecified quadrant without penetration into peritoneal cavity, subsequent encounter; L08.9 - Local infection of the skin and subcutaneous tissue, unspecified (5) Obstructive sleep apnea Current Visit: Yes Status: Chronic (6) Diabetes mellitus Current Visit: Yes Status: Chronic Qualifiers: Diabetes mellitus type: type 2 Diabetes mellitus complication status: with hyperglycemia Diabetes mellitus buttermaker insulin use: with long-term use Qualified Code(s): E11.65 - Type 2 diabetes mellitus with hyperglycemia; Z79.4 - detention (current) use of insulin; Z79.4 - assistant terminal manager (current) use of insulin ; Z79.4 - detention (current) use of insulin; Z79.4 - assistant terminal manager (current) use of insulin (7) Hypokalemia Current Visit: Yes Status: Resolved (8) Morbid obesity with BMI of 70 and over, adult Current Visit: No Status: Chronic - Constitutional Vitals: Temp Pulse Resp BP Pulse Ox 98.4 F 84 15 128/71 96 04/13/17 16:41 04/13/17 16:41 04/13/17 16:41 04/13/17 16:41 04/13/17 16:41 Internal Medicine: Result - Labs CBC & Chem 7: 04/12/17 02:38 04/12/17 02:38 - Attending Attestation I examined this patient and my medical decision-making was reviewed with the Resident Physician on 04/13/17 . I agree with the documented findings, disposition and treatment plan as described except to the extent set forth below. Ms Cat is currently admitted for cellulitis of abdominal wall. She remains moderate to high risk due to potential for worsening clinical status. Ms Cat feels OK. She is requesting more pain meds. No fever. No CP or SOB. Exam alert. Comfortable Mucus membranes dry Heart reg No wheeze abd - somewhat less erythema I/P 1. Cellulitis 2. Obesity Further diagnoses and plan as above.
[2017-04-13] MEDS ORDERED: Insulin DETEMIR 100 UNIT/ML X5UNITS SQ ONE (09:44)
[2017-04-13] MEDS: cefTRIAXone 2,000 MG in Water for inj. (sterile) 20 ML IVP SCH (10:46)
[2017-04-13] MEDS: *HR* HYDROcodone/Acet 5/325 mg TABLET PO PRN ×2 (10:47→21:17)
[2017-04-13] MEDS: Famotidine 20 MG TABLET PO SCH ×2 (10:47→21:18)
[2017-04-13] MEDS: Loratadine 10 MG TABLET PO SCH (10:48)
[2017-04-13] MEDS: Aspirin Enteric Coated 81 MG Tablet PO SCH (10:48)
[2017-04-13] MEDS: MetroNIDAZOLE 500 MG/100 ML 500 MG/100 ML BAG IVPB SCH (10:48)
[2017-04-13] MEDS: *HR* Heparin 5,000 UNIT/ML VIAL SQ SCH ×2 (10:48→17:30)
[2017-04-13] MEDS: Gabapentin 300 MG CAPSULE PO SCH ×3 (10:48→21:17)
[2017-04-13] MEDS: acetaZOLAMIDE 250 MG TABLET PO SCH (10:49)
[2017-04-13] MEDS: Insulin LISPRO 300 UNITS/3 ML VIAL SQ SCH ×7 (10:50→21:16)
[2017-04-13] MEDS: Beclomethasone 80mcg MDI IH SCH ×2 (11:45→22:50)
[2017-04-13] MEDS: *HR* OxyCODONE Immed Rel 5 MG TABLET PO PRN ×2 (13:53→17:40)
[2017-04-13] MEDS ORDERED: metroNIDAZOLE 500 MG TABLET PO SCH (15:00)
[2017-04-13] MEDS: Insulin DETEMIR 100 UNIT/ML X5UNITS SQ SCH (21:16)
[2017-04-13] MEDS: ALPRAZolam 0.5 MG TABLET PO PRN (21:17)
[2017-04-13] MEDS: Miconazole 2% ointment 114 GM TUBE TP SCH (21:22)
[2017-04-14] MEDS: *HR* Heparin 5,000 UNIT/ML VIAL SQ SCH ×4 (00:15→23:47)
[2017-04-14] MEDS: *HR* HYDROcodone/Acet 5/325 mg TABLET PO PRN (05:30)
[2017-04-14 05:47] LABS: Basophils % 0.3 %; Eosinophils # 0.3 K/mcL (0.0-0.6); Eosinophils % 4.1 %; Hematocrit 35.6 % (35.3-44.9); Hemoglobin 10.9 g/dL (11.5-15.4); Immature Granulocytes % 3.1 % (0-4); Lymphocytes # 1.1 K/mcL (0.6-4.6); Lymphocytes % 17.2 %; Mean Corpuscular HGB Conc 30.6 g/dL (31.6-35.5); Mean Corpuscular Hemoglobin 28.6 pg (28.0-33.3); Mean Corpuscular Volume 93.4 fL (83.0-100.0); Mean Platelet Volume 10.5 fL (9.4-12.4); Monocytes # 0.5 K/mcL (0.0-1.3); Monocytes % 7.5 %; Neutrophils # 4.2 K/mcL (1.6-8.9); Platelet Count 183 K/mcL (140-400); Red Blood Count 3.81 M/mcL (3.82-4.97); Red Cell Distribution Width 15.8 % (11.5-14.5); Segmented Neutrophils % 67.8 %
[2017-04-14 06:09] LABS: Alanine Aminotransferase 21 Units/L (7-52); Albumin 2.8 g/dL (3.5-5.7); Albumin/Globulin Ratio 0.9 (1.1-2.2); Alkaline Phosphatase 149 Units/L (34-104); Aspartate Amino Transferase 14 Units/L (13-39); BUN/Creatinine Ratio 23 (6-26); Bilirubin,Total 0.3 mg/dL (0.3-1.0); Blood Urea Nitrogen 13 mg/dL (6-20); Calcium 8.5 mg/dL (8.6-10.3); Carbon Dioxide 31 mEq/L (23-29); Chloride 104 mEq/L (98-107); Glucose 274 mg/dL (70-105); Osmolality,Calculated 294 (280-300); Potassium 4.4 mEq/L (3.5-5.1); Sodium 137 mEq/L (136-145); Total Protein 5.8 g/dL (6.4-8.9); eGFR For African Americans > 60 (> 60); eGFR For Non-African Americans > 60 (> 60)
[2017-04-14] MEDS: Beclomethasone 80mcg MDI IH SCH ×2 (07:43→21:42)
--- NOTE | 2017-04-14 08:54 | Internal Med Progress Note ---
<Clarence Real - Last Filed: 04/14/17 14:53> Date of Encounter: 04/14/17 Time of Encounter: 08:52 - Assessment and plan (1) Severe sepsis Current Visit: Yes Status: Resolved Assessment and plan: Resolved (2) Chronic abdominal wound infection Current Visit: Yes Status: Chronic Assessment and plan: Culture with Proteus sensitive to Ceftriaxone and group C strep. Plan: - Continue ceftriaxone 2000mg Q24hr - Prescription for ceftriaxone 2000 mg every 24 hours for 7 days provided to psychotherapist social worker, patient to continue IV antibiotics outpatient in SNF. Qualifiers: Encounter type: subsequent encounter Qualified Code(s): S31.109D - Unspecified open wound of abdominal wall, unspecified quadrant without penetration into peritoneal cavity, subsequent encounter; L08.9 - Local infection of the skin and subcutaneous tissue, unspecified (3) Diabetes mellitus type 2 with complications Current Visit: No Status: Chronic Assessment and plan: Secondary to Metabolic syndrome. BMI 80.3, Glucose > 200. Plan: - Levemir 25 units BID - High dose sliding scale - ACHS glucose checks. Qualifiers: Diabetes mellitus watermelon harvesting supervisor insulin use: with halfway use Qualified Code( s): E11.8 - Type 2 diabetes mellitus with unspecified complications; Z79.4 - superintendent marine oil terminal (current) use of insulin; Z79.4 - superintendent marine oil terminal (current) use of insulin; Z79.4 - residential (current) use of insulin; Z79.4 - residential (current) use of insulin (4) Obstructive sleep apnea Current Visit: Yes Status: Chronic Assessment and plan: CPAP (5) Morbid obesity with BMI of 70 and over, adult Current Visit: No Status: Chronic Assessment and plan: Chronic issue (6) Obesity hypoventilation syndrome Current Visit: Yes Status: Chronic Assessment and plan: BMI 80.3, laying flat induces hypoxia on examination likely secondary to body habitis. - Keep head of bed elevated - CPAP while sleeping for NESHA. (7) Cellulitis, abdominal wall Current Visit: Yes Status: Acute Assessment and plan: Slowly improving. Continue IV abx - cx growing Proteus and group C strep (8) Bladder spasms Current Visit: Yes Status: Acute Assessment and plan: Resolved, Game[employer] D/C'd (9) UTI (urinary tract infection) Current Visit: No Status: Chronic Assessment and plan: Urine culture growing Proteus Mirabella's and Escherichia coli sensitive to ceftriaxone, antibiotic coverage is currently on. Qualifiers: Urinary tract infection type: acute cystitis Hematuria presence: without hematuria Qualified Code(s): N30.00 - Acute cystitis without hematuria (10) DVT prophylaxis Current Visit: No Status: Acute Assessment and plan: Heparin SQ Q8hrs. - Subjective Interval history: Ms. Cat has been seen and evaluated at patient bedside this am. She is awake alert and in no acute distress. She states that she feels stronger this morning much improved compared to her admission. She denies any discomforts or pains at this time. She has no further questions or concerns. She is tolerating oral intake passing stool and urinating appropriately. - Constitutional Vitals: Temp Pulse Resp BP Pulse Ox 98.2 F 79 20 138/70 97 04/14/17 04:23 04/14/17 07:00 04/14/17 07:44 04/14/17 07:00 04/14/17 07:44 General appearance: Present: A&O X 3, answers questions appropriately Exam: General:Alert, oriented, AOx3, no acute distress HEENT: NC/AT, oral mucosa moist. Cardiac:RRR Respiratory: CTABL Abdominal:morbidly obese, panniculitis, inferior abdominal wall wound with surrounding cellulitis Extremities: Morbidly obese, 2+ edema bilateral lower extremities venous stasis and mild cellulitis bilaterally. Internal Medicine: Result - Labs CBC & Chem 7: 04/14/17 05:27 04/14/17 05:27 Labs: Short CBC 04/14/17 Range/Units 05:27 WBC 6.2 (4.3-11.1) K/mcL Hgb 10.9 L (11.5-15.4) g/dL Hct 35.6 (35.3-44.9) % Plt Count 183 (140-400) K/mcL Neutrophils # 4.2 (1.6-8.9) K/mcL BMP 04/14/17 05:27 Sodium 137 Potassium 4.4 Chloride 104 Carbon Dioxide 31 H BUN 13 Creatinine 0.56 L Glucose 274 H Calcium 8.5 L Liver Function 04/14/17 Range/Units 05:27 Total Bilirubin 0.3 (0.3-1.0) mg/dL AST 14 (13-39) Units/L ALT 21 (7-52) Units/L Alkaline Phosphatase 149 H (34-104) Units/L Albumin 2.8 L (3.5-5.7) g/dL Consult Discharge Plan - Plan Referrals: Luís Tavares DO [Primary Care Provider] - 04/21/17 3:00 pm (will see dr Nova castro ) Prescriptions: cefTRIAXone [Rocephin] 2,000 mg IVPB DAILY 7 Days #7 vial <Rupesh Skaggs P - Last Filed: 04/14/17 16:46> Date of Encounter: 04/14/17 - Constitutional Vitals: Temp Pulse Resp BP Pulse Ox 98.3 F 83 18 154/87 96 04/14/17 15:00 04/14/17 15:00 04/14/17 15:00 04/14/17 15:00 04/14/17 15:00 Internal Medicine: Result - Labs CBC & Chem 7: 04/14/17 05:27 04/14/17 05:27 Labs: Short CBC 04/14/17 Range/Units 05:27 WBC 6.2 (4.3-11.1) K/mcL Hgb 10.9 L (11.5-15.4) g/dL Hct 35.6 (35.3-44.9) % Plt Count 183 (140-400) K/mcL Neutrophils # 4.2 (1.6-8.9) K/mcL BMP 04/14/17 05:27 Sodium 137 Potassium 4.4 Chloride 104 Carbon Dioxide 31 H BUN 13 Creatinine 0.56 L Glucose 274 H Calcium 8.5 L Liver Function 04/14/17 Range/Units 05:27 Total Bilirubin 0.3 (0.3-1.0) mg/dL AST 14 (13-39) Units/L ALT 21 (7-52) Units/L Alkaline Phosphatase 149 H (34-104) Units/L Albumin 2.8 L (3.5-5.7) g/dL - Attending Attestation I examined this patient and my medical decision-making was reviewed with the Resident Physician. I agree with the documented findings, disposition and treatment plan as described except to the extent set forth below. Spoke with psychotherapist social worker at length. Placement is an issue. animal care worker is working to find the fpc facility/extended care facility. Possibility of she getting in above is very remote. Probably she will go home tomorrow with the [facility]
[2017-04-14] MEDS: Miconazole 2% ointment 114 GM TUBE TP SCH ×2 (08:59→09:24)
[2017-04-14] MEDS: ALPRAZolam 0.5 MG TABLET PO PRN (09:12)
[2017-04-14] MEDS: Aspirin Enteric Coated 81 MG Tablet PO SCH (09:12)
[2017-04-14] MEDS: Famotidine 20 MG TABLET PO SCH ×2 (09:12→20:15)
[2017-04-14] MEDS: Insulin DETEMIR 100 UNIT/ML X5UNITS SQ SCH ×2 (09:12→21:55)
[2017-04-14] MEDS: Gabapentin 300 MG CAPSULE PO SCH ×3 (09:12→20:15)
[2017-04-14] MEDS: Loratadine 10 MG TABLET PO SCH (09:12)
[2017-04-14] MEDS: *HR* OxyCODONE Immed Rel 5 MG TABLET PO PRN ×3 (09:12→20:15)
[2017-04-14] MEDS: acetaZOLAMIDE 250 MG TABLET PO SCH (09:12)
[2017-04-14] MEDS: Insulin LISPRO 300 UNITS/3 ML VIAL SQ SCH ×7 (09:13→21:55)
[2017-04-14] MEDS: cefTRIAXone 2,000 MG in Water for inj. (sterile) 20 ML IVP SCH (11:47)
[2017-04-15] MEDS: *HR* OxyCODONE Immed Rel 5 MG TABLET PO PRN ×2 (04:28→08:20)
[2017-04-15 07:40] VITALS: BP 130/68
[2017-04-15] MEDS: Miconazole 2% ointment 114 GM TUBE TP SCH ×2 (07:48→08:19)
[2017-04-15] MEDS: ALPRAZolam 0.5 MG TABLET PO PRN (08:20)
[2017-04-15] MEDS: Famotidine 20 MG TABLET PO SCH (08:20)
[2017-04-15] MEDS: Gabapentin 300 MG CAPSULE PO SCH (08:20)
[2017-04-15] MEDS: acetaZOLAMIDE 250 MG TABLET PO SCH (08:20)
[2017-04-15] MEDS: Loratadine 10 MG TABLET PO SCH (08:20)
[2017-04-15] MEDS: Aspirin Enteric Coated 81 MG Tablet PO SCH (08:20)
[2017-04-15] MEDS: *HR* Heparin 5,000 UNIT/ML VIAL SQ SCH (08:20)
[2017-04-15] MEDS: Insulin DETEMIR 100 UNIT/ML X5UNITS SQ SCH (08:21)
[2017-04-15] MEDS: Insulin LISPRO 300 UNITS/3 ML VIAL SQ SCH ×2 (08:21)
--- NOTE | 2017-04-15 09:53 | Discharge Summary ---
<Clarence Real - Last Filed: 04/15/17 11:33> Date of Encounter: 04/15/17 Time of Encounter: 09:46 - Discharge Diagnosis (1) Severe sepsis Priority: Primary Status: Resolved (2) Chronic abdominal wound infection Priority: Primary Status: Chronic Qualifiers: Encounter type: subsequent encounter Qualified Code(s): S31.109D - Unspecified open wound of abdominal wall, unspecified quadrant without penetration into peritoneal cavity, subsequent encounter; L08.9 - Local infection of the skin and subcutaneous tissue, unspecified (3) Diabetes mellitus type 2 with complications Priority: Secondary Status: Chronic Qualifiers: Diabetes mellitus moth exterminator insulin use: with fci use Qualified Code( s): E11.8 - Type 2 diabetes mellitus with unspecified complications; Z79.4 - moth exterminator (current) use of insulin; Z79.4 - moth exterminator (current) use of insulin; Z79.4 - longterm (current) use of insulin; Z79.4 - moth exterminator (current) use of insulin (4) Obstructive sleep apnea Priority: Secondary Status: Chronic (5) Morbid obesity with BMI of 70 and over, adult Priority: Secondary Status: Chronic (6) Obesity hypoventilation syndrome Priority: Secondary Status: Chronic (7) Cellulitis, abdominal wall Priority: Primary Status: Acute (8) Bladder spasms Priority: Secondary Status: Acute (9) UTI (urinary tract infection) Priority: Primary Status: Chronic Qualifiers: Urinary tract infection type: acute cystitis Hematuria presence: without hematuria Qualified Code(s): N30.00 - Acute cystitis without hematuria (10) DVT prophylaxis Priority: Secondary Status: Acute - Discharge Medications Prescriptions: OxyCODONE Immed Rel [Roxicodone 20 MG] 20 mg PO Q4HR PRN 2 Days #7 tablet PRN Reason: Pain cefTRIAXone [Rocephin] 2,000 mg IVPB DAILY 7 Days #7 vial Home Medications: Ranitidine HCl [Acid Application Helper] 150 mg PO BID 04/03/16 [History] Aspirin Enteric Coated [Aspirin EC] 81 mg PO DAILY 10/04/16 [History] Ipratropium/Albuterol Neb [Duoneb] 3 ml IH Q6HR PRN 10/04/16 [History] Ondansetron ODT [Zofran ODT] 4 mg SL Q8HR PRN #10 tab.rapdis 08/26/17 [Rx] metFORMIN [Glucophage] 1,000 mg PO BIDWM #90 tab 11/08/16 [Rx] Levothyroxine Sodium [Levo-T] 350 mcg PO QAM #60 tablet 11/10/16 [Rx] Loratadine [Allergy Relief] 10 mg PO DAILY #60 11/10/16 [Rx] ALPRAZolam [Xanax 0.5 MG Tablet] 0.5 mg PO BID PRN 01/27/17 [History] Atorvastatin Calcium [Lipitor] 20 mg PO HS 01/27/17 [History] Cyanocobalamin (Vitamin B-12) [Vitamin B12] 1,000 mcg PO TH 01/27/17 [History] Docusate [Colace] 100 mg PO BID PRN 01/27/17 [History] Insulin Regular U-500 [HumuLIN R U-500] 0 unit SQ TID MDD See Comment. [History] Mometasone Furoate [Asmanex] 2 puff IH BID 01/27/17 [History] acetaZOLAMIDE [Diamox] 250 mg PO DAILY 01/27/17 [History] Sodium Hypochlorite 0.25% [Dakin's (Half-Strength 0.25%)] 1 appl TP BID #1 bottle 01/30/17 [Rx] BuPROPion [Wellbutrin] 100 mg PO DAILY 04/10/17 [History] Fluticasone Propionate [Flovent Hfa] 1 puff IH BID 04/10/17 [History] Gabapentin [Neurontin] 600 mg PO TID 04/10/17 [History] Mupirocin [Bactroban Oint] 1 appl TP BID PRN 04/10/17 [History] Nystatin POWDER [Nystop] 1 appl TP TID PRN 04/10/17 [History] Silver Sulfadiazine [Silvadene] 1 appl TP BID PRN 04/10/17 [History] cefTRIAXone [Rocephin] 2,000 mg IVPB DAILY 7 Days #7 vial 04/14/17 [Rx] OxyCODONE Immed Rel [Roxicodone 20 MG] 20 mg PO Q4HR PRN 2 Days #7 tablet [Rx] Allergies/Adverse Reactions: 3 Allergy/AdvReac Type Severity Reaction Status Date / Time Penicillins Allergy Rash Verified 01/27/16 09:52 Tetracycline Allergy Rash Verified 01/27/16 09:52 Date of admission: 04/10/17 16:48 Primary care physician: Luís Tavares DO Consults: 04/10/17 18:21 Consult to Wound Care [CONS] Routine Reason for Consult: 2 open wounds on abdominal area. Look like stage 2-3 Call Completed: No 04/14/17 15:59 Consult to Carton Forming Machine Helper [CONS] Routine Reason for SW Consult: Discharge to SNF for IV abx; Anish already working on Discharging clinician: Clarence Real Anticipated date of discharge: 04/15/17 - Patient Status Disposition: Home Health Service Condition: Good Functional capacity at discharge: uses cane/walker Overall status at discharge: patient is progressing back to baseline - Discharge Instructions Instructions: Acute Respiratory Distress Syndrome (DC), Cellulitis (DC), Pneumonia (DC) Follow Up With: Luís Tavares DO [Primary Care Provider] - 04/21/17 3:00 pm (will see dr Nova castro ) Additional Instructions: 1. Follow-up with your primary care provider in the next 3-5 days 2. Take all prescriptions as prescribed, any concerns or questions contact her primary care provider. 3. Return to the emergency department if: Her skin erythema, edema, new fevers , chills nausea vomiting or any other concerning medical symptoms or signs. - Diet and Activity Activity: increase activity as tolerated Diet: diabetic diet, low fat, low cholesterol, low salt diet Interval History: Miss Cat 46-year-old female significant past medical history of endometrial cancer, super morbid obesity, limited mobility, uncontrolled type 2 diabetes, NESHA, obesity hypoventilation syndrome, chronic abdominal wound dehiscence presented to emergency department after evaluation with panniculitis , cellulitis of the abdomen and discharge from her chronic abdominal wound. She is admitted to the general medical floor placed on broad-spectrum antibiotics placed in isolation with her history of MRSA. Wound cultures blood cultures and urine culture were collected. She remained stable throughout her inpatient stay and her chronic medical conditions were addressed. Her abdominal wound grew Proteus Mirabilis, group C streptococcus sensitive to ceftriaxone. Urine culture grew Proteus Mirabilis and Escherichia coli. Her antibiotics are weaned down to ceftriaxone demonstrating improvement in her cellulitis and symptoms. She continued antibiotic therapy demonstrate clinical improvement. She is seen and evaluated on 04/15/2017 deemed stable for discharge with home health continued IV antibiotics for a total of 7 days post discharge follow-up therapy primary care provider. Patient was agreeable to this plan. Hospital course: Ms. Cat is a 46 year old female - Time Spent with Patient Total time spent providing and/or coordinating discharge services: - Constitutional Vitals: Temp Pulse Resp BP Pulse Ox 97.6 F 80 16 130/68 99 04/15/17 07:38 04/15/17 07:38 04/15/17 07:38 04/15/17 07:38 04/15/17 07:38 General appearance: Present: A&O X 3, answers questions appropriately <Rupesh Skaggs P - Last Filed: 04/15/17 14:15> Date of Encounter: 04/15/17 Date of admission: 04/10/17 16:48 Primary care physician: Luís Tavares, Consults: 04/10/17 18:21 Consult to Wound Care [CONS] Routine Reason for Consult: 2 open wounds on abdominal area. Look like stage 2-3 Call Completed: No 04/14/17 15:59 Consult to Carton Forming Machine Helper [CONS] Routine Reason for SW Consult: Discharge to SNF for IV abx; Anish already working on Hospital course: Ms. Cat is a 46 year old female - Time Spent with Patient Total time spent providing and/or coordinating discharge services: - Constitutional Vitals: Temp Pulse Resp BP Pulse Ox 97.6 F 80 18 130/68 98 04/15/17 07:38 04/15/17 07:38 04/15/17 11:38 04/15/17 07:38 04/15/17 11:38 - Attending Attestation I examined this patient and my medical decision-making was reviewed with the Resident Physician. I agree with the documented findings, disposition and treatment plan as described except to the extent set forth below. follow with PCP Home health home infusion : Abx as prescribed
[2017-04-15] MEDS: Beclomethasone 80mcg MDI IH SCH (10:30)
[2017-04-15] MEDS: cefTRIAXone 2,000 MG in Water for inj. (sterile) 20 ML IVP SCH (11:23)
--- NOTE | 2017-04-15 11:33 | Physician Discharge Referral ---
<Clarence Real - Last Filed: 04/15/17 11:31> Home Health/Hosp Referral Info Transfer to: Home Health Provider in Charge Post Discharge: PCP - Diagnosis (1) Severe sepsis Priority: Primary Status: Resolved (2) Chronic abdominal wound infection Priority: Primary Status: Chronic (3) Diabetes mellitus type 2 with complications Priority: Secondary Status: Chronic (4) Obstructive sleep apnea Priority: Secondary Status: Chronic (5) Morbid obesity with BMI of 70 and over, adult Priority: Secondary Status: Chronic (6) Obesity hypoventilation syndrome Priority: Secondary Status: Chronic (7) Cellulitis, abdominal wall Priority: Primary Status: Acute (8) Bladder spasms Priority: Secondary Status: Acute (9) UTI (urinary tract infection) Priority: Primary Status: Chronic (10) DVT prophylaxis Priority: Secondary Status: Acute - Respiratory Orders Smoking Cessation: Smoking cessation has been advised. For more information, call the [place] [employer] Quit Line at 3-840-RDMT-NOW. - Diet/Nutrition Diet/Nutrition Orders: Cardiac - Activity Activity Orders: Ambulate, Walker - Services Needed Following services are medically necessary services: Nursing, Home Health Aide, Physical Therapy, Occupational Therapy, Med Social Work, Home Infusion - Transfer Medications Prescriptions: OxyCODONE Immed Rel [Roxicodone 20 MG] 20 mg PO Q4HR PRN 2 Days #7 tablet PRN Reason: Pain cefTRIAXone [Rocephin] 2,000 mg IVPB DAILY 7 Days #7 vial Home Medications: Ranitidine HCl [Acid Professor Of Pathology] 150 mg PO BID 04/03/16 [History] Aspirin Enteric Coated [Aspirin EC] 81 mg PO DAILY 10/04/16 [History] Ipratropium/Albuterol Neb [Duoneb] 3 ml IH Q6HR PRN 10/04/16 [History] Ondansetron ODT [Zofran ODT] 4 mg SL Q8HR PRN #10 tab.rapdis 11/08/16 [Rx] metFORMIN [Glucophage] 1,000 mg PO BIDWM #90 tab 11/08/16 [Rx] Levothyroxine Sodium [Levo-T] 350 mcg PO QAM #60 tablet 11/10/16 [Rx] Loratadine [Allergy Relief] 10 mg PO DAILY #60 11/10/16 [Rx] ALPRAZolam [Xanax 0.5 MG Tablet] 0.5 mg PO BID PRN 01/27/17 [History] Atorvastatin Calcium [Lipitor] 20 mg PO HS 01/27/17 [History] Cyanocobalamin (Vitamin B-12) [Vitamin B12] 1,000 mcg PO TH 01/27/17 [History] Docusate [Colace] 100 mg PO BID PRN 01/27/17 [History] Insulin Regular U-500 [HumuLIN R U-500] 0 unit SQ TID MDD See Comment. [History] Mometasone Furoate [Asmanex] 2 puff IH BID 01/27/17 [History] acetaZOLAMIDE [Diamox] 250 mg PO DAILY 01/27/17 [History] Sodium Hypochlorite 0.25% [Dakin's (Half-Strength 0.25%)] 1 appl TP BID #1 bottle 01/30/17 [Rx] BuPROPion [Wellbutrin] 100 mg PO DAILY 04/10/17 [History] Fluticasone Propionate [Flovent Hfa] 1 puff IH BID 04/10/17 [History] Gabapentin [Neurontin] 600 mg PO TID 04/10/17 [History] Mupirocin [Bactroban Oint] 1 appl TP BID PRN 04/10/17 [History] Nystatin POWDER [Nystop] 1 appl TP TID PRN 04/10/17 [History] Silver Sulfadiazine [Silvadene] 1 appl TP BID PRN 04/10/17 [History] cefTRIAXone [Rocephin] 2,000 mg IVPB DAILY 7 Days #7 vial 04/14/17 [Rx] OxyCODONE Immed Rel [Roxicodone 20 MG] 20 mg PO Q4HR PRN 2 Days #7 tablet [Rx] Allergies/Adverse Reactions: 3 Allergy/AdvReac Type Severity Reaction Status Date / Time Penicillins Allergy Rash Verified 01/27/16 09:52 Tetracycline Allergy Rash Verified 01/27/16 09:52 Certification: Further, I certify that my clinical findings support that this patient is homebound (i.e. absences from home require considerable and taxing effort and are for medical reasons or jainism services or infrequently or short duration when for other reasons) because: Homebound Reason: Patient requires assistance of a person or device to safely leave home, Leaving home requires considerable and taxing effort due to condition Attestation: My signature below is to certify that this patient is under my care and that I, or nurse practitioner, or a physician's endodontic assistant working with me, has a face-to -face encounter with this patient. <Rupesh Skaggs P - Last Filed: 04/15/17 14:14> - Respiratory Orders Smoking Cessation: Smoking cessation has been advised. For more information, call the [place] [employer] Quit Line at 7-177-ZVFY-NOW. Certification: Further, I certify that my clinical findings support that this patient is homebound (i.e. absences from home require considerable and taxing effort and are for medical reasons or jainism services or infrequently or short duration when for other reasons) because: Attestation: My signature below is to certify that this patient is under my care and that I, or nurse practitioner, or a physician's endodontic assistant working with me, has a face-to -face encounter with this patient.
[2017-04-15] MEDS ORDERED: FLUARIX QUAD 2017-18 36MOS UP/PF 0.5 ML SYRINGE IM ONE (12:23)
[2017-04-16] MEDS ORDERED: Cyanocobalamin (B-12) 1,000 MCG TABLET PO SCH (16:28)
== END 2017-04-15 13:26 | disposition home health service (06) | DRG 720 ==
LOC: 2NENU 13:55 → EMEROO 13:55 → SUATTDRO 16:48 → 2NENU 17:05
PROVIDERS: ADMIT Internal Medicine; ATTEND Internal Medicine

== ENCOUNTER 2017-04-16 17:19 | Inpatient (IN) ==
--- NOTE | 2017-04-16 17:41 | Emergency Department Note ---
START Narrative - START START: I examined this patient and my medical decision-making was reviewed with the Resident Physician. I agree with the documented findings, disposition and treatment plan as described except to the extent set forth below. 46-year-old female presents to the ER for worsening panniculitis. Patient was just in the hospital yesterday and was sent home on 2 g Rocephin daily through a PICC line. Apparently she did not want to stay in the hospital any longer and wanted to go home. Now she bounces back as she is worried about her infection worsening in her abdomen. Patient will be restarted on antibiotics and be readmitted to the hospital.
[2017-04-16] MEDS ORDERED: 0.9 % Sodium Chloride 1,000 ML IVC ONE (17:59)
[2017-04-16] MEDS ORDERED: Vancomycin 1,000 MG in D5% in Water 250 ML IVPB ONE (17:59)
--- NOTE | 2017-04-16 18:04 | Emergency Department Note ---
Disposition Clinical Impression: Panniculitis Disposition: Still a Patient Condition: Fair Referrals: Luís Tavares DO [Primary Care Provider] - Forms: ED Satisfaction Letter Time of Disposition: 19:04 General Adult HPI - General Chief complaint: ED Dizziness Stated complaint: Dizziness/Dc'd 04-15/Cellulitis Time Seen by Provider: 04/16/17 17:32 Source: EMS Mode of arrival: EMS Limitations: no limitations Nursing Notes Reviewed: Yes Vital Signs Reviewed: Yes - History of Present Illness HPI Narrative: 46-year-old female after recent discharge AMA, presents returning for panniculitis, abdominal wounds she left AMA from the hospital service earliert had been discharged AGAINST MEDICAL ADVICE yesterday, with a PICC line in her left before meals, the patient was even Rocephin to cover for group C streptococcus as well as Proteus that was sensitive to cephalosporins on sensitivities, records review. Patient reports worsening pain 8 out of 10 in her abdomen, she states she has had low-grade fevers, is worried about her infection getting worse. When to come back in the ER for reevaluation. Onset (ago): hour(s) Pain Severity: severe Pain Scale: 10 Quality: burning, aching Improves with: nothing Worsens with: movement Associated symptoms: Reports: loss of appetite, nausea/vomiting. Denies: confusion, chest pain, cough, diaphoresis - Related Data Home Medications Medication Instructions Recorded Confirmed Ranitidine HCl [Acid Home Care Provider] 150 mg PO BID 04/03/16 04/10/17 Aspirin Enteric Coated [Aspirin EC] 81 mg PO DAILY 10/04/16 04/10/17 Ipratropium/Albuterol Neb [Duoneb] 3 ml IH Q6HR PRN 10/04/16 04/10/17 ALPRAZolam [Xanax 0.5 MG Tablet] 0.5 mg PO BID PRN 01/27/17 04/10/17 Atorvastatin Calcium [Lipitor] 20 mg PO HS 01/27/17 04/10/17 Cyanocobalamin (Vitamin B-12) 1,000 mcg PO TH 01/27/17 04/10/17 [Vitamin B12] Docusate [Colace] 100 mg PO BID PRN 01/27/17 04/10/17 Insulin Regular U-500 [HumuLIN R 0 unit SQ TID MDD See Comment. 01/27/17 U-500] Mometasone Furoate [Asmanex] 2 puff IH BID 01/27/17 04/10/17 acetaZOLAMIDE [Diamox] 250 mg PO DAILY 01/27/17 04/10/17 BuPROPion [Wellbutrin] 100 mg PO DAILY 04/10/17 04/10/17 Fluticasone Propionate [Flovent 1 puff IH BID 04/10/17 04/10/17 Hfa] Gabapentin [Neurontin] 600 mg PO TID 04/10/17 04/10/17 Mupirocin [Bactroban Oint] 1 appl TP BID PRN 04/10/17 04/10/17 Nystatin POWDER [Nystop] 1 appl TP TID PRN 04/10/17 04/10/17 Silver Sulfadiazine [Silvadene] 1 appl TP BID PRN 04/10/17 04/10/17 Previous Rx's Medication Instructions Recorded Ondansetron ODT [Zofran ODT] 4 mg SL Q8HR PRN #10 tab.rapdis 11/08/16 metFORMIN [Glucophage] 1,000 mg PO BIDWM #90 tab 11/08/16 Levothyroxine Sodium [Levo-T] 350 mcg PO QAM #60 tablet 11/10/16 Loratadine [Allergy Relief] 10 mg PO DAILY #60 11/10/16 Sodium Hypochlorite 0.25% [Dakin's 1 appl TP BID #1 bottle 01/30/17 (Half-Strength 0.25%)] cefTRIAXone [Rocephin] 2,000 mg IVPB DAILY 7 Days #7 vial 04/14/17 OxyCODONE Immed Rel [Roxicodone 20 20 mg PO Q4HR PRN 2 Days #7 tablet 04/15/17 MG] Allergies Allergy/AdvReac Type Severity Reaction Status Date / Time Penicillins Allergy Rash Verified 01/27/16 09:52 Tetracycline Allergy Rash Verified 01/27/16 09:52 All systems ED: reviewed and negative except as stated. Review of Systems: As Per HPI Constitutional: Reports: fever, chills Eyes: Denies: eye pain, eye discharge ENT ED: Denies: ear pain Cardiovascular: Denies: chest pain, palpitations Respiratory: Denies: cough, dyspnea Gastrointestinal: Reports: as per HPI, abdominal pain, nausea Genitourinary: Denies: urgency, dysuria Musculoskeletal: Denies: back pain Integumentary: Reports: as per HPI, lesions. Denies: rash, abrasion Neurological: Denies: headache Past Medical History - Past Medical History Attestation: Yes The following information was validated with the patient. Source: patient Medical history: Reports: asthma, cancer, COPD, CVA, diabetes, thyroid disease Surgical history: Reports: thyroidectomy Psychiatric history: Reports: anxiety, depression - Social History Smoking Status: Current every day smoker Smokeless Tobacco Status: No Alcohol use: Reports: none Drug use: Reports: none Physical Exam Constitutional: Super morbidly obese middle-aged female in mild distress complaining of abdominal pain with stable vital signs Eyes: PERRLA, sclera anicteric ENT & Mouth: MMM Neck: normal inspection, neck is supple Resp: CTA bilaterally, no resp distress CV: RRR, no m/g/r GI: normal inspection, severely obese abdomen with panniculitis, erythematous wounds in her abdomen that appear excoriated with some purulent drainage or fluctuance, some cellulitis and streaking otherwise her abdomen is nontender Smeal on exam with normal bowel sounds Neuro: A&O3, CNII-XII grossly intact, COOPER Skin: Erythematous skin with streaking around pannus and throughout the lower abdomen. - General Limitations: no limitations General appearance: alert Course Course Narrative: 46-year-old female with panniculitis, cellulitis, was admitted for severe sepsis a week ago, left AMA yesterday, PICC line in [facility] ordered, patient returns today, will repeat lab work lactated blood cultures plan for antibiotics and readmission. Vital Signs Temperature 97.9 F 04/16/17 17:24 Pulse Rate 79 04/16/17 17:24 Respiratory Rate 22 04/16/17 17:24 Blood Pressure 152/88 04/16/17 17:24 O2 Sat by Pulse Oximetry 95 04/16/17 17:24 Temperature 97.9 F 04/16/17 17:24 Pulse Rate 79 04/16/17 17:24 Respiratory Rate 22 04/16/17 17:24 Blood Pressure 152/88 04/16/17 17:24 O2 Sat by Pulse Oximetry 95 02/01/18 17:24 Oxygen Delivery Oxygen Delivery Room Air Dhaval - Dhaval Transition of Care: Pending lab work, likely remission. Situation: Demographics, MOA Background: Presenting Complaint, Relevant PMH, Meds, & Allergies Assessment: Vital Signs, Course and respsone to treatment, Exam Concerns, Patient/Family Expectation, Pertinant Lab Results, Outstanding Labs Recommendation: Barrier(s) to disposition, Recommendation based on pending studies, treatments, or consults Dhaval Report Given to: Jasmeet Puentes Repor Time: 19:03
[2017-04-16] MEDS ORDERED: *HR* FentaNYL (PF) 100 MCG/2 ML VIAL IVP ONE (18:08)
[2017-04-16] MEDS ORDERED: *HR* FentaNYL (PF) 100 MCG/2 ML VIAL ONE (18:10)
[2017-04-16] MEDS ORDERED: cefTRIAXone 1,000 MG in Water for inj. (sterile) 10 ML IVP ONE (18:15)
[2017-04-16 18:44] LABS: Basophils # 0.1 K/mcL (0.0-0.2); Basophils % 1.1 %; Eosinophils # 0.3 K/mcL (0.0-0.6); Eosinophils % 3.2 %; Hematocrit 40.2 % (35.3-44.9); Immature Granulocytes % 6.3 % (0-4); Lymphocytes # 1.6 K/mcL (0.6-4.6); Lymphocytes % 16.7 %; Mean Corpuscular HGB Conc 31.1 g/dL (31.6-35.5); Mean Corpuscular Hemoglobin 28.2 pg (28.0-33.3); Mean Corpuscular Volume 90.7 fL (83.0-100.0); Mean Platelet Volume 10.3 fL (9.4-12.4); Monocytes # 0.5 K/mcL (0.0-1.3); Monocytes % 4.9 %; Neutrophils # 6.4 K/mcL (1.6-8.9); Nucleated Red Blood Cells 0.2 /100 WBC (0); Platelet Count 306 K/mcL (140-400); Red Blood Count 4.43 M/mcL (3.82-4.97); Red Cell Distribution Width 15.4 % (11.5-14.5); Segmented Neutrophils % 67.8 %
[2017-04-16 19:02] LABS: BUN/Creatinine Ratio 25 (6-26); Blood Urea Nitrogen 14 mg/dL (6-20); Carbon Dioxide 25 mEq/L (23-29); Chloride 102 mEq/L (98-107); Glucose 413 mg/dL (70-105); Osmolality,Calculated 300 (280-300); Potassium 3.9 mEq/L (3.5-5.1); Sodium 136 mEq/L (136-145); eGFR For African Americans > 60 (> 60); eGFR For Non-African Americans > 60 (> 60)
[2017-04-16 19:03] LABS: Albumin 3.4 g/dL (3.5-5.7); Albumin/Globulin Ratio 0.9 (1.1-2.2); Bilirubin,Direct 0.1 mg/dL (0.0-0.2); Bilirubin,Indirect 0.2 mg/dL (0.0-1.2); Bilirubin,Total 0.3 mg/dL (0.3-1.0); Globulin 3.6 g/dL (2.4-3.5)
[2017-04-16 19:09] LABS: Hemoglobin 12.5 g/dL (11.5-15.4)
[2017-04-16 19:20] LABS: Reactive Lymphocytes Present (Not Present)
--- NOTE | 2017-04-16 19:46 | Emergency Department Note ---
Disposition Clinical Impression: Panniculitis, Dizziness Disposition: Admitted As Inpatient Condition: Good General Adult HPI - General Chief complaint: ED Dizziness Stated complaint: Dizziness/Dc'd 04-15/Cellulitis Time Seen by Provider: 04/16/17 17:32 Source: EMS Mode of arrival: EMS Limitations: no limitations - History of Present Illness Pain Scale: 10 Quality: burning, aching Improves with: nothing Worsens with: movement Associated symptoms: Reports: loss of appetite, nausea/vomiting. Denies: confusion, chest pain, cough, diaphoresis - Related Data Home Medications Medication Instructions Recorded Confirmed Ranitidine HCl [Acid [employer]] 150 mg PO BID 04/03/16 04/16/17 Aspirin Enteric Coated [Aspirin EC] 81 mg PO DAILY 10/04/16 04/16/17 Ipratropium/Albuterol Neb [Duoneb] 3 ml IH Q6HR PRN 10/04/16 04/16/17 ALPRAZolam [Xanax 0.5 MG Tablet] 0.5 mg PO BID PRN 01/27/17 04/16/17 Atorvastatin Calcium [Lipitor] 20 mg PO HS 01/27/17 04/16/17 Cyanocobalamin (Vitamin B-12) 1,000 mcg PO TH 01/27/17 04/16/17 [Vitamin B12] Docusate [Colace] 100 mg PO BID PRN 01/27/17 04/16/17 Insulin Regular U-500 [HumuLIN R 0 unit SQ TID MDD See Comment. 01/27/17 U-500] Mometasone Furoate [Asmanex] 2 puff IH BID 01/27/17 04/16/17 acetaZOLAMIDE [Diamox] 250 mg PO DAILY 01/27/17 04/16/17 BuPROPion [Wellbutrin] 100 mg PO DAILY 04/10/17 04/16/17 Fluticasone Propionate [Flovent 1 puff IH BID 04/10/17 04/16/17 Hfa] Gabapentin [Neurontin] 600 mg PO TID 04/10/17 04/16/17 Mupirocin [Bactroban Oint] 1 appl TP BID PRN 04/10/17 04/16/17 Nystatin POWDER [Nystop] 1 appl TP TID PRN 04/10/17 04/16/17 Silver Sulfadiazine [Silvadene] 1 appl TP BID PRN 04/10/17 04/16/17 Previous Rx's Medication Instructions Recorded Ondansetron ODT [Zofran ODT] 4 mg SL Q8HR PRN #10 tab.rapdis 11/08/16 metFORMIN [Glucophage] 1,000 mg PO BIDWM #90 tab 11/08/16 Levothyroxine Sodium [Levo-T] 350 mcg PO QAM #60 tablet 11/10/16 Loratadine [Allergy Relief] 10 mg PO DAILY #60 11/10/16 Sodium Hypochlorite 0.25% [Dakin's 1 appl TP BID #1 bottle 01/30/17 (Half-Strength 0.25%)] cefTRIAXone [Rocephin] 2,000 mg IVPB DAILY 7 Days #7 vial 04/14/17 OxyCODONE Immed Rel [Roxicodone 20 20 mg PO Q4HR PRN 2 Days #7 tablet 04/15/17 MG] Ceftriaxone Sodium [Ceftriaxone] 2 gm IV DAILY 7 Days #7 vial.port 04/19/17 Allergies Allergy/AdvReac Type Severity Reaction Status Date / Time Penicillins Allergy Rash Verified 01/27/16 09:52 Tetracycline Allergy Rash Verified 01/27/16 09:52 Constitutional: Reports: fever, chills Eyes: Denies: eye pain, eye discharge ENT ED: Denies: ear pain Cardiovascular: Denies: chest pain, palpitations Respiratory: Denies: cough, dyspnea Gastrointestinal: Reports: as per HPI, abdominal pain, nausea Genitourinary: Denies: urgency, dysuria Musculoskeletal: Denies: back pain Integumentary: Reports: as per HPI, lesions. Denies: rash, abrasion Neurological: Denies: headache Past Medical History - Past Medical History Medical history: Reports: asthma, cancer, COPD, CVA, diabetes, thyroid disease Surgical history: Reports: thyroidectomy Psychiatric history: Reports: anxiety, depression - Social History Smoking Status: Current every day smoker Smokeless Tobacco Status: No Alcohol use: Reports: none Drug use: Reports: none Physical Exam - General Limitations: no limitations General appearance: alert Course Course Narrative: Patient signed out from dayshift team pending final labs and final disposition. In brief she is a morbidly obese 46-year-old female who was just discharged from the hospital yesterday after a prolonged course of antibiotics for abdominal wall cellulitis. She went home but she started to feel worse in terms of dizziness and weakness. She was sent home with a PICC line to be placed on Rocephin. She denies any fevers. No nausea vomiting or diarrhea. - Reevaluation(s) Reevaluation #1: Labs reviewed. Patient's antibiotics were escalated by the previous team to include vancomycin and Rocephin. I reviewed her prior culture showing positive for Proteus as well as group C that were sensitive to Rocephin. She is hemodynamically stable. She is admitted to the hospitalist service for panniculitis Vital Signs Temperature 97.9 F 04/16/17 17:24 Pulse Rate 79 04/16/17 17:24 Respiratory Rate 22 04/16/17 17:24 Blood Pressure 152/88 04/16/17 17:24 O2 Sat by Pulse Oximetry 95 04/16/17 17:24 Temperature 98.0 F 04/19/17 08:22 Pulse Rate 79 04/19/17 08:22 Respiratory Rate 16 04/19/17 08:22 Blood Pressure 134/71 04/19/17 08:22 O2 Sat by Pulse Oximetry 94 04/19/17 09:05 Oxygen Delivery Oxygen Delivery Room Air Medical Decision Making - MDM Narrative Medical decision making narrative: 46-year-old morbidly obese female with diabetes who presents to the ER due to panniculitis. Recently admitted and on IV antibiotics at home via a PICC line. Reported worsening symptoms so came again today. She was signed out from the dayshift team pending the results of her labs. Her labs are reviewed with no acute derangements. She is noted to have panniculitis over the left mid and lower abdomen with a wound there. Previous cultures reviewed. Antibiotics administered by prior team of vancomycin and Rocephin. She is admitted to the hospitalist service for panniculitis. - Lab Data Lab results reviewed: Yes I reviewed the patient's lab results. Result diagrams: 04/18/17 05:54 04/18/17 05:54 Lab Results 04/16/17 04/16/17 04/16/17 Range/Units 18:35 18:35 18:35 WBC 9.4 D (4.3-11.1) K/mcL RBC 4.43 (3.82-4.97) M/mcL Hgb 12.5 D (11.5-15.4) g/dL Hct 40.2 (35.3-44.9) % MCV 90.7 (83.0-100.0) fL MCH 28.2 (28.0-33.3) pg MCHC 31.1 L (31.6-35.5) g/dL RDW 15.4 H (11.5-14.5) % Plt Count 306 D (140-400) K/mcL MPV 10.3 (9.4-12.4) fL Immature Gran % 6.3 H (0-4) % Seg Neutrophils % 67.8 % Lymphocytes % 16.7 % Monocytes % 4.9 % Eosinophils % 3.2 % Basophils % 1.1 % Neutrophils # 6.4 (1.6-8.9) K/mcL Lymphocytes # 1.6 (0.6-4.6) K/mcL Monocytes # 0.5 (0.0-1.3) K/mcL Eosinophils # 0.3 (0.0-0.6) K/mcL Basophils # 0.1 (0.0-0.2) K/mcL Nucleated RBCs/100 WBC 0.2 H (0) /100 WBC Reactive Lymphocytes Present A (Not Present) Sodium 136 (136-145) mEq/L Potassium 3.9 (3.5-5.1) mEq/L Chloride 102 (98-107) mEq/L Carbon Dioxide 25 (23-29) mEq/L BUN 14 (6-20) mg/dL Creatinine 0.55 L (0.60-1.20) mg/dL Est GFR ( Amer) > 60 (> 60) Est GFR (Non-Af Amer) > 60 (> 60) BUN/Creatinine Ratio 25 (6-26) Glucose 413 H (70-105) mg/dL Calculated Osmolality 300 (280-300) Lactic Acid 1.2 (0.5-2.2) mmol/L Calcium 9.0 (8.6-10.3) mg/dL Total Bilirubin (0.3-1.0) mg/dL Direct Bilirubin (0.0-0.2) mg/dL Indirect Bilirubin (0.0-1.2) mg/dL AST (13-39) Units/L ALT (7-52) Units/L Alkaline Phosphatase (34-104) Units/L Troponin I (< 0.04) ng/mL Serum Total Protein (6.4-8.9) g/dL Albumin (3.5-5.7) g/dL Globulin (2.4-3.5) g/dL Albumin/Globulin Ratio (1.1-2.2) Lipase (11-82) Units/L 04/16/17 04/16/17 Range/Units 18:35 18:35 WBC (4.3-11.1) K/mcL RBC (3.82-4.97) M/mcL Hgb (11.5-15.4) g/dL Hct (35.3-44.9) % MCV (83.0-100.0) fL MCH (28.0-33.3) pg MCHC (31.6-35.5) g/dL RDW (11.5-14.5) % Plt Count (140-400) K/mcL MPV (9.4-12.4) fL Immature Gran % (0-4) % Seg Neutrophils % % Lymphocytes % % Monocytes % % Eosinophils % % Basophils % % Neutrophils # (1.6-8.9) K/mcL Lymphocytes # (0.6-4.6) K/mcL Monocytes # (0.0-1.3) K/mcL Eosinophils # (0.0-0.6) K/mcL Basophils # (0.0-0.2) K/mcL Nucleated RBCs/100 WBC (0) /100 WBC Reactive Lymphocytes (Not Present) Sodium (136-145) mEq/L Potassium (3.5-5.1) mEq/L Chloride (98-107) mEq/L Carbon Dioxide (23-29) mEq/L BUN (6-20) mg/dL Creatinine (0.60-1.20) mg/dL Est GFR ( Amer) (> 60) Est GFR (Non-Af Amer) (> 60) BUN/Creatinine Ratio (6-26) Glucose (70-105) mg/dL Calculated Osmolality (280-300) Lactic Acid (0.5-2.2) mmol/L Calcium (8.6-10.3) mg/dL Total Bilirubin 0.3 (0.3-1.0) mg/dL Direct Bilirubin 0.1 (0.0-0.2) mg/dL Indirect Bilirubin 0.2 (0.0-1.2) mg/dL AST 11 L (13-39) Units/L ALT 12 (7-52) Units/L Alkaline Phosphatase 147 H (34-104) Units/L Troponin I < 0.03 (< 0.04) ng/mL Serum Total Protein 7.0 (6.4-8.9) g/dL Albumin 3.4 L (3.5-5.7) g/dL Globulin 3.6 H (2.4-3.5) g/dL Albumin/Globulin Ratio 0.9 L (1.1-2.2) Lipase 28 (11-82) Units/L S.B.A.R. - S.B.A.R. Situation: Demographics, MOA Background: Presenting Complaint, Relevant PMH, Meds, & Allergies Assessment: Course and respsone to treatment, Exam Concerns, Patient/Family Expectation, Pertinant Lab Results Recommendation: Barrier(s) to disposition, Recommendation based on pending studies, treatments, or consults S.B.A.RRafael Report Given to: Dr. Rommel CalleBDenise Repor Time: 20:25 Attestation Statement - Attestation Attestation: I, Damaso Diaz MD, personally evaluated this patient and discussed their management with the resident physician. I reviewed the resident's note and agree with the documented findings, medical decision making, and plan of care. This patient was signed out at shift change from Dr. Brown and Dr. Rudd. Please refer to their notes for complete details of the history and physical examination. Patient has been in the hospital for the past 7 days for cellulitis of her abdominal wall and panniculitis. She apparently left yesterday AMA and was to receive IV Rocephin at home through a PICC line. Patient returns today complaining of increased pain and redness of the abdominal wall and states that she is just unable to tolerate being at home. No fever today. On examination patient is a morbidly obese female in no acute distress. She is alert and oriented. No cyanosis or diaphoresis. Breath sounds are equal bilaterally. Heart regular. Abdomen is soft. There is marked erythema of the entire lower abdominal wall, worse on the right. Marked tenderness of this area. Labs reviewed. The hospitalist, Dr. Carney, was consulted and accepted admission of the patient.
[2017-04-16] MEDS ORDERED: Naloxone 0.4 MG/ML INJ IVP PRN (21:27)
[2017-04-16] MEDS ORDERED: Ibuprofen 400 MG TABLET PO PRN (21:27)
[2017-04-16] MEDS ORDERED: Acetaminophen 325 MG TABLET PO PRN (21:27)
[2017-04-16] MEDS ORDERED: Dextrose Gel 15 GM/37.5 ML TUBE PO PRN ×2 (21:34)
[2017-04-16] MEDS ORDERED: *HR* Dextrose 50 % in Water (Syg) 50 ML SYRINGE IVP PRN (21:34)
[2017-04-16] MEDS ORDERED: D5% in Water 1,000 ML IVC PRN (21:34)
[2017-04-16] MEDS ORDERED: Ipratropium/Albuterol Neb 3 ML IH PRN (21:35)
[2017-04-16] MEDS ORDERED: Nystatin POWDER 30 GM BOTTLE TP PRN (21:35)
[2017-04-16] MEDS ORDERED: Insulin LISPRO 300 UNITS/3 ML VIAL SQ SCH (21:45)
--- NOTE | 2017-04-16 22:03 | Internal Med History&Physical ---
<Esteban Mancera - Last Filed: 04/16/17 23:33> Date of Encounter: 04/16/17 Time of Encounter: 21:59 Assessment and Plan (1) Panniculitis Current visit: Yes Status: Acute Panniculitis wtih cellulitis, on IV antibiotics Patient has severe infection for which she was discharged with PICC and IV Rocephin She was unable to tolerate pain or home treatment, and was feeling worse She does not appear to have systemic infection/sepsis at this time Vitals are stable, WBC count is WNL however elevated immature neutrophils We will continue IV Rocephin (2) Diabetes mellitus type 2 with complications Current visit: Yes Status: Chronic Insulin Dependent Diabetes Mellitus Type 2 under very poor control, glucose 413 The patient claims she was unable to use insulin at home since time of discharge Severe hyperglycemia may play a role in the patient's worsening clinical status I will start the patient on basal and high dose SSI, hold PO DM meds Qualifiers: Diabetes mellitus senior care insulin use: with hot mix operator use Qualified Code( s): E11.8 - Type 2 diabetes mellitus with unspecified complications; Z79.4 - monument setter helper (current) use of insulin; Z79.4 - monument setter helper (current) use of insulin; Z79.4 - nursing home (current) use of insulin; Z79.4 - nursing home (current) use of insulin (3) Chronic wound of extremity Current visit: Yes Status: Chronic Chronic venous stasis ulcers on legs without apparent infection We will continue to clean and dress them as needed Wound care consult pending (4) Skin ulcer of abdomen Current visit: Yes Status: Chronic Chronic non-healing ulcer on the skin of suprapubic abdomen Wiliam says it is from prior surgical cancer intervention There is some draining but no apparent infection Wound care will be consulted Qualifiers: Non-pressure ulcer stage: limited to breakdown of skin Qualified Code(s): L98.491 - Non-pressure chronic ulcer of skin of other sites limited to breakdown of skin (5) Nausea Current visit: Yes Status: Acute Complaint of nausea and vomiting for one day We will provide zofran for control of nausea, protonix for GERD symptoms (6) UTI (urinary tract infection) Current visit: No Status: Suspected Acute cystitis on previous admission We will check UA and reculture to ensure that it has resolved Qualifiers: Urinary tract infection type: acute cystitis Hematuria presence: without hematuria Qualified Code(s): N30.00 - Acute cystitis without hematuria (7) Obstructive sleep apnea Current visit: No Status: Chronic Continue CPAP PRN (8) Super-super obese Current visit: Yes Status: Chronic Super-super obese, BMI 79.2 (9) DVT prophylaxis Current visit: Yes Status: Acute SQ heparin Internal Medicine - H&P: HPI Chief complaint: Weakness and dizziness Admitted From: Emergency Dept Plans for Post Hospital Care: Transfer Senior Living Facility History of present illness: Ms. Cat is a 46 year old female with history of COPD, previous CVA, thyroid disease status post thyroidectomy, and recent admission with discharge from the hospital yesterday for severe panniculitis with severe sepsis. The patient was admitted about a week ago due to a very severe abdominal cellulitis and panniculitis which was causing severe sepsis at that time and a UTI. She was treated with IV antibiotics and yesterday was discharged home with a PICC line for IV antibiotics from home health. She says that throughout the day today she is been feeling worse and worse, and has become increasingly weak and dizzy. She said that she is also becoming very nauseated, has not been able to hold any food down, and has been feeling increasing warmth from the site of her infection. Additionally, the patient says that she has developed severe pain in her abdomen where the infection is, saying that it goes anywhere from 6-10 out of 10. She denies chest pains, shortness of breath, urinary symptoms. During her last admission, wound cultures demonstrated group C strep and proteus mirabilis which were sensitive to Rocephin, and additionally had proteus mirabilis and e. coli in her urine. She says that since going home, she has not been able to give herself any insulin, and now her glucose is out of control. She has no other acute complaints. Past Med Surg Social Fam HX - Past Medical History Medical history: asthma, cancer, COPD, CVA, diabetes, thyroid disease Psychiatric history: anxiety, depression - Past Surgical History Surgical History: thyroidectomy - Social History Smoking Status: Current every day smoker Smokeless Tobacco Status: No Alcohol use: none Drug use: none - Family History Mother Hx Family Cardiac Disorders: Yes Hx Family Respiratory Disorders: Yes Hx Family Cancer: No Hx Family Endocrine Disorder: Yes Hx Family Neuromuscular Disorders: Yes Father Living Status: Hx Family Cardiac Disorders: Yes (HTN) Hx Family Respiratory Disorders: Yes (Sleep apnea) Internal Medicine - H&P: Meds Ranitidine HCl [Acid Corral Boss] 150 mg PO BID 04/03/16 [History] Aspirin Enteric Coated [Aspirin EC] 81 mg PO DAILY 10/04/16 [History] Ipratropium/Albuterol Neb [Duoneb] 3 ml IH Q6HR PRN 10/04/16 [History] Ondansetron ODT [Zofran ODT] 4 mg SL Q8HR PRN #10 tab.rapdis 11/08/16 [Rx] metFORMIN [Glucophage] 1,000 mg PO BIDWM #90 tab 11/08/16 [Rx] Levothyroxine Sodium [Levo-T] 350 mcg PO QAM #60 tablet 11/10/16 [Rx] Loratadine [Allergy Relief] 10 mg PO DAILY #60 11/10/16 [Rx] ALPRAZolam [Xanax 0.5 MG Tablet] 0.5 mg PO BID PRN 01/27/17 [History] Atorvastatin Calcium [Lipitor] 20 mg PO HS 01/27/17 [History] Cyanocobalamin (Vitamin B-12) [Vitamin B12] 1,000 mcg PO TH 01/27/17 [History] Docusate [Colace] 100 mg PO BID PRN 01/27/17 [History] Insulin Regular U-500 [HumuLIN R U-500] 0 unit SQ TID MDD See Comment. [History] Mometasone Furoate [Asmanex] 2 puff IH BID 01/27/17 [History] acetaZOLAMIDE [Diamox] 250 mg PO DAILY 01/27/17 [History] Sodium Hypochlorite 0.25% [Dakin's (Half-Strength 0.25%)] 1 appl TP BID #1 bottle 01/30/17 [Rx] BuPROPion [Wellbutrin] 100 mg PO DAILY 04/10/17 [History] Fluticasone Propionate [Flovent Hfa] 1 puff IH BID 04/10/17 [History] Gabapentin [Neurontin] 600 mg PO TID 04/10/17 [History] Mupirocin [Bactroban Oint] 1 appl TP BID PRN 04/10/17 [History] Nystatin POWDER [Nystop] 1 appl TP TID PRN 04/10/17 [History] Silver Sulfadiazine [Silvadene] 1 appl TP BID PRN 04/10/17 [History] cefTRIAXone [Rocephin] 2,000 mg IVPB DAILY 7 Days #7 vial 04/14/17 [Rx] OxyCODONE Immed Rel [Roxicodone 20 MG] 20 mg PO Q4HR PRN 2 Days #7 tablet [Rx] 3 Allergy/AdvReac Type Severity Reaction Status Date / Time Penicillins Allergy Rash Verified 01/27/16 09:52 Tetracycline Allergy Rash Verified 01/27/16 09:52 All Systems PM: A 10-system review of systems was performed and is negative for pertinent findings except as documented above in the HPI. Review of systems: Constitutional: Denies weight loss. Admits to subjective fevers, chills, and general fatigue/lightheadedness Head/Neck: Denies GREER, neck stiffness EENT: Denies vision changes/blurriness, rhinorrhea, congestion, sore throat CVS: Denies chest pain, palpitations, LIU above baseline, orthopnea, PND Pulm: Denies SOB, cough, sputum, hemoptysis, wheezing GI: Denies abdominal pain, diarrhea, constipation, melena, hematemasis. Admits to nausea and vomiting, heartburn : Denies dysuria, increased frequency, urgency, hematuria Heme: Denies ease of bleeding or bruising Skin: Admits to worsening rash in abdominal adipose folds, with heat and severe pain. Occasional draining of fluid from venous stasis ulcers in LEs Neuro: Denies GREER, paresthesias, focal deficits, ataxia. Admits to light headedness - Constitutional Vitals: Temp Pulse Resp BP Pulse Ox 98.5 F 61 18 155/90 99 04/16/17 21:49 04/16/17 21:49 04/16/17 21:49 04/16/17 21:49 04/16/17 21:49 Exam: Gen: Vitals noted. No acute distress. AAOx3 HEENT: PERRL/EOMI, oropharynx clear with poor denition, Normocephalic, atraumatic Neck: Supple. No adenopathy. Cardiac: RRR, no murmur, +S1/S2 Pulmonary: Technically difficult exam 2/2 size and body habitus, but no obvious wheezes, rhonchi, rales Abdomen: soft, nontender, BS noted, no guarding Extremities: significant edema in LEs b/l that is difficult to assess 2/2 body habitus. There are chronic stasis ulcers present in LEs b/l that do not appear to be draining at this time, with surrounding areas of keratinized erythematous skin. Skin: Significant erythema and tenderness noted on abdominal pannus. There is no obvious open wound, or significant warmth. There is an open ulcer in the suprapubic skin which is draining, and patient says it is chronic from endometrial cancer years ago. Neuro: A&Ox3, moves all extremities, no focal deficits Psych: Appropriate mood and behavior Internal Med - H&P Results - Labs CBC & Chem 7: 04/16/17 18:35 04/16/17 18:35 <Cristobal Carney - Last Filed: 04/17/17 00:25> Date of Encounter: 04/17/17 Time of Encounter: 00:13 Assessment and Plan (1) Cellulitis of lower leg Current visit: Yes Status: Acute 1. Will add Vancomycin, culture wound if draining, and place in contract precautions. 2. High suspicion for MRSA. - Constitutional Constitutional: chills, fever(s) - Cardiovascular Cardiovascular ROS IM: no chest pain, no dyspnea - Respiratory Respiratory: no cough, no chest congestion - Gastrointestinal Gastrointestinal: abdominal pain (around pannus) - Integumentary Integumentary IM: erythema, sores Additional comments: red, warm, tender areas around her pretibial funmi of both legs - Constitutional Vitals: Temp Pulse Resp BP Pulse Ox 98.5 F 61 18 155/90 99 04/16/17 21:49 04/16/17 21:49 04/16/17 21:49 04/16/17 21:49 04/16/17 21:49 General appearance: Present: cooperative, mild distress, A&O X 3, pleasant - Eye Eye exam: Present: EOMI, PERRL. Absent: scleral icterus - Respiratory Respiratory exam: Present: CTAB. Absent: rales, rhonchi - Cardiovascular Cardiovascular exam: Present: RRR, +S1, +S2 - GI/Abdominal GI/Abdominal exam: Present: normal bowel sounds, soft, tenderness (pannus) Additional comments: pannus pain with surrounding cellulitis - Extremities Exam Extremities exam: Present: tenderness (bilateral areas of redness/warmth/ tenderness in pretibial areas with 3 small encrotic appearing sores concerning for MRSA) Internal Med - H&P Results - Labs CBC & Chem 7: 04/16/17 18:35 04/16/17 18:35 - Attending Attestation I discussed the patient VENETIE, PMH, ROS, lab data, and exam findings with Dr. Mancera. I then saw and examined patient independently as well. Patient admits to me that she forced her physician team to discharge her yesterday or she would have threatened to leave [facility]. She then realized when she returned home that she needed more help, had more pain, and could not care for herself. She therefore returned to [facility] for ongoing care. On exam, she has panniculitis and a chronic non-surgical wound. On her legs, however, she does has acute cellulitis with 3 small necrotic appearing lesion on her right leg which are suspicious for MRSA in my opinion. She does have chronic venous stasis changes, but I suspect she has acute cellulitis as well. Therefore, I am ordering Vancomycin in addition to her Rocephin. I also asked her RN to place patient in contact precautions. She will need ongoing wound care as well. Other than my comments above and noted exam findings, I agree with Dr. Mancera' s assessment and plan.
[2017-04-16] MEDS: Insulin LISPRO 300 UNITS/3 ML VIAL SQ SCH (23:23)
[2017-04-16] MEDS: Ondansetron ODT 4 MG TAB.RAPDIS SL PRN (23:26)
[2017-04-16] MEDS: Gabapentin 300 MG CAPSULE PO SCH (23:31)
[2017-04-16] MEDS: *HR* OxyCODONE Immed Rel 5 MG TABLET PO PRN (23:31)
[2017-04-16] MEDS: Insulin DETEMIR 100 UNIT/ML X5UNITS SQ SCH (23:32)
[2017-04-16] MEDS ORDERED: ALPRAZolam 0.5 MG TABLET PO PRN (23:57)
[2017-04-17] MEDS: 0.9 % Sodium Chloride 1,000 ML IVC SCH ×2 (01:00→15:13)
[2017-04-17] MEDS ORDERED: Vancomycin 2,000 MG in D5% in Water 250 ML IVPB SCH (01:00)
[2017-04-17 01:34] LABS: Bilirubin,Urine Negative (Negative); Blood,Urine Small (Negative); Color,Urine Yellow (Yellow); Glucose,Urine (UA) >=1000 mg/dL (Normal); Ketones,Urine Negative (Negative); Leukocyte Esterase,Urine Negative (Negative); Nitrite,Urine Negative (Negative); Protein,Urine 30 mg/dL (Neg-Trace); Specific Gravity,Urine > 1.030 (1.010-1.025); Urobilinogen,Urine Normal (Normal)
[2017-04-17 01:36] LABS: Bacteria,Urine None Seen per hpf (None-Few); Squamous Epithelial Cell,Urine Many per lpf (None-Few); WBC,Urine 15-30 per hpf (0-3)
[2017-04-17 01:38] LABS: Clarity,Urine Hazy (Clear)
[2017-04-17] MEDS ORDERED: *HR* Heparin 5,000 UNIT/ML VIAL SQ SCH (06:00)
[2017-04-17] MEDS: Vancomycin 2,000 MG in D5% in Water 500 ML IVPB SCH ×2 (06:18→20:19)
[2017-04-17] MEDS: Pantoprazole 40 MG VIAL IVP SCH ×2 (06:18→18:42)
[2017-04-17] MEDS ORDERED: Insulin LISPRO 300 UNITS/3 ML VIAL SQ SCH (07:30)
[2017-04-17 07:35] LABS: BUN/Creatinine Ratio 27 (6-26); Blood Urea Nitrogen 14 mg/dL (6-20); Calcium 8.3 mg/dL (8.6-10.3); Carbon Dioxide 32 mEq/L (23-29); Chloride 102 mEq/L (98-107); Glucose 330 mg/dL (70-105); Osmolality,Calculated 297 (280-300); Potassium 3.9 mEq/L (3.5-5.1); Sodium 137 mEq/L (136-145); eGFR For African Americans > 60 (> 60); eGFR For Non-African Americans > 60 (> 60)
[2017-04-17 07:57] LABS: Hematocrit 38.7 % (35.3-44.9); Hemoglobin 11.9 g/dL (11.5-15.4); Lymphocytes # 1.4 K/mcL (0.6-4.6); Mean Corpuscular HGB Conc 30.7 g/dL (31.6-35.5); Mean Corpuscular Hemoglobin 28.5 pg (28.0-33.3); Mean Corpuscular Volume 92.6 fL (83.0-100.0); Mean Platelet Volume 9.9 fL (9.4-12.4); Platelet Count 241 K/mcL (140-400); Red Blood Count 4.18 M/mcL (3.82-4.97); Red Cell Distribution Width 15.9 % (11.5-14.5)
[2017-04-17] MEDS ORDERED: NON-FORMULARY MEDICATION 1 EACH EACH (Fluticasone Propionate [Flovent Hfa] 1 PUFF) IH SCH (09:00)
[2017-04-17 10:04] LABS: Eosinophils # 0.2 K/mcL (0.0-0.6); Monocytes # 0.2 K/mcL (0.0-1.3); Neutrophils # 6.2 K/mcL (1.6-8.9); Platelet Estimate Normal (Normal)
[2017-04-17] MEDS: Insulin LISPRO 300 UNITS/3 ML VIAL SQ SCH ×4 (10:37→20:29)
[2017-04-17] MEDS: acetaZOLAMIDE 250 MG TABLET PO SCH (10:38)
[2017-04-17] MEDS: *HR* OxyCODONE Immed Rel 5 MG TABLET PO PRN ×2 (10:38→20:25)
[2017-04-17] MEDS: Aspirin Enteric Coated 81 MG Tablet PO SCH (10:39)
[2017-04-17] MEDS: Gabapentin 300 MG CAPSULE PO SCH ×3 (10:39→20:25)
[2017-04-17] MEDS: cefTRIAXone 2,000 MG in Water for inj. (sterile) 20 ML IVP SCH (10:40)
[2017-04-17] MEDS: Beclomethasone 80mcg MDI IH SCH ×2 (11:16→22:32)
--- NOTE | 2017-04-17 11:36 | Internal Med Progress Note ---
<Clarence Real - Last Filed: 04/17/17 14:51> Date of Encounter: 04/17/17 Time of Encounter: 08:15 - Assessment and plan (1) Open abdominal wall wound Current Visit: No Status: Chronic Assessment and plan: Culture with Proteus sensitive to Ceftriaxone and group C strep. Plan: - Continue ceftriaxone 2000mg Q24hr - Patient started on IV vancomycin upon admission, we will continue at this time Qualifiers: Encounter type: initial encounter Qualified Code(s): S31.109A - Unspecified open wound of abdominal wall, unspecified quadrant without penetration into peritoneal cavity, initial encounter (2) Diabetes mellitus type 2 with complications Current Visit: Yes Status: Chronic Assessment and plan: Secondary to Metabolic syndrome. BMI 79.2, Glucose > 300. Plan: - Levemir 36 units BID - High dose sliding scale - ACHS glucose checks. Qualifiers: Diabetes mellitus intermediate insulin use: with intermediate use Qualified Code( s): E11.8 - Type 2 diabetes mellitus with unspecified complications; Z79.4 - custodial (current) use of insulin; Z79.4 - lobsterman (current) use of insulin; Z79.4 - custodial (current) use of insulin; Z79.4 - lobsterman (current) use of insulin (3) Panniculitis Current Visit: Yes Status: Acute Assessment and plan: Patient has known history of chronic panniculitis, slight improvement on IV antibiotics. We will continue to monitor (4) Obstructive sleep apnea Current Visit: Yes Status: Chronic Assessment and plan: CPAP (5) Morbid obesity with BMI of 70 and over, adult Current Visit: Yes Status: Chronic Assessment and plan: Chronic issue (6) Bladder spasms Current Visit: No Status: Acute Assessment and plan: D/C Gamez, use bedside commode. (7) Obesity hypoventilation syndrome Current Visit: No Status: Chronic Assessment and plan: BMI 79.2 - Keep head of bed elevated - CPAP while sleeping for NESHA. (8) DVT prophylaxis Current Visit: No Status: Acute Assessment and plan: sq heparin - Subjective Interval history: Ms. Cat, seen and evaluated patient bedside this morning. She denies any acute pain or discomfort. She did feel a little bit dizzy at home and some weakness in her lower extremities which prompted her to come back to the hospital. She states overall today she feels much better. She said she pushed out her urinary catheter last night and has been having bladder spasms with the new catheter. She does not want to get out of bed to use the bedside commode and complained of sitting in her urine. She understands our recommendation of getting out of bed as she is mobile. She has worked with physical therapy this morning with recommendations for home health after discharge. She has no other complaints at this time. - Constitutional Vitals: Temp Pulse Resp BP Pulse Ox 98.6 F 79 18 149/80 98 04/17/17 08:47 04/17/17 08:47 04/17/17 11:19 04/17/17 08:47 04/17/17 11:19 General appearance: Present: cooperative, mild distress, A&O X 3, pleasant Exam: General:Alert, oriented, AOx3, no acute distress HEENT: NC/AT, oral mucosa moist. Cardiac:RRR Respiratory: CTABL Abdominal:morbidly obese, panniculitis, inferior abdominal wall wound with surrounding cellulitis Extremities: Morbidly obese, 2+ edema bilateral lower extremities venous stasis and mild cellulitis bilaterally. Internal Medicine: Result - Labs CBC & Chem 7: 04/17/17 06:59 04/17/17 06:59 Labs: Short CBC 04/17/17 Range/Units 06:59 WBC 7.9 (4.3-11.1) K/mcL Hgb 11.9 (11.5-15.4) g/dL Hct 38.7 (35.3-44.9) % Plt Count 241 (140-400) K/mcL Neutrophils # 6.2 (1.6-8.9) K/mcL BMP 04/17/17 06:59 Sodium 137 Potassium 3.9 Chloride 102 Carbon Dioxide 32 H BUN 14 Creatinine 0.51 L Glucose 330 H Calcium 8.3 L Urine 04/17/17 Range/Units 01:25 Urine Color Yellow (Yellow) Urine Clarity Hazy A (Clear) Urine pH 6.0 (5.0-8.0) pH Units Ur Specific [place] > 1.030 H (1.010-1.025) Urine Protein 30 H (Neg-Trace) mg/dL Urine Glucose (UA) >=1000 H (Normal) mg/dL Consult Discharge Plan - Plan Referrals: Luís Tavares DO [Primary Care Provider] - <Laith Skaggsit P - Last Filed: 04/17/17 16:55> Date of Encounter: 04/17/17 - Constitutional Vitals: Temp Pulse Resp BP Pulse Ox 97.9 F 74 18 124/59 99 04/17/17 15:17 04/17/17 15:17 04/17/17 15:17 04/17/17 15:17 04/17/17 15:17 Internal Medicine: Result - Labs CBC & Chem 7: 04/17/17 06:59 04/17/17 06:59 Labs: Short CBC 04/17/17 Range/Units 06:59 WBC 7.9 (4.3-11.1) K/mcL Hgb 11.9 (11.5-15.4) g/dL Hct 38.7 (35.3-44.9) % Plt Count 241 (140-400) K/mcL Neutrophils # 6.2 (1.6-8.9) K/mcL BMP 04/17/17 06:59 Sodium 137 Potassium 3.9 Chloride 102 Carbon Dioxide 32 H BUN 14 Creatinine 0.51 L Glucose 330 H Calcium 8.3 L Urine 04/17/17 Range/Units 01:25 Urine Color Yellow (Yellow) Urine Clarity Hazy A (Clear) Urine pH 6.0 (5.0-8.0) pH Units Ur Specific [place] > 1.030 H (1.010-1.025) Urine Protein 30 H (Neg-Trace) mg/dL Urine Glucose (UA) >=1000 H (Normal) mg/dL - Attending Attestation I examined this patient and my medical decision-making was reviewed with the Resident Physician. I agree with the documented findings, disposition and treatment plan as described except to the extent set forth below.
[2017-04-17] MEDS: *HR* HYDROcodone/Acet 5/325 mg TABLET PO PRN ×2 (13:06→23:46)
[2017-04-17] MEDS: Miconazole 2% ointment 114 GM TUBE TP SCH ×2 (13:50→20:29)
[2017-04-17] MEDS: *HR* Heparin 5,000 UNIT/ML VIAL SQ SCH ×2 (15:13→20:26)
[2017-04-17] MEDS: Insulin DETEMIR 100 UNIT/ML X5UNITS SQ SCH (23:38)
[2017-04-18 06:16] LABS: Basophils # 0.1 K/mcL (0.0-0.2); Basophils % 0.6 %; Eosinophils # 0.3 K/mcL (0.0-0.6); Eosinophils % 3.5 %; Hematocrit 37.9 % (35.3-44.9); Hemoglobin 11.2 g/dL (11.5-15.4); Immature Granulocytes % 5.5 % (0-4); Lymphocytes # 1.4 K/mcL (0.6-4.6); Lymphocytes % 17.5 %; Mean Corpuscular HGB Conc 29.6 g/dL (31.6-35.5); Mean Corpuscular Hemoglobin 27.7 pg (28.0-33.3); Mean Corpuscular Volume 93.8 fL (83.0-100.0); Mean Platelet Volume 10.1 fL (9.4-12.4); Monocytes # 0.5 K/mcL (0.0-1.3); Monocytes % 5.8 %; Neutrophils # 5.5 K/mcL (1.6-8.9); Platelet Count 267 K/mcL (140-400); Red Blood Count 4.04 M/mcL (3.82-4.97); Red Cell Distribution Width 15.9 % (11.5-14.5); Segmented Neutrophils % 67.1 %
[2017-04-18 06:31] LABS: Alanine Aminotransferase 10 Units/L (7-52); Alkaline Phosphatase 106 Units/L (34-104); Aspartate Amino Transferase 10 Units/L (13-39); BUN/Creatinine Ratio 24 (6-26); Bilirubin,Total 0.4 mg/dL (0.3-1.0); Blood Urea Nitrogen 16 mg/dL (6-20); Calcium 8.4 mg/dL (8.6-10.3); Carbon Dioxide 32 mEq/L (23-29); Chloride 101 mEq/L (98-107); Glucose 360 mg/dL (70-105); Osmolality,Calculated 298 (280-300); Potassium 4.1 mEq/L (3.5-5.1); Sodium 136 mEq/L (136-145); eGFR For African Americans > 60 (> 60); eGFR For Non-African Americans > 60 (> 60)
[2017-04-18] MEDS: *HR* Heparin 5,000 UNIT/ML VIAL SQ SCH ×3 (06:41→20:44)
[2017-04-18] MEDS: *HR* OxyCODONE Immed Rel 5 MG TABLET PO PRN ×4 (06:41→20:44)
[2017-04-18] MEDS: Pantoprazole 40 MG VIAL IVP SCH ×2 (06:42→16:20)
[2017-04-18 06:52] LABS: Platelet Estimate Normal (Normal); Reactive Lymphocytes Present (Not Present)
[2017-04-18] MEDS: Vancomycin 2,000 MG in D5% in Water 500 ML IVPB SCH (06:56)
[2017-04-18] MEDS: Gabapentin 300 MG CAPSULE PO SCH ×3 (08:42→20:00)
[2017-04-18] MEDS: *HR* HYDROcodone/Acet 5/325 mg TABLET PO PRN ×2 (08:43→18:41)
[2017-04-18] MEDS: acetaZOLAMIDE 250 MG TABLET PO SCH (08:44)
[2017-04-18] MEDS: cefTRIAXone 2,000 MG in Water for inj. (sterile) 20 ML IVP SCH (08:44)
[2017-04-18] MEDS: Aspirin Enteric Coated 81 MG Tablet PO SCH (08:44)
[2017-04-18] MEDS: Insulin LISPRO 300 UNITS/3 ML VIAL SQ SCH ×4 (08:45→20:44)
[2017-04-18] MEDS: Miconazole 2% ointment 114 GM TUBE TP SCH ×2 (08:46→20:44)
[2017-04-18] MEDS: Ondansetron ODT 4 MG TAB.RAPDIS SL PRN (10:56)
[2017-04-18] MEDS: 0.9 % Sodium Chloride 1,000 ML IVC SCH ×2 (10:57→22:56)
[2017-04-18] MEDS: Beclomethasone 80mcg MDI IH SCH ×2 (11:24→22:31)
--- NOTE | 2017-04-18 16:21 | Internal Med Progress Note ---
Date of Encounter: 04/19/17 Time of Encounter: 16:21 - Assessment and plan (1) Open abdominal wall wound Status: Chronic Assessment and plan: Culture with Proteus sensitive to Ceftriaxone and group C strep. Plan: - Continue ceftriaxone 2000mg Q24hr - Patient started on IV vancomycin upon admission, we will continue at this time Qualifiers: Encounter type: initial encounter Qualified Code(s): S31.109A - Unspecified open wound of abdominal wall, unspecified quadrant without penetration into peritoneal cavity, initial encounter (2) Diabetes mellitus type 2 with complications Status: Chronic Assessment and plan: Secondary to Metabolic syndrome. BMI 79.2, Glucose > 300. Plan: - Levemir 36 units BID - High dose sliding scale - ACHS glucose checks. Qualifiers: Diabetes mellitus detention insulin use: with remote computer terminal operator use Qualified Code( s): E11.8 - Type 2 diabetes mellitus with unspecified complications; Z79.4 - shelter (current) use of insulin; Z79.4 - manager long term care (current) use of insulin; Z79.4 - manager long term care (current) use of insulin; Z79.4 - shelter (current) use of insulin (3) Panniculitis Status: Acute Assessment and plan: Patient has known history of chronic panniculitis, slight improvement on IV antibiotics. We will continue to monitor (4) Bladder spasms Status: Acute Assessment and plan: D/C Gamez, use bedside commode. (5) Morbid obesity with BMI of 70 and over, adult Status: Chronic - Subjective Interval history: Patient seen and examined. Chart reviewed. patient is comfortably lying in the bed. Patient claims that she would like to go home tomorrow. - Constitutional Vitals: Temp Pulse Resp BP Pulse Ox 97.8 F 78 18 130/74 98 04/18/17 12:03 04/18/17 12:03 04/18/17 12:03 04/18/17 12:03 04/18/17 12:03 General appearance: Present: cooperative, mild distress, A&O X 3, pleasant - Head Head exam: Present: atraumatic, normocephalic - Eye Eye exam: Present: PERRL, conjuntiva pink, sclera anicteric Pupils: Present: PERRL - Neck Neck exam general surgery: Present: supple, trachea midline. Absent: lymphadenopathy - Respiratory Respiratory exam: Present: CTAB. Absent: accessory muscle use, rales, rhonchi, wheezes - Cardiovascular Cardiovascular exam: Present: RRR, +S1, +S2. Absent: diastolic murmur, gallop, rubs, systolic murmur - GI/Abdominal GI/Abdominal exam: Present: normal bowel sounds, soft, no peritoneal signs. Absent: distended, tenderness - Extremities Exam Extremities exam: Present: warm, radial pulses palpable and symmetrical. Absent : calf tenderness, cyanotic, pedal edema - Neurological Exam Neurological exam: Present: CN II-XII intact, oriented X3, no focal deficits. Absent: pronater drift, facial droop, speech deficit - Skin Skin exam: Present: dry, intact Internal Medicine: Result - Labs CBC & Chem 7: 04/18/17 05:54 04/18/17 05:54 Labs: Short CBC 04/18/17 Range/Units 05:54 WBC 8.2 (4.3-11.1) K/mcL Hgb 11.2 L (11.5-15.4) g/dL Hct 37.9 (35.3-44.9) % Plt Count 267 (140-400) K/mcL Neutrophils # 5.5 (1.6-8.9) K/mcL BMP 04/18/17 05:54 Sodium 136 Potassium 4.1 Chloride 101 Carbon Dioxide 32 H BUN 16 Creatinine 0.67 Glucose 360 H Calcium 8.4 L Liver Function 04/18/17 Range/Units 05:54 Total Bilirubin 0.4 (0.3-1.0) mg/dL AST 10 L (13-39) Units/L ALT 10 (7-52) Units/L Alkaline Phosphatase 106 H (34-104) Units/L Albumin 3.0 L (3.5-5.7) g/dL Consult Discharge Plan - Plan Instructions: Ceftriaxone (Injection) Referrals: Luís Tavares DO [Primary Care Provider] - Prescriptions: Ceftriaxone Sodium [Ceftriaxone] 2 gm IV DAILY 7 Days #7 vial.port
[2017-04-18] MEDS: Vancomycin 1,500 MG in D5% in Water 250 ML IVPB SCH (18:57)
[2017-04-18] MEDS: Insulin DETEMIR 100 UNIT/ML X5UNITS SQ SCH (20:44)
[2017-04-18] MEDS: ALPRAZolam 0.5 MG TABLET PO PRN (22:50)
[2017-04-19] MEDS: *HR* HYDROcodone/Acet 5/325 mg TABLET PO PRN ×2 (01:32→08:50)
[2017-04-19] MEDS: *HR* OxyCODONE Immed Rel 5 MG TABLET PO PRN ×3 (01:53→10:37)
[2017-04-19] MEDS: *HR* Heparin 5,000 UNIT/ML VIAL SQ SCH (05:15)
[2017-04-19] MEDS: Pantoprazole 40 MG VIAL IVP SCH (05:15)
--- NOTE | 2017-04-19 07:41 | Discharge Summary ---
<RobinAlan - Last Filed: 04/19/17 07:45> Date of Encounter: 04/19/17 Time of Encounter: 07:39 - Discharge Diagnosis (1) Open abdominal wall wound Priority: Primary Status: Chronic Qualifiers: Encounter type: initial encounter Qualified Code(s): S31.109A - Unspecified open wound of abdominal wall, unspecified quadrant without penetration into peritoneal cavity, initial encounter (2) Bladder spasms Priority: Secondary Status: Acute (3) Diabetes mellitus type 2 with complications Priority: Secondary Status: Chronic Qualifiers: Diabetes mellitus mcfp insulin use: with mcfp use Qualified Code( s): E11.8 - Type 2 diabetes mellitus with unspecified complications; Z79.4 - terminal computer operator (current) use of insulin; Z79.4 - terminal computer operator (current) use of insulin; Z79.4 - terminal computer operator (current) use of insulin; Z79.4 - shelter (current) use of insulin (4) DVT prophylaxis Priority: Secondary Status: Acute (5) Morbid obesity with BMI of 70 and over, adult Priority: Secondary Status: Chronic (6) Obesity hypoventilation syndrome Priority: Secondary Status: Chronic (7) Obstructive sleep apnea Priority: Secondary Status: Chronic (8) Panniculitis Priority: Secondary Status: Acute - Discharge Medications Prescriptions: Ceftriaxone Sodium [Ceftriaxone] 2 gm IV DAILY 7 Days #7 vial.port Home Medications: Ranitidine HCl [Acid Filler Shaker] 150 mg PO BID 04/03/16 [History] Aspirin Enteric Coated [Aspirin EC] 81 mg PO DAILY 10/04/16 [History] Ipratropium/Albuterol Neb [Duoneb] 3 ml IH Q6HR PRN 10/04/16 [History] Ondansetron ODT [Zofran ODT] 4 mg SL Q8HR PRN #10 tab.rapdis 11/08/16 [Rx] metFORMIN [Glucophage] 1,000 mg PO BIDWM #90 tab 11/08/16 [Rx] Levothyroxine Sodium [Levo-T] 350 mcg PO QAM #60 tablet 11/10/16 [Rx] Loratadine [Allergy Relief] 10 mg PO DAILY #60 11/10/16 [Rx] ALPRAZolam [Xanax 0.5 MG Tablet] 0.5 mg PO BID PRN 01/27/17 [History] Atorvastatin Calcium [Lipitor] 20 mg PO HS 01/27/17 [History] Cyanocobalamin (Vitamin B-12) [Vitamin B12] 1,000 mcg PO TH 01/27/17 [History] Docusate [Colace] 100 mg PO BID PRN 01/27/17 [History] Insulin Regular U-500 [HumuLIN R U-500] 0 unit SQ TID MDD See Comment. [History] Mometasone Furoate [Asmanex] 2 puff IH BID 01/27/17 [History] acetaZOLAMIDE [Diamox] 250 mg PO DAILY 01/27/17 [History] Sodium Hypochlorite 0.25% [Dakin's (Half-Strength 0.25%)] 1 appl TP BID #1 bottle 01/30/17 [Rx] BuPROPion [Wellbutrin] 100 mg PO DAILY 04/10/17 [History] Fluticasone Propionate [Flovent Hfa] 1 puff IH BID 04/10/17 [History] Gabapentin [Neurontin] 600 mg PO TID 04/10/17 [History] Mupirocin [Bactroban Oint] 1 appl TP BID PRN 04/10/17 [History] Nystatin POWDER [Nystop] 1 appl TP TID PRN 04/10/17 [History] Silver Sulfadiazine [Silvadene] 1 appl TP BID PRN 04/10/17 [History] cefTRIAXone [Rocephin] 2,000 mg IVPB DAILY 7 Days #7 vial 04/14/17 [Rx] OxyCODONE Immed Rel [Roxicodone 20 MG] 20 mg PO Q4HR PRN 2 Days #7 tablet [Rx] Ceftriaxone Sodium [Ceftriaxone] 2 gm IV DAILY 7 Days #7 vial.port 04/19/17 [Rx] Allergies/Adverse Reactions: 3 Allergy/AdvReac Type Severity Reaction Status Date / Time Penicillins Allergy Rash Verified 01/27/16 09:52 Tetracycline Allergy Rash Verified 01/27/16 09:52 Date of admission: 04/17/17 00:26 Primary care physician: Luís Tavares DO - Patient Status Disposition: Home Health Service Condition: Good - Discharge Instructions Instructions: Ceftriaxone (Injection) Follow Up With: Keszler,Peter, DO [Primary Care Provider] - - Diet and Activity Activity: as per physical therapy, increase activity as tolerated Diet: diabetic diet Hospital course: Ms. Cat is a 46 year old female endometrial cancer, sever morbid obesity, limited mobility, uncontrolled type 2 diabetes, NESHA, obesity hypoventilation syndrome, and AMA'ed from [facility] on 04/15/17 for chronic abdominal wound dehiscence presented to [facility] ED for worsening abdominal pain and low-grade fever. Patient returned to [facility] the day after she left [facility]. On her last admission she was positive for Group C strep and Proteus. On admission she was febrile (102.4F), tachycardic (121), with no leukocytosis. For access, patient had Left picc line that was placed on the last day of her previous admission. Patient was started on vancomycin and ceftriaxone. On day 2 of admission, patient clinically improved and became hemodynamically stable. Patient is discharged with 7 day course of ceftriaxone. Patient is setup with Home Health. Patient to see PCP within 2-3 days of D/C. Patient educated on care for picc line. While admitted, patient's BG was >300, most likely in the setting of infection, and was placed on high dose SSI. Additionally on the night of 04/16/17, catheter "fell" out and patient experienced bladder spasms. Per preference of patient, bedside commode was placed. We recommend patient to have referral to bariatric surgery. Time spent discussing smoking cessation with patient: more than 10 minutes - Time Spent with Patient Total time spent providing and/or coordinating discharge services: Greater than 30 minutes - Constitutional Vitals: Temp Pulse Resp BP Pulse Ox 98.9 F 84 16 130/75 99 04/19/17 05:06 04/19/17 05:06 04/19/17 05:06 04/19/17 05:06 04/19/17 05:06 General appearance: Present: cooperative, mild distress, A&O X 3, morbidly obese , pleasant, answers questions appropriately - Respiratory Respiratory exam: Present: decreased breath sounds, CTAB. Absent: prolonged expiratory phase, respiratory distress, wheezes Additional comments: limited due to body habitus - Cardiovascular Cardiovascular exam: Present: RRR. Absent: irregular rhythm, systolic murmur Additional comments: limited due to body habitus - Extremities Exam Extremities exam: Present: normal inspection, pedal edema, radial pulses palpable and symmetrical - Psychiatric Psychiatric exam: Present: normal affect, normal mood <Rupesh Skaggs - Last Filed: 04/19/17 15:37> Date of Encounter: 04/19/17 Date of admission: 04/17/17 00:26 Primary care physician: Luís Tavares DO Hospital course: Ms. Cat is a 46 year old female - Time Spent with Patient Total time spent providing and/or coordinating discharge services: - Constitutional Vitals: Temp Pulse Resp BP Pulse Ox 98.0 F 79 16 134/71 94 04/19/17 08:22 04/19/17 08:22 04/19/17 08:22 04/19/17 08:22 04/19/17 09:05 - Attending Attestation I examined this patient and my medical decision-making was reviewed with the Resident Physician. I agree with the documented findings, disposition and treatment plan as described except to the extent set forth below.
--- NOTE | 2017-04-19 08:06 | Physician Discharge Referral ---
<Alan Kelly - Last Filed: 04/19/17 08:05> Home Health/Hosp Referral Info Transfer to: Home Health Provider in Charge Post Discharge: PCP - Diagnosis (1) Open abdominal wall wound Priority: Primary Status: Chronic (2) Bladder spasms Priority: Secondary Status: Acute (3) Diabetes mellitus type 2 with complications Priority: Secondary Status: Chronic (4) DVT prophylaxis Priority: Secondary Status: Acute (5) Morbid obesity with BMI of 70 and over, adult Priority: Secondary Status: Chronic (6) Obesity hypoventilation syndrome Priority: Secondary Status: Chronic (7) Obstructive sleep apnea Priority: Secondary Status: Chronic (8) Panniculitis Priority: Secondary Status: Acute - Respiratory Orders Smoking Cessation: Smoking cessation has been advised. For more information, call the [place] Tobacco Quit Line at 3-196-XKLQ-NOW. - Services Needed Following services are medically necessary services: Home Health Aide, Physical Therapy, Occupational Therapy, Home Infusion - Transfer Medications Prescriptions: Ceftriaxone Sodium [Ceftriaxone] 2 gm IV DAILY 7 Days #7 vial.port Home Medications: Ranitidine HCl [Acid Size Roller Operator] 150 mg PO BID 04/03/16 [History] Aspirin Enteric Coated [Aspirin EC] 81 mg PO DAILY 10/04/16 [History] Ipratropium/Albuterol Neb [Duoneb] 3 ml IH Q6HR PRN 10/04/16 [History] Ondansetron ODT [Zofran ODT] 4 mg SL Q8HR PRN #10 tab.rapdis 11/08/16 [Rx] metFORMIN [Glucophage] 1,000 mg PO BIDWM #90 tab 11/08/16 [Rx] Levothyroxine Sodium [Levo-T] 350 mcg PO QAM #60 tablet 11/10/16 [Rx] Loratadine [Allergy Relief] 10 mg PO DAILY #60 11/10/16 [Rx] ALPRAZolam [Xanax 0.5 MG Tablet] 0.5 mg PO BID PRN 01/27/17 [History] Atorvastatin Calcium [Lipitor] 20 mg PO HS 01/27/17 [History] Cyanocobalamin (Vitamin B-12) [Vitamin B12] 1,000 mcg PO TH 01/27/17 [History] Docusate [Colace] 100 mg PO BID PRN 01/27/17 [History] Insulin Regular U-500 [HumuLIN R U-500] 0 unit SQ TID MDD See Comment. [History] Mometasone Furoate [Asmanex] 2 puff IH BID 01/27/17 [History] acetaZOLAMIDE [Diamox] 250 mg PO DAILY 01/27/17 [History] Sodium Hypochlorite 0.25% [Dakin's (Half-Strength 0.25%)] 1 appl TP BID #1 bottle 01/30/17 [Rx] BuPROPion [Wellbutrin] 100 mg PO DAILY 04/10/17 [History] Fluticasone Propionate [Flovent Hfa] 1 puff IH BID 04/10/17 [History] Gabapentin [Neurontin] 600 mg PO TID 04/10/17 [History] Mupirocin [Bactroban Oint] 1 appl TP BID PRN 04/10/17 [History] Nystatin POWDER [Nystop] 1 appl TP TID PRN 04/10/17 [History] Silver Sulfadiazine [Silvadene] 1 appl TP BID PRN 04/10/17 [History] cefTRIAXone [Rocephin] 2,000 mg IVPB DAILY 7 Days #7 vial 04/14/17 [Rx] OxyCODONE Immed Rel [Roxicodone 20 MG] 20 mg PO Q4HR PRN 2 Days #7 tablet [Rx] Ceftriaxone Sodium [Ceftriaxone] 2 gm IV DAILY 7 Days #7 vial.port 04/19/17 [Rx] Allergies/Adverse Reactions: 3 Allergy/AdvReac Type Severity Reaction Status Date / Time Penicillins Allergy Rash Verified 01/27/16 09:52 Tetracycline Allergy Rash Verified 01/27/16 09:52 Certification: Further, I certify that my clinical findings support that this patient is homebound (i.e. absences from home require considerable and taxing effort and are for medical reasons or holiness services or infrequently or short duration when for other reasons) because: Homebound Reason: Patient requires assistance of a person or device to safely leave home Attestation: My signature below is to certify that this patient is under my care and that I, or nurse practitioner, or a physician's child and youth program assistant working with me, has a face-to -face encounter with this patient. <Rupesh Skaggs P - Last Filed: 04/19/17 15:37> - Respiratory Orders Smoking Cessation: Smoking cessation has been advised. For more information, call the [place] Tobacco Quit Line at 4-242-GHUB-NOW. Certification: Further, I certify that my clinical findings support that this patient is homebound (i.e. absences from home require considerable and taxing effort and are for medical reasons or holiness services or infrequently or short duration when for other reasons) because: Attestation: My signature below is to certify that this patient is under my care and that I, or nurse practitioner, or a physician's child and youth program assistant working with me, has a face-to -face encounter with this patient.
[2017-04-19] MEDS: Beclomethasone 80mcg MDI IH SCH (08:11)
[2017-04-19 08:27] VITALS: BP 134/71
[2017-04-19] MEDS: Insulin LISPRO 300 UNITS/3 ML VIAL SQ SCH ×2 (08:42→12:28)
[2017-04-19] MEDS: cefTRIAXone 2,000 MG in Water for inj. (sterile) 20 ML IVP SCH (08:44)
[2017-04-19] MEDS: acetaZOLAMIDE 250 MG TABLET PO SCH (08:47)
[2017-04-19] MEDS: Gabapentin 300 MG CAPSULE PO SCH (08:47)
[2017-04-19] MEDS: Aspirin Enteric Coated 81 MG Tablet PO SCH (08:47)
[2017-04-19] MEDS: Vancomycin 1,500 MG in D5% in Water 250 ML IVPB SCH (08:53)
[2017-04-19] MEDS: ALPRAZolam 0.5 MG TABLET PO PRN (09:01)
[2017-04-19] MEDS: Miconazole 2% ointment 114 GM TUBE TP SCH (10:40)
[2017-04-19] MEDS ORDERED: Aminoglycoside Consult 1 EACH MC ONE (13:25)
== END 2017-04-19 13:26 | disposition home health service (06) | DRG 385 ==
LOC: EMEROO 17:19 → 3NENU 17:19 → SUATTDRO 04-17 00:26
PROVIDERS: ADMIT Pediatrics; ATTEND Pediatrics

== ENCOUNTER 2017-04-30 23:21 | Inpatient (IN) ==
--- NOTE | 2017-05-01 00:01 | Emergency Department Note ---
Disposition Clinical Impression: Healthcare-associated pneumonia, Panniculitis Disposition: Admitted As Inpatient Condition: Good SOB HPI - General Chief Complaint: ED Shortness of Breath/Dyspnea Stated Complaint: vishal Time Seen by Provider: 04/30/17 23:23 Source: patient, EMS Mode of arrival: EMS Limitations: physical limitation Nursing Notes Reviewed: Yes Vital Signs Reviewed: Yes - History of Present Illness 46-year-old female presents to the ER via EMS due to shortness of breath and worsening cellulitis. Patient reports she was admitted here for cellulitis would home with a PICC line and was giving herself medications. States that home health was not coming to her house so she removed her PICC line which she finished her antibiotics. States that she has felt short of breath as well having some intermittent chest pain and worsening redness and warmth to her abdomen. Previous treatment for panniculitis. Reports subjective fevers and chills at home. No nausea vomiting or diarrhea. No other complaints. Pt Subjective Complaint: shortness of breath Onset (ago): day(s) Severity: mild Improves with: nothing Worsens with: nothing Associated symptoms: Reports: chest pain, fever, cough Treatment prior to arrival: none Cough present: No Sputum Amount: None - Related Data Home oxygen amount: none Home Medications Medication Instructions Recorded Confirmed Ranitidine HCl [Acid Auditor/Quality] 150 mg PO BID 04/03/16 04/16/17 Aspirin Enteric Coated [Aspirin EC] 81 mg PO DAILY 10/04/16 04/16/17 Ipratropium/Albuterol Neb [Duoneb] 3 ml IH Q6HR PRN 10/04/16 04/16/17 ALPRAZolam [Xanax 0.5 MG Tablet] 0.5 mg PO BID PRN 01/27/17 04/16/17 Atorvastatin Calcium [Lipitor] 20 mg PO HS 01/27/17 04/16/17 Cyanocobalamin (Vitamin B-12) 1,000 mcg PO TH 01/27/17 04/16/17 [Vitamin B12] Docusate [Colace] 100 mg PO BID PRN 01/27/17 04/16/17 Insulin Regular U-500 [HumuLIN R 0 unit SQ TID MDD See Comment. 01/27/17 U-500] Mometasone Furoate [Asmanex] 2 puff IH BID 01/27/17 04/16/17 acetaZOLAMIDE [Diamox] 250 mg PO DAILY 01/27/17 04/16/17 BuPROPion [Wellbutrin] 100 mg PO DAILY 04/10/17 04/16/17 Fluticasone Propionate [Flovent 1 puff IH BID 04/10/17 04/16/17 Hfa] Gabapentin [Neurontin] 600 mg PO TID 04/10/17 04/16/17 Mupirocin [Bactroban Oint] 1 appl TP BID PRN 04/10/17 04/16/17 Nystatin POWDER [Nystop] 1 appl TP TID PRN 04/10/17 04/16/17 Silver Sulfadiazine [Silvadene] 1 appl TP BID PRN 04/10/17 04/16/17 Previous Rx's Medication Instructions Recorded Ondansetron ODT [Zofran ODT] 4 mg SL Q8HR PRN #10 tab.rapdis 11/08/16 metFORMIN [Glucophage] 1,000 mg PO BIDWM #90 tab 11/08/16 Levothyroxine Sodium [Levo-T] 350 mcg PO QAM #60 tablet 11/10/16 Loratadine [Allergy Relief] 10 mg PO DAILY #60 11/10/16 Sodium Hypochlorite 0.25% [Dakin's 1 appl TP BID #1 bottle 01/30/17 (Half-Strength 0.25%)] cefTRIAXone [Rocephin] 2,000 mg IVPB DAILY 7 Days #7 vial 04/14/17 OxyCODONE Immed Rel [Roxicodone 20 20 mg PO Q4HR PRN 2 Days #7 tablet 04/15/17 MG] Ceftriaxone Sodium [Ceftriaxone] 2 gm IV DAILY 7 Days #7 vial.port 04/19/17 Allergies Allergy/AdvReac Type Severity Reaction Status Date / Time Penicillins Allergy Rash Verified 01/27/16 09:52 Tetracycline Allergy Rash Verified 01/27/16 09:52 All systems ED: reviewed and negative except as stated. Constitutional: Reports: fever, chills Cardiovascular: Reports: chest pain Respiratory: Reports: cough, dyspnea Gastrointestinal: Denies: abdominal pain, nausea, vomiting, diarrhea Integumentary: Reports: lesions Past Medical History - Past Medical History Attestation: Yes The following information was validated with the patient. Source: patient Medical history: Reports: asthma, cancer, COPD, CVA, diabetes, thyroid disease Surgical history: Reports: thyroidectomy Psychiatric history: Reports: anxiety, depression - Social History Smoking Status: Current every day smoker Smokeless Tobacco Status: No Alcohol use: Reports: none Drug use: Reports: none Physical Exam - General Limitations: no limitations General appearance: alert, in no apparent distress - Head Head exam: atraumatic, normocephalic - Eye Eye exam: Present: normal appearance - ENT ENT exam: normal exam - Neck Neck exam: Present: normal inspection - Chest Chest inspection: Present: normal inspection, symmetric chest wall rise - Respiratory Respiratory exam: Present: normal lung sounds bilaterally - Cardiovascular Cardiovascular exam: Present: regular rate, normal rhythm, normal heart sounds - Abdominal Exam Abdominal exam: Present: soft, other (Nontender to palpation. There is a large area of erythema over the mid and lower abdomen with excoriation of the superficial skin over the suprapubic region) - Extremities Exam Extremities exam: Present: normal inspection, full ROM - Expanded Upper Extremity Exam Shoulder exam: Present: normal inspection, full ROM Arm exam: Present: normal inspection, full ROM Elbow exam: Present: normal inspection, full ROM Forearm/Wrist exam: Present: normal inspection, full ROM Hand exam: Present: normal inspection, full ROM - Expanded Lower Extremity Exam Hip/Pelvis exam: Present: normal inspection, full ROM Upper leg exam: Present: normal inspection, full ROM Knee exam: Present: normal inspection, full ROM Lower leg exam: Present: normal inspection, full ROM Ankle exam: Present: normal inspection, full ROM Foot/toe exam: Present: normal inspection, full ROM - Skin Skin exam: Present: warm, dry Course Course Narrative: Patient seen and examined. Vital signs reviewed. We will get an EKG, chest x- ray as well as labs including troponin and wound culture. - Reevaluation(s) Reevaluation #1: X-ray with concern for pneumonia. Recent admission. We will treat her for healthcare associated pneumonia. Vital Signs Temperature 97.9 F 04/30/17 23:32 Pulse Rate 83 04/30/17 23:32 Respiratory Rate 20 04/30/17 23:32 Blood Pressure 138/62 04/30/17 23:32 O2 Sat by Pulse Oximetry 97 04/30/17 23:32 Temperature 97.9 F 04/30/17 23:32 Pulse Rate 83 04/30/17 23:32 Respiratory Rate 18 05/01/17 04:46 Blood Pressure 131/72 05/01/17 04:46 O2 Sat by Pulse Oximetry 96 05/01/17 04:17 Oxygen Delivery Oxygen Delivery Nasal Cannula Shortness of Breath/Dyspnea - MDM Narrative Medical decision making narrative: 46-year-old female presents to the ER for multiple complaints. Recent admission for cellulitis. Reports subjective fevers chills cough and productive sputum. Recent PICC line which she removed 2 days ago. X-ray with pulmonary edema versus pneumonia. Given her symptoms and recent admission we will cover her for healthcare associated pneumonia. Patient admitted to the hospitalist service. - Lab Data Lab results reviewed: Yes I reviewed the patient's lab results. Result diagrams: 04/30/17 00:25 04/30/17 00:25 Lab Results 04/30/17 04/30/17 04/30/17 Range/Units 00:25 00:25 00:25 WBC 8.4 (4.3-11.1) K/mcL RBC 4.29 (3.82-4.97) M/mcL Hgb 12.1 (11.5-15.4) g/dL Hct 38.9 (35.3-44.9) % MCV 90.7 (83.0-100.0) fL MCH 28.2 (28.0-33.3) pg MCHC 31.1 L (31.6-35.5) g/dL RDW 15.8 H (11.5-14.5) % Plt Count 246 (140-400) K/mcL MPV 10.9 (9.4-12.4) fL Immature Gran % 0.5 (0-4) % Seg Neutrophils % 71.2 % Lymphocytes % 18.5 % Monocytes % 5.9 % Eosinophils % 3.4 % Basophils % 0.5 % Neutrophils # 6.0 (1.6-8.9) K/mcL Lymphocytes # 1.6 (0.6-4.6) K/mcL Monocytes # 0.5 (0.0-1.3) K/mcL Eosinophils # 0.3 (0.0-0.6) K/mcL Basophils # 0.0 (0.0-0.2) K/mcL Sodium 139 (136-145) mEq/L Potassium 3.3 L (3.5-5.1) mEq/L Chloride 102 (98-107) mEq/L Carbon Dioxide 28 (23-29) mEq/L BUN 19 (6-20) mg/dL Creatinine 0.78 (0.60-1.20) mg/dL Est GFR ( Amer) > 60 (> 60) Est GFR (Non-Af Amer) > 60 (> 60) BUN/Creatinine Ratio 24 (6-26) Glucose 312 H (70-105) mg/dL Calculated Osmolality 302 H (280-300) Calcium 8.9 (8.6-10.3) mg/dL Troponin I < 0.03 (< 0.04) ng/mL B-Natriuretic Peptide (Less than 100) pg/mL 04/30/17 Range/Units 00:25 WBC (4.3-11.1) K/mcL RBC (3.82-4.97) M/mcL Hgb (11.5-15.4) g/dL Hct (35.3-44.9) % MCV (83.0-100.0) fL MCH (28.0-33.3) pg MCHC (31.6-35.5) g/dL RDW (11.5-14.5) % Plt Count (140-400) K/mcL MPV (9.4-12.4) fL Immature Gran % (0-4) % Seg Neutrophils % % Lymphocytes % % Monocytes % % Eosinophils % % Basophils % % Neutrophils # (1.6-8.9) K/mcL Lymphocytes # (0.6-4.6) K/mcL Monocytes # (0.0-1.3) K/mcL Eosinophils # (0.0-0.6) K/mcL Basophils # (0.0-0.2) K/mcL Sodium (136-145) mEq/L Potassium (3.5-5.1) mEq/L Chloride (98-107) mEq/L Carbon Dioxide (23-29) mEq/L BUN (6-20) mg/dL Creatinine (0.60-1.20) mg/dL Est GFR ( Amer) (> 60) Est GFR (Non-Af Amer) (> 60) BUN/Creatinine Ratio (6-26) Glucose (70-105) mg/dL Calculated Osmolality (280-300) Calcium (8.6-10.3) mg/dL Troponin I (< 0.04) ng/mL B-Natriuretic Peptide 188 H (Less than 100) pg/mL - Radiology Data Radiology results reviewed: Yes I reviewed the patient's radiology results. Chest X-Ray 04/30/17 23:58 IMPRESSION: 1. Bilateral perihilar opacities suggestive of pulmonary edema or less likely multifocal pneumonia 2. Cardiomegaly D/ / Gabe Dong MD / Gabe Dong MD Interpreting Provider: Gabe Dong MD - EKG Data EKG attestation: Yes I reviewed and interpreted this EKG. EKG results narrative: EKG demonstrates sinus rhythm with a rate of 83 bpm. Normal axis. Normal intervals. Normal R-wave progression. No gross ST elevations or depressions. No acute ischemic findings. No significant changes from previous EKG dated 04/10. S.B.A.R. - S.B.A.R. Situation: Demographics, MOA Background: Presenting Complaint, Relevant PMH, Meds, & Allergies Assessment: Course and respsone to treatment, Exam Concerns, Patient/Family Expectation, Pertinant Lab Results Recommendation: Barrier(s) to disposition, Recommendation based on pending studies, treatments, or consults S.B.A.R. Report Given to: Dr. Skaggs Attestation Statement - Attestation Attestation: I, Damaso Diaz MD, personally evaluated this patient and discussed their management with the resident physician. I reviewed the resident's note and agree with the documented findings, medical decision making, and plan of care. 46-year-old morbidly obese female presents to the emergency department complaining of shortness of breath as well as persistent pain in her abdominal wall. Patient recently admitted for cellulitis of the abdominal wall. She has chronic open wounds of her pannus. She had a PICC line at home and states that she was giving her Omnicef antibiotics through her PICC line and she ran out so she pulled the PICC line out a few days ago. She presents here complaining of increased shortness of breath and persistent pain. On examination patient is a morbidly obese female in no acute distress. Breath sounds are decreased but equal bilaterally. Heart regular. Abdomen is massively obese. There is tenderness to palpation over the left lower abdominal wall. Labs reviewed and unremarkable. Chest x-ray shows bilateral perihilar opacities suggestive of pulmonary edema or less likely multifocal pneumonia. The hospitalist, Dr. Skaggs, was consulted and accepted admission of the patient.
[2017-05-01 00:51] LABS: Basophils % 0.5 %; Eosinophils # 0.3 K/mcL (0.0-0.6); Eosinophils % 3.4 %; Hematocrit 38.9 % (35.3-44.9); Hemoglobin 12.1 g/dL (11.5-15.4); Immature Granulocytes % 0.5 % (0-4); Lymphocytes # 1.6 K/mcL (0.6-4.6); Lymphocytes % 18.5 %; Mean Corpuscular HGB Conc 31.1 g/dL (31.6-35.5); Mean Corpuscular Hemoglobin 28.2 pg (28.0-33.3); Mean Corpuscular Volume 90.7 fL (83.0-100.0); Mean Platelet Volume 10.9 fL (9.4-12.4); Monocytes # 0.5 K/mcL (0.0-1.3); Monocytes % 5.9 %; Platelet Count 246 K/mcL (140-400); Red Blood Count 4.29 M/mcL (3.82-4.97); Red Cell Distribution Width 15.8 % (11.5-14.5); Segmented Neutrophils % 71.2 %
[2017-05-01 01:19] LABS: BUN/Creatinine Ratio 24 (6-26); Blood Urea Nitrogen 19 mg/dL (6-20); Calcium 8.9 mg/dL (8.6-10.3); Carbon Dioxide 28 mEq/L (23-29); Chloride 102 mEq/L (98-107); Glucose 312 mg/dL (70-105); Osmolality,Calculated 302 (280-300); Potassium 3.3 mEq/L (3.5-5.1); Sodium 139 mEq/L (136-145); eGFR For African Americans > 60 (> 60); eGFR For Non-African Americans > 60 (> 60)
[2017-05-01] MEDS ORDERED: *HR* FentaNYL (PF) 100 MCG/2 ML VIAL IVP ONE (01:26)
[2017-05-01] MEDS ORDERED: Aztreonam 2,000 MG in Water for inj. (sterile) 20 ML IVP ONE (02:53)
[2017-05-01] MEDS ORDERED: Levofloxacin 750 MG/150 ML 750 MG/150 ML BAG IVPB ONE (02:53)
[2017-05-01] MEDS: Acetaminophen 325 MG TABLET PO PRN (07:45)
[2017-05-01] MEDS: *HR* OxyCODONE Immed Rel 5 MG TABLET PO PRN ×3 (07:46→22:31)
--- NOTE | 2017-05-01 09:31 | Internal Med History&Physical ---
<Raeann Torres - Last Filed: 05/01/17 16:07> Date of Encounter: 05/01/17 Time of Encounter: 09:15 Assessment and Plan (1) Acute CHF Current visit: Yes Status: Acute Possible acute CHF, unknown type. Patient has had worsening SOB. BNP= 188. Patient has no history of CHF. CXR today showed pulmonary edema and cardiomegaly. Echo 10/04/16 attempted but inconclusive no EF obtained. EKG sinus and unchanged. Unsure of type as we do not have an Echo. Plan: - repeat CXR 2 view, non-portable - begin Lasix 20mg IV BID, renal function normal currently monitor with daily BMP - continue oxygen via NC as needed - echo with enhancement - cardiac monitoring Qualifiers: Heart failure type: unspecified Qualified Code(s): I50.9 - Heart failure, unspecified (2) Panniculitis Current visit: Yes Status: Acute Patient given Levo, Vanco, and Aztranam one dose in the ED. Wound currently looks like it is healing well. 04/10/17 proteus mirabilis and group c strep, sensitive to Ertapenem. Plan: - antibiotics: Ertapenem and Vanco (initiated 05/01) - wound cultures pending - blood cultures pending - wound care consulted - continue home meds for pain control oxycodone 20mg Q4hr (3) Hypokalemia Current visit: Yes Status: Acute 05/01 K= 3.3, will replace with 40mg KCl orally TID for 3 doses, will continue to monitor as we are adding lasix (4) Diabetes type 2, uncontrolled Current visit: Yes Status: Acute Plan: - A1c ordered - moderate SSI with 12 units premeal - Levemir 30mg BID - stop home metformin for now Qualifiers: Diabetes mellitus complication status: with skin complications Diabetes mellitus complication detail: with other skin ulcer Diabetes mellitus residential insulin use: with termite control servicer use Qualified Code(s): E11.622 - Type 2 diabetes mellitus with other skin ulcer; E11.65 - Type 2 diabetes mellitus with hyperglycemia; E11.65 - Type 2 diabetes mellitus with hyperglycemia; E11.65 - Type 2 diabetes mellitus with hyperglycemia; E11.65 - Type 2 diabetes mellitus with hyperglycemia; Z79.4 - terminal operator (current) use of insulin; Z79.4 - long-term (current) use of insulin; Z79.4 - long-term (current) use of insulin; Z79.4 - terminal operator (current) use of insulin (5) Morbid obesity with BMI of 70 and over, adult Current visit: Yes Status: Acute DVT prophylaxis heparin (6) Sleep apnea treated with nocturnal BiPAP Current visit: Yes Status: Acute Patient states that her BiPaP setting is 20, unsure of the other number. Plan: - Bipap at night (7) Tobacco dependence Current visit: Yes Status: Acute will plan to do tobacco cessation education. (8) Calf tenderness Current visit: Yes Status: Acute Calf tenderness bilaterally, left worst than right. Both lower extremities are more red and swollen than normal. Plan: - doppler US bilaterally - d-dimer (9) DVT prophylaxis Current visit: Yes Status: Acute Heparin (10) Anxiety Current visit: Yes Status: Acute home meds continued Internal Medicine - H&P: HPI Chief complaint: SOB Admitted From: Home Plans for Post Hospital Care: Home History of present illness: Ms. Cat is a 46 year old female with a past medical history of COPD, endometrial cancer, thyroid disease, diabetes, morbid obesity, OHS, sleep apnea , smoker, and chronic wound infection of which she was recently hospitalized on 04/17/17 growing proteus mirabilis and group c strep and sent home with a PICC line with a 7 course of ceftriaxone. Yesterday presented to the ED with worsening shortness of breath. Patient states that she has had increased shortness of breath over the last couple of days she is typically on home oxygen 2 L at night but has been using oxygen during the day for about 5-6 hours the last couple of days. Shortness of breath is worse when she lies down. Admits to associated chest heaviness but no sweating during episodes of SOB and chest heaviness. Patient states that she has only been on Lasix when she has been in the hospital but is not on Lasix at home. Patient admits to recent increase in lower extremity edema and increase in generalized weakness. Patient states that she has had subjective fevers and chills with sweating. She states she has never had heart problems before and therefore has not seen a dedicated truck driver. Patient has a previous echo on 10/04/16 which due to her obesity was unable to obtain heart windows and was inconclusive. No previous cath. EKG today showed sinus rhythm with no changes from previous EKG. No previous history of DVT or PE. Of note, patient states that her panniculitis wound is looking better and she completed the course of 7 days of ceftriaxone in then took her PICC line out. Past Med Surg Social Fam HX - Past Medical History Source: patient, old records reviewed Medical history: asthma, cancer (endometrial ), COPD, CVA, diabetes, GERD, hyperlipidemia, hypertension, thyroid disease, other (sleep apnea, NESHA) Psychiatric history: anxiety, depression - Past Surgical History Surgical History: hysterectomy, thyroidectomy - Social History Smoking Status: Current every day smoker Smokeless Tobacco Status: No Alcohol use: none Drug use: none - Family History Mother Living Status: Still Living Hx Family Cardiac Disorders: Yes Hx Family Respiratory Disorders: Yes Hx Family Cancer: No Hx Family Endocrine Disorder: Yes Hx Family Neuromuscular Disorders: Yes Father Living Status: Hx Family Cardiac Disorders: Yes (HTN) Hx Family Respiratory Disorders: Yes (Sleep apnea) Internal Medicine - H&P: Meds Ranitidine HCl [Acid Aquaculture Program Director] 150 mg PO BID 04/03/16 [History] Aspirin Enteric Coated [Aspirin EC] 81 mg PO DAILY 10/04/16 [History] Ipratropium/Albuterol Neb [Duoneb] 3 ml IH Q6HR PRN 10/04/16 [History] Ondansetron ODT [Zofran ODT] 4 mg SL Q8HR PRN #10 tab.rapdis 11/08/16 [Rx] metFORMIN [Glucophage] 1,000 mg PO BIDWM #90 tab 11/08/16 [Rx] Levothyroxine Sodium [Levo-T] 350 mcg PO QAM #60 tablet 11/10/16 [Rx] Loratadine [Allergy Relief] 10 mg PO DAILY #60 11/10/16 [Rx] ALPRAZolam [Xanax 0.5 MG Tablet] 0.5 mg PO BID PRN 01/27/17 [History] Atorvastatin Calcium [Lipitor] 20 mg PO HS 01/27/17 [History] Cyanocobalamin (Vitamin B-12) [Vitamin B12] 1,000 mcg PO TH 01/27/17 [History] Docusate [Colace] 100 mg PO BID PRN 01/27/17 [History] Insulin Regular U-500 [HumuLIN R U-500] 0 unit SQ TID MDD See Comment. [History] Mometasone Furoate [Asmanex] 2 puff IH BID 01/27/17 [History] BuPROPion [Wellbutrin] 100 mg PO DAILY 04/10/17 [History] Fluticasone Propionate [Flovent Hfa] 1 puff IH BID 04/10/17 [History] Gabapentin [Neurontin] 600 mg PO TID 04/10/17 [History] Mupirocin [Bactroban Oint] 1 appl TP BID PRN 04/10/17 [History] Nystatin POWDER [Nystop] 1 appl TP TID PRN 04/10/17 [History] OxyCODONE Immed Rel [Roxicodone 20 MG] 20 mg PO Q4HR PRN 2 Days #7 tablet [Rx] Insulin LISPRO [HumaLOG] 6 - 18 units SQ TIDWM PRN 05/01/17 [History] 3 Allergy/AdvReac Type Severity Reaction Status Date / Time Penicillins Allergy Rash Verified 01/27/16 09:52 Tetracycline Allergy Rash Verified 01/27/16 09:52 All Systems PM: A 10-system review of systems was performed and is negative for pertinent findings except as documented above in the HPI. - Constitutional Constitutional: as per HPI - Constitutional Vitals: Temp Pulse Resp BP Pulse Ox 98.2 F 83 18 152/78 98 05/01/17 07:54 05/01/17 07:54 05/01/17 07:54 05/01/17 07:54 05/01/17 07:54 - Other Additional findings: Constitutional: Alert, in no acute distress, well nourished, well developed. Head: Normocephalic, atraumatic, normal contour and symmetric, no masses, lesions or scars Heart: Normal, regular rate and rhythm, no murmurs Lungs: Clear to auscultation, no wheezes, rales, or rhonchi Abdomen: pannus has increased redness especially in the RLLQ, wound is present about 5-6cm with pink granulation tissue surrounding all borders with minimal clear discharge present, diffuse tenderness, Soft, nondistended, Extremities: lower extremitites with +2 pitting edema bilaterally, increase redness on anterior aspect of both shins, no wounds present, venous stasis changes to the skin, calf tenderness worst on left than right and worst on calf than kevin, No clubbing, cyanosis, or edema, radial pulse +2/4, capillary refill <2sec. Skin: Skin warm and dry, no lesions, no rashes, no jaundice Neurologic: Cranial nerves II through XII grossly intact, no focal deficits, strength 5/5 in all extremities, decrease strength in left compared to right leg Psych: Cooperative with exam, good eye contact, cognitive function intact, judgment good insight good, speech clear, thought process logical, and goal directed Internal Med - H&P Results - Labs CBC & Chem 7: 04/30/17 00:25 04/30/17 00:25 <Froylan Banks - Last Filed: 05/01/17 21:26> Date of Encounter: 05/01/17 Internal Medicine - H&P: HPI History of present illness: Ms. Cat is a 46 year old female All Systems PM: A 10-system review of systems was performed and is negative for pertinent findings except as documented above in the HPI. - Constitutional Vitals: Temp Pulse Resp BP Pulse Ox 98.1 F 81 18 168/77 94 05/01/17 20:18 05/01/17 20:18 05/01/17 20:43 05/01/17 20:18 05/01/17 20:43 Internal Med - H&P Results - Labs CBC & Chem 7: 04/30/17 00:25 04/30/17 00:25 - Attending Attestation I examined this patient and my medical decision-making was reviewed with the Resident Physician, Dr Torres. I agree with the documented findings, disposition and treatment plan as described except to the extent set forth below. Patient presented to the hospital with chest tightness and shortness of breath. Chest x-ray shows pulmonary edema. BNP is elevated. She has lower extremity edema. Additionally she has redness and 1 open wound in the lower abdomen. Assessment: Suspect acute heart failure unknown ejection fraction. Unclear if systolic or diastolic. Plan: IV Lasix. Strict I's and O's. Obtain echocardiogram if feasible with her body habitus. For panniculitis we will treat her with broad-spectrum IV antibiotics. Froylan Banks MD
[2017-05-01] MEDS ORDERED: Naloxone 0.4 MG/ML INJ IVP PRN ×2 (10:07→10:09)
[2017-05-01] MEDS ORDERED: *HR* OxyCODONE Immed Rel 5 MG TABLET PO ONE (10:44)
[2017-05-01] MEDS ORDERED: Furosemide 40 MG/4 ML VIAL IVP ONE (14:08)
[2017-05-01] MEDS ORDERED: Dextrose Gel 15 GM/37.5 ML TUBE PO PRN ×2 (14:39)
[2017-05-01] MEDS ORDERED: *HR* Dextrose 50 % in Water (Syg) 50 ML SYRINGE IVP PRN (14:39)
[2017-05-01] MEDS ORDERED: D5% in Water 1,000 ML IVC PRN (14:39)
[2017-05-01 15:21] LABS: Hemoglobin A1C 9.8 %
[2017-05-01] MEDS ORDERED: Ipratropium/Albuterol Neb 3 ML IH PRN (15:53)
[2017-05-01] MEDS: Insulin DETEMIR 100 UNIT/ML X5UNITS SQ SCH ×2 (16:25→23:21)
[2017-05-01] MEDS ORDERED: Perflutren Lipid Microsphere 1.3 ML in 0.9 % Sodium Chloride 8.7 ML IVP ONE (17:53)
[2017-05-01] MEDS: Insulin LISPRO 300 UNITS/3 ML VIAL SQ SCH ×3 (17:58→23:26)
[2017-05-01] MEDS: Ertapenem 1,000 MG in Water for inj. (sterile) 20 ML 10 ML IVP SCH (17:58)
[2017-05-01] MEDS: Beclomethasone 80mcg MDI IH SCH (20:43)
[2017-05-01] MEDS: ALPRAZolam 0.5 MG TABLET PO SCH (20:59)
[2017-05-01] MEDS: Gabapentin 300 MG CAPSULE PO SCH (21:01)
[2017-05-01] MEDS: Famotidine 20 MG TABLET PO SCH (21:01)
[2017-05-01] MEDS: Furosemide 20 MG/2 ML VIAL IVP SCH (23:21)
[2017-05-02] MEDS: *HR* Enoxaparin 40 MG/0.4 ML SYRINGE SQ SCH (06:28)
[2017-05-02] MEDS: *HR* OxyCODONE Immed Rel 5 MG TABLET PO PRN ×5 (06:46→20:33)
[2017-05-02] MEDS ORDERED: Perflutren Lipid Microsphere 1.3 ML in 0.9 % Sodium Chloride 8.7 ML IVP ONE (08:00)
[2017-05-02] MEDS ORDERED: Perflutren Lipid Microsphere 2 ML VIAL ONE (08:05)
[2017-05-02] MEDS: Beclomethasone 80mcg MDI IH SCH ×2 (08:33→20:30)
--- NOTE | 2017-05-02 09:29 | Internal Med Progress Note ---
Date of Encounter: 05/02/17 Time of Encounter: 09:27 - Assessment and plan (1) Diverticulitis Current Visit: No Status: Acute Assessment and plan: - pending blood and wound cx. - clincally improved, continue current treatment with ertapenem and vancomycin. Qualifiers: Diverticulitis site: unspecified part of intestinal tract Diverticulitis bleeding: without bleeding Diverticulitis complication: without perforation or abscess Qualified Code(s): K57.92 - Diverticulitis of intestine, part unspecified, without perforation or abscess without bleeding (2) Diabetes mellitus Current Visit: No Status: Chronic Assessment and plan: - Basal insulin and insulin SS. - adjust basal insulin dose if BG remain high. Qualifiers: Diabetes mellitus type: type 2 Diabetes mellitus complication status: with hyperglycemia Diabetes mellitus extermination inspector insulin use: with intermediate use Qualified Code(s): E11.65 - Type 2 diabetes mellitus with hyperglycemia; Z79.4 - skilled nursing (current) use of insulin; Z79.4 - manager long term care (current) use of insulin ; Z79.4 - skilled nursing (current) use of insulin; Z79.4 - skilled nursing (current) use of insulin (3) Hypokalemia Current Visit: Yes Status: Acute Assessment and plan: - received K supplement yesterday. - recheck RFP this morning. (4) Sleep apnea treated with nocturnal BiPAP Current Visit: Yes Status: Acute Assessment and plan: - continue BiPAP. (5) Acute CHF Current Visit: Yes Status: Acute Assessment and plan: - undiagnosed CHF. CXR revealed cardiomegaly and pulmonary congestion. Received Lasix during last admission but off lasix after dc. - BNP 188. unable to obtain ECHO during body habitat and obesity. - will continue Lasix. monitoring symptoms. daily weight, low salt diet, and strict Is and Os. Qualifiers: Heart failure type: unspecified Qualified Code(s): I50.9 - Heart failure, unspecified - Subjective Interval history: Pt resting in bed and has no complaints at this time. No fever, chills, or night sweats. No cough, sob, or chest pain. - Constitutional Vitals: Temp Pulse Resp BP Pulse Ox 98 F 77 16 130/82 99 05/02/17 08:01 05/02/17 08:01 05/02/17 08:33 05/02/17 08:01 05/02/17 08:33 Internal Medicine: Result - Labs CBC & Chem 7: 04/30/17 00:25 04/30/17 00:25 - ABG Interpretation ABG results: PT/INR, D-dimer D-Dimer 399 ng/mLFEU (0-500) 05/01/17 14:45 - VTE Documentation of Mechanical Device: Intermittent pneumatic compression device Consult Discharge Plan - Plan Referrals: Luís Tavares DO [Primary Care Provider] -
[2017-05-02] MEDS: Famotidine 20 MG TABLET PO SCH ×2 (10:32→20:33)
[2017-05-02] MEDS: ALPRAZolam 0.5 MG TABLET PO SCH ×3 (10:32→20:33)
[2017-05-02] MEDS: Aspirin Enteric Coated 81 MG Tablet PO SCH (10:32)
[2017-05-02] MEDS: Furosemide 20 MG/2 ML VIAL IVP SCH ×2 (10:32→17:17)
[2017-05-02] MEDS: Gabapentin 300 MG CAPSULE PO SCH ×3 (10:32→20:32)
[2017-05-02] MEDS: Ertapenem 1,000 MG in Water for inj. (sterile) 20 ML 10 ML IVP SCH (10:33)
[2017-05-02] MEDS: Insulin LISPRO 300 UNITS/3 ML VIAL SQ SCH ×7 (10:34→20:30)
[2017-05-02 11:16] LABS: Albumin 3.1 g/dL (3.5-5.7); BUN/Creatinine Ratio 20 (6-26); Blood Urea Nitrogen 10 mg/dL (6-20); Calcium 8.4 mg/dL (8.6-10.3); Carbon Dioxide 33 mEq/L (23-29); Chloride 103 mEq/L (98-107); Glucose 257 mg/dL (70-105); Osmolality,Calculated 300 (280-300); Phosphorous 3.9 mg/dL (2.7-4.5); Potassium 3.7 mEq/L (3.5-5.1); Sodium 141 mEq/L (136-145); eGFR For African Americans > 60 (> 60); eGFR For Non-African Americans > 60 (> 60)
[2017-05-02] MEDS: Insulin DETEMIR 100 UNIT/ML X5UNITS SQ SCH ×2 (15:39→20:35)
[2017-05-03] MEDS: *HR* OxyCODONE Immed Rel 5 MG TABLET PO PRN ×4 (04:34→21:28)
[2017-05-03] MEDS: *HR* Enoxaparin 40 MG/0.4 ML SYRINGE SQ SCH (05:50)
[2017-05-03 07:58] LABS: Albumin 2.9 g/dL (3.5-5.7); BUN/Creatinine Ratio 21 (6-26); Blood Urea Nitrogen 12 mg/dL (6-20); Calcium 8.6 mg/dL (8.6-10.3); Carbon Dioxide 36 mEq/L (23-29); Chloride 102 mEq/L (98-107); Glucose 216 mg/dL (70-105); Osmolality,Calculated 298 (280-300); Phosphorous 4.2 mg/dL (2.7-4.5); Sodium 141 mEq/L (136-145); eGFR For African Americans > 60 (> 60); eGFR For Non-African Americans > 60 (> 60)
[2017-05-03] MEDS: Beclomethasone 80mcg MDI IH SCH ×2 (08:31→22:31)
[2017-05-03] MEDS: Ertapenem 1,000 MG in Water for inj. (sterile) 20 ML 10 ML IVP SCH (08:48)
[2017-05-03] MEDS: Insulin LISPRO 300 UNITS/3 ML VIAL SQ SCH ×7 (08:53→21:19)
[2017-05-03] MEDS: Insulin DETEMIR 100 UNIT/ML X5UNITS SQ SCH ×2 (08:54→21:18)
[2017-05-03] MEDS: *HR* Metformin 500 MG TABLET PO SCH ×2 (08:56→17:13)
[2017-05-03] MEDS: Famotidine 20 MG TABLET PO SCH ×2 (08:56→21:17)
[2017-05-03] MEDS: Aspirin Enteric Coated 81 MG Tablet PO SCH (08:56)
[2017-05-03] MEDS: Gabapentin 300 MG CAPSULE PO SCH ×3 (08:56→21:17)
[2017-05-03] MEDS: ALPRAZolam 0.5 MG TABLET PO SCH ×3 (08:56→21:17)
[2017-05-03] MEDS: Furosemide 20 MG/2 ML VIAL IVP SCH ×2 (08:58→17:13)
--- NOTE | 2017-05-03 11:07 | Electrocardiograph Report ---
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
--- NOTE | 2017-05-03 15:08 | Internal Med Progress Note ---
Date of Encounter: 05/03/17 Time of Encounter: 15:06 - Assessment and plan (1) Acute on chronic diastolic (congestive) heart failure Current Visit: Yes Status: Acute Assessment and plan: Possible acute CHF, unknown type. Patient has had worsening SOB. BNP= 188. Patient has no history of CHF. CXR today showed pulmonary edema and cardiomegaly. Echo 10/04/16 attempted but inconclusive no EF obtained. EKG sinus and unchanged. Unsure of type as we do not have an Echo. Plan: - repeat CXR 2 view on 05/02 has no changes - continue Lasix 20mg IV BID, renal function normal currently monitor with daily BMP - continue oxygen via NC as needed - cardiac monitoring (2) Diabetes mellitus type 2 with complications Current Visit: Yes Status: Chronic Assessment and plan: uncontrolled with A1C 9.8, will increase minsulin dose Qualifiers: Diabetes mellitus jail insulin use: with jail use Qualified Code( s): E11.8 - Type 2 diabetes mellitus with unspecified complications; Z79.4 - [facility] (current) use of insulin; Z79.4 - clothing trades workers (current) use of insulin; Z79.4 - [facility] (current) use of insulin; Z79.4 - clothing trades workers (current) use of insulin (3) Obstructive sleep apnea Current Visit: No Status: Chronic Assessment and plan: conitnue BIPAP (4) Morbid obesity with BMI of 70 and over, adult Current Visit: No Status: Chronic Assessment and plan: life style modification (5) Chronic abdominal wound infection Current Visit: No Status: Chronic Assessment and plan: Wound currently looks like it is healing well. 04/10/17 proteus mirabilis and group c strep, sensitive to Ertapenem. Qualifiers: Encounter type: subsequent encounter Qualified Code(s): S31.109D - Unspecified open wound of abdominal wall, unspecified quadrant without penetration into peritoneal cavity, subsequent encounter; L08.9 - Local infection of the skin and subcutaneous tissue, unspecified (6) Cellulitis Current Visit: No Status: Acute Assessment and plan: b/l leg cellulitis, continue vancomycina and invanz Qualifiers: Site of cellulitis: trunk Site of cellulitis of trunk: abdominal wall Qualified Code(s): L03.311 - Cellulitis of abdominal wall - Time Spent With Patient 25 - 35 minutes - Subjective Interval history: Ms. Cat is a 46 year old female with a past medical history of COPD, endometrial cancer, thyroid disease, diabetes, morbid obesity, OHS, sleep apnea , smoker, and chronic wound infection of which she was recently hospitalized on 04/17/17 growing proteus mirabilis and group c strep and sent home with a PICC line with a 7 course of ceftriaxone. Yesterday presented to the ED with worsening shortness of breath. Patient states that she has had increased shortness of breath over the last couple of days she is typically on home oxygen 2 L at night but has been using oxygen during the day for about 5-6 hours the last couple of days. Shortness of breath is worse when she lies down. she was admitted for SOB and cellulitis - Constitutional Vitals: Temp Pulse Resp BP Pulse Ox 98.3 F 100 15 129/79 97 05/03/17 12:03 05/03/17 12:03 05/03/17 12:03 05/03/17 12:03 05/03/17 12:03 General appearance: Present: A&O X 3, morbidly obese Exam: CONSTITUTIONAL: patient appears as an age appropriate female in no acute distress. EYES Clear sclerae, bilateral pupils are equal, reactive to light. EMOI. RESPIRATORY: No accessory muscle use, bilateral clear to auscultation, no wheezing, no crackles/rales. CARDIOVASCULAR: Regular heart rate, normal S1 and S2, no murmurs GASTROINTESTINAL: bowel sounds present, soft, no tenderness. MUSCULOSKELETAL: Joints in normal range of motion, no clubbing, ++ edema, no cyanosis. Bilateral peripheral pulses 2+. NEUROLOGIC: CN II to XII are grossly intact, no focal neurological deficit. Internal Medicine: Result - Labs CBC & Chem 7: 04/30/17 00:25 05/03/17 07:18 Labs: BMP 05/03/17 07:18 Sodium 141 Potassium 4.0 Chloride 102 Carbon Dioxide 36 H BUN 12 Creatinine 0.56 L Glucose 216 H Calcium 8.6 Liver Function 05/03/17 Range/Units 07:18 Albumin 2.9 L (3.5-5.7) g/dL - ABG Interpretation ABG results: PT/INR, D-dimer D-Dimer 399 ng/mLFEU (0-500) 05/01/17 14:45 - VTE Documentation of Mechanical Device: Intermittent pneumatic compression device Consult Discharge Plan - Plan Referrals: Luís Tavares DO [Primary Care Provider] -
[2017-05-03] MEDS: Fluconazole 100 MG TABLET PO SCH (17:13)
[2017-05-03] MEDS: Miconazole 2% cream 118 GM TUBE TP SCH (21:19)
[2017-05-04] MEDS: *HR* OxyCODONE Immed Rel 5 MG TABLET PO PRN ×3 (01:37→22:14)
[2017-05-04 04:10] LABS: Basophils % 0.2 %; Eosinophils # 0.4 K/mcL (0.0-0.6); Eosinophils % 5.1 %; Hematocrit 38.2 % (35.3-44.9); Hemoglobin 11.2 g/dL (11.5-15.4); Immature Granulocytes % 0.5 % (0-4); Immature Platelets 4.7 % (1.1-6.1); Lymphocytes % 12.4 %; Mean Corpuscular HGB Conc 29.3 g/dL (31.6-35.5); Mean Corpuscular Hemoglobin 27.8 pg (28.0-33.3); Mean Corpuscular Volume 94.8 fL (83.0-100.0); Mean Platelet Volume 10.5 fL (9.4-12.4); Monocytes # 0.5 K/mcL (0.0-1.3); Neutrophils # 6.4 K/mcL (1.6-8.9); Platelet Count 217 K/mcL (140-400); Red Blood Count 4.03 M/mcL (3.82-4.97); Red Cell Distribution Width 15.6 % (11.5-14.5); Segmented Neutrophils % 75.8 %
[2017-05-04 04:30] LABS: BUN/Creatinine Ratio 30 (6-26); Blood Urea Nitrogen 16 mg/dL (6-20); Calcium 8.5 mg/dL (8.6-10.3); Carbon Dioxide 40 mEq/L (23-29); Chloride 98 mEq/L (98-107); Glucose 282 mg/dL (70-105); Osmolality,Calculated 303 (280-300); Potassium 3.7 mEq/L (3.5-5.1); Sodium 141 mEq/L (136-145); eGFR For African Americans > 60 (> 60); eGFR For Non-African Americans > 60 (> 60)
[2017-05-04] MEDS: *HR* Enoxaparin 40 MG/0.4 ML SYRINGE SQ SCH (06:22)
[2017-05-04] MEDS ORDERED: Aminoglycoside Consult 1 EACH MC ONE (07:33)
[2017-05-04] MEDS: Beclomethasone 80mcg MDI IH SCH ×2 (08:12→21:59)
[2017-05-04] MEDS: Insulin LISPRO 300 UNITS/3 ML VIAL SQ SCH ×7 (08:17→22:00)
[2017-05-04] MEDS: Furosemide 20 MG/2 ML VIAL IVP SCH ×2 (08:19→18:10)
[2017-05-04] MEDS: Ertapenem 1,000 MG in Water for inj. (sterile) 20 ML 10 ML IVP SCH (08:19)
[2017-05-04] MEDS: Gabapentin 300 MG CAPSULE PO SCH ×3 (08:20→21:58)
[2017-05-04] MEDS: *HR* Metformin 500 MG TABLET PO SCH ×2 (08:20→18:11)
[2017-05-04] MEDS: ALPRAZolam 0.5 MG TABLET PO SCH ×3 (08:21→21:59)
[2017-05-04] MEDS: Famotidine 20 MG TABLET PO SCH ×2 (08:21→21:59)
[2017-05-04] MEDS: Fluconazole 100 MG TABLET PO SCH (08:21)
[2017-05-04] MEDS: Aspirin Enteric Coated 81 MG Tablet PO SCH (08:21)
[2017-05-04] MEDS: Miconazole 2% cream 118 GM TUBE TP SCH ×2 (08:22→22:02)
--- NOTE | 2017-05-04 08:45 | Internal Med Progress Note ---
Date of Encounter: 05/04/17 Time of Encounter: 08:43 - Assessment and plan (1) Acute on chronic diastolic (congestive) heart failure Current Visit: Yes Status: Acute Assessment and plan: Possible acute CHF, unknown type. Patient has had worsening SOB. BNP= 188. Patient has no history of CHF. CXR today showed pulmonary edema and cardiomegaly. Echo 10/04/16 attempted but inconclusive no EF obtained. EKG sinus and unchanged. Unsure of type as we do not have an Echo. Plan: - repeat CXR 2 view on 05/02 has no changes - continue Lasix 20mg IV BID, renal function normal currently monitor with daily BMP - continue oxygen via NC as needed - cardiac monitoring (2) Diabetes mellitus type 2 with complications Current Visit: Yes Status: Chronic Assessment and plan: uncontrolled with A1C 9.8, will increase minsulin dose Francy glucose has been running 200-300 will increase insulin dose 45 units twice a day Qualifiers: Diabetes mellitus senior care insulin use: with senior care use Qualified Code( s): E11.8 - Type 2 diabetes mellitus with unspecified complications; Z79.4 - intermediate teacher (current) use of insulin; Z79.4 - intermediate teacher (current) use of insulin; Z79.4 - intermediate teacher (current) use of insulin; Z79.4 - intermediate teacher (current) use of insulin (3) Obstructive sleep apnea Current Visit: No Status: Chronic Assessment and plan: conitnue BIPAP (4) Morbid obesity with BMI of 70 and over, adult Current Visit: No Status: Chronic Assessment and plan: life style modification (5) Chronic abdominal wound infection Current Visit: No Status: Chronic Assessment and plan: Wound currently looks like it is healing well. 04/10/17 proteus mirabilis and group c strep, sensitive to Ertapenem. Pending wound care consult Qualifiers: Encounter type: subsequent encounter Qualified Code(s): S31.109D - Unspecified open wound of abdominal wall, unspecified quadrant without penetration into peritoneal cavity, subsequent encounter; L08.9 - Local infection of the skin and subcutaneous tissue, unspecified (6) Cellulitis Current Visit: No Status: Acute Assessment and plan: b/l leg cellulitis, continue vancomycina and invanz Qualifiers: Site of cellulitis: trunk Site of cellulitis of trunk: abdominal wall Qualified Code(s): L03.311 - Cellulitis of abdominal wall - Time Spent With Patient 25 - 35 minutes - Subjective Interval history: Ms. Cat is a 46 year old female with a past medical history of COPD, endometrial cancer, thyroid disease, diabetes, morbid obesity, OHS, sleep apnea , smoker, and chronic wound infection of which she was recently hospitalized on 04/17/17 growing proteus mirabilis and group c strep and sent home with a PICC line with a 7 course of ceftriaxone. Yesterday presented to the ED with worsening shortness of breath. Patient states that she has had increased shortness of breath over the last couple of days she is typically on home oxygen 2 L at night but has been using oxygen during the day for about 5-6 hours the last couple of days. Shortness of breath is worse when she lies down. she was admitted for SOB and cellulitis Patient is doing better, shortness of breast improved. She is able to lie flat. Patient is super morbid obesity, she has significantly bilateral lower extremity lymphedema. And the cellulitis. The redness improved, we will continue IV antibiotics and diuresis for another 1 or 2 days. - Constitutional Vitals: Temp Pulse Resp BP Pulse Ox 98.2 F 87 18 128/79 96 05/04/17 06:58 05/04/17 06:58 05/04/17 08:13 05/04/17 06:58 05/04/17 08:13 General appearance: Present: A&O X 3, morbidly obese Exam: CONSTITUTIONAL: patient appears as an age appropriate female in no acute distress. EYES Clear sclerae, bilateral pupils are equal, reactive to light. EMOI. RESPIRATORY: No accessory muscle use, bilateral clear to auscultation, no wheezing, no crackles/rales. CARDIOVASCULAR: Regular heart rate, normal S1 and S2, no murmurs GASTROINTESTINAL: bowel sounds present, soft, no tenderness. MUSCULOSKELETAL: Joints in normal range of motion, no clubbing, +++ edema, no cyanosis. Bilateral peripheral pulses 2+. NEUROLOGIC: CN II to XII are grossly intact, no focal neurological deficit. Internal Medicine: Result - Labs CBC & Chem 7: 05/04/17 03:46 05/04/17 03:46 Labs: Short CBC 05/04/17 Range/Units 03:46 WBC 8.4 (4.3-11.1) K/mcL Hgb 11.2 L (11.5-15.4) g/dL Hct 38.2 (35.3-44.9) % Plt Count 217 (140-400) K/mcL Neutrophils # 6.4 (1.6-8.9) K/mcL BMP 05/04/17 03:46 Sodium 141 Potassium 3.7 Chloride 98 Carbon Dioxide 40 H* BUN 16 Creatinine 0.53 L Glucose 282 H Calcium 8.5 L - ABG Interpretation ABG results: PT/INR, D-dimer D-Dimer 399 ng/mLFEU (0-500) 05/01/17 14:45 - VTE Documentation of Mechanical Device: Intermittent pneumatic compression device Consult Discharge Plan - Plan Referrals: Luís Tavares DO [Primary Care Provider] -
[2017-05-04] MEDS: Insulin DETEMIR 100 UNIT/ML X5UNITS SQ SCH ×2 (09:07→22:01)
[2017-05-04] MEDS: cefTRIAXone 2,000 MG in Water for inj. (sterile) 20 ML 20 ML IVP SCH (18:10)
[2017-05-05] MEDS: *HR* Enoxaparin 40 MG/0.4 ML SYRINGE SQ SCH (05:50)
[2017-05-05] MEDS: Insulin LISPRO 300 UNITS/3 ML VIAL SQ SCH ×7 (09:34→21:50)
[2017-05-05] MEDS: Insulin DETEMIR 100 UNIT/ML X5UNITS SQ SCH ×2 (09:35→21:52)
[2017-05-05] MEDS: Furosemide 20 MG/2 ML VIAL IVP SCH (09:36)
[2017-05-05] MEDS: Gabapentin 300 MG CAPSULE PO SCH ×3 (09:40→21:52)
[2017-05-05] MEDS: Famotidine 20 MG TABLET PO SCH ×2 (09:40→21:53)
[2017-05-05] MEDS: Aspirin Enteric Coated 81 MG Tablet PO SCH (09:40)
[2017-05-05] MEDS: ALPRAZolam 0.5 MG TABLET PO SCH ×3 (09:41→21:53)
[2017-05-05] MEDS: *HR* Metformin 500 MG TABLET PO SCH ×2 (10:53→17:22)
[2017-05-05] MEDS: Fluconazole 100 MG TABLET PO SCH (10:54)
[2017-05-05] MEDS: Miconazole 2% cream 118 GM TUBE TP SCH ×2 (10:55→21:52)
[2017-05-05] MEDS: *HR* OxyCODONE Immed Rel 5 MG TABLET PO PRN ×2 (14:19→21:55)
--- NOTE | 2017-05-05 14:42 | Internal Med Progress Note ---
<Jorge Terry - Last Filed: 05/05/17 15:45> Date of Encounter: 05/05/17 Time of Encounter: 14:40 - Assessment and plan (1) Acute CHF Current Visit: Yes Status: Acute Assessment and plan: CXR showed cardiomegaly and pulmonary congestion. Lower extremity Edema. Patient states that this has significantly improved BNP 188 Unable to obatin adequate echocardiogram due to body habitus Decrease diuresis, lasix 20mg daily daily weight, low salt diet, and strict Is and Os. 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: with o[employer]erman use Qualified Code( s): E11.8 - Type 2 diabetes mellitus with unspecified complications; Z79.4 - [employer] (current) use of insulin; Z79.4 - [facility]itentiary (current) use of insulin; Z79.4 - [employer] (current) use of insulin; Z79.4 - [facility]iary (current) use of insulin (3) Obstructive sleep apnea Current Visit: No Status: Chronic Assessment and plan: conitnue BIPAP Continuous supplemental oxygen (4) Chronic abdominal wound infection Current Visit: No Status: Chronic Assessment and plan: Patient has known chronic abdominal wound over the past 8 years Cultures were negative Patient states that her abdomen has been healing. Qualifiers: Encounter type: subsequent encounter Qualified Code(s): S31.109D - Unspecified open wound of abdominal wall, unspecified quadrant without penetration into peritoneal cavity, subsequent encounter; L08.9 - Local infection of the skin and subcutaneous tissue, unspecified (5) Lower extremity edema Current Visit: Yes Status: Acute Assessment and plan: Patient has acute on chronic lower extremity swelling Has improved with lasix Venous duplex was negative for DVT (6) Morbid obesity with BMI of 70 and over, adult Current Visit: No Status: Chronic Assessment and plan: Lifestyle modifications (7) DVT prophylaxis Current Visit: Yes Status: Acute Assessment and plan: Patient is currently on Lovenox - Subjective Interval history: Patient states that she is feeling better today. States her breathing has significantly improved. States that her leg swelling has drastically decreased and her legs do not feel as tight. Patient states that she has chronic abdominal pain but this is unchanged from normal. - Constitutional Vitals: Temp Pulse Resp BP Pulse Ox 98.1 F 96 16 126/76 100 05/05/17 11:01 05/05/17 11:01 05/05/17 11:01 05/05/17 11:01 05/05/17 11:01 General appearance: Present: A&O X 3, morbidly obese - Head Head exam: Present: atraumatic, normocephalic - Neck Neck exam general surgery: Present: full ROM, normal inspection, trachea midline - Respiratory Respiratory exam: Absent: rhonchi, wheezes Additional comments: Mild increased work of breathing. - Cardiovascular Cardiovascular exam: Present: RRR, +S1, +S2. Absent: diastolic murmur, gallop, rubs, systolic murmur - GI/Abdominal Additional comments: Abdomen is soft with mild tenderness around chronic abdominal wound. Patient states that this is been ongoing for approximately 8 years. Bandages over the wound currently. - Extremities Exam Extremities exam: Present: pedal edema (1+ pitting edema bilateral lower extremities) - Neurological Exam Neurological exam: Present: alert, oriented X3, no focal deficits. Absent: facial droop, speech deficit - Psychiatric Psychiatric exam: Present: normal affect, normal mood - Skin Skin exam: Present: dry, erythema (To the bilateral lower extremities.), intact , warm Internal Medicine: Result - Labs CBC & Chem 7: 05/04/17 03:46 05/04/17 03:46 - ABG Interpretation ABG results: PT/INR, D-dimer D-Dimer 399 ng/mLFEU (0-500) 05/01/17 14:45 - VTE Documentation of Mechanical Device: Intermittent pneumatic compression device Consult Discharge Plan - Plan Referrals: Luís Tavares DO [Primary Care Provider] - <Jae Olson - Last Filed: 05/05/17 18:50> Date of Encounter: 05/05/17 - Assessment and plan (1) Acute on chronic diastolic (congestive) heart failure Current Visit: Yes Status: Suspected (2) Chronic abdominal wound infection Current Visit: No Status: Chronic Qualifiers: Encounter type: subsequent encounter Qualified Code(s): S31.109D - Unspecified open wound of abdominal wall, unspecified quadrant without penetration into peritoneal cavity, subsequent encounter; L08.9 - Local infection of the skin and subcutaneous tissue, unspecified (3) Morbid obesity with BMI of 70 and over, adult Current Visit: No Status: Chronic (4) Diabetes mellitus Current Visit: No Status: Chronic Qualifiers: Diabetes mellitus type: type 2 Diabetes mellitus complication status: with hyperglycemia Diabetes mellitus senior care insulin use: with [employer] use Qualified Code(s): E11.65 - Type 2 diabetes mellitus with hyperglycemia; Z79.4 - [facility] (current) use of insulin; Z79.4 - [facility] (current) use of insulin ; Z79.4 - [facility] (current) use of insulin; Z79.4 - [facility] (current) use of insulin (5) Obstructive sleep apnea Current Visit: No Status: Chronic (6) Tobacco abuse Current Visit: Yes Status: Chronic - Constitutional Vitals: Temp Pulse Resp BP Pulse Ox 98.6 F 88 20 116/59 94 05/05/17 15:10 05/05/17 15:10 05/05/17 15:10 05/05/17 15:10 05/05/17 15:10 Internal Medicine: Result - Labs CBC & Chem 7: 05/05/17 15:43 05/05/17 15:43 Labs: Short CBC 05/05/17 Range/Units 15:43 WBC 8.2 (4.3-11.1) K/mcL Hgb 12.3 (11.5-15.4) g/dL Hct 40.9 (35.3-44.9) % Plt Count 227 (140-400) K/mcL Neutrophils # 6.2 (1.6-8.9) K/mcL BMP 05/05/17 15:43 Sodium 141 Potassium 3.9 Chloride 94 L Carbon Dioxide 44 H* BUN 20 Creatinine 0.65 Glucose 237 H Calcium 8.9 - ABG Interpretation ABG results: PT/INR, D-dimer D-Dimer 399 ng/mLFEU (0-500) 05/01/17 14:45 - Attending Attestation I examined this patient and my medical decision-making was reviewed with the Resident Physician on 05/05/17. I agree with the documented findings, disposition and treatment plan as described except to the extent set forth below. Ms Cat is currently admitted for CHF exacerbation. She remains moderate to high risk due to potential for worsening clinical status. Ms Cat is feeling OK. She is somnolent but awakens easily. No fever or chills. Edema is improving. Exam alert. Comfortable Mucus membranes dry Heart distant. Regular Lungs diminished Abd soft I/P 1. CHF 2. Chronic abd wound Further diagnoses and plan as above.
[2017-05-05 15:58] LABS: Basophils % 0.4 %; Eosinophils # 0.3 K/mcL (0.0-0.6); Hematocrit 40.9 % (35.3-44.9); Hemoglobin 12.3 g/dL (11.5-15.4); Immature Granulocytes % 0.6 % (0-4); Lymphocytes # 1.1 K/mcL (0.6-4.6); Lymphocytes % 13.7 %; Mean Corpuscular HGB Conc 30.1 g/dL (31.6-35.5); Mean Corpuscular Hemoglobin 28.3 pg (28.0-33.3); Mean Platelet Volume 10.2 fL (9.4-12.4); Monocytes # 0.5 K/mcL (0.0-1.3); Monocytes % 5.9 %; Neutrophils # 6.2 K/mcL (1.6-8.9); Platelet Count 227 K/mcL (140-400); Red Blood Count 4.35 M/mcL (3.82-4.97); Red Cell Distribution Width 15.6 % (11.5-14.5); Segmented Neutrophils % 75.4 %
[2017-05-05] MEDS: Beclomethasone 80mcg MDI IH SCH ×2 (16:00→19:49)
[2017-05-05 16:26] LABS: BUN/Creatinine Ratio 31 (6-26); Blood Urea Nitrogen 20 mg/dL (6-20); Calcium 8.9 mg/dL (8.6-10.3); Carbon Dioxide 44 mEq/L (23-29); Chloride 94 mEq/L (98-107); Glucose 237 mg/dL (70-105); Osmolality,Calculated 302 (280-300); Potassium 3.9 mEq/L (3.5-5.1); Sodium 141 mEq/L (136-145); eGFR For African Americans > 60 (> 60); eGFR For Non-African Americans > 60 (> 60)
[2017-05-05] MEDS: cefTRIAXone 2,000 MG in Water for inj. (sterile) 20 ML 20 ML IVP SCH (17:21)
[2017-05-05] MEDS: Acetaminophen 325 MG TABLET PO PRN (21:54)
[2017-05-06 04:48] LABS: ABG Base Excess 15 mEq/L (-2 to 3); ABG HCO3 47 mEq/L (21-27); ABG Oxygen Saturation 96 % (95-98); ABG PCO2 106 mmHg (35-45); ABG PH 7.26 pH Units (7.32-7.45); ABG PO2 102 mmHg (85-104); ABG TCO2 51 mEq/L (20-26)
[2017-05-06] MEDS: *HR* Enoxaparin 40 MG/0.4 ML SYRINGE SQ SCH (05:10)
[2017-05-06] MEDS: *HR* OxyCODONE Immed Rel 5 MG TABLET PO PRN ×3 (05:11→20:53)
[2017-05-06 05:36] LABS: Basophils % 0.4 %; Eosinophils # 0.4 K/mcL (0.0-0.6); Eosinophils % 4.8 %; Hematocrit 38.9 % (35.3-44.9); Hemoglobin 11.5 g/dL (11.5-15.4); Immature Granulocytes % 0.7 % (0-4); Lymphocytes # 1.3 K/mcL (0.6-4.6); Lymphocytes % 16.6 %; Mean Corpuscular HGB Conc 29.6 g/dL (31.6-35.5); Mean Corpuscular Volume 94.9 fL (83.0-100.0); Monocytes # 0.5 K/mcL (0.0-1.3); Neutrophils # 5.5 K/mcL (1.6-8.9); Platelet Count 209 K/mcL (140-400); Red Cell Distribution Width 15.8 % (11.5-14.5); Segmented Neutrophils % 71.5 %
[2017-05-06 05:54] LABS: BUN/Creatinine Ratio 41 (6-26); Blood Urea Nitrogen 21 mg/dL (6-20); Calcium 8.9 mg/dL (8.6-10.3); Carbon Dioxide 45 mEq/L (23-29); Chloride 94 mEq/L (98-107); Glucose 288 mg/dL (70-105); Osmolality,Calculated 302 (280-300); Potassium 4.1 mEq/L (3.5-5.1); Sodium 139 mEq/L (136-145); eGFR For African Americans > 60 (> 60); eGFR For Non-African Americans > 60 (> 60)
[2017-05-06] MEDS: Beclomethasone 80mcg MDI IH SCH ×2 (07:55→19:55)
[2017-05-06] MEDS: Insulin LISPRO 300 UNITS/3 ML VIAL SQ SCH ×7 (08:28→20:44)
[2017-05-06] MEDS: *HR* Metformin 500 MG TABLET PO SCH ×2 (08:28→16:28)
[2017-05-06] MEDS: Famotidine 20 MG TABLET PO SCH ×2 (08:29→20:42)
[2017-05-06] MEDS: ALPRAZolam 0.5 MG TABLET PO SCH ×3 (08:29→20:42)
[2017-05-06] MEDS: Furosemide 20 MG/2 ML VIAL IVP SCH (08:29)
[2017-05-06] MEDS: Miconazole 2% cream 118 GM TUBE TP SCH ×2 (08:29→20:43)
[2017-05-06] MEDS: Aspirin Enteric Coated 81 MG Tablet PO SCH (08:29)
[2017-05-06] MEDS: Gabapentin 300 MG CAPSULE PO SCH ×3 (08:29→20:42)
--- NOTE | 2017-05-06 09:12 | Internal Med Progress Note ---
<Jorge Terry - Last Filed: 05/06/17 13:14> Date of Encounter: 05/06/17 Time of Encounter: 09:10 - Assessment and plan (1) Acute CHF Current Visit: Yes Status: Acute Assessment and plan: CXR showed cardiomegaly and pulmonary congestion. Lower extremity Edema. Patient states that this has significantly improved BNP 188 Unable to obatin adequate echocardiogram due to body habitus Decrease diuresis, lasix 20mg daily daily weight, low salt diet, and strict Is and Os. 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 Patient states that she has been using her BiPAP at home when she naps or sleeps at night. I have stressed the importance of her using her BiPAP regularly to help with her respiratory symptoms. Continuous supplemental oxygen (4) Chronic abdominal wound infection Current Visit: No Status: Chronic Assessment and plan: Patient has known chronic abdominal wound over the past 8 years Cultures were negative Patient states that her abdomen has been healing. Wound care has been consulted. Qualifiers: Encounter type: subsequent encounter Qualified Code(s): S31.109D - Unspecified open wound of abdominal wall, unspecified quadrant without penetration into peritoneal cavity, subsequent encounter; L08.9 - Local infection of the skin and subcutaneous tissue, unspecified (5) Lower extremity edema Current Visit: Yes Status: Acute Assessment and plan: Patient has acute on chronic lower extremity swelling Has improved with lasix Venous duplex was negative for DVT (6) Morbid obesity with BMI of 70 and over, adult Current Visit: No Status: Chronic Assessment and plan: Lifestyle modifications (7) DVT prophylaxis Current Visit: Yes Status: Acute Assessment and plan: Patient is currently on Lovenox - Subjective Interval history: Patient states that she is feeling better than when she came in to the hospital however she is still not feeling back to normal. She states that she does not feel like she is ready to go home at this time she states that if she were to go home she feels like patient states that she just "does not feel right". Patient does state that she has BiPAP at home and wears it when she takes naps or at night when she sleeps. - Constitutional Vitals: Temp Pulse Resp BP Pulse Ox 98.7 F 78 20 142/81 93 05/06/17 07:04 05/06/17 07:04 05/06/17 07:57 05/06/17 07:04 05/06/17 07:57 General appearance: Present: A&O X 3, morbidly obese - Neck Neck exam general surgery: Present: full ROM, normal inspection, trachea midline - Respiratory Respiratory exam: Present: decreased breath sounds (Bilaterally). Absent: rhonchi, wheezes - Cardiovascular Cardiovascular exam: Present: RRR, +S1, +S2. Absent: diastolic murmur, gallop, rubs, systolic murmur - GI/Abdominal GI/Abdominal exam: Present: soft, tenderness (Diffuse due to chronic abdominal wound, chronic abdominal wound is currently dressed.) - Extremities Exam Extremities exam: Present: pedal edema (1+ pitting edema bilateral lower extremities.) - Neurological Exam Neurological exam: Present: alert, oriented X3, no focal deficits. Absent: facial droop, speech deficit - Psychiatric Psychiatric exam: Present: normal affect, normal mood - Skin Skin exam: Present: dry, erythema (Bilateral lower extremities), intact, warm Additional comments: Patient does have a chronic abdominal wound that is currently dressed. Internal Medicine: Result - Labs CBC & Chem 7: 05/06/17 05:27 05/06/17 05:27 Labs: Short CBC 05/05/17 05/06/17 Range/Units 15:43 05:27 WBC 8.2 7.7 (4.3-11.1) K/mcL Hgb 12.3 11.5 (11.5-15.4) g/dL Hct 40.9 38.9 (35.3-44.9) % Plt Count 227 209 (140-400) K/mcL Neutrophils # 6.2 5.5 (1.6-8.9) K/mcL BMP 05/05/17 05/06/17 15:43 05:27 Sodium 141 139 Potassium 3.9 4.1 Chloride 94 L 94 L Carbon Dioxide 44 H* 45 H* BUN 20 21 H Creatinine 0.65 0.51 L Glucose 237 H 288 H Calcium 8.9 8.9 - ABG Interpretation ABG results: ABG ABG pH 7.26 pH Units (7.32-7.45) L 05/06/17 04:36 ABG pCO2 106 mmHg (35-45) H* 05/06/17 04:36 ABG pO2 102 mmHg (85-104) 05/06/17 04:36 ABG O2 Saturation 96 % (95-98) 05/06/17 04:36 PT/INR, D-dimer D-Dimer 399 ng/mLFEU (0-500) 05/01/17 14:45 - VTE Documentation of Mechanical Device: Intermittent pneumatic compression device Consult Discharge Plan - Plan Referrals: Luís Tavares DO [Primary Care Provider] - <Jae Olson - Last Filed: 05/06/17 18:40> Date of Encounter: 05/06/17 - Assessment and plan (1) Acute on chronic diastolic (congestive) heart failure Current Visit: Yes Status: Suspected (2) Chronic abdominal wound infection Current Visit: No Status: Chronic Qualifiers: Encounter type: subsequent encounter Qualified Code(s): S31.109D - Unspecified open wound of abdominal wall, unspecified quadrant without penetration into peritoneal cavity, subsequent encounter; L08.9 - Local infection of the skin and subcutaneous tissue, unspecified (3) Morbid obesity with BMI of 70 and over, adult Current Visit: No Status: Chronic (4) Diabetes mellitus Current Visit: No Status: Chronic Qualifiers: Diabetes mellitus type: type 2 Diabetes mellitus complication status: with hyperglycemia 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 Qualified Code(s): E11.65 - Type 2 diabetes mellitus with hyperglycemia; Z79.4 - [facility] (current) use of insulin; Z79.4 - [employer] (current) use of insulin ; Z79.4 - [facility] (current) use of insulin; Z79.4 - [facility] (current) use of insulin (5) Obstructive sleep apnea Current Visit: No Status: Chronic (6) Tobacco abuse Current Visit: Yes Status: Chronic - Constitutional Vitals: Temp Pulse Resp BP Pulse Ox 98.3 F 77 20 127/79 94 05/06/17 15:33 05/06/17 15:33 05/06/17 15:33 05/06/17 15:33 05/06/17 15:33 Internal Medicine: Result - Labs CBC & Chem 7: 05/06/17 05:27 05/06/17 05:27 Labs: Short CBC 05/06/17 Range/Units 05:27 WBC 7.7 (4.3-11.1) K/mcL Hgb 11.5 (11.5-15.4) g/dL Hct 38.9 (35.3-44.9) % Plt Count 209 (140-400) K/mcL Neutrophils # 5.5 (1.6-8.9) K/mcL BMP 05/06/17 05:27 Sodium 139 Potassium 4.1 Chloride 94 L Carbon Dioxide 45 H* BUN 21 H Creatinine 0.51 L Glucose 288 H Calcium 8.9 - ABG Interpretation ABG results: ABG ABG pH 7.26 pH Units (7.32-7.45) L 05/06/17 04:36 ABG pCO2 106 mmHg (35-45) H* 05/06/17 04:36 ABG pO2 102 mmHg (85-104) 05/06/17 04:36 ABG O2 Saturation 96 % (95-98) 05/06/17 04:36 PT/INR, D-dimer D-Dimer 399 ng/mLFEU (0-500) 05/01/17 14:45 - Attending Attestation I examined this patient and my medical decision-making was reviewed with the Resident Physician on 05/06/17. I agree with the documented findings, disposition and treatment plan as described except to the extent set forth below. Ms Cat is currently admitted for presumed acute on chronic diastolic heart failure. She remains moderate to high risk due to potential for worsening clinical status. Ms Cat is doing better overall. She still has some dyspnea and is concerned that she will return quickly if leaves today. No fever or chills. No GI issues. Exam Alert Comfortable up in chair. Heart reg and distant Lungs diminished Mucus membranes dry Abd soft I/P 1. CHF 2. Morbid obesity Further diagnoses and plan as above.
[2017-05-06] MEDS: Insulin DETEMIR 100 UNIT/ML X5UNITS SQ SCH ×2 (11:23→20:43)
[2017-05-06] MEDS: Fluconazole 100 MG TABLET PO SCH (11:32)
[2017-05-06] MEDS: cefTRIAXone 2,000 MG in Water for inj. (sterile) 20 ML 20 ML IVP SCH (16:28)
[2017-05-07] MEDS: *HR* OxyCODONE Immed Rel 5 MG TABLET PO PRN ×4 (04:29→20:28)
[2017-05-07 06:31] LABS: Basophils % 0.5 %; Eosinophils # 0.4 K/mcL (0.0-0.6); Eosinophils % 5.1 %; Hematocrit 38.1 % (35.3-44.9); Hemoglobin 11.5 g/dL (11.5-15.4); Immature Granulocytes % 0.7 % (0-4); Lymphocytes # 1.3 K/mcL (0.6-4.6); Lymphocytes % 15.1 %; Mean Corpuscular HGB Conc 30.2 g/dL (31.6-35.5); Mean Corpuscular Hemoglobin 28.1 pg (28.0-33.3); Mean Corpuscular Volume 93.2 fL (83.0-100.0); Mean Platelet Volume 10.5 fL (9.4-12.4); Monocytes # 0.5 K/mcL (0.0-1.3); Monocytes % 5.9 %; Neutrophils # 6.3 K/mcL (1.6-8.9); Platelet Count 215 K/mcL (140-400); Red Blood Count 4.09 M/mcL (3.82-4.97); Red Cell Distribution Width 15.4 % (11.5-14.5); Segmented Neutrophils % 72.7 %
[2017-05-07] MEDS: *HR* Enoxaparin 40 MG/0.4 ML SYRINGE SQ SCH (06:34)
[2017-05-07 06:48] LABS: BUN/Creatinine Ratio 34 (6-26); Blood Urea Nitrogen 17 mg/dL (6-20); Calcium 9.4 mg/dL (8.6-10.3); Carbon Dioxide 44 mEq/L (23-29); Chloride 94 mEq/L (98-107); Glucose 180 mg/dL (70-105); Osmolality,Calculated 296 (280-300); Potassium 3.9 mEq/L (3.5-5.1); Sodium 140 mEq/L (136-145); eGFR For African Americans > 60 (> 60); eGFR For Non-African Americans > 60 (> 60)
[2017-05-07] MEDS: Beclomethasone 80mcg MDI IH SCH ×2 (07:57→22:32)
--- NOTE | 2017-05-07 08:32 | Discharge Summary ---
<Jorge Terry - Last Filed: 05/07/17 09:34> - NOTES TO OUTPATIENT PROVIDER Notes to Outpatient Provider: Patient was seen in the hospital for possible acute heart failure. Patient is recommended to continue the use of her home BiPAP anytime she takes a nap or when she sleeps. It is also recommended that the patient takes 20 mg of Lasix daily. An echocardiogram was attempted here in the hospital however due to body habitus they were unable to obtain an adequate study and therefore it was not completed. Date of Encounter: 05/07/17 Time of Encounter: 08:30 - Discharge Diagnosis (1) Acute CHF Priority: Primary Status: Acute Qualifiers: Heart failure type: unspecified Qualified Code(s): I50.9 - Heart failure, unspecified (2) Diabetes mellitus type 2 with complications Priority: Secondary Status: Chronic Qualifiers: Diabetes mellitus migratory worker insulin use: with migratory worker use Qualified Code( s): E11.8 - Type 2 diabetes mellitus with unspecified complications; Z79.4 - crocheter hand (current) use of insulin; Z79.4 - crocheter hand (current) use of insulin; Z79.4 - nursing home (current) use of insulin; Z79.4 - nursing home (current) use of insulin (3) Obstructive sleep apnea Priority: Secondary Status: Chronic (4) Chronic abdominal wound infection Priority: Secondary Status: Chronic Qualifiers: Encounter type: subsequent encounter Qualified Code(s): S31.109D - Unspecified open wound of abdominal wall, unspecified quadrant without penetration into peritoneal cavity, subsequent encounter; L08.9 - Local infection of the skin and subcutaneous tissue, unspecified (5) Lower extremity edema Priority: Primary Status: Acute (6) Morbid obesity with BMI of 70 and over, adult Priority: Secondary Status: Chronic (7) DVT prophylaxis Priority: Primary Status: Acute Hospital course: Ms. Cat is a 46 year old female that was admitted to the hospital for acute CHF. Patient was short of breath and has significant swelling in bilateral lower extremity edema. An Echo cardiogram was attempted however due to the patients body habitus the echo was not able to be performed adequately. Patient was diuresised with lasix and has improved. Patient states that she wears bipap at home when she naps and while she sleeps at night. Due to the patient having lower extremity swelling a doppler of the lower extremities was performed and was negative for DVT. Patient has been on BiPap here in the hospital while she was sleeping and while she napped. Patient states that she is feeling better at this time and feels like she is able to got home today. Patient will be discharged home with prescription for lasix 20mg daily. Will also recommend the patient follow up with her PCP at the next available appointment. - Time Spent with Patient Total time spent providing and/or coordinating discharge services: Greater than 30 minutes (35) - Discharge Medications Prescriptions: Furosemide [Lasix] 20 mg PO DAILY #30 tablet Home Medications: Ranitidine HCl [Acid Yard Loader Operator] 150 mg PO BID 04/03/16 [History] Aspirin Enteric Coated [Aspirin EC] 81 mg PO DAILY 10/04/16 [History] Ipratropium/Albuterol Neb [Duoneb] 3 ml IH Q6HR PRN 10/04/16 [History] Ondansetron ODT [Zofran ODT] 4 mg SL Q8HR PRN #10 tab.rapdis 11/08/16 [Rx] metFORMIN [Glucophage] 1,000 mg PO BIDWM #90 tab 11/08/16 [Rx] Levothyroxine Sodium [Levo-T] 350 mcg PO QAM #60 tablet 11/10/16 [Rx] Loratadine [Allergy Relief] 10 mg PO DAILY #60 11/10/16 [Rx] ALPRAZolam [Xanax 0.5 MG Tablet] 0.5 mg PO BID PRN 01/27/17 [History] Atorvastatin Calcium [Lipitor] 20 mg PO HS 01/27/17 [History] Cyanocobalamin (Vitamin B-12) [Vitamin B12] 1,000 mcg PO TH 01/27/17 [History] Docusate [Colace] 100 mg PO BID PRN 01/27/17 [History] Insulin Regular U-500 [HumuLIN R U-500] 0 unit SQ TID MDD See Comment. [History] Mometasone Furoate [Asmanex] 2 puff IH BID 01/27/17 [History] BuPROPion [Wellbutrin] 100 mg PO DAILY 04/10/17 [History] Fluticasone Propionate [Flovent Hfa] 1 puff IH BID 04/10/17 [History] Gabapentin [Neurontin] 600 mg PO TID 04/10/17 [History] Mupirocin [Bactroban Oint] 1 appl TP BID PRN 04/10/17 [History] Nystatin POWDER [Nystop] 1 appl TP TID PRN 04/10/17 [History] OxyCODONE Immed Rel [Roxicodone 20 MG] 20 mg PO Q4HR PRN 2 Days #7 tablet [Rx] Insulin LISPRO [HumaLOG] 6 - 18 units SQ TIDWM PRN 05/01/17 [History] Furosemide [Lasix] 20 mg PO DAILY #30 tablet 05/07/17 [Rx] Allergies/Adverse Reactions: 3 Allergy/AdvReac Type Severity Reaction Status Date / Time Penicillins Allergy Rash Verified 01/27/16 09:52 Tetracycline Allergy Rash Verified 01/27/16 09:52 Date of admission: 05/01/17 15:25 Primary care physician: Luís Tavares DO Consults: 05/01/17 15:39 Consult to Wound Care [CONS] Routine Reason for Consult: panniculitis with chronic wound Call Completed: No 05/03/17 15:48 Consult to Occupational Therapy [CONS] Routine Comment: Evaluate, develop and implement POC Reason for Consult: evaluation and treatment Consult to Physical Therapy [CONS] Routine Comment: Evaluate, develop and implement POC Reason for Consult: evaluation and treatment Consult to Service Dismantler [CONS] Routine Reason for SW Consult: Discharge planning Discharging clinician: Jorge Terry Anticipated date of discharge: 05/07/17 - Constitutional Vitals: Temp Pulse Resp BP Pulse Ox 98.7 F 81 20 108/73 96 05/07/17 06:50 05/07/17 06:50 05/07/17 07:59 05/07/17 06:50 05/07/17 07:59 General appearance: Present: A&O X 3, morbidly obese - Head Head exam: Present: atraumatic, normocephalic - Neck Neck exam general surgery: Present: full ROM, normal inspection, trachea midline - Respiratory Respiratory exam: Present: CTAB. Absent: rales, wheezes - Cardiovascular Cardiovascular exam: Present: RRR, +S1, +S2. Absent: diastolic murmur, gallop, rubs, systolic murmur - GI/Abdominal GI/Abdominal exam: Present: soft, tenderness (Diffuse tendernes, due to patients chronic abdominal wound.), no peritoneal signs - Extremities Exam Extremities exam: Present: pedal edema (pitting edema bilateral lower extremities ) - Neurological Exam Neurological exam: Present: alert, oriented X3, no focal deficits. Absent: facial droop, speech deficit - Psychiatric Psychiatric exam: Present: normal affect, normal mood - Skin Additional comments: Patient has a known chronic wound on her abdomen - Patient Status Disposition: Home, Self-Care Condition: Good Overall status at discharge: patient is progressing back to baseline - Discharge Instructions Follow Up With: Luís Tavares DO [Primary Care Provider] - Additional Instructions: Please follow up with your primary care provider at the next available appointment Please use your BiPAP anytime you take a nap or when you sleep. Please take 20 mg of Lasix daily to help with the shortness of breath and swelling in your legs. Please contact your primary care provider or return to the emergency department if you have any worsening of your symptoms including worsening of his shortness of breath, chest pain, difficulty breathing or any other symptoms that may be concerning to you. - Diet and Activity Activity: increase activity as tolerated Diet: advance to your usual diet - VTE Documentation of Mechanical Device: Intermittent pneumatic compression device <Jae Olson - Last Filed: 05/07/17 19:24> Date of Encounter: 05/07/17 - Discharge Diagnosis (1) Acute on chronic diastolic (congestive) heart failure Priority: Primary Status: Suspected (2) Chronic abdominal wound infection Status: Chronic Qualifiers: Encounter type: subsequent encounter Qualified Code(s): S31.109D - Unspecified open wound of abdominal wall, unspecified quadrant without penetration into peritoneal cavity, subsequent encounter; L08.9 - Local infection of the skin and subcutaneous tissue, unspecified (3) Morbid obesity with BMI of 70 and over, adult Priority: Secondary Status: Chronic (4) Diabetes mellitus Priority: Secondary Status: Chronic Qualifiers: Diabetes mellitus type: type 2 Diabetes mellitus complication status: with hyperglycemia Diabetes mellitus migratory worker insulin use: with correction use Qualified Code(s): E11.65 - Type 2 diabetes mellitus with hyperglycemia; Z79.4 - crocheter hand (current) use of insulin; Z79.4 - crocheter hand (current) use of insulin ; Z79.4 - nursing home (current) use of insulin; Z79.4 - crocheter hand (current) use of insulin (5) Obstructive sleep apnea Status: Chronic (6) Tobacco abuse Priority: Secondary Status: Chronic Hospital course: Ms. Cat is a 46 year old female - Time Spent with Patient Total time spent providing and/or coordinating discharge services: 39min Date of admission: 05/01/17 15:25 Primary care physician: Luís Tavares, Consults: 05/01/17 15:39 Consult to Wound Care [CONS] Routine Reason for Consult: panniculitis with chronic wound Call Completed: No 05/03/17 15:48 Consult to Occupational Therapy [CONS] Routine Comment: Evaluate, develop and implement POC Reason for Consult: evaluation and treatment Consult to Physical Therapy [CONS] Routine Comment: Evaluate, develop and implement POC Reason for Consult: evaluation and treatment Consult to Service Dismantler [CONS] Routine Reason for SW Consult: Discharge planning - Constitutional Vitals: Temp Pulse Resp BP Pulse Ox 98.5 F 78 16 128/76 97 05/07/17 09:58 05/07/17 09:58 05/07/17 09:58 05/07/17 09:58 05/07/17 09:58 - Attending Attestation I examined this patient and my medical decision-making was reviewed with the Resident Physician on 05/07/17. I agree with the documented findings, disposition and treatment plan as described except to the extent set forth below. Ms Cat has been admitted for acute heart failure. She is now afebrile with stable vitals. Her edema and breathing have improved. She is ready for discharge home. Exam Alert. Comfortable Mucus membranes dry Heart reg Lungs diminished Plan D/C home.
[2017-05-07] MEDS: Fluconazole 100 MG TABLET PO SCH (09:20)
[2017-05-07] MEDS: Gabapentin 300 MG CAPSULE PO SCH ×3 (09:20→20:28)
[2017-05-07] MEDS: *HR* Metformin 500 MG TABLET PO SCH ×2 (09:20→17:03)
[2017-05-07] MEDS: ALPRAZolam 0.5 MG TABLET PO SCH ×3 (09:20→20:28)
[2017-05-07] MEDS: Insulin DETEMIR 100 UNIT/ML X5UNITS SQ SCH ×2 (09:21→20:28)
[2017-05-07] MEDS: Aspirin Enteric Coated 81 MG Tablet PO SCH (09:21)
[2017-05-07] MEDS: Famotidine 20 MG TABLET PO SCH ×2 (09:21→20:28)
[2017-05-07] MEDS: Furosemide 20 MG/2 ML VIAL IVP SCH (09:21)
[2017-05-07] MEDS: Insulin LISPRO 300 UNITS/3 ML VIAL SQ SCH ×7 (09:21→20:27)
[2017-05-07] MEDS: Miconazole 2% cream 118 GM TUBE TP SCH ×2 (09:22→20:29)
--- NOTE | 2017-05-07 14:52 | Physician Discharge Referral ---
ExtendedCare Referral Info Transfer To: [facility] Provider in Charge after Transfer: PCP Institutional Level of Care: Skilled - Diagnosis (1) Acute CHF Priority: Primary Status: Acute (2) Diabetes mellitus type 2 with complications Priority: Secondary Status: Chronic (3) Obstructive sleep apnea Priority: Secondary Status: Chronic (4) Chronic abdominal wound infection Priority: Secondary Status: Chronic (5) Lower extremity edema Priority: Primary Status: Acute (6) Morbid obesity with BMI of 70 and over, adult Priority: Secondary Status: Chronic (7) DVT prophylaxis Priority: Secondary Status: Acute - Transfer Medications Prescriptions: Furosemide [Lasix] 20 mg PO DAILY #30 tablet Home Medications: Ranitidine HCl [Acid Welfare Administrator] 150 mg PO BID 04/03/16 [History] Aspirin Enteric Coated [Aspirin EC] 81 mg PO DAILY 10/04/16 [History] Ipratropium/Albuterol Neb [Duoneb] 3 ml IH Q6HR PRN 10/04/16 [History] Ondansetron ODT [Zofran ODT] 4 mg SL Q8HR PRN #10 tab.rapdis 11/08/16 [Rx] metFORMIN [Glucophage] 1,000 mg PO BIDWM #90 tab 11/08/16 [Rx] Levothyroxine Sodium [Levo-T] 350 mcg PO QAM #60 tablet 11/10/16 [Rx] Loratadine [Allergy Relief] 10 mg PO DAILY #60 11/10/16 [Rx] ALPRAZolam [Xanax 0.5 MG Tablet] 0.5 mg PO BID PRN 01/27/17 [History] Atorvastatin Calcium [Lipitor] 20 mg PO HS 01/27/17 [History] Cyanocobalamin (Vitamin B-12) [Vitamin B12] 1,000 mcg PO TH 01/27/17 [History] Docusate [Colace] 100 mg PO BID PRN 01/27/17 [History] Insulin Regular U-500 [HumuLIN R U-500] 0 unit SQ TID MDD See Comment. [History] Mometasone Furoate [Asmanex] 2 puff IH BID 01/27/17 [History] BuPROPion [Wellbutrin] 100 mg PO DAILY 04/10/17 [History] Fluticasone Propionate [Flovent Hfa] 1 puff IH BID 04/10/17 [History] Gabapentin [Neurontin] 600 mg PO TID 04/10/17 [History] Mupirocin [Bactroban Oint] 1 appl TP BID PRN 04/10/17 [History] Nystatin POWDER [Nystop] 1 appl TP TID PRN 04/10/17 [History] OxyCODONE Immed Rel [Roxicodone 20 MG] 20 mg PO Q4HR PRN 2 Days #7 tablet [Rx] Insulin LISPRO [HumaLOG] 6 - 18 units SQ TIDWM PRN 05/01/17 [History] Furosemide [Lasix] 20 mg PO DAILY #30 tablet 05/07/17 [Rx] Allergies/Adverse Reactions: 3 Allergy/AdvReac Type Severity Reaction Status Date / Time Penicillins Allergy Rash Verified 01/27/16 09:52 Tetracycline Allergy Rash Verified 01/27/16 09:52 - Respiratory Orders Oxygen / L per min (4L nasal cannula), Other (BiPap when she naps or sleeps) Smoking Cessation: Smoking cessation has been advised. For more information, call the [place] Tobacco Quit Line at 6-135-QBKB-NOW. - Ancillary Orders May use pressure relief devices daily prn - Advance Directives Code Status: Full Code - Mobility Orders Ambulate, Other (Liftchair and Hospital bed) - Rehabiliation Orders Rehab Potential: Fair Rehab Orders: Evaluation for Physical Therapy, Evaluation for Occupational Therapy - Treatments Skin tear care topically daily PRN per policy List/Other: Please follow up with your primary care provider at the next available appointment Please use your BiPAP anytime you take a nap or when you sleep. Please take 20 mg of Lasix daily to help with the shortness of breath and swelling in your legs. Please contact your primary care provider or return to the emergency department if you have any worsening of your symptoms including worsening of his shortness of breath, chest pain, difficulty breathing or any other symptoms that may be concerning to you. - Diet Orders Cardiac (Low sodium) CERTIFICATION: I certify that the transfer of the above named patient to an Extended Care Facility is necessary for the continuing treatment of the diagnosis listed. The above information is true and accurate reflection of patient's current condition. Confidential - Redisclosure prohibited without a patient's written consent.
--- NOTE | 2017-05-07 14:59 | Event Note ---
<Jorge Terry - Last Filed: 05/07/17 14:56> Date of Encounter: 05/07/17 Time of Encounter: 14:56 Due to the patient being unable to ambulate to the bedside commode we have recommended she go to an ECF due to being unsafe to be discharged home. We are awaiting approval of her acceptance. Anticipate that the patient will be discharged to ECF tomorrow. Packet has been sent to [facility]. <Jae Olson - Last Filed: 05/07/17 19:25> Date of Encounter: 05/07/17 Ms Cat is unable to stand and ambulate. She had difficulty pivoting to BSC with 2 person assist. She will need to discharged to SNF and this is being arranged hopefully for tomorrow.
[2017-05-07] MEDS: cefTRIAXone 2,000 MG in Water for inj. (sterile) 20 ML 20 ML IVP SCH (17:03)
[2017-05-08] MEDS: *HR* Enoxaparin 40 MG/0.4 ML SYRINGE SQ SCH (05:29)
[2017-05-08 07:53] VITALS: BP 134/80
[2017-05-08] MEDS: Insulin LISPRO 300 UNITS/3 ML VIAL SQ SCH ×2 (08:10)
[2017-05-08] MEDS: ALPRAZolam 0.5 MG TABLET PO SCH (08:11)
[2017-05-08] MEDS: Fluconazole 100 MG TABLET PO SCH (08:11)
[2017-05-08] MEDS: Gabapentin 300 MG CAPSULE PO SCH (08:11)
[2017-05-08] MEDS: *HR* Metformin 500 MG TABLET PO SCH (08:11)
[2017-05-08] MEDS: Aspirin Enteric Coated 81 MG Tablet PO SCH (08:11)
[2017-05-08] MEDS: Famotidine 20 MG TABLET PO SCH (08:12)
[2017-05-08] MEDS: *HR* OxyCODONE Immed Rel 5 MG TABLET PO PRN (08:12)
[2017-05-08] MEDS: Insulin DETEMIR 100 UNIT/ML X5UNITS SQ SCH (08:12)
[2017-05-08] MEDS: Miconazole 2% cream 118 GM TUBE TP SCH (08:12)
[2017-05-08] MEDS: Furosemide 20 MG/2 ML VIAL IVP SCH (08:19)
[2017-05-08] MEDS: Beclomethasone 80mcg MDI IH SCH (08:51)
--- NOTE | 2017-05-08 08:58 | Physician Discharge Referral ---
Home Health/Hosp Referral Info Transfer to: Home Health Provider in Charge Post Discharge: PCP - Diagnosis (1) Acute CHF Priority: Primary Status: Acute (2) Diabetes mellitus type 2 with complications Priority: Secondary Status: Chronic (3) Obstructive sleep apnea Priority: Secondary Status: Chronic (4) Chronic abdominal wound infection Priority: Secondary Status: Chronic (5) Lower extremity edema Priority: Primary Status: Acute (6) Morbid obesity with BMI of 70 and over, adult Priority: Secondary Status: Chronic (7) DVT prophylaxis Priority: Secondary Status: Acute - Respiratory Orders Oxygen / L per min (4L), Other (Bipap when she naps and at night when she sleeps ) Smoking Cessation: Smoking cessation has been advised. For more information, call the [employer] Tobacco Quit Line at 7-428-OPXX-NOW. - Diet/Nutrition Diet/Nutrition Orders: Cardiac (Low sodium) - Activity Activity Orders: Ambulate (Liftchair and hospital bed) - Services Needed Following services are medically necessary services: Home Health Aide, Physical Therapy, Occupational Therapy - Transfer Medications Prescriptions: Furosemide [Lasix] 20 mg PO DAILY #30 tablet Home Medications: Ranitidine HCl [Acid Software Development Intern] 150 mg PO BID 04/03/16 [History] Aspirin Enteric Coated [Aspirin EC] 81 mg PO DAILY 10/04/16 [History] Ipratropium/Albuterol Neb [Duoneb] 3 ml IH Q6HR PRN 10/04/16 [History] Ondansetron ODT [Zofran ODT] 4 mg SL Q8HR PRN #10 tab.rapdis 11/08/16 [Rx] metFORMIN [Glucophage] 1,000 mg PO BIDWM #90 tab 11/08/16 [Rx] Levothyroxine Sodium [Levo-T] 350 mcg PO QAM #60 tablet 11/10/16 [Rx] Loratadine [Allergy Relief] 10 mg PO DAILY #60 11/10/16 [Rx] ALPRAZolam [Xanax 0.5 MG Tablet] 0.5 mg PO BID PRN 01/27/17 [History] Atorvastatin Calcium [Lipitor] 20 mg PO HS 01/27/17 [History] Cyanocobalamin (Vitamin B-12) [Vitamin B12] 1,000 mcg PO TH 01/27/17 [History] Docusate [Colace] 100 mg PO BID PRN 01/27/17 [History] Insulin Regular U-500 [HumuLIN R U-500] 0 unit SQ TID MDD See Comment. [History] Mometasone Furoate [Asmanex] 2 puff IH BID 01/27/17 [History] BuPROPion [Wellbutrin] 100 mg PO DAILY 04/10/17 [History] Fluticasone Propionate [Flovent Hfa] 1 puff IH BID 04/10/17 [History] Gabapentin [Neurontin] 600 mg PO TID 04/10/17 [History] Mupirocin [Bactroban Oint] 1 appl TP BID PRN 04/10/17 [History] Nystatin POWDER [Nystop] 1 appl TP TID PRN 04/10/17 [History] OxyCODONE Immed Rel [Roxicodone 20 MG] 20 mg PO Q4HR PRN 2 Days #7 tablet [Rx] Insulin LISPRO [HumaLOG] 6 - 18 units SQ TIDWM PRN 05/01/17 [History] Furosemide [Lasix] 20 mg PO DAILY #30 tablet 05/07/17 [Rx] Allergies/Adverse Reactions: 3 Allergy/AdvReac Type Severity Reaction Status Date / Time Penicillins Allergy Rash Verified 01/27/16 09:52 Tetracycline Allergy Rash Verified 01/27/16 09:52 Certification: Further, I certify that my clinical findings support that this patient is homebound (i.e. absences from home require considerable and taxing effort and are for medical reasons or confucianism services or infrequently or short duration when for other reasons) because: Homebound Reason: Patient requires assistance of a person or device to safely leave home Attestation: My signature below is to certify that this patient is under my care and that I, or nurse practitioner, or a physician's salon shampoo assistant working with me, has a face-to -face encounter with this patient.
--- NOTE | 2017-05-08 09:00 | Internal Med Progress Note ---
<Jorge Terry - Last Filed: 05/08/17 08:58> Date of Encounter: 05/08/17 Time of Encounter: 08:59 - Assessment and plan (1) Acute CHF Status: Acute Assessment and plan: CXR showed cardiomegaly and pulmonary congestion. Lower extremity Edema. Patient states that this has significantly improved Unable to obatin adequate echocardiogram due to body habitus lasix 20mg daily daily weight, low salt diet, and strict Is and Os. Patient will be discharged home today. It was recommended that the patient be discharged to an extended care facility however she was denied at one extended care facility and refused to go to any others. Patient will be discharged home with home health referral. At this time the patient is stable and appropriate for discharge and there is no medical necessity to continue being hospitalized. However I do feel that this patient is highly likely to return to the hospital and possibly be readmitted due to having multiple chronic issues and having multiple hospital admissions and having stated while she was here that she likes to be admitted to the hospital because all her needs are met. She had also stated at one point in her visit that when she is discharged she feels like she may end up coming right back. This morning the patient did state that she wants to go home and is feeling much better and is ready to be discharged. Please see discharge summary and home health referral for further documentation. Qualifiers: Heart failure type: unspecified Qualified Code(s): I50.9 - Heart failure, unspecified (2) Diabetes mellitus type 2 with complications Status: Chronic Assessment and plan: uncontrolled with A1C 9.8 Insulin therapy for blood glucose control Qualifiers: Diabetes mellitus halfway insulin use: with halfway use Qualified Code( s): E11.8 - Type 2 diabetes mellitus with unspecified complications; Z79.4 - [facility] (current) use of insulin; Z79.4 - [facility] (current) use of insulin; Z79.4 - [facility] (current) use of insulin; Z79.4 - [facility] (current) use of insulin (3) Obstructive sleep apnea Status: Chronic Assessment and plan: conitnue BIPAP Patient had an ABG obtained overnight which showed a PCO2 of 105. Patient states that she has been using her BiPAP at home when she naps or sleeps at night. I have stressed the importance of her using her BiPAP regularly to help with her respiratory symptoms. Continuous supplemental oxygen (4) Chronic abdominal wound infection Status: Chronic Assessment and plan: Patient has known chronic abdominal wound over the past 8 years Cultures were negative Patient states that her abdomen has been healing. Wound care has been consulted. Qualifiers: Encounter type: subsequent encounter Qualified Code(s): S31.109D - Unspecified open wound of abdominal wall, unspecified quadrant without penetration into peritoneal cavity, subsequent encounter; L08.9 - Local infection of the skin and subcutaneous tissue, unspecified (5) Lower extremity edema Status: Acute Assessment and plan: Patient has acute on chronic lower extremity swelling Has improved with lasix Venous duplex was negative for DVT (6) Morbid obesity with BMI of 70 and over, adult Status: Chronic Assessment and plan: Lifestyle modifications (7) DVT prophylaxis Status: Acute Assessment and plan: Patient is currently on Lovenox - Subjective Interval history: Patient states that she is feeling significantly better. States that she feels like she is ready to go home at this time. States that she has been able to get up and ambulate to the couch as well as to the commode. Patient states that she wants to go home at this time. - Constitutional Vitals: Temp Pulse Resp BP Pulse Ox 97.7 F 85 16 134/80 94 05/08/17 07:51 05/08/17 07:51 05/08/17 07:51 05/08/17 07:51 05/08/17 07:51 General appearance: Present: A&O X 3, morbidly obese - Head Head exam: Present: atraumatic, normocephalic - Neck Neck exam general surgery: Present: full ROM, normal inspection, trachea midline - Respiratory Respiratory exam: Present: CTAB. Absent: accessory muscle use, rales, rhonchi, wheezes - Cardiovascular Cardiovascular exam: Present: RRR, +S1, +S2. Absent: diastolic murmur, gallop, rubs, systolic murmur - GI/Abdominal GI/Abdominal exam: Present: tenderness (Diffuse mild abdominal tenderness due to chronic abdominal wound.), no peritoneal signs - Extremities Exam Extremities exam: Present: pedal edema (2+ pitting edema in bilateral lower extremity.) - Neurological Exam Neurological exam: Present: alert, oriented X3, no focal deficits. Absent: facial droop, speech deficit - Psychiatric Psychiatric exam: Present: normal affect, normal mood - Skin Additional comments: Patient has known chronic abdominal wound. Patient is mildly erythematous bilateral lower extremities. Internal Medicine: Result - Labs CBC & Chem 7: 05/07/17 06:06 05/07/17 06:06 - ABG Interpretation ABG results: ABG ABG pH 7.26 pH Units (7.32-7.45) L 05/06/17 04:36 ABG pCO2 106 mmHg (35-45) H* 05/06/17 04:36 ABG pO2 102 mmHg (85-104) 05/06/17 04:36 ABG O2 Saturation 96 % (95-98) 05/06/17 04:36 PT/INR, D-dimer D-Dimer 399 ng/mLFEU (0-500) 05/01/17 14:45 - VTE Documentation of Mechanical Device: Intermittent pneumatic compression device Consult Discharge Plan - Plan Additional Instructions: Please follow up with your primary care provider at the next available appointment Please use your BiPAP anytime you take a nap or when you sleep. Please take 20 mg of Lasix daily to help with the shortness of breath and swelling in your legs. Please contact your primary care provider or return to the emergency department if you have any worsening of your symptoms including worsening of his shortness of breath, chest pain, difficulty breathing or any other symptoms that may be concerning to you. Referrals: Luís Tavares DO [Primary Care Provider] - Prescriptions: Furosemide [Lasix] 20 mg PO DAILY #30 tablet <Jae Olson - Last Filed: 05/08/17 09:32> Date of Encounter: 05/08/17 - Assessment and plan (1) Acute on chronic diastolic (congestive) heart failure Status: Suspected (2) Chronic abdominal wound infection Status: Chronic Qualifiers: Encounter type: subsequent encounter Qualified Code(s): S31.109D - Unspecified open wound of abdominal wall, unspecified quadrant without penetration into peritoneal cavity, subsequent encounter; L08.9 - Local infection of the skin and subcutaneous tissue, unspecified (3) Morbid obesity with BMI of 70 and over, adult Status: Chronic (4) Diabetes mellitus Status: Chronic Qualifiers: Diabetes mellitus type: type 2 Diabetes mellitus complication status: with hyperglycemia Diabetes mellitus lobsterman insulin use: with lobsterman use Qualified Code(s): E11.65 - Type 2 diabetes mellitus with hyperglycemia; Z79.4 - [facility] (current) use of insulin; Z79.4 - [facility] (current) use of insulin ; Z79.4 - [facility] (current) use of insulin; Z79.4 - [facility] (current) use of insulin (5) Obstructive sleep apnea Status: Chronic (6) Tobacco abuse Status: Chronic - Constitutional Vitals: Temp Pulse Resp BP Pulse Ox 97.7 F 85 16 134/80 94 05/08/17 07:51 05/08/17 07:51 05/08/17 07:51 05/08/17 07:51 05/08/17 07:51 Internal Medicine: Result - Labs CBC & Chem 7: 05/07/17 06:06 05/07/17 06:06 - ABG Interpretation ABG results: ABG ABG pH 7.26 pH Units (7.32-7.45) L 05/06/17 04:36 ABG pCO2 106 mmHg (35-45) H* 05/06/17 04:36 ABG pO2 102 mmHg (85-104) 05/06/17 04:36 ABG O2 Saturation 96 % (95-98) 05/06/17 04:36 PT/INR, D-dimer D-Dimer 399 ng/mLFEU (0-500) 05/01/17 14:45 - Attending Attestation I examined this patient and my medical decision-making was reviewed with the Resident Physician on 05/08/17. I agree with the documented findings, disposition and treatment plan as described except to the extent set forth below. Ms Cat has been admitted for acute exac of presumed diastolic CHF. She has refused to go to SNF despite recommendations. She says she has adequate help at home with her mother and her fiance. She is high risk for readmission due to her chronic conditions. She is afebrile and ready for discharge Exam alert. Comfortable up in chair. Heart reg and distant Lungs diminished. No wheeze I/P 1. CHF 2. obesity D/C home with [facility] today.
== END 2017-05-08 09:00 | disposition home or self-care (01) | DRG 194 ==
LOC: EMEROO 23:21 → 2SOUTHHOLD 23:21 → SUATTDRO 05-01 15:25 → 3ANU 05-01 16:05 → 3NENU 05-03 19:15
PROVIDERS: ADMIT Internal Medicine; ATTEND Internal Medicine

== ENCOUNTER 2017-10-24 08:28 | Observation (INO) ==
[2017-10-24] MEDS ORDERED: Vancomycin 0 MG in 0.9 % Sodium Chloride 250 ML IVPB ONE (08:32)
--- NOTE | 2017-10-24 08:38 | Emergency Department Note ---
Disposition Clinical Impression: Cellulitis, abdominal wall, Elevated troponin, Hypokalemia, Hyperglycemia Disposition: Admitted As Inpatient Condition: Fair General Adult HPI - General Chief complaint: ED Fall Stated complaint: fall Time Seen by Provider: 10/24/17 08:31 Nursing Notes Reviewed: Yes Vital Signs Reviewed: Yes - Related Data Home Medications Medication Instructions Recorded Confirmed Ranitidine HCl [Acid Bottom Stop Attacher] 150 mg PO BID 04/03/16 10/24/17 Aspirin Enteric Coated [Aspirin EC] 81 mg PO DAILY 10/04/16 10/24/17 Ipratropium/Albuterol Neb [Duoneb] 3 ml IH Q6HR PRN 10/04/16 10/24/17 ALPRAZolam [Xanax 0.5 MG Tablet] 0.5 mg PO BID 01/27/17 10/24/17 Atorvastatin Calcium [Lipitor] 20 mg PO HS 01/27/17 10/24/17 Cyanocobalamin (Vitamin B-12) 1,000 mcg PO TH 01/27/17 10/24/17 [Vitamin B12] Docusate [Colace] 100 mg PO BID PRN 01/27/17 10/24/17 Insulin Regular U-500 [HumuLIN R 0 unit SQ TID MDD See Comment. 01/27/17 U-500] Mometasone Furoate [Asmanex] 2 puff IH BID 01/27/17 10/24/17 BuPROPion [Wellbutrin] 100 mg PO DAILY 04/10/17 10/24/17 Gabapentin [Neurontin] 600 mg PO TID 04/10/17 10/24/17 Mupirocin [Bactroban Oint] 1 appl TP BID PRN 04/10/17 10/24/17 Nystatin POWDER [Nystop] 1 appl TP TID PRN 04/10/17 10/24/17 Lisinopril [Lisinopril] 2.5 mg PO DAILY 10/24/17 10/24/17 Previous Rx's Medication Instructions Recorded Ondansetron ODT [Zofran ODT] 4 mg SL Q8HR PRN #10 tab.rapdis 11/08/16 metFORMIN [Glucophage] 1,000 mg PO BIDWM #90 tab 11/08/16 Levothyroxine Sodium [Levo-T] 350 mcg PO QAM #60 tablet 11/10/16 Loratadine [Allergy Relief] 10 mg PO DAILY #60 11/10/16 OxyCODONE Immed Rel [Roxicodone 20 20 mg PO Q4HR PRN 2 Days #7 tablet 04/15/17 MG] Furosemide [Lasix] 20 mg PO DAILY #30 tablet 05/07/17 Allergies Allergy/AdvReac Type Severity Reaction Status Date / Time Penicillins Allergy Rash Verified 01/27/16 09:52 Tetracycline Allergy Rash Verified 01/27/16 09:52 Past Medical History - Past Medical History Medical history: Reports: asthma, cancer, CHF, COPD, CVA, diabetes, GERD, hyperlipidemia, hypertension, malignancy, thyroid disease, other Surgical history: Reports: hysterectomy, thyroidectomy Psychiatric history: Reports: anxiety, depression - Social History Smoking Status: Current every day smoker Smokeless Tobacco Status: No Alcohol use: Reports: none Drug use: Reports: none Course Vital Signs Temperature 99.6 F 10/24/17 08:33 Pulse Rate 111 10/24/17 08:33 Respiratory Rate 24 10/24/17 08:33 Blood Pressure 135/78 10/24/17 08:33 O2 Sat by Pulse Oximetry 94 10/24/17 08:33 Temperature 98.1 F 10/24/17 12:34 Pulse Rate 88 10/24/17 12:34 Respiratory Rate 20 10/24/17 12:34 Blood Pressure 108/61 10/24/17 12:34 O2 Sat by Pulse Oximetry 96 10/24/17 12:34 Oxygen Delivery Oxygen Delivery Nasal Cannula Medical Decision Making - Lab Data Result diagrams: 10/24/17 08:48 10/24/17 08:48 Lab Results 10/24/17 10/24/17 10/24/17 Range/Units 08:48 08:48 08:48 WBC 9.4 (4.3-11.1) K/mcL RBC 5.63 H (3.82-4.97) M/mcL Hgb 16.8 H (11.5-15.4) g/dL Hct 50.8 H (35.3-44.9) % MCV 90.2 (83.0-100.0) fL MCH 29.8 (28.0-33.3) pg MCHC 33.1 (31.6-35.5) g/dL RDW 16.2 H (11.5-14.5) % Plt Count 144 (140-400) K/mcL MPV 11.6 (9.4-12.4) fL Immature Gran % 0.7 (0-4) % Seg Neutrophils % 88.8 % Lymphocytes % 6.5 % Monocytes % 3.7 % Eosinophils % 0.1 % Basophils % 0.2 % Neutrophils # 8.3 (1.6-8.9) K/mcL Lymphocytes # 0.6 (0.6-4.6) K/mcL Monocytes # 0.4 (0.0-1.3) K/mcL Eosinophils # 0.0 (0.0-0.6) K/mcL Basophils # 0.0 (0.0-0.2) K/mcL PT 13.2 H (9.4-12.1) Seconds INR 1.2 APTT 33.9 (26.0-36.0) Seconds Sodium 130 L (136-145) mEq/L Potassium 3.3 L (3.5-5.1) mEq/L Chloride 95 L (98-107) mEq/L Carbon Dioxide 27 (23-29) mEq/L BUN 17 (6-20) mg/dL Creatinine 0.80 (0.60-1.20) mg/dL Est GFR ( Amer) > 60 (> 60) Est GFR (Non-Af Amer) > 60 (> 60) BUN/Creatinine Ratio 21 (6-26) Glucose 471 H (70-105) mg/dL Calculated Osmolality 292 (280-300) Lactic Acid (0.5-2.2) mmol/L Calcium 8.5 L (8.6-10.3) mg/dL Phosphorus 3.0 (2.7-4.5) mg/dL Magnesium 1.9 (1.6-2.6) mg/dL Total Bilirubin 1.2 H (0.3-1.0) mg/dL Direct Bilirubin 0.3 H (0.0-0.2) mg/dL Indirect Bilirubin 0.9 (0.0-1.2) mg/dL AST 43 H (13-39) Units/L ALT 41 (7-52) Units/L Alkaline Phosphatase 110 H (34-104) Units/L Creatine Kinase 369 H (30-223) Units/L Troponin I 0.04 H* (< 0.04) ng/mL Serum Total Protein 6.7 (6.4-8.9) g/dL Albumin 3.4 L (3.5-5.7) g/dL Globulin 3.3 (2.4-3.5) g/dL Albumin/Globulin Ratio 1.0 L (1.1-2.2) Urine Color (Yellow) Urine Clarity (Clear) Urine pH (5.0-8.0) pH Units Ur Specific [place] (1.010-1.025) Urine Protein (Neg-Trace) mg/dL Urine Glucose (UA) (Normal) mg/dL Urine Ketones (Negative) mg/dL Urine Blood (Negative) Urine Nitrite (Negative) Urine Bilirubin (Negative) Urine Urobilinogen (Normal) mg/dL Ur Leukocyte Esterase (Negative) Urine Microscopic RBC (0-3) per hpf Urine Microscopic WBC (0-3) per hpf Ur Squamous Epith Cells (None-Few) per lpf Urine Bacteria (None-Few) per hpf Hyaline Casts (None-Few) per lpf Urine Yeast (None Seen) per hpf Ur Culture Indicated? (NO) 10/24/17 10/24/17 Range/Units 08:48 09:05 WBC (4.3-11.1) K/mcL RBC (3.82-4.97) M/mcL Hgb (11.5-15.4) g/dL Hct (35.3-44.9) % MCV (83.0-100.0) fL MCH (28.0-33.3) pg MCHC (31.6-35.5) g/dL RDW (11.5-14.5) % Plt Count (140-400) K/mcL MPV (9.4-12.4) fL Immature Gran % (0-4) % Seg Neutrophils % % Lymphocytes % % Monocytes % % Eosinophils % % Basophils % % Neutrophils # (1.6-8.9) K/mcL Lymphocytes # (0.6-4.6) K/mcL Monocytes # (0.0-1.3) K/mcL Eosinophils # (0.0-0.6) K/mcL Basophils # (0.0-0.2) K/mcL PT (9.4-12.1) Seconds INR APTT (26.0-36.0) Seconds Sodium (136-145) mEq/L Potassium (3.5-5.1) mEq/L Chloride (98-107) mEq/L Carbon Dioxide (23-29) mEq/L BUN (6-20) mg/dL Creatinine (0.60-1.20) mg/dL Est GFR ( Amer) (> 60) Est GFR (Non-Af Amer) (> 60) BUN/Creatinine Ratio (6-26) Glucose (70-105) mg/dL Calculated Osmolality (280-300) Lactic Acid 1.7 (0.5-2.2) mmol/L Calcium (8.6-10.3) mg/dL Phosphorus (2.7-4.5) mg/dL Magnesium (1.6-2.6) mg/dL Total Bilirubin (0.3-1.0) mg/dL Direct Bilirubin (0.0-0.2) mg/dL Indirect Bilirubin (0.0-1.2) mg/dL AST (13-39) Units/L ALT (7-52) Units/L Alkaline Phosphatase (34-104) Units/L Creatine Kinase (30-223) Units/L Troponin I (< 0.04) ng/mL Serum Total Protein (6.4-8.9) g/dL Albumin (3.5-5.7) g/dL Globulin (2.4-3.5) g/dL Albumin/Globulin Ratio (1.1-2.2) Urine Color Yellow (Yellow) Urine Clarity Clear (Clear) Urine pH 5.0 (5.0-8.0) pH Units Ur Specific [place] > 1.030 H (1.010-1.025) Urine Protein 100 H (Neg-Trace) mg/dL Urine Glucose (UA) >=1000 H (Normal) mg/dL Urine Ketones 15 H (Negative) mg/dL Urine Blood Moderate H (Negative) Urine Nitrite Negative (Negative) Urine Bilirubin Negative (Negative) Urine Urobilinogen Normal (Normal) mg/dL Ur Leukocyte Esterase Negative (Negative) Urine Microscopic RBC 3-5 H (0-3) per hpf Urine Microscopic WBC 15-30 H (0-3) per hpf Ur Squamous Epith Cells Moderate H (None-Few) per lpf Urine Bacteria None Seen (None-Few) per hpf Hyaline Casts None Seen (None-Few) per lpf Urine Yeast Few H (None Seen) per hpf Ur Culture Indicated? NO (NO) Critical Care Time Critical Care Time: Yes Total Critical Care Time: 50 Attestation: Excluding a separately billable procedures. Attestation Statement - Attestation Attestation: This documentation is done with the assistance of Dragon dictation. Despite efforts made to ensure accuracy, there may be inaccuracies in steel roller or spelling and typographical errors. I examined this patient and my medical decision-making was reviewed with the Resident Physician. I agree with the documented findings, disposition and treatment plan as described except to the extent set forth below. Patient seen and evaluated on arrival with EMS and Dr. Contreras, I agree with her evaluation and management plan, supervised care the patient's stay. Patient presents with squad after falling at home last night about 11:00. She remained on the floor that whole time. She was able to finally get to a phone this morning call EMS there were getting her off the floor she is complaining of left ankle pain. She is morbidly obese has a large wound on her lower abdomen that is not healing. She said this is from cancer surgery. She has cellulitis going up onto the abdomen. She denies any other complaints this time. She is a SIRS alert. She will be started on fluids sepsis labs, IV fluids, vancomycin, x-ray of her ankle and then she will need admission. She is in agreement this plan.
[2017-10-24] MEDS: 0.9 % Sodium Chloride 1,000 ML IVC SCH ×4 (08:56→17:50)
[2017-10-24 09:08] LABS: Basophils % 0.2 %; Eosinophils % 0.1 %; Hematocrit 50.8 % (35.3-44.9); Hemoglobin 16.8 g/dL (11.5-15.4); Immature Granulocytes % 0.7 % (0-4); Lymphocytes # 0.6 K/mcL (0.6-4.6); Lymphocytes % 6.5 %; Mean Corpuscular HGB Conc 33.1 g/dL (31.6-35.5); Mean Corpuscular Hemoglobin 29.8 pg (28.0-33.3); Mean Corpuscular Volume 90.2 fL (83.0-100.0); Mean Platelet Volume 11.6 fL (9.4-12.4); Monocytes # 0.4 K/mcL (0.0-1.3); Monocytes % 3.7 %; Neutrophils # 8.3 K/mcL (1.6-8.9); Platelet Count 144 K/mcL (140-400); Red Blood Count 5.63 M/mcL (3.82-4.97); Red Cell Distribution Width 16.2 % (11.5-14.5); Segmented Neutrophils % 88.8 %
[2017-10-24 09:14] LABS: INR 1.2; Prothrombin Time 13.2 Seconds (9.4-12.1)
[2017-10-24 09:16] LABS: Bilirubin,Urine Negative (Negative); Blood,Urine Moderate (Negative); Clarity,Urine Clear (Clear); Color,Urine Yellow (Yellow); Glucose,Urine (UA) >=1000 mg/dL (Normal); Ketones,Urine 15 mg/dL (Negative); Leukocyte Esterase,Urine Negative (Negative); Nitrite,Urine Negative (Negative); Protein,Urine 100 mg/dL (Neg-Trace); Specific Gravity,Urine > 1.030 (1.010-1.025); Urobilinogen,Urine Normal (Normal)
[2017-10-24 09:17] LABS: Activated Partial Thrombo Time 33.9 Seconds (26.0-36.0)
[2017-10-24 09:19] LABS: Bacteria,Urine None Seen per hpf (None-Few); Hyaline Casts,Urine None Seen per lpf (None-Few); Squamous Epithelial Cell,Urine Moderate per lpf (None-Few); WBC,Urine 15-30 per hpf (0-3)
[2017-10-24 09:23] LABS: Alanine Aminotransferase 41 Units/L (7-52); Albumin 3.4 g/dL (3.5-5.7); Alkaline Phosphatase 110 Units/L (34-104); Aspartate Amino Transferase 43 Units/L (13-39); BUN/Creatinine Ratio 21 (6-26); Bilirubin,Direct 0.3 mg/dL (0.0-0.2); Bilirubin,Indirect 0.9 mg/dL (0.0-1.2); Bilirubin,Total 1.2 mg/dL (0.3-1.0); Blood Urea Nitrogen 17 mg/dL (6-20); Calcium 8.5 mg/dL (8.6-10.3); Carbon Dioxide 27 mEq/L (23-29); Chloride 95 mEq/L (98-107); Creatine Kinase 369 Units/L (30-223); Globulin 3.3 g/dL (2.4-3.5); Glucose 471 mg/dL (70-105); Magnesium 1.9 mg/dL (1.6-2.6); Osmolality,Calculated 292 (280-300); Potassium 3.3 mEq/L (3.5-5.1); Sodium 130 mEq/L (136-145); Total Protein 6.7 g/dL (6.4-8.9); eGFR For Non-African Americans > 60 (> 60)
[2017-10-24 09:33] LABS: Troponin I 0.04 ng/mL (< 0.04)
[2017-10-24 09:38] LABS: Yeast,Urine Few per hpf (None Seen)
--- NOTE | 2017-10-24 10:49 | Emergency Department Note ---
Disposition Clinical Impression: Cellulitis, abdominal wall, Elevated troponin, Hypokalemia, Hyperglycemia Disposition: Admitted As Inpatient Condition: Fair Referrals: NONE,PCP [Primary Care Provider] - Time of Disposition: 10:30 General Adult HPI - General Chief complaint: ED Fall Stated complaint: fall Time Seen by Provider: 10/24/17 08:31 Source: EMS Mode of arrival: EMS Limitations: physical limitation Nursing Notes Reviewed: Yes Vital Signs Reviewed: Yes - History of Present Illness HPI Narrative: Patient is a 47-year-old female who presents to [facility] ED with a chief complaint of fall. States she was at home and the bandages on her feet for too tight so she did not turn them in time and she fell. She was down on the ground for the entire night. States she has back pain and hip pain after lying on the ground for so long. She landed on her right side. Complaining of left ankle and right hip pain as well as lower back pain. Patient has a chronic nonhealing wound from a surgery done 8 years ago. She is followed by wound clinic for this. Patient denies any nausea, vomiting, fever or chills. No chest pain, difficulty breathing, problems with urination. Patient is covered in feces upon her presentation. Onset (ago): hour(s) Location: left, right, lower extremity Pain Severity: moderate Pain Scale: 8 Quality: aching Consistency: constant Improves with: nothing Worsens with: nothing Associated symptoms: Reports: denies other symptoms. Denies: chest pain, fever/ chills, nausea/vomiting, shortness of breath Treatments Prior to Arrival: none - Related Data Home Medications Medication Instructions Recorded Confirmed Ranitidine HCl [Acid Snath Handle Assembler] 150 mg PO BID 04/03/16 10/24/17 Aspirin Enteric Coated [Aspirin EC] 81 mg PO DAILY 10/04/16 10/24/17 Ipratropium/Albuterol Neb [Duoneb] 3 ml IH Q6HR PRN 10/04/16 10/24/17 ALPRAZolam [Xanax 0.5 MG Tablet] 0.5 mg PO BID 01/27/17 10/24/17 Atorvastatin Calcium [Lipitor] 20 mg PO HS 01/27/17 10/24/17 Cyanocobalamin (Vitamin B-12) 1,000 mcg PO TH 01/27/17 10/24/17 [Vitamin B12] Docusate [Colace] 100 mg PO BID PRN 01/27/17 10/24/17 Insulin Regular U-500 [HumuLIN R 0 unit SQ TID MDD See Comment. 01/27/17 U-500] Mometasone Furoate [Asmanex] 2 puff IH BID 01/27/17 10/24/17 BuPROPion [Wellbutrin] 100 mg PO DAILY 04/10/17 10/24/17 Gabapentin [Neurontin] 600 mg PO TID 04/10/17 10/24/17 Mupirocin [Bactroban Oint] 1 appl TP BID PRN 04/10/17 10/24/17 Nystatin POWDER [Nystop] 1 appl TP TID PRN 04/10/17 10/24/17 Lisinopril [Lisinopril] 2.5 mg PO DAILY 10/24/17 10/24/17 Previous Rx's Medication Instructions Recorded Ondansetron ODT [Zofran ODT] 4 mg SL Q8HR PRN #10 tab.rapdis 11/08/16 metFORMIN [Glucophage] 1,000 mg PO BIDWM #90 tab 11/08/16 Levothyroxine Sodium [Levo-T] 350 mcg PO QAM #60 tablet 11/10/16 Loratadine [Allergy Relief] 10 mg PO DAILY #60 11/10/16 OxyCODONE Immed Rel [Roxicodone 20 20 mg PO Q4HR PRN 2 Days #7 tablet 04/15/17 MG] Furosemide [Lasix] 20 mg PO DAILY #30 tablet 05/07/17 Allergies Allergy/AdvReac Type Severity Reaction Status Date / Time Penicillins Allergy Rash Verified 01/27/16 09:52 Tetracycline Allergy Rash Verified 01/27/16 09:52 All systems ED: reviewed and negative except as stated. Past Medical History - Past Medical History Attestation: Yes The following information was validated with the patient. Source: patient Medical history: Reports: asthma, cancer, CHF, COPD, CVA, diabetes, GERD, hyperlipidemia, hypertension, malignancy, thyroid disease, other Surgical history: Reports: hysterectomy, thyroidectomy Psychiatric history: Reports: anxiety, depression COUNTER TACKER history: Reports: no COUNTER TACKER history - Social History Smoking Status: Current every day smoker Smokeless Tobacco Status: No Alcohol use: Reports: none Drug use: Reports: none Physical Exam - General Limitations: physical limitation General appearance: alert, in no apparent distress - Head Head exam: atraumatic, normocephalic, normal inspection - Eye Eye exam: Present: PERRL, EOMI - ENT ENT exam: normal exam, normal oropharynx, mucous membranes moist - Neck Neck exam: Present: normal inspection, full ROM, trachea midline - Chest Chest inspection: Present: normal inspection, symmetric chest wall rise - Respiratory Respiratory exam: Present: normal lung sounds bilaterally - Cardiovascular Cardiovascular exam: Present: normal rhythm, tachycardia - Abdominal Exam Abdominal exam: Present: soft, tenderness (over erythema of pannus). Absent: distention, guarding, rebound, rigidity - Extremities Exam Extremities exam: Present: tenderness, pedal edema - Back Exam Back exam: Present: paraspinal tenderness - Neurological Exam Neurological exam: Present: alert, oriented X3 - Psychiatric Psychiatric exam: Present: normal affect, normal mood - Skin Skin exam: Present: warm, dry, intact, erythema (Of the pannus ) Course Course Narrative: Patient seen and examined. Patient with concern for right hip and left ankle pain after fall. Also has red indurated pannus surrounding a nonhealing surgical wound from 8 years ago. Concern for cellulitis. We will go ahead and do septic workup on the patient along with x-rays of the hip and ankle. We will also start patient on vancomycin. - Reevaluation(s) Reevaluation #1: Lab work shows a mildly elevated troponin of 0.04. CPK level is in the 300s. Patient may be having early rhabdomyolysis. We will continue fluid therapy. We will admit for treatment of cellulitis, elevated CPK, elevated troponin. Patient had mild hypokalemia at 3.3. 40 mEq of oral potassium replacement ordered. I discussed with the hospitalist Dr. Ny who has accepted patient for admission. He would like Zosyn ordered as well. Time: 12:23 Vital Signs Temperature 99.6 F 10/24/17 08:33 Pulse Rate 111 10/24/17 08:33 Respiratory Rate 24 10/24/17 08:33 Blood Pressure 135/78 10/24/17 08:33 O2 Sat by Pulse Oximetry 94 10/24/17 08:33 Temperature 99.6 F 10/24/17 08:33 Pulse Rate 89 10/24/17 09:45 Respiratory Rate 18 10/24/17 11:47 Blood Pressure 136/71 10/24/17 11:47 O2 Sat by Pulse Oximetry 94 10/24/17 09:45 Oxygen Delivery Oxygen Delivery Nasal Cannula Medical Decision Making - Medical Records Medical records reviewed: Yes I reviewed the patient's medical records. - Lab Data Lab results reviewed: Yes I reviewed the patient's lab results. Result diagrams: 10/24/17 08:48 10/24/17 08:48 Lab Results 10/24/17 10/24/17 10/24/17 Range/Units 08:48 08:48 08:48 WBC 9.4 (4.3-11.1) K/mcL RBC 5.63 H (3.82-4.97) M/mcL Hgb 16.8 H (11.5-15.4) g/dL Hct 50.8 H (35.3-44.9) % MCV 90.2 (83.0-100.0) fL MCH 29.8 (28.0-33.3) pg MCHC 33.1 (31.6-35.5) g/dL RDW 16.2 H (11.5-14.5) % Plt Count 144 (140-400) K/mcL MPV 11.6 (9.4-12.4) fL Immature Gran % 0.7 (0-4) % Seg Neutrophils % 88.8 % Lymphocytes % 6.5 % Monocytes % 3.7 % Eosinophils % 0.1 % Basophils % 0.2 % Neutrophils # 8.3 (1.6-8.9) K/mcL Lymphocytes # 0.6 (0.6-4.6) K/mcL Monocytes # 0.4 (0.0-1.3) K/mcL Eosinophils # 0.0 (0.0-0.6) K/mcL Basophils # 0.0 (0.0-0.2) K/mcL PT 13.2 H (9.4-12.1) Seconds INR 1.2 APTT 33.9 (26.0-36.0) Seconds Sodium 130 L (136-145) mEq/L Potassium 3.3 L (3.5-5.1) mEq/L Chloride 95 L (98-107) mEq/L Carbon Dioxide 27 (23-29) mEq/L BUN 17 (6-20) mg/dL Creatinine 0.80 (0.60-1.20) mg/dL Est GFR ( Amer) > 60 (> 60) Est GFR (Non-Af Amer) > 60 (> 60) BUN/Creatinine Ratio 21 (6-26) Glucose 471 H (70-105) mg/dL Calculated Osmolality 292 (280-300) Lactic Acid (0.5-2.2) mmol/L Calcium 8.5 L (8.6-10.3) mg/dL Phosphorus 3.0 (2.7-4.5) mg/dL Magnesium 1.9 (1.6-2.6) mg/dL Total Bilirubin 1.2 H (0.3-1.0) mg/dL Direct Bilirubin 0.3 H (0.0-0.2) mg/dL Indirect Bilirubin 0.9 (0.0-1.2) mg/dL AST 43 H (13-39) Units/L ALT 41 (7-52) Units/L Alkaline Phosphatase 110 H (34-104) Units/L Creatine Kinase 369 H (30-223) Units/L Troponin I 0.04 H* (< 0.04) ng/mL Serum Total Protein 6.7 (6.4-8.9) g/dL Albumin 3.4 L (3.5-5.7) g/dL Globulin 3.3 (2.4-3.5) g/dL Albumin/Globulin Ratio 1.0 L (1.1-2.2) Urine Color (Yellow) Urine Clarity (Clear) Urine pH (5.0-8.0) pH Units Ur Specific [place] (1.010-1.025) Urine Protein (Neg-Trace) mg/dL Urine Glucose (UA) (Normal) mg/dL Urine Ketones (Negative) mg/dL Urine Blood (Negative) Urine Nitrite (Negative) Urine Bilirubin (Negative) Urine Urobilinogen (Normal) mg/dL Ur Leukocyte Esterase (Negative) Urine Microscopic RBC (0-3) per hpf Urine Microscopic WBC (0-3) per hpf Ur Squamous Epith Cells (None-Few) per lpf Urine Bacteria (None-Few) per hpf Hyaline Casts (None-Few) per lpf Urine Yeast (None Seen) per hpf Ur Culture Indicated? (NO) 10/24/17 10/24/17 Range/Units 08:48 09:05 WBC (4.3-11.1) K/mcL RBC (3.82-4.97) M/mcL Hgb (11.5-15.4) g/dL Hct (35.3-44.9) % MCV (83.0-100.0) fL MCH (28.0-33.3) pg MCHC (31.6-35.5) g/dL RDW (11.5-14.5) % Plt Count (140-400) K/mcL MPV (9.4-12.4) fL Immature Gran % (0-4) % Seg Neutrophils % % Lymphocytes % % Monocytes % % Eosinophils % % Basophils % % Neutrophils # (1.6-8.9) K/mcL Lymphocytes # (0.6-4.6) K/mcL Monocytes # (0.0-1.3) K/mcL Eosinophils # (0.0-0.6) K/mcL Basophils # (0.0-0.2) K/mcL PT (9.4-12.1) Seconds INR APTT (26.0-36.0) Seconds Sodium (136-145) mEq/L Potassium (3.5-5.1) mEq/L Chloride (98-107) mEq/L Carbon Dioxide (23-29) mEq/L BUN (6-20) mg/dL Creatinine (0.60-1.20) mg/dL Est GFR ( Amer) (> 60) Est GFR (Non-Af Amer) (> 60) BUN/Creatinine Ratio (6-26) Glucose (70-105) mg/dL Calculated Osmolality (280-300) Lactic Acid 1.7 (0.5-2.2) mmol/L Calcium (8.6-10.3) mg/dL Phosphorus (2.7-4.5) mg/dL Magnesium (1.6-2.6) mg/dL Total Bilirubin (0.3-1.0) mg/dL Direct Bilirubin (0.0-0.2) mg/dL Indirect Bilirubin (0.0-1.2) mg/dL AST (13-39) Units/L ALT (7-52) Units/L Alkaline Phosphatase (34-104) Units/L Creatine Kinase (30-223) Units/L Troponin I (< 0.04) ng/mL Serum Total Protein (6.4-8.9) g/dL Albumin (3.5-5.7) g/dL Globulin (2.4-3.5) g/dL Albumin/Globulin Ratio (1.1-2.2) Urine Color Yellow (Yellow) Urine Clarity Clear (Clear) Urine pH 5.0 (5.0-8.0) pH Units Ur Specific [place] > 1.030 H (1.010-1.025) Urine Protein 100 H (Neg-Trace) mg/dL Urine Glucose (UA) >=1000 H (Normal) mg/dL Urine Ketones 15 H (Negative) mg/dL Urine Blood Moderate H (Negative) Urine Nitrite Negative (Negative) Urine Bilirubin Negative (Negative) Urine Urobilinogen Normal (Normal) mg/dL Ur Leukocyte Esterase Negative (Negative) Urine Microscopic RBC 3-5 H (0-3) per hpf Urine Microscopic WBC 15-30 H (0-3) per hpf Ur Squamous Epith Cells Moderate H (None-Few) per lpf Urine Bacteria None Seen (None-Few) per hpf Hyaline Casts None Seen (None-Few) per lpf Urine Yeast Few H (None Seen) per hpf Ur Culture Indicated? NO (NO) - Radiology Data Radiology results reviewed: Yes I reviewed the patient's radiology results. Ankle X-Ray 10/24/17 08:35 IMPRESSION: Soft tissue swelling without acute osseous abnormality. D/ / Ranjan Montes MD / Ranjan Montes MD Interpreting Provider: Ranjan Montes MD Hip X-Ray 10/24/17 09:55 IMPRESSION: Limited, negative radiographs of the right hip. D/ / Ranjan Montes MD / Ranjan Montes MD Interpreting Provider: Ranjan Montes MD - EKG Data EKG #1 EKG attestation: Yes I reviewed and interpreted this EKG. EKG results narrative: EKG done at 848 shows sinus tachycardia with a rate of [address] elevation or depression. Normal axis. Appears unchanged from prior EKG done Apr 30 2017.
[2017-10-24] MEDS ORDERED: Acetaminophen 325 MG TABLET PO PRN (13:02)
[2017-10-24] MEDS ORDERED: Naloxone 0.4 MG/ML INJ IVP PRN (13:02)
[2017-10-24] MEDS ORDERED: D5% in Water 1,000 ML IVC PRN (13:05)
[2017-10-24] MEDS ORDERED: *HR* Dextrose 50 % in Water (Syg) 50 ML SYRINGE IVP PRN (13:05)
[2017-10-24] MEDS ORDERED: Dextrose Gel 15 GM/37.5 ML TUBE PO PRN ×2 (13:05)
[2017-10-24] MEDS ORDERED: Nystatin POWDER 30 GM BOTTLE TP PRN (13:06)
[2017-10-24] MEDS ORDERED: Ipratropium/Albuterol Neb 3 ML IH PRN (13:06)
--- NOTE | 2017-10-24 13:09 | Internal Med History&Physical ---
Date of Encounter: 10/24/17 Time of Encounter: 13:08 Internal Medicine - H&P: HPI Chief complaint: Fall, right hip and left ankle pain Admitted From: Emergency Dept Plans for Post Hospital Care: Home History of present illness: Ms. Cat is a 47 year old female who is super morbidly obese with multiple medical problems including CHF, COPD, diabetes, sleep apnea, who presents to the emergency room after sustaining a mechanical fall at home. Patient has chronic left leg and lower abdominal wounds, for which she receives visiting nurse services 3 times a week. She had her left leg wrapped yesterday, which was too tight according to the patient and she could not feel her leg last night when she got up. This caused her to fall down, she landed on her right hip and presented to the ER complaining of right hip and left ankle pain. Denies hitting her head. No prodromal symptoms prior to fall. No chest pain, palpitations or dizziness at this time. She does have baseline exertional dyspnea and leg swelling. Past Med Surg Social Fam HX - Past Medical History Source: patient Medical history: asthma, cancer, CHF, COPD, CVA, diabetes, GERD, hyperlipidemia , hypertension, malignancy, thyroid disease, other Additional medical history: Endometrial cancer. NESHA Psychiatric history: anxiety, depression - Past Surgical History Surgical History: hysterectomy, thyroidectomy Additional surgical history: abd sx - Social History Smoking Status: Current every day smoker Smokeless Tobacco Status: No Alcohol use: none Drug use: none Occupational status: disabled Current living situation: Home - Independent Activity Level: Uses cane/walker Recent Out of Country Travel Within the Last 8 Weeks: No Exposure or Possible Exposure to Illness During Travel: No - Family History Mother Living Status: Still Living Hx Family Cardiac Disorders: Yes Hx Family Respiratory Disorders: Yes Hx Family Cancer: No Hx Family Endocrine Disorder: Yes Hx Family Neuromuscular Disorders: Yes Father Living Status: Hx Family Cardiac Disorders: Yes (HTN) Hx Family Respiratory Disorders: Yes (Sleep apnea) Internal Medicine - H&P: Meds Ranitidine HCl [Acid Rotoprinter] 150 mg PO BID 04/03/16 [History] Aspirin Enteric Coated [Aspirin EC] 81 mg PO DAILY 10/04/16 [History] Ipratropium/Albuterol Neb [Duoneb] 3 ml IH Q6HR PRN 10/04/16 [History] Ondansetron ODT [Zofran ODT] 4 mg SL Q8HR PRN #10 tab.rapdis 11/08/16 [Rx] metFORMIN [Glucophage] 1,000 mg PO BIDWM #90 tab 11/08/16 [Rx] Levothyroxine Sodium [Levo-T] 350 mcg PO QAM #60 tablet 11/10/16 [Rx] Loratadine [Allergy Relief] 10 mg PO DAILY #60 11/10/16 [Rx] ALPRAZolam [Xanax 0.5 MG Tablet] 0.5 mg PO BID 01/27/17 [History] Atorvastatin Calcium [Lipitor] 20 mg PO HS 01/27/17 [History] Cyanocobalamin (Vitamin B-12) [Vitamin B12] 1,000 mcg PO TH 01/27/17 [History] Docusate [Colace] 100 mg PO BID PRN 01/27/17 [History] Insulin Regular U-500 [HumuLIN R U-500] 0 unit SQ TID MDD See Comment. [History] Mometasone Furoate [Asmanex] 2 puff IH BID 01/27/17 [History] BuPROPion [Wellbutrin] 100 mg PO DAILY 04/10/17 [History] Gabapentin [Neurontin] 600 mg PO TID 04/10/17 [History] Mupirocin [Bactroban Oint] 1 appl TP BID PRN 04/10/17 [History] Nystatin POWDER [Nystop] 1 appl TP TID PRN 04/10/17 [History] OxyCODONE Immed Rel [Roxicodone 20 MG] 20 mg PO Q4HR PRN 2 Days #7 tablet [Rx] Furosemide [Lasix] 20 mg PO DAILY #30 tablet 05/07/17 [Rx] Lisinopril [Lisinopril] 2.5 mg PO DAILY 10/24/17 [History] 3 Allergy/AdvReac Type Severity Reaction Status Date / Time Penicillins Allergy Rash Verified 01/27/16 09:52 Tetracycline Allergy Rash Verified 01/27/16 09:52 All Systems PM: A 10-system review of systems was performed and is negative for pertinent findings except as documented above in the HPI. - Constitutional Constitutional: weakness, no chills, no fever(s), no night sweats - EENT Eyes: no change in vision, no discharge, no pain, no photophobia Ears: no ear discharge, no ear pain, no tinnitus Nose, mouth and throat: no dysphagia, no nasal discharge, no neck pain, no sore throat - Cardiovascular Cardiovascular ROS IM: no chest pain, no diaphoresis, no dyspnea, no lightheadedness, no palpitations, no syncope - Respiratory Respiratory: no cough, no dyspnea, no wheezing, no excessive phlegm production - Gastrointestinal Gastrointestinal: nausea, vomiting, no abdominal pain, no diarrhea, no hematemesis, no hematochezia, no melena - Genitourinary Genitourinary: no change in urinary stream, no dysuria, no flank pain, no hematuria - Musculoskeletal Musculoskeletal ROS IM: no numbness, no tingling - Integumentary Integumentary IM: non-healing lesions, no rash, no unusual bruising - Neurological Neurological ROS: numbness, weakness - Hematologic/Lymphatic Hematologic/Lymphatic: no easy bruising - Constitutional Vitals: Temp Pulse Resp BP Pulse Ox 98.1 F 88 20 108/61 96 10/24/17 12:34 10/24/17 12:34 10/24/17 12:34 10/24/17 12:34 10/24/17 12:34 General appearance: Present: A&O X 3, morbidly obese, answers questions appropriately - Respiratory Respiratory exam: Present: CTAB. Absent: accessory muscle use, rales, rhonchi, wheezes - Cardiovascular Cardiovascular exam: Present: RRR, +S1, +S2. Absent: diastolic murmur, gallop, rubs, systolic murmur - GI/Abdominal GI/Abdominal exam: Present: normal bowel sounds, soft (very obese with huge pannus, lower abdominal chronic wound- nonfoul-smelling, no drainage;), no peritoneal signs. Absent: distended, tenderness - Extremities Exam Extremities exam: Present: pedal edema (chronic nonpitting edema, lymphedema, small non-healing ulcers on left lower leg, mostly scabbed now), warm, radial pulses palpable and symmetrical. Absent: calf tenderness, cyanotic - Neurological Exam Neurological exam: Present: CN II-XII intact, oriented X3, no focal deficits. Absent: pronater drift, facial droop, speech deficit - Skin Skin exam: Present: dry, intact Internal Med - H&P Results - Labs CBC & Chem 7: 10/24/17 08:48 10/24/17 08:48 - Assessment and plan (1) Fall Current Visit: Yes Status: Acute Assessment and plan: Mechanical fall. Reported right hip and left ankle pain. X-rays done in the emergency room showed no acute fracture or trauma otherwise. Continue pain control. Physical and occupational therapy evaluation. Qualifiers: Encounter type: initial encounter Qualified Code(s): W19.XXXA - Unspecified fall, initial encounter (2) Cellulitis, abdominal wall Current Visit: Yes Status: Ruled-out Assessment and plan: Patient does have chronic nonhealing lower abdominal wounds intubated in her pannus, due to nonhealing wounds from hysterectomy about 8 years ago. Does have home health services for wound care. Will consult wound care nurse. no Evidence of infection. (3) Cellulitis of lower leg Current Visit: Yes Status: Ruled-out Assessment and plan: Patient reports chronic lymphedema and mild erythema. Does not appear to be new infection. Continue lower extremity elevation and local wound care; (4) Chronic venous hypertension w/ulcer and inflammation involv both sides Current Visit: Yes Status: Chronic (5) Lymphedema of both lower extremities Current Visit: Yes Status: Chronic (6) Morbid obesity with BMI of 70 and over, adult Current Visit: Yes Status: Chronic (7) Sleep apnea treated with nocturnal BiPAP Current Visit: Yes Status: Chronic Assessment and plan: Continue BiPAP support during nap time and nighttime while in the hospital. (8) Tobacco dependence Current Visit: Yes Status: Chronic Assessment and plan: Patient reports no difficulty cutting down. Nicotine transdermal patch as needed. (9) Diabetes mellitus Current Visit: Yes Status: Chronic Assessment and plan: Blood sugars noted to be elevated to on BMP. Check hemoglobin A1c. Start Accu- Chek blood glucose monitoring with sliding scale insulin. Diabetic diet. Patient is only noted to be on sliding scale insulin at home as she reports that her blood sugars have been recently much better controlled. 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 Qualifiers: Heart failure type: diastolic Heart failure chronicity: chronic Qualified Code(s): I50.32 - Chronic diastolic (congestive) heart failure (11) COPD (chronic obstructive pulmonary disease) Current Visit: Yes Status: Chronic Assessment and plan: Not in acute exacerbation. Continue when necessary breathing treatments and supplemental oxygen, BiPAP support. Continue inhaled corticosteroids. Qualifiers: COPD type: unspecified COPD Qualified Code(s): J44.9 - Chronic obstructive pulmonary disease, unspecified (12) Chronic respiratory failure Current Visit: Yes Status: Acute Qualifiers: Respiratory failure complication: hypoxia Qualified Code(s): J96.11 - Chronic respiratory failure with hypoxia (13) Essential hypertension Current Visit: Yes Status: Chronic (14) Hypothyroidism Current Visit: Yes Status: Chronic Qualifiers: Hypothyroidism type: unspecified Qualified Code(s): E03.9 - Hypothyroidism , unspecified (15) Anxiety and depression Current Visit: Yes Status: Chronic (16) Chronic pain syndrome Current Visit: Yes Status: Chronic - Time Spent With Patient Total time spent is greater than 50% in coordination of care (as documented) at patient's floor/unit and/or counseling patient:
[2017-10-24] MEDS: Gabapentin 300 MG CAPSULE PO SCH ×2 (14:20→21:09)
[2017-10-24] MEDS: *HR* OxyCODONE Immed Rel 5 MG TABLET PO PRN ×2 (14:29→21:09)
[2017-10-24] MEDS: Insulin LISPRO 300 UNITS/3 ML VIAL SQ SCH (17:39)
[2017-10-24] MEDS ORDERED: 0.9 % Sodium Chloride 1,000 ML ONE (17:44)
[2017-10-24] MEDS: Beclomethasone 80mcg MDI IH SCH (19:37)
[2017-10-24] MEDS ORDERED: Insulin LISPRO 300 UNITS/3 ML VIAL SQ SCH (21:00)
[2017-10-24] MEDS ORDERED: MOMETASONE FUROATE IH SCH (21:00)
[2017-10-24] MEDS: ALPRAZolam 0.5 MG TABLET PO SCH (21:09)
[2017-10-24] MEDS: Famotidine 20 MG TABLET PO SCH (21:09)
[2017-10-25 05:02] LABS: Basophils % 0.2 %; Eosinophils # 0.2 K/mcL (0.0-0.6); Eosinophils % 3.7 %; Hematocrit 43.3 % (35.3-44.9); Immature Granulocytes % 0.9 % (0-4); Lymphocytes # 0.9 K/mcL (0.6-4.6); Mean Corpuscular HGB Conc 31.9 g/dL (31.6-35.5); Mean Corpuscular Hemoglobin 30.1 pg (28.0-33.3); Mean Corpuscular Volume 94.3 fL (83.0-100.0); Mean Platelet Volume 11.6 fL (9.4-12.4); Monocytes # 0.4 K/mcL (0.0-1.3); Monocytes % 6.8 %; Neutrophils # 4.2 K/mcL (1.6-8.9); Platelet Count 128 K/mcL (140-400); Red Blood Count 4.59 M/mcL (3.82-4.97); Red Cell Distribution Width 16.6 % (11.5-14.5); Segmented Neutrophils % 73.4 %
[2017-10-25 05:03] LABS: Hemoglobin 13.8 g/dL (11.5-15.4)
[2017-10-25 05:17] LABS: BUN/Creatinine Ratio 24 (6-26); Blood Urea Nitrogen 16 mg/dL (6-20); Calcium 7.9 mg/dL (8.6-10.3); Carbon Dioxide 28 mEq/L (23-29); Chloride 104 mEq/L (98-107); Glucose 265 mg/dL (70-105); Osmolality,Calculated 294 (280-300); Potassium 3.8 mEq/L (3.5-5.1); Sodium 137 mEq/L (136-145); eGFR For Non-African Americans > 60 (> 60)
[2017-10-25] MEDS: *HR* Enoxaparin 40 MG/0.4 ML SYRINGE SQ SCH (06:56)
[2017-10-25] MEDS: Beclomethasone 80mcg MDI IH SCH ×2 (07:45→20:05)
[2017-10-25 08:56] LABS: Estimated Average Glucose 329 mg/dl; Hemoglobin A1C 13.1 %
[2017-10-25] MEDS: Aspirin Enteric Coated 81 MG Tablet PO SCH (09:11)
[2017-10-25] MEDS: Famotidine 20 MG TABLET PO SCH ×2 (09:12→22:13)
[2017-10-25] MEDS: Furosemide 20 MG TABLET PO SCH (09:12)
[2017-10-25] MEDS: Gabapentin 300 MG CAPSULE PO SCH ×3 (09:12→22:14)
[2017-10-25] MEDS: ALPRAZolam 0.5 MG TABLET PO SCH ×2 (09:12→22:14)
[2017-10-25] MEDS: Insulin LISPRO 300 UNITS/3 ML VIAL SQ SCH ×3 (09:14→16:49)
[2017-10-25] MEDS: *HR* OxyCODONE Immed Rel 5 MG TABLET PO PRN (09:24)
[2017-10-25] MEDS: *HR* HYDROcodone/Acet 5/325 mg TABLET PO PRN ×2 (11:55→22:25)
[2017-10-25] MEDS ORDERED: Ibuprofen 600 MG TABLET PO PRN (13:32)
--- NOTE | 2017-10-25 13:35 | Internal Med Progress Note ---
Hospitalist Progress Note - Encounter Date of Encounter: 10/25/17 Time of Encounter: 10:10 - Subjective Interval History: Reports right posterior headache, reports feeling a bump. No chest pain, shortness of breath, dizziness. Refused physical therapy yesterday due to feeling quite weak, agreeable to work with them tomorrow. No fever, chills. - Exam Vitals: Temp Pulse Resp BP Pulse Ox 97.9 F 106 16 123/77 94 10/25/17 11:40 10/25/17 11:40 10/25/17 11:40 10/25/17 11:40 10/25/17 11:40 Exam: General: Morbidly obese female, sitting up in bed in mild distress Head- 1*2cm area of erythema and swelling and tenderness over right posterior scalp Chest: Normal thoracic expansion. Normal breath sounds. Clear to auscultation. Heart: Normal S1 & S2; rhythmic. No rubs or murmurs. Extremities: B/L chronic lymphedema; left lower leg non-infected ulcers Neurological: Awake, alert and oriented to person, place and time. No focal deficits. - Assessment and Plan (1) Fall Current Visit: Yes Status: Acute Assessment and Plan: Mechanical fall. Reported right hip and left ankle pain. X-rays done in the emergency room showed no acute fracture or trauma otherwise. Continue pain control with PRN Tylenol, Oxycodone. Physical and occupational therapy evaluation pending. Anticipate discharge in am; (2) Cellulitis, abdominal wall Current Visit: Yes Status: Ruled-out Assessment and Plan: Patient does have chronic nonhealing lower abdominal wounds intubated in her pannus, due to nonhealing wounds from hysterectomy about 8 years ago. Does have home health services for wound care. wound care nurse consult pending. no Evidence of infection. (3) Cellulitis of lower leg Current Visit: Yes Status: Ruled-out (4) Chronic venous hypertension w/ulcer and inflammation involv both sides Current Visit: Yes Status: Chronic (5) Lymphedema of both lower extremities Current Visit: Yes Status: Chronic (6) Morbid obesity with BMI of 70 and over, adult Current Visit: Yes Status: Chronic (7) Sleep apnea treated with nocturnal BiPAP Current Visit: Yes Status: Chronic (8) Tobacco dependence Current Visit: Yes Status: Chronic (9) Diabetes mellitus Current Visit: Yes Status: Chronic Assessment and Plan: Blood sugars noted to be elevated. Hemoglobin A1c noted to be 13.1%, uncontrolled. Start basal insulin and increase sliding scale insulin. Accu- Chek blood glucose monitoring. Diabetic diet. Explained uncontrolled diabetes to the patient, agreeable to being started on basal insulin as outpatient if needed. (10) CHF (congestive heart failure) Current Visit: Yes Status: Chronic (11) COPD (chronic obstructive pulmonary disease) Current Visit: Yes Status: Chronic (12) Chronic respiratory failure Current Visit: Yes Status: Chronic (13) Essential hypertension Current Visit: Yes Status: Chronic (14) Hypothyroidism Current Visit: Yes Status: Chronic (15) Anxiety and depression Current Visit: Yes Status: Chronic (16) Chronic pain syndrome Current Visit: Yes Status: Chronic DVT Prophylaxis: On subcutaneous Lovenox - Time Spent with Patient Total time spent is greater than 50% in coordination of care (as documented) at patient's floor/unit and/or counseling patient: Plan of Care Discussed with: patient Internal Medicine: Result - Labs CBC & Chem 7: 10/25/17 04:10 10/25/17 04:10 Labs: Short CBC 10/25/17 Range/Units 04:10 WBC 5.7 (4.3-11.1) K/mcL Hgb 13.8 D (11.5-15.4) g/dL Hct 43.3 (35.3-44.9) % Plt Count 128 L (140-400) K/mcL Neutrophils # 4.2 (1.6-8.9) K/mcL BMP 10/25/17 04:10 Sodium 137 Potassium 3.8 Chloride 104 Carbon Dioxide 28 BUN 16 Creatinine 0.68 Glucose 265 H Calcium 7.9 L - ABG Interpretation ABG results: PT/INR, D-dimer PT 13.2 Seconds (9.4-12.1) H 10/24/17 08:48 Consult Discharge Plan - Plan Referrals: NONE,PCP [Primary Care Provider] - (1) Fall Qualifiers: Encounter type: initial encounter Qualified Code(s): W19.XXXA - Unspecified fall, initial encounter (9) Diabetes mellitus Qualifiers: Diabetes mellitus type: type 2 Diabetes mellitus shelter insulin use: with buttermaker continuous churn use Diabetes mellitus complication status: with hyperglycemia Qualified Code(s): E11.65 - Type 2 diabetes mellitus with hyperglycemia; Z79.4 - halfway (current) use of insulin; Z79.4 - medical terminologist (current) use of insulin ; Z79.4 - medical terminologist (current) use of insulin; Z79.4 - halfway (current) use of insulin (10) CHF (congestive heart failure) Qualifiers: Heart failure type: diastolic Heart failure chronicity: chronic Qualified Code(s): I50.32 - Chronic diastolic (congestive) heart failure (11) COPD (chronic obstructive pulmonary disease) Qualifiers: COPD type: unspecified COPD Qualified Code(s): J44.9 - Chronic obstructive pulmonary disease, unspecified (12) Chronic respiratory failure Qualifiers: Respiratory failure complication: hypoxia Qualified Code(s): J96.11 - Chronic respiratory failure with hypoxia (14) Hypothyroidism Qualifiers: Hypothyroidism type: unspecified Qualified Code(s): E03.9 - Hypothyroidism, unspecified
[2017-10-25] MEDS ORDERED: Insulin DETEMIR 100 UNIT/ML X5UNITS SQ SCH (21:00)
[2017-10-25] MEDS ORDERED: Insulin LISPRO 300 UNITS/3 ML VIAL SQ SCH (21:00)
[2017-10-26] MEDS: *HR* Enoxaparin 40 MG/0.4 ML SYRINGE SQ SCH (05:44)
[2017-10-26] MEDS: Beclomethasone 80mcg MDI IH SCH ×2 (07:55→19:50)
[2017-10-26] MEDS ORDERED: Insulin DETEMIR 100 UNIT/ML X5UNITS SQ SCH (08:16)
[2017-10-26] MEDS: Gabapentin 300 MG CAPSULE PO SCH ×3 (09:12→21:39)
[2017-10-26] MEDS: Insulin LISPRO 300 UNITS/3 ML VIAL SQ SCH ×4 (09:13→21:39)
[2017-10-26] MEDS: Furosemide 20 MG TABLET PO SCH (09:13)
[2017-10-26] MEDS: ALPRAZolam 0.5 MG TABLET PO SCH ×2 (09:13→21:39)
[2017-10-26] MEDS: Aspirin Enteric Coated 81 MG Tablet PO SCH (09:14)
[2017-10-26] MEDS: Famotidine 20 MG TABLET PO SCH ×2 (09:14→21:39)
[2017-10-26] MEDS ORDERED: Isovue-370 500 ML INFUS..BTL IV ONE (09:27)
--- NOTE | 2017-10-26 12:40 | Electrocardiograph Report ---
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
--- NOTE | 2017-10-26 14:59 | Internal Med Progress Note ---
Hospitalist Progress Note - Encounter Date of Encounter: 10/26/17 Time of Encounter: 09:15 - Subjective Interval History: Patient is noted to be miserable, continues to cry in pain, reports significant throbbing headache on her right side. She also reports that she is unable to move her left leg since her admission. Refuses to participate in physical therapy evaluation due to feeling tired and weak. No fever, chills, chest pain , shortness of breath. - Exam Vitals: Temp Pulse Resp BP Pulse Ox 98.4 F 83 18 133/75 90 10/26/17 11:44 10/26/17 11:44 10/26/17 11:44 10/26/17 11:44 10/26/17 11:44 Exam: General: Morbidly obese female, lying in bed in mild distress due to pain Head- 1*2cm area of erythema and swelling and tenderness over right posterior scalp- stable Chest: Normal thoracic expansion. Normal breath sounds. Clear to auscultation anterolaterally Heart: Normal S1 & S2; rhythmic. No rubs or murmurs. Extremities: B/L chronic lymphedema; left lower leg non-infected ulcers Neurological: Awake, alert and oriented to person, place and time. Reports inability to mover helper her left LE, cannot assess due to positioning and BMI - Assessment and Plan (1) Headache Current Visit: Yes Status: Acute Assessment and Plan: right posterior headache due to an area of erythema/swelling and tenderness on her scalp, ?secondary to trauma. CT head showed no acute fracture or intracranial abnormality; swelling does not appear to be infection; supportive care with ice packs, NSAIDs, PRN Oxycodone; (2) Fall Current Visit: Yes Status: Acute Assessment and Plan: Mechanical fall. Reported right hip and left ankle pain at admission. X-rays done in the emergency room showed no acute fracture or trauma otherwise. Reports inability to move her left leg; attempted CT left hip but patient does not fit in the CT machine. Continue pain control with PRN Tylenol, Motrin, Oxycodone. Physical and occupational therapy evaluation pending- patient refused today due to feeling tired. (3) Cellulitis, abdominal wall Current Visit: Yes Status: Ruled-out Assessment and Plan: Patient does have chronic nonhealing lower abdominal wounds intubated in her pannus, due to nonhealing wounds from hysterectomy about 8 years ago. Does have home health services for wound care. wound care nurse consult appreciated - to resume outpatient instructions per wound care clinic; (4) Cellulitis of lower leg Current Visit: Yes Status: Ruled-out Assessment and Plan: Patient reports chronic lymphedema and mild erythema. Does not appear to be new infection. Continue lower extremity elevation and local wound care per wound care notes; (5) Chronic venous hypertension w/ulcer and inflammation involv both sides Current Visit: Yes Status: Chronic (6) Lymphedema of both lower extremities Current Visit: Yes Status: Chronic (7) Morbid obesity with BMI of 70 and over, adult Current Visit: Yes Status: Chronic (8) Sleep apnea treated with nocturnal BiPAP Current Visit: Yes Status: Chronic (9) Tobacco dependence Current Visit: Yes Status: Chronic Assessment and Plan: Patient reports no difficulty cutting down. Nicotine transdermal patch as needed. (10) Diabetes mellitus Current Visit: Yes Status: Chronic Assessment and Plan: Noncompliant as outpatient. Uncontrolled blood sugars; will increase basal and sliding scale insulin; Hemoglobin A1c noted to be 13.1%, uncontrolled. Accu- Chek blood glucose monitoring. Diabetic diet. Patient will likely need to be discharged on long acting insulin; (11) CHF (congestive heart failure) Current Visit: Yes Status: Chronic (12) COPD (chronic obstructive pulmonary disease) Current Visit: Yes Status: Chronic (13) Chronic respiratory failure Current Visit: Yes Status: Chronic (14) Essential hypertension Current Visit: Yes Status: Chronic (15) Hypothyroidism Current Visit: Yes Status: Chronic (16) Anxiety and depression Current Visit: Yes Status: Chronic (17) Chronic pain syndrome Current Visit: Yes Status: Chronic DVT Prophylaxis: s.c Lovenox - Time Spent with Patient Total time spent is greater than 50% in coordination of care (as documented) at patient's floor/unit and/or counseling patient: Plan of Care Discussed with: patient Internal Medicine: Result - Labs CBC & Chem 7: 10/25/17 04:10 10/25/17 04:10 Labs: Cardiac Enzymes 10/26/17 Range/Units 08:31 Troponin I < 0.03 (< 0.04) ng/mL - ABG Interpretation ABG results: PT/INR, D-dimer PT 13.2 Seconds (9.4-12.1) H 10/24/17 08:48 - Impressions Impressions Head CT 10/26/17 11:00 IMPRESSION: Negative CT brain with no acute intracranial abnormality. D/ / Tarah Roa MD / Tarah Roa MD Interpreting Provider: Tarah Roa MD Consult Discharge Plan - Plan Referrals: Greg Ya [Resident] - 11/03/17 1:00 pm (1) Headache Qualifiers: Headache type: unspecified Headache chronicity pattern: acute headache Intractability: not intractable Qualified Code(s): R51 - Headache (2) Fall Qualifiers: Encounter type: initial encounter Qualified Code(s): W19.XXXA - Unspecified fall, initial encounter (10) Diabetes mellitus Qualifiers: Diabetes mellitus type: type 2 Diabetes mellitus superintendent terminal insulin use: with superintendent terminal use Diabetes mellitus complication status: with hyperglycemia Qualified Code(s): E11.65 - Type 2 diabetes mellitus with hyperglycemia; Z79.4 - retirement (current) use of insulin; Z79.4 - retirement (current) use of insulin ; Z79.4 - retirement (current) use of insulin; Z79.4 - retirement (current) use of insulin (11) CHF (congestive heart failure) Qualifiers: Heart failure type: diastolic Heart failure chronicity: chronic Qualified Code(s): I50.32 - Chronic diastolic (congestive) heart failure (12) COPD (chronic obstructive pulmonary disease) Qualifiers: COPD type: unspecified COPD Qualified Code(s): J44.9 - Chronic obstructive pulmonary disease, unspecified (13) Chronic respiratory failure Qualifiers: Respiratory failure complication: hypoxia Qualified Code(s): J96.11 - Chronic respiratory failure with hypoxia (15) Hypothyroidism Qualifiers: Hypothyroidism type: unspecified Qualified Code(s): E03.9 - Hypothyroidism, unspecified
[2017-10-26] MEDS: *HR* HYDROcodone/Acet 5/325 mg TABLET PO PRN (17:00)
[2017-10-26] MEDS: Insulin DETEMIR 100 UNIT/ML X5UNITS SQ SCH (21:39)
[2017-10-27] MEDS: *HR* HYDROcodone/Acet 5/325 mg TABLET PO PRN ×3 (00:35→21:36)
[2017-10-27 04:52] LABS: Basophils % 0.5 %; Eosinophils # 0.3 K/mcL (0.0-0.6); Eosinophils % 5.3 %; Hematocrit 41.4 % (35.3-44.9); Hemoglobin 13.1 g/dL (11.5-15.4); Immature Granulocytes % 1.2 % (0-4); Lymphocytes # 1.3 K/mcL (0.6-4.6); Lymphocytes % 19.4 %; Mean Corpuscular HGB Conc 31.6 g/dL (31.6-35.5); Mean Corpuscular Volume 91.6 fL (83.0-100.0); Mean Platelet Volume 11.5 fL (9.4-12.4); Monocytes # 0.5 K/mcL (0.0-1.3); Monocytes % 7.9 %; Neutrophils # 4.2 K/mcL (1.6-8.9); Platelet Count 161 K/mcL (140-400); Red Blood Count 4.52 M/mcL (3.82-4.97); Red Cell Distribution Width 16.1 % (11.5-14.5); Segmented Neutrophils % 65.7 %
[2017-10-27 05:14] LABS: BUN/Creatinine Ratio 21 (6-26); Blood Urea Nitrogen 13 mg/dL (6-20); Calcium 8.5 mg/dL (8.6-10.3); Carbon Dioxide 32 mEq/L (23-29); Chloride 102 mEq/L (98-107); Glucose 323 mg/dL (70-105); Osmolality,Calculated 299 (280-300); Sodium 138 mEq/L (136-145); eGFR For Non-African Americans > 60 (> 60)
[2017-10-27] MEDS: *HR* Enoxaparin 40 MG/0.4 ML SYRINGE SQ SCH (06:07)
[2017-10-27] MEDS: Beclomethasone 80mcg MDI IH SCH ×2 (07:34→19:47)
[2017-10-27] MEDS: Furosemide 20 MG TABLET PO SCH (08:36)
[2017-10-27] MEDS: Famotidine 20 MG TABLET PO SCH ×2 (08:36→21:36)
[2017-10-27] MEDS: Insulin DETEMIR 100 UNIT/ML X5UNITS SQ SCH ×2 (08:37→21:36)
[2017-10-27] MEDS: Gabapentin 300 MG CAPSULE PO SCH ×3 (08:37→21:35)
[2017-10-27] MEDS: Aspirin Enteric Coated 81 MG Tablet PO SCH (08:37)
[2017-10-27] MEDS: ALPRAZolam 0.5 MG TABLET PO SCH ×2 (08:37→21:36)
[2017-10-27] MEDS: Insulin LISPRO 300 UNITS/3 ML VIAL SQ SCH ×7 (08:38→21:36)
[2017-10-28] MEDS: *HR* HYDROcodone/Acet 5/325 mg TABLET PO PRN (02:39)
[2017-10-28] MEDS: Insulin LISPRO 300 UNITS/3 ML VIAL SQ SCH ×3 (03:37→13:17)
[2017-10-28] MEDS: *HR* Enoxaparin 40 MG/0.4 ML SYRINGE SQ SCH (06:24)
[2017-10-28] MEDS: Beclomethasone 80mcg MDI IH SCH (07:40)
[2017-10-28] MEDS ORDERED: Insulin LISPRO 300 UNITS/3 ML VIAL SQ SCH (09:14)
[2017-10-28] MEDS ORDERED: Insulin DETEMIR 100 UNIT/ML X5UNITS SQ SCH (09:15)
[2017-10-28] MEDS: Furosemide 20 MG TABLET PO SCH (09:47)
[2017-10-28] MEDS: Aspirin Enteric Coated 81 MG Tablet PO SCH (09:47)
[2017-10-28] MEDS: ALPRAZolam 0.5 MG TABLET PO SCH (09:47)
[2017-10-28] MEDS: Gabapentin 300 MG CAPSULE PO SCH ×2 (09:47→15:08)
[2017-10-28] MEDS: Famotidine 20 MG TABLET PO SCH (09:48)
[2017-10-28] MEDS ORDERED: Ketorolac 30 MG/ML VIAL IVP SCH (12:00)
--- NOTE | 2017-10-28 15:07 | Discharge Summary ---
- NOTES TO OUTPATIENT PROVIDER Notes to Outpatient Provider: THE PATIENT REFUSED SENDING HER TO [facility] FOR [facility]ORT[facility] TERM REHAB.. Date of Encounter: 10/28/17 Time of Encounter: 15:05 - Discharge Diagnosis (1) Fall Priority: Primary Status: Acute Qualifiers: Encounter type: initial encounter Qualified Code(s): W19.XXXA - Unspecified fall, initial encounter (2) Morbid obesity with BMI of 70 and over, adult Priority: Secondary Status: Chronic (3) Diabetes mellitus Priority: Secondary Status: Chronic Qualifiers: Diabetes mellitus type: type 2 Diabetes mellitus moth proofer insulin use: with usp use Diabetes mellitus complication status: with hyperglycemia Qualified Code(s): E11.65 - Type 2 diabetes mellitus with hyperglycemia; Z79.4 - educational institution curator (current) use of insulin; Z79.4 - educational institution curator (current) use of insulin; Z79.4 - jail (current) use of insulin; Z79.4 - jail (current ) use of insulin (4) Sleep apnea treated with nocturnal BiPAP Priority: Secondary Status: Chronic (5) Chronic venous hypertension w/ulcer and inflammation involv both sides Priority: Secondary Status: Chronic (6) Lymphedema of both lower extremities Priority: Secondary Status: Chronic (7) Essential hypertension Priority: Secondary Status: Chronic (8) Hypothyroidism Priority: Secondary Status: Chronic Qualifiers: Hypothyroidism type: unspecified Qualified Code(s): E03.9 - Hypothyroidism , unspecified (9) Chronic pain syndrome Priority: Secondary Status: Chronic (10) Anxiety and depression Priority: Secondary Status: Chronic (11) Tobacco dependence Priority: Secondary Status: Chronic Hospital course: Ms. Cat is a 47 year old female. We admitted this patient to the hospital shortly after she had experienced a fall, when being at home. Subsequently, she hurt her right hip and left ankle. X-rays done in the emergency department failed to show any significant abnormalities in those areas. After a couple days we offered her physical therapy. She was able to keep her weight on her feet. She may take a few steps next to her bed with assistance from physical therapy. The patient does have morbid obesity with a BMI of 72. She would be a good candidate for a weight reduction surgery. This can be addressed by her PCP after the discharge. We observed her having increased her glucose levels. We did adjustments to her Levemir and Humalog. The patient had refused him admission to [facility] to get a short term rehab. She says, that she would get help from her boyfriendhe would be living with her initially. We offered her home health nursing and the nurse aides. Physical exam at discharge: Her vitals are mentioned above. Her skin shows multiple superficial ulcerations in the lower portion of the abdomen and on lower legs. She does have chronic lymphedema of lower extremities. Respiratory: Normal breath sounds with no crackles and wheezes bilaterally. CV: Heart is regular with no gallop and marijuana. See discharge orders/medications. Discharge discussed with: patient, nurse, other (physical therapy) - Time Spent with Patient Total time spent providing and/or coordinating discharge services: Greater than 30 minutes (45 minutes) - Discharge Medications Home Medications: Ranitidine HCl [Acid Rotary Operator] 150 mg PO BID 04/03/16 [History] Aspirin Enteric Coated [Aspirin EC] 81 mg PO DAILY 10/04/16 [History] Ipratropium/Albuterol Neb [Duoneb] 3 ml IH Q6HR PRN 10/04/16 [History] Ondansetron ODT [Zofran ODT] 4 mg SL Q8HR PRN #10 tab.rapdis 11/08/16 [Rx] metFORMIN [Glucophage] 1,000 mg PO BIDWM #90 tab 11/08/16 [Rx] Levothyroxine Sodium [Levo-T] 350 mcg PO QAM #60 tablet 11/10/16 [Rx] Loratadine [Allergy Relief] 10 mg PO DAILY #60 11/10/16 [Rx] ALPRAZolam [Xanax 0.5 MG Tablet] 0.5 mg PO BID 01/27/17 [History] Atorvastatin Calcium [Lipitor] 20 mg PO HS 01/27/17 [History] Cyanocobalamin (Vitamin B-12) [Vitamin B12] 1,000 mcg PO TH 01/27/17 [History] Docusate [Colace] 100 mg PO BID PRN 01/27/17 [History] Insulin Regular U-500 [HumuLIN R U-500] 0 unit SQ TID MDD See Comment. [History] Mometasone Furoate [Asmanex] 2 puff IH BID 01/27/17 [History] BuPROPion [Wellbutrin] 100 mg PO DAILY 04/10/17 [History] Gabapentin [Neurontin] 600 mg PO TID 04/10/17 [History] Mupirocin [Bactroban Oint] 1 appl TP BID PRN 04/10/17 [History] Nystatin POWDER [Nystop] 1 appl TP TID PRN 04/10/17 [History] Furosemide [Lasix] 20 mg PO DAILY #30 tablet 05/07/17 [Rx] Lisinopril 2.5 mg PO DAILY 10/24/17 [History] Allergies/Adverse Reactions: 3 Allergy/AdvReac Type Severity Reaction Status Date / Time Penicillins Allergy Rash Verified 01/27/16 09:52 Tetracycline Allergy Rash Verified 01/27/16 09:52 Date of admission: 10/24/17 11:02 Primary care physician: Greg Ya Consults: 10/24/17 13:05 Consult to Wound Care [CONS] Routine Reason for Consult: Chronic left leg and lower abdominal wall wound Call Completed: No 10/24/17 15:08 Consult to Interactive Media Marketing Strategist [CONS] Routine Reason for SW Consult: has wound clinic coming to do dressing changes M, W, F. 10/28/17 09:12 Consult to Physical Therapy [CONS] Routine Comment: Evaluate, develop and implement POC Reason for Consult: S/P FALL; NEEDS AMBULATION RE-STARTED.. Does patient have active BEDREST order?: No Is patient medically & hemodynamically stable?: Yes Patient assessed for mobility or mobilized this visit?: No Discharging clinician: Manuel Donald Anticipated date of discharge: 10/28/17 - Constitutional Vitals: Temp Pulse Resp BP Pulse Ox 97.9 F 75 19 149/92 94 10/28/17 11:19 10/28/17 11:19 10/28/17 11:19 10/28/17 11:19 10/28/17 11:19 General appearance: Present: A&O X 3, morbidly obese, answers questions appropriately - Patient Status Disposition: Home, Self-Care Condition: Fair Functional capacity at discharge: uses cane/walker Overall status at discharge: patient is progressing back to baseline - Discharge Instructions Instructions: Heart Failure (DC), Chest Pain (DC), Acute Respiratory Distress Syndrome (DC), Diverticulitis (DC), Urinary Tract Infection in Women (DC), Cellulitis (DC), Hypothyroidism (DC), Diabetes Mellitus Type 2 in Adults (DC), Peripheral Vascular Disorders (DC), Chronic Obstructive Pulmonary Disease (DC), Sepsis (DC), Chronic Hypertension (DC), Anxiety (DC), Fall Prevention (DC), Pneumonia (DC), Cigarette Smoking and Your Health, Dress Finisher (GEN) Follow Up With: Greg Ya [Primary Care Provider] - 11/03/17 1:00 pm - Diet and Activity Activity: ambulate only with your walker Diet: diabetic diet - VTE Deep Vein Thrombosis/Pulmonary Embolism Present on Admission: No
[2017-10-28 15:15] VITALS: BP 124/75
--- NOTE | 2017-10-28 18:21 | Physician Discharge Referral ---
Home Health/Hosp Referral Info Transfer to: Home Health Attending Provider: Danyel Donald Provider in Charge Post Discharge: PCP - Diagnosis (1) Fall Priority: Primary Status: Acute (2) Morbid obesity with BMI of 70 and over, adult Priority: Secondary Status: Chronic (3) Diabetes mellitus Priority: Secondary Status: Chronic (4) Sleep apnea treated with nocturnal BiPAP Priority: Secondary Status: Chronic (5) Chronic venous hypertension w/ulcer and inflammation involv both sides Priority: Secondary Status: Chronic (6) Lymphedema of both lower extremities Priority: Secondary Status: Chronic (7) Essential hypertension Status: Chronic (8) Hypothyroidism Status: Chronic (9) Chronic pain syndrome Status: Chronic (10) Anxiety and depression Priority: Secondary Status: Chronic (11) Tobacco dependence Priority: Secondary Status: Chronic - Respiratory Orders Other (CPAP) Smoking Cessation: Smoking cessation has been advised. For more information, call the [place] Tobacco Quit Line at 5-697-KSAO-NOW. - Dressing/Wound Care Site: see nursing notes.. - Diet/Nutrition Diet/Nutrition Orders: No Concentrated Sweets - Activity Activity Orders: Up ad kaity, Walker - Services Needed Following services are medically necessary services: Nursing, Home Health Aide ( for wound care..) - Transfer Medications Home Medications: Ranitidine HCl [Acid Coupon Redemption Clerk] 150 mg PO BID 04/03/16 [History] Aspirin Enteric Coated [Aspirin EC] 81 mg PO DAILY 10/04/16 [History] Ipratropium/Albuterol Neb [Duoneb] 3 ml IH Q6HR PRN 10/04/16 [History] Ondansetron ODT [Zofran ODT] 4 mg SL Q8HR PRN #10 tab.rapdis 11/08/16 [Rx] metFORMIN [Glucophage] 1,000 mg PO BIDWM #90 tab 11/08/16 [Rx] Levothyroxine Sodium [Levo-T] 350 mcg PO QAM #60 tablet 11/10/16 [Rx] Loratadine [Allergy Relief] 10 mg PO DAILY #60 11/10/16 [Rx] ALPRAZolam [Xanax 0.5 MG Tablet] 0.5 mg PO BID 01/27/17 [History] Atorvastatin Calcium [Lipitor] 20 mg PO HS 01/27/17 [History] Cyanocobalamin (Vitamin B-12) [Vitamin B12] 1,000 mcg PO TH 01/27/17 [History] Docusate [Colace] 100 mg PO BID PRN 01/27/17 [History] Insulin Regular U-500 [HumuLIN R U-500] 0 unit SQ TID MDD See Comment. [History] Mometasone Furoate [Asmanex] 2 puff IH BID 01/27/17 [History] BuPROPion [Wellbutrin] 100 mg PO DAILY 04/10/17 [History] Gabapentin [Neurontin] 600 mg PO TID 04/10/17 [History] Mupirocin [Bactroban Oint] 1 appl TP BID PRN 04/10/17 [History] Nystatin POWDER [Nystop] 1 appl TP TID PRN 04/10/17 [History] Furosemide [Lasix] 20 mg PO DAILY #30 tablet 05/07/17 [Rx] Lisinopril 2.5 mg PO DAILY 10/24/17 [History] Allergies/Adverse Reactions: 3 Allergy/AdvReac Type Severity Reaction Status Date / Time Penicillins Allergy Rash Verified 01/27/16 09:52 Tetracycline Allergy Rash Verified 01/27/16 09:52 Certification: Further, I certify that my clinical findings support that this patient is homebound (i.e. absences from home require considerable and taxing effort and are for medical reasons or mandaeism services or infrequently or short duration when for other reasons) because: Homebound Reason: Patient requires assistance of a person or device to safely leave home (morbid obesity; BMI of 72) Attestation: My signature below is to certify that this patient is under my care and that I, or nurse practitioner, or a physician's human resources executive assistant working with me, has a face-to -face encounter with this patient.
--- NOTE | 2017-10-28 19:41 | Internal Med Progress Note ---
Hospitalist Progress Note - Encounter Date of Encounter: 10/27/17 Time of Encounter: 19:00 - Exam Vitals: Temp Pulse Resp BP Pulse Ox 97.8 F 81 17 124/75 91 10/28/17 15:12 10/28/17 15:12 10/28/17 15:12 10/28/17 15:12 10/28/17 15:12 Exam: xxx - Assessment and Plan (1) Fall Status: Acute (2) Morbid obesity with BMI of 70 and over, adult Status: Chronic (3) Diabetes mellitus Status: Chronic (4) Sleep apnea treated with nocturnal BiPAP Status: Chronic (5) Chronic venous hypertension w/ulcer and inflammation involv both sides Status: Chronic (6) Lymphedema of both lower extremities Status: Chronic (7) Essential hypertension Status: Chronic (8) Hypothyroidism Status: Chronic (9) Chronic pain syndrome Status: Chronic (10) Anxiety and depression Status: Chronic (11) Tobacco dependence Status: Chronic DVT Prophylaxis: s.c Lovenox - Summary of Assessment and Plan Summary of Assessment and Plan: SUBJECTIVE: The patient was admitted shortly after she had experienced a fall at home. Subsequently, she injured her right hip and left ankle. X-rays of those 2 areas did not show any fractures or dislocations. The patient has not started any ambulation yet. She is morbidly obese with a BMI of about 72. She tells me that she was able to move around at home with a walker. Denies chest pain, difficulty breathing, coughing and wheezing. Denies abdominal pain, nausea and vomiting. She has normal urination. Her glucose levels are elevated. OBJECTIVE: Skin: Free of rash and discoloration. She has multiple superficial ulcerations located in the lower portion of her abdominal wall (a big pannus) and on her lower legs. I cannot see any surrounding redness or swelling. ENMT: Oral/pharyngeal mucosa is normal in appearance. Eyes: Sclera is white. There is no discharge from eyes. Respiratory: Normal breath sounds; no crackles or wheezes. CV: Heart is regular; no gallop or murmur. GI: Abdomen is soft and not tender. There is no palpable mass or visceromegaly. Neuro: There is no focal deficits. The patient is morbidly obese with a BMI of about 72. ASSESSMENT AND PLAN: A fall with injuries to right hip area and left ankle area. Likely secondary to severe morbid obesity/deconditioning. We need to start physical therapy as soon as possible. Then, we will make decision about her disposition. Type 2 diabetes mellitus, uncontrolled. We will continue diabetic diet. We will increase her dose of Levemir. Will increase her dose of when necessary Humalog. Morbid obesity with BMI of 72. The patient would be a candidate for weight reduction surgery. This has to be explored by her primary care physician after the discharge. - Time Spent with Patient Total time spent is greater than 50% in coordination of care (as documented) at patient's floor/unit and/or counseling patient: 25 - 35 minutes Plan of Care Discussed with: nurse Internal Medicine: Result - Labs CBC & Chem 7: 10/27/17 04:09 10/27/17 04:09 - ABG Interpretation ABG results: PT/INR, D-dimer PT 13.2 Seconds (9.4-12.1) H 10/24/17 08:48 - VTE Deep Vein Thrombosis/Pulmonary Embolism Present on Admission: No Consult Discharge Plan - Plan Instructions: Heart Failure (DC), Chest Pain (DC), Acute Respiratory Distress Syndrome (DC), Diverticulitis (DC), Urinary Tract Infection in Women (DC), Cellulitis (DC), Hypothyroidism (DC), Diabetes Mellitus Type 2 in Adults (DC), Peripheral Vascular Disorders (DC), Chronic Obstructive Pulmonary Disease (DC), Sepsis (DC), Chronic Hypertension (DC), Anxiety (DC), Fall Prevention (DC), Pneumonia (DC), Cigarette Smoking and Your Health, Quality Review Specialist (GEN) Referrals: Greg Ya [Primary Care Provider] - 11/03/17 1:00 pm (1) Fall Qualifiers: Encounter type: initial encounter Qualified Code(s): W19.XXXA - Unspecified fall, initial encounter (3) Diabetes mellitus Qualifiers: Diabetes mellitus type: type 2 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
== END 2017-10-28 18:01 | disposition home or self-care (01) ==
LOC: EMEROO 08:28 → 2NENU 08:28 → SUATTDRO 11:02 → 2NENU 11:55
PROVIDERS: ADMIT Family Medicine; ATTEND Internal Medicine